=== PATIENT | female | born 1970 | race Caucasian/White ===

== ENCOUNTER 2017-07-23 19:24 | Emergency (ER) | payer BC, MEDICAID, SELFPAY ==
[2017-07-23 20:43] VITALS: BP 160/98; PULSE 101; RESP 20; TEMP 36.8; O2SAT 100; BMI 40.2
--- NOTE | 2017-07-23 21:18 | HMH.EDUTC ---
[facility] [place] Disposition Clinical Impression: Iritis of left eye Disposition: Home, Self-Care Condition on Discharge: Good Additional Instructions: * Erythromycin ointment (provided two tubes) every 1-2 hours tonight while awake and if you wake up through the night. if no better in the morning, call Dr. Kirkland. If better, wear glasses for another day or so before trying to put contacts back in again. Iritis (i-RYE-tis) is inflammation that affects the colored ring around your eye's pupil (iris). The iris is a part of the middle layer of the eye (uvea), so iritis is a type of uveitis, also known as anterior uveitis. Iritis, the most common type of uveitis, affects the front of your eye. The cause is often unknown. It can result from an underlying systemic condition or genetic factoIf untreated, iritis could lead to glaucoma or vision loss. If you have symptoms of iritis, see your doctor as soon as possible. Symptoms Iritis can occur in one or both eyes. It usually develops suddenly, and can last six to eight weeks. Signs and symptoms of iritis include: Eye redness Discomfort or achiness in the affected eye Sensitivity to light (photophobia) Decreased vision Iritis that develops suddenly, over hours or days, is known as acute iritis. Symptoms that develop gradually or last longer than six weeks indicate chronic iritis. When to see a doctor See an doll eye setter as soon as possible if you have symptoms of iritis. Prompt treatment helps prevent serious complications. If you have eye pain and vision problems with other signs and symptoms, you might need urgent medical care. Causes Often, the cause of iritis can't be determined. In some cases, iritis can be linked to eye trauma, genetic factors or certain diseases. Causes of iritis include: Injury to the eye. Blunt force trauma, a penetrating injury, or a burn from a chemical or fire can cause acute iritis. Infections. Shingles (herpes zoster) on your face can cause iritis. Other infectious diseases, such as toxoplasmosis, histoplasmosis, tuberculosis and syphilis, can be linked to other types of uveitis. Genetic predisposition. People who develop certain autoimmune diseases because of a gene alteration that affects their immune systems might also develop acute iritis. Diseases include ankylosing spondylitis, Jam's syndrome, inflammatory bowel disease and psoriatic arthritis. Behcet's disease. An uncommon cause of acute iritis in [place] countries, this condition is also characterized by joint problems, mouth sores and genital sores. Juvenile rheumatoid arthritis. Chronic iritis can develop in children with this condition. Sarcoidosis. This autoimmune disease involves the growth of collections of inflammatory cells (granulomas) in areas of your body, including your eyes. Certain medications. Some drugs, such as the antibiotic rifabutin (Mycobutin) and the antiviral medication cidofovir, that are used to treat HIV infections can be a rare cause of iritis. Stopping these medications usually stops the iritis symptoms. Risk factors Your risk of developing iritis increases if you: Have a specific genetic alteration. People with a specific change in a gene that's essential for healthy immune system function are more likely to develop iritis. This change is labeled [id number]. Develop a sexually transmitted infection. Certain infections, such as syphilis or HIV/AIDs, are linked with a significant risk of iritis. Have a weakened immune system or an autoimmune disorder. This includes conditions such as ankylosing spondylitis and reactive arthritis. Smoke tobacco. Studies have shown that smoking contributes to your risk. Complications If not treated properly, iritis could lead to: Cataracts. Development of a clouding of the lens of your eye (cataract) is a possible complication, especially if you've had a long period of inflammation. An irregular pupil. Scar tissue can cause the iris to stick to the underlying lens
--- NOTE | 2017-07-23 21:25 | ED_ITS ---
[facility] [place] Clinical Impression: Iritis of left eye Disposition: Home, Self-Care Condition on Discharge: Good Additional Instructions: * Erythromycin ointment (provided two tubes) every 1-2 hours tonight while awake and if you wake up through the night. if no better in the morning, call Dr. Kirkland. If better, wear glasses for another day or so before trying to put contacts back in again. Iritis (i-RYE-tis) is inflammation that affects the colored ring around your eye 's pupil (iris). The iris is a part of the middle layer of the eye (uvea), so iritis is a type of uveitis, also known as anterior uveitis. Iritis, the most common type of uveitis, affects the front of your eye. The cause is often unknown. It can result from an underlying systemic condition or genetic factoIf untreated, iritis could lead to glaucoma or vision loss. If you have symptoms of iritis, see your doctor as soon as possible. Symptoms Iritis can occur in one or both eyes. It usually develops suddenly, and can last six to eight weeks. Signs and symptoms of iritis include: * Eye redness * Discomfort or achiness in the affected eye * Sensitivity to light (photophobia) * Decreased vision Iritis that develops suddenly, over hours or days, is known as acute iritis. Symptoms that develop gradually or last longer than six weeks indicate chronic iritis. When to see a doctor See an verifying specialist as soon as possible if you have symptoms of iritis. Prompt treatment helps prevent serious complications. If you have eye pain and vision problems with other signs and symptoms, you might need urgent medical care. Causes Often, the cause of iritis can't be determined. In some cases, iritis can be linked to eye trauma, genetic factors or certain diseases. Causes of iritis include: * Injury to the eye. Blunt force trauma, a penetrating injury, or a burn from a chemical or fire can cause acute iritis. * Infections. Shingles (herpes zoster) on your face can cause iritis. Other infectious diseases, such as toxoplasmosis, histoplasmosis, tuberculosis and syphilis, can be linked to other types of uveitis. * Genetic predisposition. People who develop certain autoimmune diseases because of a gene alteration that affects their immune systems might also develop acute iritis. Diseases include ankylosing spondylitis, Jam's syndrome , inflammatory bowel disease and psoriatic arthritis. * Behcet's disease. An uncommon cause of acute iritis in Western countries, this condition is also characterized by joint problems, mouth sores and genital sores. * Juvenile rheumatoid arthritis. Chronic iritis can develop in children with this condition. * Sarcoidosis. This autoimmune disease involves the growth of collections of inflammatory cells (granulomas) in areas of your body, including your eyes. * Certain medications. Some drugs, such as the antibiotic rifabutin (Mycobutin) and the antiviral medication cidofovir, that are used to treat HIV infections can be a rare cause of iritis. Stopping these medications usually stops the iritis symptoms. Risk factors Your risk of developing iritis increases if you: * Have a specific genetic alteration. People with a specific change in a gene that's essential for healthy immune system function are more likely to develop iritis. This change is labeled HLA-B27. * Develop a sexually transmitted infection. Certain infections, such as syphilis or HIV/AIDs, are linked with a significant risk of iritis. * Have a weakened immune system or an autoimmune disorder. This includes conditions such as ankylosing spondylitis and reactive arthritis. * Smoke tobacco. Studies have shown that smoking contributes to your risk. Complications
== END 2017-07-23 22:08 | disposition home or self-care (01) ==
PROVIDERS: Emergency Provider Nurse Practitioner Family; PCP Nurse Practitioner Family
DX: H20.9 Unspecified iridocyclitis (principal); Z79.899 Other long term (current) drug therapy; Z88.0 Allergy status to penicillin; Z88.8 Allergy status to other drugs, medicaments and biological substances; F32.9 Major depressive disorder, single episode, unspecified; I10 Essential (primary) hypertension
CPT/HCPCS: 99201

== ENCOUNTER → 2017-12-27 16:14 | Outpatient (CLI) | payer BC, MEDICAID, SELFPAY ==
--- NOTE | 2017-12-27 16:19 | MM_ITS ---
MM Dig screening mamm BI w/CAD CAD Screening COMPARISON: Digital mammograms with CAD 02/27/2016 and additional views of each breast and 03/14/2016 INDICATION: There is no personal or family history of breast cancer TECHNIQUE: Standard CC and MLO images were obtained. R2 CAD reviewed. FINDINGS: Scattered diffuse fibroglandular densities are seen throughout both breasts. There are stable asymmetric nodular densities in each breast. There is no new or suspicious lesion in either breast and there are no suspicious microcalcifications. IMPRESSION: Fibrofatty parenchyma with no suspicious lesion seen BI-RADS Category: 2 Benign Finding(s) RECOMMENDED FOLLOW-UP: 1YR - 1 YEAR FOLLOW-UP (A letter has been sent to the patient regarding results of the study.)
== END ==
PROVIDERS: PCP Internal Medicine Adolescent Medicine; Visit Provider Nurse Practitioner Family
DX: Z12.31 Encounter for screening mammogram for malignant neoplasm of breast (principal)
CPT/HCPCS: 77067

== ENCOUNTER → 2017-12-30 07:28 | Outpatient (CLI) | payer BC, MEDICAID, SELFPAY ==
[2017-12-30 07:41] LABS: Basophils % 0.2 % (0.1-2.0); Eosinophils % 0.3 % (0.1-12.0); Hematocrit 47.5 % (37.0-47.0); Hemoglobin 14.9 g/dL (12.2-16.2); Lymphocytes # 2.2 K/mm3 (0.7-4.5); Lymphocytes % 18.6 K/mm3 (10-50); Mean Corpuscular HGB Conc 31.4 g/dL (31.8-35.4); Mean Corpuscular Hemoglobin 28.8 pg (27.0-31.2); Mean Corpuscular Volume 91.7 fl (81-99); Mean Platelet Volume 7.4 fl (7.4-10.4); Monocytes # 0.7 K/mm3 (0.1-1.0); Monocytes % 5.5 % (1.7-9.3); Neutrophils # 8.8 K/mm3 (1.8-7.8); Neutrophils % 75.4 % (37.0-80.0); Platelet Count 420 K/mm3 (142-424); Red Blood Count 5.18 M/mm3 (4.20-5.40); Red Cell Distribution Width 12.1 % (11.5-17.5); White Blood Count 11.7 K/mm3 (4.8-10.8)
[2017-12-30 09:34] LABS: Alanine Aminotransferase 22 U/L (12-78); Albumin Level 3.9 gm/dL (3.4-5.0); Alkaline Phosphatase 99 U/L (46-116); Anion Gap 5.5 mEq/L (5-15); Aspartate Amino Transferase 13 U/L (15-37); Bilirubin,Total 0.7 mg/dL (0.2-1.0); Blood Urea Nitrogen 15 mg/dL (7-18); Calcium 9.4 mg/dL (8.5-10.1); Carbon Dioxide 35 mmol/L (21.0-32.0); Chloride 102 mmol/L (98-107); Chol/HDL Ratio 2.2 (1-3.5); Cholesterol 215 mg/dL (140-200); Creatinine,Serum 0.76 mg/dL (0.55-1.02); Estimated Glomerular Filt Rate 81 ml/min (>60); GFR (African American) 98 ML/MIN (>60); Globulin 4.1 gm/dl (1.3-3.2); Glucose 96 mg/dL (74-106); HDL Cholesterol 97 mg/dL (29-89); LDL Cholesterol 106 mg/dL (0-130); Potassium 3.5 mmoL/L (3.5-5.1); Sodium 139 mmol/L (136-145); Triglycerides 59 mg/dL (30-200); VLDL Cholesterol 12 mg/dL (0-40)
[2017-12-31 09:03] LABS: Vitamin B12 263 pg/mL (232-1245)
== END ==
PROVIDERS: Visit Provider Nurse Practitioner Family
DX: K21.9 Gastro-esophageal reflux disease without esophagitis (principal); I10 Essential (primary) hypertension; E55.9 Vitamin D deficiency, unspecified; Z98.84 Bariatric surgery status
CPT/HCPCS: 36415; 80053; 80061; 82607; 82652; 85025

== ENCOUNTER → 2018-05-29 14:38 | Outpatient (CLI) | payer BC, MEDICAID, SELFPAY ==
--- NOTE | 2018-05-29 14:43 | XR_ITS ---
XR hip LT 2-3V w/pelvis HISTORY: ITS.REASON: LT HIP PAIN ORDERING PHYSICIAN: Nallely Reagan PATIENT AGE: 48 years COMPARISON: None FINDINGS: No fracture or dislocation is evident. No significant degenerative change. No lytic or blastic change. Unremarkable soft tissues Frontal view of the pelvis shows heterotopic bone formation along the right greater trochanter. There are mild facet arthritic changes at L4-L5 IMPRESSION: Negative left hip Mild facet arthritic changes L4-L5
--- NOTE | 2018-05-29 14:43 | XR_ITS ---
XR knee RT 3V HISTORY: ITS.REASON: RT ANTERIOR KNEE PAIN ORDERING PHYSICIAN: Nallely Reagan PATIENT AGE: 48 years COMPARISON: None FINDINGS: No fracture or dislocation. No lytic or blastic change. Normal mineralization. No significant arthritic changes evident. A well-circumscribed lucency is present in the proximal tibia and could be due to prior screw tract There is an old fracture of the midshaft of the femur which is incompletely visualized with callus formation and cortical thickening. IMPRESSION: 1. Negative right knee. 2. Old mid shaft femur fracture
== END ==
PROVIDERS: PCP Nurse Practitioner Family; Visit Provider Nurse Practitioner Family
DX: M25.552 Pain in left hip (principal); M25.561 Pain in right knee
CPT/HCPCS: 73502; 73562

== ENCOUNTER → 2018-07-16 14:13 | Outpatient (CLI) | payer MEDICAID, SELFPAY ==
--- NOTE | 2018-07-16 14:17 | XR_ITS ---
EXAM: XR lumbar spine 2-3V HISTORY: Low back pain ITS.REASON: Back pain ORDERING PHYSICIAN: Indiana Brady MD PATIENT AGE: 48 years COMPARISON: None FINDINGS: There is 6 mm anterolisthesis of L4 on L5. Mild degenerative disc disease is present at the level. There is 3 mm retrolisthesis of L3 on L4. No fracture or dislocation. No lytic or blastic change. IMPRESSION: Mild degenerative disc disease L3-L4 and L4-5 with anterolisthesis of L4 and mild retrolisthesis of L3
== END ==
PROVIDERS: PCP Internal Medicine Adolescent Medicine; Visit Provider Orthopaedic Surgery
DX: M54.9 Dorsalgia, unspecified (principal); M54.5 Low back pain
CPT/HCPCS: 72100

== ENCOUNTER 2018-07-16 14:30 | Outpatient (RCR) | payer MEDICAID, SELFPAY ==
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
--- NOTE | 2018-07-09 15:46 | HMH.RHREAS ---
Rehab Reassessment Rehab OP Re-assessment Start: 07/09/18 15:42 Freq: Status: Active Protocol: Document 07/09/18 15:42 KIMBER (Rec: 07/09/18 15:46 PHOSUNNY [id number]) Electronically Signed By Mane Carter, PT 07/09/18 15:42 Rehab Re-assessment Subjective Subjective Pt reports, My left hip is hurting really bad today. c/o pain 9/10. Objective Objective Notes Pt c/o pain 9/10 throughout left hip abd groin area. Right Hip ER AROM: 0-12 deg. MMT davey LE remains 5/5 throughout within available ROM. Assessment Progress Assessment Slower Than Expected Assessment Notes Pt with less right knee pain today, but significant increase in left hip pain. Goals Not Met ST,2,3,4,5 LT,2,3 ,4,5,6 Revised Goals none Plan Plan continue per initial POC. Frequency of Therapy 2x/wk Duration of therapy 8 wks. Time and Billing Re-Eval Time 15 Re-Eval Billing Units 1 PHYSICIAN CERTIFICATION: I certify the specified therapy services for Hannah Jaime are required, authorized, and reviewed every 30 days.
== END 2018-07-16 14:35 | disposition home or self-care (01) ==
LOC: PT 14:30
PROVIDERS: Visit Provider Nurse Practitioner Family
DX: M25.552 Pain in left hip (principal); M25.561 Pain in right knee
CPT/HCPCS: 97010; 97014; 97033; 97035; 97110; 97140; 97163; 97164; 97760; G0283

== ENCOUNTER → 2018-07-31 13:26 | Outpatient (CLI) | payer MEDICAID, SELFPAY ==
--- NOTE | 2018-07-31 13:36 | XR_ITS ---
XR hip LT 2-3V w/pelvis HISTORY: ITS.REASON: Lt hip pain ORDERING PHYSICIAN: Indiana Bardy MD PATIENT AGE: 48 years COMPARISON: 05/29/2018 FINDINGS: No fracture or dislocation. No lytic or blastic change. No significant degenerative change. Prominent bony hypertrophic changes noted along the right greater trochanter as before. There is an old mid shaft femoral fracture which is barely visualized IMPRESSION: Negative left hip. No change with no acute finding
== END ==
PROVIDERS: PCP Internal Medicine Adolescent Medicine; Visit Provider Orthopaedic Surgery
DX: M25.552 Pain in left hip (principal)
CPT/HCPCS: 73502

== ENCOUNTER → 2018-08-04 08:05 | Outpatient (CLI) | payer MEDICAID, SELFPAY ==
--- NOTE | 2018-08-04 08:10 | IR_ITS ---
IR fluoro guided needle place CLINICAL INDICATION: Left hip pain ITS.REASON: Lt hip injection ORDERING PHYSICIAN: Indiana Brady MD PATIENT AGE: 48 years Comparison: None Fluoroscopy time: 8 seconds FINDINGS: PROCEDURE was performed by Dr. Brday. Please see operative report for specifics. 2 images submitted with the C-arm straits contrast injection about the left hip with some intra-articular and some extra-articular contrast noted. At least one image shows a needle in place overlying the femoral neck. IMPRESSION: Status post left hip joint injection as described above
--- NOTE | 2018-08-04 22:16 | HMH.PROC ---
[facility] Procedure Note Procedure Note:: Date of Procedure: 08/04/18 Pre-procedure diagnosis: left hip pain Post-procedure diagnosis: left hip pain Procedure: intraarticular corticosteroid injection left hip Performed by: Indiana Brady MD [place] Clerk/s: none Anesthesia: local; 10cc 1% lidocaine w/o epinephrine Estimated Blood Loss: none History of Present Illness: 48yo F with L hip pain, being treated for greater trochanteric bursitis; steroid injection into the peritrochanteric region and PT have not improved her pain, and she describes it as more groin-related, present mostly with weightbearing. XR doesn't show significant degenerative changes, so I proposed an intra-articular steroid injection, which may be both diagnostic and therapeutic. After discussing the risks, which include injection site pain, bleeding, and/or infection, the patient agreed to proceed with the injection and provided informed consent. Procedure Note: The patient presented to the radiology department and changed into a gown, exposing the affected L hip. Consent was reviewed and signed by both myself and the patient, all questions were answered. The patient was placed supine on the fluoroscopy table and the L hip exposed. The anterior groin/hip and proximal thigh were prepped with chlorhexidine. Timeout was performed. Next, the fluoro machine was brought in over the patient?s L hip and a picture taken to confirm adequate visualization of the joint. I donned a pair of sterile surgical gloves; the remainder of the procedure was performed in a sterile fashion. A 20G spinal needle was held over the hip to approximate my desired entry point on the skin. Once this was established, a 25G needle was used to infiltrate injection site and estimated needle track with 10cc 1% lidocaine w/o epinephrine. Once the injection site was anesthetized, the spinal needle was advanced through the same puncture site and deeper towards the hip joint. Using fluoro, it was confirmed that the needle was advanced until it was at the level of the femoral neck. The stylus was removed from the spinal needle and 3cc of iodinated contrast solution was injected through the spinal needle. Fluoro was taken again, and the dye confirmed intra-capsular placement of the spinal needle, indicating a successful intraarticular injection. The syringe with contrast was removed, keeping the spinal needle in place, and 40mg Kenalog with 2cc 1% lidocaine w/o epinephrine was injected through the needle into the hip joint. A final fluoro picture was taken, confirming successful intraarticular injection. The spinal needle was removed from the hip and a band-aid was placed over the injection site. Specimens: none Condition/Disposition: good / home Complications: none
--- NOTE | 2018-08-04 22:20 | P.PCN_ITS ---
[facility] Procedure Note Procedure Note:: Date of Procedure: 08/04/18 Pre-procedure diagnosis: left hip pain Post-procedure diagnosis: left hip pain Procedure: intraarticular corticosteroid injection left hip Performed by: Indiana Brady MD Crocheter/s: none Anesthesia: local; 10cc 1% lidocaine w/o epinephrine Estimated Blood Loss: none History of Present Illness: 48yo F with L hip pain, being treated for greater trochanteric bursitis; steroid injection into the peritrochanteric region and PT have not improved her pain, and she describes it as more groin-related, present mostly with weightbearing. XR doesn't show significant degenerative changes, so I proposed an intra- articular steroid injection, which may be both diagnostic and therapeutic. After discussing the risks, which include injection site pain, bleeding, and/or infection, the patient agreed to proceed with the injection and provided informed consent. Procedure Note: The patient presented to the radiology department and changed into a gown, exposing the affected L hip. Consent was reviewed and signed by both myself and the patient, all questions were answered. The patient was placed supine on the fluoroscopy table and the L hip exposed. The anterior groin/hip and proximal thigh were prepped with chlorhexidine. Timeout was performed. Next, the fluoro machine was brought in over the patient?s L hip and a picture taken to confirm adequate visualization of the joint. I donned a pair of sterile surgical gloves; the remainder of the procedure was performed in a sterile fashion. A 20G spinal needle was held over the hip to approximate my desired entry point on the skin. Once this was established, a 25G needle was used to infiltrate injection site and estimated needle track with 10cc 1% lidocaine w/o epinephrine. Once the injection site was anesthetized, the spinal needle was advanced through the same puncture site and deeper towards the hip joint. Using fluoro, it was confirmed that the needle was advanced until it was at the level of the femoral neck. The stylus was removed from the spinal needle and 3cc of iodinated contrast solution was injected through the spinal needle. Fluoro was taken again, and the dye confirmed intra-capsular placement of the spinal needle, indicating a successful intraarticular injection. The syringe with contrast was removed, keeping the spinal needle in place, and 40mg Kenalog with 2cc 1% lidocaine w/o epinephrine was injected through the needle into the hip joint. A final fluoro picture was taken, confirming successful intraarticular injection. The spinal needle was removed from the hip and a band-aid was placed over the injection site. Specimens: none Condition/Disposition: good / home Complications: none
== END ==
PROVIDERS: PCP Nurse Practitioner Family; Visit Provider Orthopaedic Surgery
DX: M70.62 Trochanteric bursitis, left hip (principal); M25.552 Pain in left hip
CPT/HCPCS: 20610; 77002; Q9967

== ENCOUNTER → 2018-09-11 12:48 | Outpatient (CLI) | payer MEDICAID, SELFPAY ==
--- NOTE | 2018-09-11 12:50 | IR_ITS ---
MR hip LT w con, IR arthrogram hip LT HISTORY: Chronic left hip pain ITS.REASON: Lt hip pain ORDERING PHYSICIAN: Indiana Brady MD PATIENT AGE: 48 years COMPARISON: None. Left hip arthrogram: Following obtaining informed consent and timeout procedure under aseptic conditions and local anesthesia with 1% buffered lidocaine, a 21-gauge spinal needle was inserted along the left femoral neck at the junction of the head and the neck. A mixture of gadolinium, Optiray 320, and lidocaine was injected into the left hip capsule. Fluoroscopy confirmed intracapsular location. Approximately 12 cc of contrast mixture was injected without complication. The patient tolerated the procedure well without evidence of immediate complication. Images obtained show intra-articular and capsular contrast. Patient was then taken to the MRI suite. Multiplanar multiecho sequences are performed. FINDINGS: Although, the arthrogram images showed unequivocal intracapsular/intra-articular contrast, there is little contrast within the hip on the MRI images. Contrast may have been absorbed between the arthrogram and MRI . No evidence of avascular necrosis, fracture, or dislocation. There are mild osteoarthritic changes of the hip. No obvious labral tear. There is edema versus extravasated contrast within the inferior aspect of the iliopsoas muscle and the gluteus medius insertion upon the greater trochanter. IMPRESSION: 1. Mild osteoarthritic changes of the hip. 2. No evidence of avascular necrosis, fracture, or bone marrow edema. 3. No obvious labral tear. 4. There is increased T2 signal involving the iliopsoas at the level of the hip joint and the gluteus medius at the insertion on the greater trochanter which could be due to edema or iodinated contrast extravasation. There is poor intra-articular gadolinium signal of uncertain etiology. Findings were discussed with Dr. Brady . The exam could be repeated at no additional charge if clinically desired.
== END ==
PROVIDERS: PCP Nurse Practitioner Family; Visit Provider Orthopaedic Surgery
DX: M25.552 Pain in left hip (principal)
CPT/HCPCS: 73525; 73722; Q9967

== ENCOUNTER → 2018-11-16 08:04 | Outpatient (CLI) | payer MEDICAID, SELFPAY ==
[2018-11-16 08:36] LABS: Basophils # 0.1 K/mm3 (0-0.2); Basophils % 0.6 % (0.1-2.0); Eosinophils # 0.2 K/mm3 (0.0-0.4); Hematocrit 40.5 % (37.0-47.0); Hemoglobin 13.4 g/dL (12.2-16.2); Lymphocytes % 23.7 % (10-50); Mean Corpuscular Hemoglobin 29.9 pg (27.0-31.2); Mean Corpuscular Volume 90.4 fl (81-99); Mean Platelet Volume 7.2 fl (7.4-10.4); Monocytes # 0.4 K/mm3 (0.1-1.0); Monocytes % 4.9 % (1.7-9.3); Neutrophils # 5.8 K/mm3 (1.8-7.8); Neutrophils % 68.9 % (37.0-80.0); Platelet Count 351 K/mm3 (142-424); Red Blood Count 4.48 M/mm3 (4.20-5.40); Red Cell Distribution Width 12.7 % (11.5-17.5); White Blood Count 8.4 K/mm3 (4.8-10.8)
[2018-11-16 09:40] LABS: Alanine Aminotransferase 19 U/L (12-78); Albumin Level 3.4 gm/dL (3.4-5.0); Albumin/Globulin Ratio 0.9 (1.1-1.8); Alkaline Phosphatase 86 U/L (46-116); Anion Gap 13.1 mEq/L (5-15); Aspartate Amino Transferase 11 U/L (15-37); Bilirubin,Total 0.5 mg/dL (0.2-1.0); Blood Urea Nitrogen 10 mg/dL (7-18); Calcium 9.1 mg/dL (8.5-10.1); Carbon Dioxide 31 mmol/L (21.0-32.0); Chloride 102 mmol/L (98-107); Chol/HDL Ratio 2.4 (1-3.5); Cholesterol 197 mg/dL (140-200); Creatinine,Serum 0.77 mg/dL (0.55-1.02); Estimated Glomerular Filt Rate 80 ml/min (>60); Free T4 (Free Thyroxine) 0.98 ng/dl (0.76-1.46); GFR (African American) 96 ML/MIN (>60); Globulin 3.8 gm/dl (1.3-3.2); Glucose 89 mg/dL (74-106); HDL Cholesterol 81 mg/dL (29-89); LDL Cholesterol 104 mg/dL (0-130); Potassium 4.1 mmoL/L (3.5-5.1); Sodium 142 mmol/L (136-145); Thyroid Stimulating Hormone 0.87 uIU/ml (0.358-3.740); Total Protein,Serum 7.2 gm/dL (6.4-8.2); Triglycerides 61 mg/dL (30-200); VLDL Cholesterol 12 mg/dL (0-40)
[2018-11-17 13:00] LABS: Vitamin D 25 Hydroxy 41.1 ng/mL (30.0-100.0)
[2018-11-18 08:51] LABS: Vitamin B12 641 pg/mL (232-1245)
== END ==
PROVIDERS: PCP Nurse Practitioner Family; Visit Provider Nurse Practitioner Family
DX: I10 Essential (primary) hypertension (principal); K21.9 Gastro-esophageal reflux disease without esophagitis; R53.81 Other malaise; E55.9 Vitamin D deficiency, unspecified; Z68.38 Body mass index [BMI] 38.0-38.9, adult
CPT/HCPCS: 36415; 80053; 80061; 82607; 82652; 84439; 84443; 85025

== ENCOUNTER → 2018-12-31 08:38 | Outpatient (CLI) | payer MEDICAID, SELFPAY ==
--- NOTE | 2018-12-31 08:45 | FL_ITS ---
FL upper GI w air HISTORY: ITS.REASON: REFLUX DISEASE, ESOPHAGITIS PRESENCE ORDERING PHYSICIAN: Nallely Reagan APRN PATIENT AGE: 48 years Comparison: None FINDINGS: There is a patulous GE junction. Patient has a prior gastric sleeve surgery. No mass, ulcer, or other significant anomalies are evident. . FLUOROSCOPY TIME : 55 seconds. IMPRESSION: Prior gastric sleeve surgery with patulous GE junction otherwise negative upper GI
== END ==
PROVIDERS: PCP Nurse Practitioner Family; Visit Provider Nurse Practitioner Family
DX: K21.9 Gastro-esophageal reflux disease without esophagitis (principal)
CPT/HCPCS: 74247

== ENCOUNTER → 2019-01-08 15:42 | Outpatient (CLI) | payer MEDICAID, SELFPAY ==
--- NOTE | 2019-01-08 15:45 | MR_ITS ---
MR lumbar spine wo con, MR 3-d myelogram/MRCP HISTORY: LBP. LT hip pain. Bilateral leg pain. [id number]. No trauma. ITS.REASON: LUMBAGO WITH SCIATICA ORDERING PHYSICIAN: Nallely Reagan APRN PATIENT AGE: 48 years Comparison: X-RAY 07-16-18. MRI 05-21-2011. TECHNIQUE: Standard multiplanar multiecho sequences are performed without contrast. 3-D MIP and myelographic images are also rendered and reviewed FINDINGS: Spinal cord ends at the L1-L2 level. T11-T12: Mild degenerative disc disease. T12-L1 unremarkable. L1-L2: Unremarkable. L2-L3: Unremarkable. L3-L4: Unremarkable. L4-5: There is mild anterolisthesis of L4 on L5 of 4 mm which has developed in the interval along with facet and ligamentum flavum hypertrophy with moderate bilateral lateral recess narrowing and mild bilateral foraminal narrowing. There is transverse narrowing of the posterior canal at this region from the facet hypertrophic change. These changes have increased when compared to the previous exam. L5-S1: Mild facet arthritic change. IMPRESSION: 1. There is mild anterolisthesis of L4 on L5 of 4 mm which has developed in the interval along with facet and ligamentum flavum hypertrophy with moderate bilateral lateral recess narrowing and mild bilateral foraminal narrowing. There is transverse narrowing of the posterior canal at this region from the facet hypertrophic change. These changes have increased when compared to the previous exam. 2. No disc herniation or other significant anomalies
== END ==
PROVIDERS: PCP Nurse Practitioner Family; Visit Provider Nurse Practitioner Family
DX: M54.42 Lumbago with sciatica, left side (principal)
CPT/HCPCS: 72148; 76376

== ENCOUNTER → 2019-03-09 08:58 | Outpatient (POV) | payer MEDICAID, SELFPAY ==
[2019-03-09 09:23] VITALS: BP 145/89; PULSE 89; RESP 18; O2SAT 98; BMI 40.2
--- NOTE | 2019-03-10 08:58 | HMH.PMCON ---
Assessment and Plan (1) Degenerative disc disease Current visit: Yes Status: Chronic Qualifiers: Spinal region: lumbar Qualified Code(s): M51.36 - Other intervertebral disc degeneration, lumbar region Category: Medical (2) Radiculopathy Current visit: Yes Status: Chronic Qualifiers: Spinal region: lumbar Qualified Code(s): M54.16 - Radiculopathy, lumbar region Category: Medical Code(s): M54.10 - Radiculopathy, site unspecified - Assessment and plan all Dx Assessment and Plan for all problems:: We will schedule an L4-L5 lumbar epidural steroid injection for the patient I believe it would be beneficial given her symptomology. I will follow-up with the patient after her injection reassess her symptoms at that time. Patient's been instructed to call the office if she has any issues prior to her next appointment. Dr. Camejo has reviewed this note and agrees with this plan of care. This note was dictated using voice recognition software and may contain errors or omissions HPI - Data of Consult Consult date: 03/09/19 Requesting Physician: Love Trivedi APRN Primary Care Provider: Nallely Reagan APRN - Consult Narrative Reason for consult: Back pain, leg pain History of present illness: Ms. Jaime is a 48 year old female who presents today for consultation in regards to her low back and leg pain. Patient states that increased activity makes her pain worse while rest decreases it. She rates her pain a 7 out of 10 today. 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 Patient is tried and failed hip injections from Ortho along with healthcare science specialist, physical therapy, massage therapy she is also tried multiple medications including Elavil, diazepam Cymbalta Lexapro Prozac gabapentin hydrocodone ibuprofen naproxen Zoloft Topamax and Effexor with no relief. Patient does have an MRI showing degenerative changes. Patient is interested in injective therapy. She is not on any anticoagulation therapy. She is failed over 6 months of conservative therapy. CC: Love Trivedi APRN [facility] History I have reviewed the patient's past medical history: Yes Medical History: Reports:: Anxiety, Depression, Hypertension, Migraine Denies:: Diabetes Mellitus Type 1, Diabetes Mellitus Type 2, Lung Disease, Seizures *Have you ever received a pneumonia vaccine?: Yes *Have you received a flu vaccine this season?: Yes Other Medical History: Reports: Other. Denies: Blood Transfusion Reaction Other Surgeries: Yes: Appendectomy, Colonoscopy, EGD, Other - *Social History Smoking Status: Never smoker Alcohol Intake: never Alcohol Intake Frequency:: other Substance Use Type: denies use *Occupational Status:: other *Travel in the last 8 weeks: None - Psychiatric History Pschychiatric History:: Reports:: Anxiety, Depression Family Hx:: No significant family history Review of Systems - Review of Systems ROS General: no recent weight change, no fever, no sleep disturbances Respiratory: no cough, no shortness of air, no recurring pulmonary infections Cardiovascular/Peripheral Vascular: No chest pain, No palpitations, no edema, no shortness of breath. Gastrointestinal: no incontinence, normal bowel movements reported Genitourinary: no incontinence Musculoskeletal: Back pain, leg pain Psychiatric: normal mood/ affect Neurological: [denies weakness in extremities], [denies balance issues] Meds Home Medications Medication Instructions Recorded Confirmed Type Buspirone HCl [Buspar 10mg 10 mg PO DAILY 07/23/17 11/03/18 History tablet] Amlodipine Besylate [Amlodipine 10 mg PO DAILY 10/01/17 11/03/18 History 10mg Tab] SUMAtriptan succinate [Sumatriptan 100 mg PO DAILY 10/01/17 11/03/18 History Succinate] amitriptyline 50 mg tablet 50 mg PO DAILY 07/31/18 11/03/18 History esomeprazole magnesium 40 mg 40 mg PO DAILY 07/31/18 11/03/18 History capsule,delayed release
--- NOTE | 2019-03-10 09:01 | P.CONS_ITS ---
Assessment and Plan (1) Degenerative disc disease Current visit: Yes Status: Chronic Qualifiers: Spinal region: lumbar Qualified Code(s): M51.36 - Other intervertebral disc degeneration, lumbar region Category: Medical (2) Radiculopathy Current visit: Yes Status: Chronic Qualifiers: Spinal region: lumbar Qualified Code(s): M54.16 - Radiculopathy, lumbar region Category: Medical Code(s): M54.10 - Radiculopathy, site unspecified - Assessment and plan all Dx Assessment and Plan for all problems:: We will schedule an L4-L5 lumbar epidural steroid injection for the patient I believe it would be beneficial given her symptomology. I will follow-up with the patient after her injection reassess her symptoms at that time. Patient's been instructed to call the office if she has any issues prior to her next appointment. Dr. Camejo has reviewed this note and agrees with this plan of care. This note was dictated using voice recognition software and may contain errors or omissions HPI - Data of Consult Consult date: 03/09/19 Requesting Physician: Love Trivedi APRN Primary Care Provider: Nallely Reagan APRN - Consult Narrative Reason for consult: Back pain, leg pain History of present illness: Ms. Jaime is a 48 year old female who presents today for consultation in regards to her low back and leg pain. Patient states that increased activity makes her pain worse while rest decreases it. She rates her pain a 7 out of 10 today. 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 Patient is tried and failed hip injections from Ortho along with livestock caretaker, physical therapy, massage therapy she is also tried multiple medications including Elavil, diazepam Cymbalta Lexapro Prozac gabapentin hydrocodone ibuprofen naproxen Zoloft Topamax and Effexor with no relief. Patient does have an MRI showing degenerative changes. Patient is interested in injective therapy. She is not on any anticoagulation therapy. She is failed over 6 months of conservative therapy. CC: Love Trivedi APRN [facility] History I have reviewed the patient's past medical history: Yes Medical History: Reports:: Anxiety, Depression, Hypertension, Migraine Denies:: Diabetes Mellitus Type 1, Diabetes Mellitus Type 2, Lung Disease, Seizures *Have you ever received a pneumonia vaccine?: Yes *Have you received a flu vaccine this season?: Yes Other Medical History: Reports: Other. Denies: Blood Transfusion Reaction Other Surgeries: Yes: Appendectomy, Colonoscopy, EGD, Other - *Social History Smoking Status: Never smoker Alcohol Intake: never Alcohol Intake Frequency:: other Substance Use Type: denies use *Occupational Status:: other *Travel in the last 8 weeks: None - Psychiatric History Pschychiatric History:: Reports:: Anxiety, Depression Family Hx:: No significant family history Review of Systems - Review of Systems ROS General: no recent weight change, no fever, no sleep disturbances Respiratory: no cough, no shortness of air, no recurring pulmonary infections Cardiovascular/Peripheral Vascular: No chest pain, No palpitations, no edema, no shortness of breath. Gastrointestinal: no incontinence, normal bowel movements reported Genitourinary: no incontinence Musculoskeletal: Back pain, leg pain Psychiatric: normal mood/ affect Neurological: [denies weakness in extremities], [denies balance issues] Meds Home Medications Medication Instructions
== END ==
PROVIDERS: PCP Nurse Practitioner Family; Visit Provider Clinical Nurse Specialist Family Health
DX: M51.16 Intervertebral disc disorders with radiculopathy, lumbar region (principal)
CPT/HCPCS: 99202

== ENCOUNTER 2019-03-30 12:27 | Outpatient (CLI) | payer MEDICAID, SELFPAY ==
[2019-03-30 12:35] VITALS: BMI 42.0
[2019-03-30 12:41] VITALS: BP 166/89; PULSE 85; RESP 18; TEMP 36.6; O2SAT 98
[2019-03-30 12:52] LABS: Basophils % 0.3 % (0.1-2.0); Eosinophils # 0.1 K/mm3 (0.0-0.4); Eosinophils % 0.7 % (0.1-12.0); Hematocrit 43.3 % (37.0-47.0); Hemoglobin 13.3 g/dL (12.2-16.2); Lymphocytes # 2.7 K/mm3 (0.7-4.5); Lymphocytes % 20.8 % (10-50); Mean Corpuscular HGB Conc 30.7 g/dL (31.8-35.4); Mean Corpuscular Volume 94.3 fl (81-99); Mean Platelet Volume 7.7 fl (7.4-10.4); Monocytes # 0.6 K/mm3 (0.1-1.0); Monocytes % 4.3 % (1.7-9.3); Neutrophils # 9.4 K/mm3 (1.8-7.8); Neutrophils % 73.8 % (37.0-80.0); Platelet Count 403 K/mm3 (142-424); Red Cell Distribution Width 13.7 % (11.5-17.5); White Blood Count 12.7 K/mm3 (4.8-10.8)
[2019-03-30 13:01] LABS: Anion Gap 13.5 mEq/L (5-15); Blood Urea Nitrogen 12 mg/dL (7-18); Calcium 9.3 mg/dL (8.5-10.1); Carbon Dioxide 28 mmol/L (21.0-32.0); Chloride 102 mmol/L (98-107); Creatinine Clearance Estimated 73 mL/min (50-200); Creatinine,Serum 0.74 mg/dL (0.55-1.02); Estimated Glomerular Filt Rate 83 ml/min (>60); GFR (African American) 101 ML/MIN (>60); Glucose 93 mg/dL (74-106); Potassium 3.5 mmoL/L (3.5-5.1); Sodium 140 mmol/L (136-145)
[2019-03-30 13:40] VITALS: BP 149/82; PULSE 82; RESP 18; TEMP 36.6; O2SAT 99
[2019-03-30 14:40] VITALS: BP 156/92; PULSE 79; RESP 16; TEMP 36.6; O2SAT 99
--- NOTE | 2019-03-30 16:30 | PC.NURSE ---
1445 pt discharged home/stable. States relief of migraine headache pain with Toradol, rating pain 3 to 4 out of 10 on scale of 0-10, improved from pain level 10 on arrival. No nausea or vomiting. Pt has tolerated IVF infusion,Toradol and Phenergan well with no problems noted.
== END 2019-03-30 14:45 | disposition home or self-care (01) ==
LOC: INF 12:28
PROVIDERS: PCP Nurse Practitioner Family; Visit Provider Nurse Practitioner Family
DX: G43.111 Migraine with aura, intractable, with status migrainosus (principal)
CPT/HCPCS: 80048; 85025; 96360; 96361

== ENCOUNTER → 2019-04-16 16:16 | Outpatient (CLI) | payer OTHER, SELFPAY ==
--- NOTE | 2019-04-16 16:19 | MM_ITS ---
PROCEDURE: MM DIG SCREENING MAMM BI W/CAD CLINICAL INDICATION: SCREENING There is a history of breast cancer in the patient's paternal grandmother. COMPARISON: [facility] DIG MAMM-SCREEN RAJI from 02/27/2016 [facility] DIG MAMM- RAJI ADD VIEWS from 03/14/2016 [facility] MM Dig screening mamm BI w/CAD from 12/27/2017 TECHNIQUE: Standard CC and MLO images were obtained. R2 CAD reviewed. FINDINGS: Scattered diffuse fibroglandular densities are seen throughout both breast on a background of primarily fatty breast parenchyma. There are few benign-appearing microcalcifications in each breast. There is a benign-appearing macrocalcification seen just deep to the nipple right breast. There are stable tiny nodular densities in each breast. There is no suspicious lesion and no suspicious microcalcifications. IMPRESSION: Fibrofatty parenchyma with no suspicious lesions seen BI-RAD Category: 2 Benign Finding(s) FOLLOW-UP: 1YR 1 Year Follow-up (A letter has been sent to the patient regarding results of the study.) Dictated by: Dr. Evans Funez MD 04/17/2019 11:[address] Evans Funez MD in [place] 04/17/2019 11:00
== END ==
PROVIDERS: PCP Nurse Practitioner Family; Visit Provider Nurse Practitioner Family
DX: Z12.31 Encounter for screening mammogram for malignant neoplasm of breast (principal)
CPT/HCPCS: 77067

== ENCOUNTER → 2019-04-23 11:29 | Outpatient (POV) | payer OTHER, SELFPAY ==
[2019-04-23 12:34] VITALS: BP 144/78; PULSE 83; RESP 18; O2SAT 98; BMI 39.4
--- NOTE | 2019-04-23 12:44 | HMH.PAINSOAP ---
[facility] Pain Management SOAP Note Subjective:: Patient is a pleasant 48-year-old white female who presents today for follow-up after a lumbar epidural steroid injection. She is being treated for low back pain with lumbar radiculopathy symptoms. Patient reports that she got approximately 20% relief following her lumbar epidural steroid injection. She says that her relief lasted for about 2 days. She says her pain did return and has progressively gotten worse. Patient says that her pain is worse on her right lower back and is causing intense pain when she bends forward or when she turns to pick things up . Patient says that her pain is also worse in her right lower extremity. Patient is not on any anticoagulation therapy. She is continuing with anti-inflammatories and a home stretching program. She is also undergone physical therapy. Review of Systems General: No recent weight changes, no fever, no sleep disturbances Respiratory: No cough, no shortness of air, no recurring pulmonary infections Cardiovascular/peripheral vascular: No chest pain, no palpitations, no edema, no shortness of breath Gastrointestinal: No new onset incontinence, normal bowel movements reported Genitourinary: No new onset incontinence Musculoskeletal: Back pain, right leg pain Psychiatric: Normal mood/affect Neurological: [Denies weakness in extremities], [denies balance issues] Objective:: Physical exam General: Alert and oriented x3, no acute distress, pleasant and cooperative, [on room air] Lungs: Respirations even and unlabored, symmetrical chest expansion Eyes: PERRL Musculoskeletal: Flexion and extension of lumbar spine somewhat guarded secondary to pain, deep tendon reflexes normal, strength in upper and lower extremities [5/5], slightly antalgic gait noted Neurological: Speech clear, head machine feeder equal, no gross sensory deficit Assessment:: Degenerative disc disease lumbar spine with lumbar radiculopathy symptoms Plan:: Given the patient's imaging and symptoms. Think the patient would benefit from a medial branch block/facet joint injections at L4-L5, along with L5-S1. Patient does have pain bilaterally, however, her pain is worse on the right side at this time. We will schedule the injections bilaterally. She did not get relief with the lumbar epidural steroid injection. She will continue with anti-inflammatories and a home stretching program along with anti-inflammatories. We will see her back in the clinic following her procedure to reassess her symptoms. She has been instructed to contact the clinic if she has any concerns before her next appointment. Dr. Camejo has reviewed this note and agrees with this plan of care. This note was dictated using voice recognition software and make contain errors or omissions. [facility] History I have reviewed the patient's past medical history: Yes Medical History: Reports:: Anxiety, Depression, Hypertension, Migraine Denies:: Cancer, Diabetes Mellitus Type 1, Diabetes Mellitus Type 2, Lung Disease, MRSA, Seizures *Have you ever received a pneumonia vaccine?: Yes *Have you received a flu vaccine this season?: Yes Other Medical History: Reports: Other. Denies: Blood Transfusion Reaction Other Surgeries: Yes: Appendectomy, Colonoscopy, EGD, Other Amputation: No Fractures: No - *Social History Smoking Status: Never smoker Alcohol Intake: never Alcohol Intake Frequency:: other Substance Use Type: denies use *Occupational Status:: other Household Members: spouse, children *Travel in the last 8 weeks: None - Psychiatric History Pschychiatric History:: Reports:: Anxiety, Depression Family Hx:: No significant family history
== END ==
PROVIDERS: PCP Internal Medicine Adolescent Medicine; Visit Provider Clinical Nurse Specialist Family Health
DX: M51.16 Intervertebral disc disorders with radiculopathy, lumbar region (principal)
CPT/HCPCS: 99212

== ENCOUNTER → 2019-10-15 11:33 | Outpatient (CLI) | payer OTHER, SELFPAY ==
[2019-10-15 12:12] LABS: Basophils % 0.4 % (0.1-2.0); Eosinophils # 0.1 K/mm3 (0.0-0.4); Eosinophils % 1.2 % (0.1-12.0); Hematocrit 38.8 % (37.0-47.0); Hemoglobin 11.9 g/dL (12.2-16.2); Lymphocytes # 2.2 K/mm3 (0.7-4.5); Lymphocytes % 28.8 % (10-50); Mean Corpuscular HGB Conc 30.7 g/dL (31.8-35.4); Mean Corpuscular Hemoglobin 27.9 pg (27.0-31.2); Mean Corpuscular Volume 90.7 fl (81-99); Mean Platelet Volume 7.9 fl (7.4-10.4); Monocytes # 0.3 K/mm3 (0.1-1.0); Monocytes % 3.6 % (1.7-9.3); Platelet Count 336 K/mm3 (142-424); Red Blood Count 4.28 M/mm3 (4.20-5.40); Red Cell Distribution Width 13.5 % (11.5-17.5); White Blood Count 7.6 K/mm3 (4.8-10.8)
[2019-10-15 12:50] LABS: Alanine Aminotransferase 11 U/L (12-78); Albumin Level 3.8 g/dl (3.5-5.0); Albumin/Globulin Ratio 1.3 (1.1-1.8); Alkaline Phosphatase 78 U/L (38-126); Aspartate Amino Transferase 21 U/L (14-36); Blood Urea Nitrogen 13 mg/dl (7-17); Calcium 9.2 mg/dl (8.4-10.2); Carbon Dioxide 32 mmol/L (22.0-30.0); Chloride 103 mmol/L (98-107); Estimated Glomerular Filt Rate 66 ml/min (>60); GFR (African American) 80 ML/MIN (>60); Globulin 2.9 g/dL (1.3-3.2); Glucose 77 mg/dl (74-100); Sodium 139 mmol/L (136-145); Total Protein,Serum 6.7 g/dl (6.3-8.2)
[2019-10-15 12:52] LABS: Bilirubin,Total < 0.1 mg/dl (0.2-1.3)
[2019-10-15 13:21] LABS: Thyroid Stimulating Hormone 0.74 uIU/mL (0.465-4.68)
[2019-10-16 11:27] LABS: FSH 36.1 mIU/mL (.); LH 19.6 mIU/mL (.); Vitamin D 25 Hydroxy 30.3 ng/mL (30.0-100.0)
[2019-10-17 09:14] LABS: Estrogen 101 pg/mL (.)
== END ==
PROVIDERS: Visit Provider Nurse Practitioner Family
DX: R23.2 Flushing (principal); I10 Essential (primary) hypertension; E55.9 Vitamin D deficiency, unspecified
CPT/HCPCS: 36415; 80053; 82652; 82672; 83001; 83002; 84443; 85025

== ENCOUNTER → 2020-03-22 09:59 | Outpatient (CLI) | payer OTHER, SELFPAY ==
[2020-03-22 13:07] LABS: Coronavirus 19 IgG Antibody Negative (Negative); Coronavirus 19 IgM Antibody Negative (Negative)
== END ==
PROVIDERS: Visit Provider Surgery
DX: Z01.89 Encounter for other specified special examinations (principal)
CPT/HCPCS: 36415; 86328

== ENCOUNTER → 2020-03-23 10:40 | Outpatient (CLI) | payer OTHER, SELFPAY ==
--- NOTE | 2020-03-23 10:45 | MR_ITS ---
PROCEDURE: MR LUMBAR SPINE WO/W CON CLINICAL INDICATION: BACK PAIN, LUMBAR FACET ARTHROPATHY Prior lumbar surgery Aug 2019 pt fell 6 weeks ago and c/o lbp since fall. Prior MRI lumbar 01/08/19 TECHNIQUE: Standard multiplanar multiecho sequences are performed without and with contrast. 3-D MIP and myelographic images are also rendered and reviewed FINDINGS: There is normal alignment. The spinal cord ends at the L1-L2 level. T11-T12: Mild degenerative disc disease with minimal bulging disc. T12-L1: Unremarkable. L1-L2: Unremarkable. L2-L3: Unremarkable. L3-L4: Mild bulging disc. There is facet and ligamentum hypertrophy with bilateral lateral recess and foraminal narrowing. L4-5: Postsurgical changes with inter pedicular screws at L4 and L5 with posterior fusion. There is mild anterolisthesis of L4 of approximately 4 mm. L5-S1: Mild facet and ligamentum hypertrophy. There are postsurgical changes at the L4-5 interspace from prior posterior laminectomy and inter pedicular screw placement. Enhancing tissue is present posteriorly posterior to the thecal sac and also some in the left posterior lateral aspect of the thecal sac consistent with epidural fibrosis. No anterior enhancing tissue or perineural enhancement is evident. IMPRESSION: 1. Mild multilevel lumbar spondylosis with degenerative disc disease along with facet and ligamentum hypertrophy. Please see above for detailed description at each level. 2. No extruded herniated disc or canal stenosis evident. 3. There are postsurgical changes at the L4-5 interspace from prior posterior laminectomy and inter pedicular screw placement. Enhancing tissue is present posteriorly posterior to the thecal sac and also some in the left posterior lateral aspect of the thecal sac consistent with epidural fibrosis. No anterior enhancing tissue or perineural enhancement is evident Dictated by: Leonard Smith MD 03/25/2020 12:30 Leonard Smith MD in [place] 03/25/2020 12:30
== END ==
PROVIDERS: PCP Internal Medicine Adolescent Medicine; Visit Provider Neurological Surgery
DX: M54.5 Low back pain (principal); M47.816 Spondylosis without myelopathy or radiculopathy, lumbar region; Z98.1 Arthrodesis status
CPT/HCPCS: 72158; 76376; A9576

== ENCOUNTER 2020-03-24 09:21 | Day surgery (SDC) | payer OTHER, SELFPAY ==
[2020-03-22 10:32] VITALS: BMI 41.1
[2020-03-24 09:36] VITALS: BP 193/100; PULSE 89; RESP 18; TEMP 36.8; O2SAT 100
[2020-03-24 10:01] VITALS: O2SAT 100
[2020-03-24 10:51] VITALS: BP 101/76; PULSE 77; RESP 18; TEMP 36.1; O2SAT 94
--- NOTE | 2020-03-24 10:52 | HMH.SCOPE ---
- Procedure: Date: 03/24/20 Patient Date of :: 1970 Procedure Performed:: Esophagogastroduodenoscopy with biopsy Colonoscopy Indications:: History of colon polyps Reflux Sliding hiatal hernia History of gastric polyp Performing Provider:: Brett Radford MD Referring Provider:: . Sedation:: Monitored anesthesia care Procedure:: After informed consent was obtained the patient was taken to the endoscopy suite. Sedation ensued after the patient was transferred to the left lateral decubitus position. Pulse, blood pressure, and oxygen saturation were monitored throughout the procedure. The endoscope was advanced beyond the duodenal bulb. Retroflexion within the gastric lumen was accomplished. The gastroscope was carefully removed. Digital rectal exam revealed no significant abnormality. The colonoscope was placed in position. The entire colon was evaluated. The colonoscope was carefully removed and the patient was transferred to recovery in stable condition. Please see findings and specimens below for detail. Findings:: Gastroesophageal junction at 36 cm Sliding hiatal hernia Moderate streaking gastritis versus gastric antral vascular ectasia (GAVE) Bowel preparation fair to moderate Moderate spasticity and lack of relaxation Hemorrhoidal cushions Specimens:: Antral biopsy Recommendations:: Proton pump inhibition May require repeat EGD with argon therapy if anemia, hematemesis, or melena noted Repeat colonoscopy in around 3 years secondary to ongoing limitations in visualization (bowel preparation improved versus prior) Complications:: No immediate Estimated blood obtained (mL): 1
[2020-03-24 11:01] VITALS: BP 101/57; PULSE 76; RESP 18; TEMP 36.1; O2SAT 96
[2020-03-24 11:11] VITALS: BP 111/65; PULSE 74; RESP 18; TEMP 36.1; O2SAT 96
[2020-03-24 11:21] VITALS: BP 118/70; PULSE 73; RESP 18; TEMP 36.1; O2SAT 96
== END 2020-03-24 11:21 | disposition home or self-care (01) ==
LOC: OUTP 09:22
PROVIDERS: PCP Internal Medicine Adolescent Medicine; Visit Provider Surgery
PROC: 0DJ08ZZ Inspection of Upper Intestinal Tract, Via Natural or Artificial Opening Endoscopic (ICD-10-PCS; CPT 43235; principal; 2020-03-24 10:30)
DX: Z12.11 Encounter for screening for malignant neoplasm of colon (principal); K31.819 Angiodysplasia of stomach and duodenum without bleeding; K44.9 Diaphragmatic hernia without obstruction or gangrene; K64.9 Unspecified hemorrhoids; K56.2 Volvulus; Z86.010 Personal history of colon polyps; Z87.19 Personal history of other diseases of the digestive system; Z88.0 Allergy status to penicillin; Z88.8 Allergy status to other drugs, medicaments and biological substances; Z79.899 Other long term (current) drug therapy
CPT/HCPCS: 43239; 45378

== ENCOUNTER → 2020-05-14 07:02 | Outpatient (CLI) | payer OTHER, SELFPAY ==
[2020-05-14 07:45] LABS: Basophils % 0.5 % (0.1-2.0); Eosinophils # 0.1 K/mm3 (0.0-0.4); Eosinophils % 1.2 % (0.1-12.0); Hematocrit 42.1 % (37.0-47.0); Hemoglobin 13.3 g/dL (12.2-16.2); Lymphocytes # 1.7 K/mm3 (0.7-4.5); Lymphocytes % 25.9 % (10-50); Mean Corpuscular HGB Conc 31.6 g/dL (31.8-35.4); Mean Corpuscular Hemoglobin 29.5 pg (27.0-31.2); Mean Corpuscular Volume 93.3 fl (81-99); Mean Platelet Volume 7.9 fl (7.4-10.4); Monocytes # 0.3 K/mm3 (0.1-1.0); Monocytes % 4.7 % (1.7-9.3); Neutrophils # 4.4 K/mm3 (1.8-7.8); Neutrophils % 67.6 % (37.0-80.0); Platelet Count 338 K/mm3 (142-424); Red Blood Count 4.51 M/mm3 (4.20-5.40); Red Cell Distribution Width 13.6 % (11.5-17.5); White Blood Count 6.5 K/mm3 (4.8-10.8)
[2020-05-14 11:35] LABS: Alanine Aminotransferase 13 U/L (12-78); Albumin Level 3.8 g/dl (3.5-5.0); Albumin/Globulin Ratio 1.3 (1.1-1.8); Alkaline Phosphatase 91 U/L (38-126); Anion Gap 7.6 mEq/L (5-15); Aspartate Amino Transferase 23 U/L (14-36); Bilirubin,Total 0.4 mg/dl (0.2-1.3); Blood Urea Nitrogen 12 mg/dl (7-17); Calcium 9.3 mg/dl (8.4-10.2); Carbon Dioxide 33 mmol/L (22.0-30.0); Chloride 104 mmol/L (98-107); Chol/HDL Ratio 2.2 (1-3.5); Cholesterol 218 mg/dl (140-200); Estimated Glomerular Filt Rate 88 ml/min (>60); GFR (African American) 107 ML/MIN (>60); Glucose 85 mg/dl (74-100); HDL Cholesterol 98 mg/dl (40-60); Potassium 4.6 mmoL/L (3.5-5.1); Sodium 140 mmol/L (136-145); Total Protein,Serum 6.8 g/dl (6.3-8.2); Triglycerides 100 mg/dl (30-150); VLDL Cholesterol 20 mg/dL (0-40)
[2020-05-14 11:46] LABS: Direct LDL Cholesterol 110.86 mg/dL (100-129)
[2020-05-14 12:06] LABS: Thyroid Stimulating Hormone 1.18 uIU/mL (0.465-4.68)
[2020-05-14 12:24] LABS: Vitamin B12 236 pg/mL (239-931)
== END ==
PROVIDERS: Visit Provider Nurse Practitioner Family
DX: I10 Essential (primary) hypertension (principal); R53.81 Other malaise
CPT/HCPCS: 36415; 80053; 80061; 82607; 84443; 85025

== ENCOUNTER 2020-06-23 10:00 | Outpatient (RCR) | payer OTHER, SELFPAY | END 2020-06-23 10:05 | disposition home or self-care (01) | LOC: PT 10:00 | PROVIDERS: PCP Internal Medicine Adolescent Medicine; Visit Provider Neurological Surgery | DX: M54.9 Dorsalgia, unspecified; Z98.1 Arthrodesis status | CPT/HCPCS: 97010; 97014; 97110; 97163; 97164; G0283 ==

== ENCOUNTER → 2020-07-11 08:25 | Outpatient (CLI) | payer OTHER, SELFPAY ==
--- NOTE | 2020-07-11 08:31 | XR_ITS ---
PROCEDURE: XR WRIST RT MIN 3V CLINICAL INDICATION: BL wrist/hand pain COMPARISON: No exams were available for comparison FINDINGS: No fracture or dislocation. No lytic or blastic change. There is normal mineralization. The joint spaces are well-preserved. No significant degenerative/arthritic changes. No erosive changes evident. Other findings:None. IMPRESSION: No acute findings. Dictated by: Leonard Smith MD 07/11/2020 14:57 Leonard Smith MD in [place] 07/11/2020 14:57
--- NOTE | 2020-07-11 08:31 | XR_ITS ---
PROCEDURE: XR WRIST LT MIN 3V CLINICAL INDICATION: BL wrist/hand pain COMPARISON: No exams were available for comparison FINDINGS: No fracture or dislocation. No lytic or blastic change. There is normal mineralization. The joint spaces are well-preserved. No significant degenerative/arthritic changes. No erosive changes evident. Other findings:None. IMPRESSION: No acute findings. Dictated by: Leonard Smith MD 07/11/2020 14:58 Leonard Smith MD in [place] 07/11/2020 14:58
== END ==
PROVIDERS: PCP Internal Medicine Adolescent Medicine; Visit Provider Orthopaedic Surgery
DX: G56.03 Carpal tunnel syndrome, bilateral upper limbs (principal)
CPT/HCPCS: 73110

== ENCOUNTER → 2020-08-16 10:57 | Outpatient (CLI) | payer OTHER, SELFPAY ==
[2020-08-16 11:12] LABS: Basophils # 0.1 K/mm3 (0-0.2); Basophils % 0.6 % (0.1-2.0); Eosinophils # 0.1 K/mm3 (0.0-0.4); Hematocrit 42.5 % (37.0-47.0); Hemoglobin 13.1 g/dL (12.2-16.2); Lymphocytes # 2.6 K/mm3 (0.7-4.5); Lymphocytes % 33.4 % (10-50); Mean Corpuscular HGB Conc 30.9 g/dL (31.8-35.4); Mean Corpuscular Hemoglobin 29.2 pg (27.0-31.2); Mean Corpuscular Volume 94.5 fl (81-99); Mean Platelet Volume 7.9 fl (7.4-10.4); Monocytes # 0.3 K/mm3 (0.1-1.0); Monocytes % 3.9 % (1.7-9.3); Neutrophils # 4.8 K/mm3 (1.8-7.8); Neutrophils % 61.1 % (37.0-80.0); Platelet Count 382 K/mm3 (142-424); Red Cell Distribution Width 13.2 % (11.5-17.5); White Blood Count 7.9 K/mm3 (4.8-10.8)
[2020-08-16 12:16] LABS: Chloride 103 mmol/L (98-107); Sodium 140 mmol/L (136-145)
[2020-08-16 12:17] LABS: Potassium 4.1 mmoL/L (3.5-5.1)
[2020-08-16 12:19] LABS: Alanine Aminotransferase 19 U/L (12-78); Albumin Level 4.4 g/dl (3.5-5.0); Albumin/Globulin Ratio 1.2 (1.1-1.8); Alkaline Phosphatase 89 U/L (38-126); Anion Gap 9.1 mEq/L (5-15); Aspartate Amino Transferase 26 U/L (14-36); Bilirubin,Total 0.4 mg/dl (0.2-1.3); Blood Urea Nitrogen 12 mg/dl (7-17); Calcium 10.2 mg/dl (8.4-10.2); Carbon Dioxide 32 mmol/L (22.0-30.0); Estimated Glomerular Filt Rate 88 ml/min (>60); GFR (African American) 107 ML/MIN (>60); Globulin 3.7 g/dL (1.3-3.2); Glucose 94 mg/dl (74-100); Total Protein,Serum 8.1 g/dl (6.3-8.2)
[2020-08-16 12:40] LABS: Coronavirus 19 IgG Antibody Negative (Negative); Coronavirus 19 IgM Antibody Negative (Negative)
== END ==
PROVIDERS: Visit Provider Orthopaedic Surgery
DX: Z01.818 Encounter for other preprocedural examination (principal); Z20.822 Contact with and (suspected) exposure to COVID-19; M54.10 Radiculopathy, site unspecified; G56.01 Carpal tunnel syndrome, right upper limb
CPT/HCPCS: 36415; 80053; 85025; 86328

== ENCOUNTER 2020-08-18 06:09 | Day surgery (SDC) | payer OTHER, SELFPAY ==
[2020-08-16 09:24] VITALS: BMI 44.6
[2020-08-18] VITALS (12 sets, daily range): BP systolic 142–179; BP diastolic 66–98; PULSE 77–92; RESP 15–18; TEMP 36.2–43; O2SAT 92–100
--- NOTE | 2020-08-18 07:22 | HMH.ANESCL ---
[facility] Anesthesia Checklist - Structural Data Admitted From: Home Planned Operative Procedure/s: r carpal tunnel release Consent for Planned Operative Procedure(s) Verified: Yes - Additional verifications Anesthesia Reactions: No Hx Blood Transfusions: Yes Blood Transfusion Reaction: No - Airway Assessment C-Spine Mobility Assessed: Yes TMJ Mobility Assessed: Yes Dentition: Good Dentition - Neurological Assessment Level of Consciousness: Awake, Alert, Appropriate - Anesthesia Plan Anesthesia Risk discussed: Yes Anesthesia Plan: Verified ASA Class: II Anesthesia Type: General [facility] History I have reviewed the patient's past medical history: Yes Medical History: Reports:: Anxiety, Depression, Hyperlipidemia, Hypertension, Migraine Denies:: Cancer, Diabetes Mellitus Type 1, Diabetes Mellitus Type 2, Internal Pacemaker, Lung Disease, MRSA, Seizures *Have you ever received a pneumonia vaccine?: No *Have you received a flu vaccine this season?: Yes Other Medical History: Reports: Thyroid Disease, Other. Denies: Blood Transfusion Reaction Anesthesia experience/problems:: none Laterality Cases: Bilateral: Arthroscopy Knee Other Surgeries: Yes: Appendectomy, Bariatric Surgery, Cholecystectomy, Colonoscopy, , EGD, Hysterectomy-Total, Hysterectomy-Partial, Tubal Ligation, Other. No: Pacemaker Amputation: No Fractures: Yes - *Social History Last grade of school completed: High school graduate Smoking Status: Never smoker Alcohol Intake: never Alcohol Intake Frequency:: other Substance Use Type: denies use *Occupational Status:: employed Housing: house Household Members: spouse, family, children *Travel in the last 8 weeks: None - Psychiatric History Pschychiatric History:: Reports:: Anxiety, Depression Family Hx:: No significant family history
--- NOTE | 2020-08-18 09:03 | P.PN_ITS ---
[facility] Anesthesia Record Part I Intake, IV Amount: 600 Estimated blood loss (mL): 5 Urine output (mL): 0 Blood Pressure: 150/97 SaO2: 92 Pulse Rate: 87 Respiratory Rate: 16 Temperature: 98.1 F Patient is:: Drowsy, Stable Stable to PACU at:: 09:00
--- NOTE | 2020-08-18 09:17 | HMH.OPNOTE ---
Date of procedure: 08/18/20 Pre-op Diagnosis:: 1) R carpal tunnel syndrome 2) R wrist mass Post-op Diagnosis:: 1) R carpal tunnel syndrome 2) R wrist ganglion cyst Procedure performed:: 1) R carpal tunnel release 2) excision of ganglion cyst R wrist Surgeon:: Indiana Brady MD Barrel Lathe Operator Outside(s):: YONI Quiroz [employer] SET UP OPERATOR:: Giovanni Feerob Anesthesia: GETA, local Estimated blood loss (mL): 10 Clinical Note:: 49-year-old [id number] female with pain, numbness and tingling in bilateral hands, present for about 8 years. She says she has been diagnosed with carpal tunnel on previous EMG?NCS, but is not sure what year this was performed. Both hands are equal in severity. She describes symptoms as confined to the first 3 digits of each hand, with frequent dropping of objects. Pain is increased while driving or lifting pots and pans or children. Pain is rated 6 out of 10 at rest, increasing to a 10 out of 10 at worst. She has had cervical spine surgery in the past but denies any current pain, numbness or tingling radiating down either arm proximal to the wrist. She has tried wearing braces at night with no help; symptoms increase at night and frequently wake her from sleep. She denies a history of diabetes or other endocrine disorders. Medical history significant for hypertension and migraines. She does not work outside the home. She is a non-smoker, BMI 42.9. EMG?NCS bilateral upper extremities performed at [facility] on 08/02/2020 shows median nerve entrapment at the wrist bilaterally, consistent with carpal tunnel syndrome; electrophysiologically mild. Additionally, she notes the appearance of a small mass in the right forearm, which is causing her some pain. I discussed treatment options with the patient, including both operative and nonoperative therapies. Symptomatically R wrist > L, with tender mass on R wrist; the patient would like to proceed with surgery on the right. Treatment thus far including gabapentin and brace wear has not helped her symptoms but she would like to proceed with surgery. I discussed the risks of surgery with the patient, including but not limited to: bleeding, infection, neurovascular damage, wound dehiscence, persistence of symptoms despite surgery, recurrence of CTS and need for revision surgery in the future. The patient vocalized understanding; informed consent obtained. Operative findings:: median nerve compression at the R wrist, ganglion cyst radial/volar wrist Operative note:: The patient was identified in preoperative holding and the R wrist/hand signed by myself. I reviewed the consent with the patient, answering all questions. She was then seen by anesthesia and the decision made to perform the surgery under general anesthesia with LMA, with local anesthetic infiltration at the end of the case. The patient was then taken to the OR and placed supine on the operative table with a hand table attached under the right upper extremity. 900mg clindamycin was infused and general anesthesia induced with an LMA. Non-sterile tourniquet was placed on the upper R arm and the arm prepped and draped in the usual sterile fashion. Timeout was performed, identifying the correct patient, correct procedure, and correct site. The procedure was begun by marking anatomic landmarks and planned surgical incisions. The distal flexion crease of the wrist was identified, and longitudinal line drawn from this point distally, extending in line with the radial border of the ring finger and ending at its intersection with Ramirez's cardinal line. The incision was approximately 3cm in length. Next, the volar/radial wrist mass was palpated and a small incision drawn longitudinally over the mass, around 1.5cm in length. The right arm was then exsanguinated with as Esmarch and the tourniquet inflated to 250mmHg. The carpal tunnel release was performed first. An incision was made over the pre-drawn incision using a 15 blade. A
--- NOTE | 2020-08-19 07:53 | HMH.ANESII ---
[facility] Anesthesia Record Part II Discharge Time: 09:47 Destination: Surgical Day Care (OP Surgery) PACU nurse assessment reviewed?: Yes Patient Condition:: Good Anesthesia Complications:: None Swallowing reflex intact?: Yes Cyanosis?: No Blood Pressure: 163/66 Pulse Rate: 78 Temperature: 98.1 F Mental Status: Alert & Oriented Pain level:: 5 Nausea and/or vomitting:: None Intake, IV Amount: 0
[2020-08-19 07:54] VITALS: BP 163/66; PULSE 78; TEMP 36.7
== END 2020-08-18 10:20 | disposition home or self-care (01) ==
PROVIDERS: PCP Nurse Practitioner Family; Visit Provider Orthopaedic Surgery
PROC: (CPT 64721; principal; 2020-08-18 07:30)
DX: G56.01 Carpal tunnel syndrome, right upper limb (principal); M67.431 Ganglion, right wrist; Z79.899 Other long term (current) drug therapy
CPT/HCPCS: 64721; 25111; 96374; J2405

== ENCOUNTER → 2020-09-08 11:16 | Outpatient (CLI) | payer OTHER, SELFPAY ==
[2020-09-08 13:00] LABS: Vitamin B12 425 pg/mL (239-931)
== END ==
PROVIDERS: Visit Provider Nurse Practitioner Family
DX: E53.8 Deficiency of other specified B group vitamins (principal)
CPT/HCPCS: 36415; 82607

== ENCOUNTER → 2021-01-14 07:04 | Outpatient (CLI) | payer OTHER, SELFPAY ==
[2021-01-14 07:42] LABS: Basophils % 0.5 % (0.1-2.0); Eosinophils # 0.1 K/mm3 (0.0-0.4); Eosinophils % 1.5 % (0.1-12.0); Hematocrit 39.1 % (37.0-47.0); Hemoglobin 12.7 g/dL (12.2-16.2); Lymphocytes # 1.9 K/mm3 (0.7-4.5); Lymphocytes % 24.1 % (10-50); Mean Corpuscular HGB Conc 32.5 g/dL (31.8-35.4); Mean Corpuscular Hemoglobin 29.3 pg (27.0-31.2); Mean Corpuscular Volume 89.9 fl (81-99); Mean Platelet Volume 8.2 fl (7.4-10.4); Monocytes # 0.3 K/mm3 (0.1-1.0); Monocytes % 3.7 % (1.7-9.3); Neutrophils # 5.5 K/mm3 (1.8-7.8); Neutrophils % 70.2 % (37.0-80.0); Platelet Count 346 K/mm3 (142-424); Red Blood Count 4.35 M/mm3 (4.20-5.40); Red Cell Distribution Width 13.4 % (11.5-17.5); White Blood Count 7.9 K/mm3 (4.8-10.8)
[2021-01-14 09:05] LABS: Alanine Aminotransferase 17 U/L (12-78); Albumin Level 3.9 g/dl (3.5-5.0); Albumin/Globulin Ratio 1.4 (1.1-1.8); Alkaline Phosphatase 68 U/L (38-126); Anion Gap 11.4 mEq/L (5-15); Aspartate Amino Transferase 25 U/L (14-36); Bilirubin,Total 0.5 mg/dl (0.2-1.3); Blood Urea Nitrogen 13 mg/dl (7-17); Calcium 9.2 mg/dl (8.4-10.2); Carbon Dioxide 32 mmol/L (22.0-30.0); Chloride 104 mmol/L (98-107); Estimated Glomerular Filt Rate 76 ml/min (>60); GFR (African American) 92 ML/MIN (>60); Globulin 2.7 g/dL (1.3-3.2); Glucose 84 mg/dl (74-100); Potassium 4.4 mmoL/L (3.5-5.1); Sodium 143 mmol/L (136-145); Total Protein,Serum 6.6 g/dl (6.3-8.2)
[2021-01-14 09:51] LABS: Vitamin B12 494 pg/mL (239-931)
== END ==
PROVIDERS: Visit Provider Nurse Practitioner Family
DX: I10 Essential (primary) hypertension (principal); E53.8 Deficiency of other specified B group vitamins
CPT/HCPCS: 36415; 80053; 82607; 85025

== ENCOUNTER → 2021-03-17 09:27 | Outpatient (CLI) | payer BC, OTHER, SELFPAY ==
[2021-03-17 10:14] LABS: Basophils % 0.3 % (0.1-2.0); Eosinophils # 0.1 K/mm3 (0.0-0.4); Eosinophils % 1.3 % (0.1-12.0); Hematocrit 40.5 % (37.0-47.0); Hemoglobin 12.6 g/dL (12.2-16.2); Lymphocytes # 1.8 K/mm3 (0.7-4.5); Lymphocytes % 20.9 % (10-50); Mean Corpuscular HGB Conc 31.1 g/dL (31.8-35.4); Mean Corpuscular Hemoglobin 30.4 pg (27.0-31.2); Mean Corpuscular Volume 97.7 fl (81-99); Mean Platelet Volume 7.7 fl (7.4-10.4); Monocytes # 0.3 K/mm3 (0.1-1.0); Monocytes % 3.5 % (1.7-9.3); Neutrophils # 6.5 K/mm3 (1.8-7.8); Platelet Count 390 K/mm3 (142-424); Red Blood Count 4.14 M/mm3 (4.20-5.40); Red Cell Distribution Width 13.1 % (11.5-17.5); White Blood Count 8.8 K/mm3 (4.8-10.8)
[2021-03-17 11:09] LABS: Anion Gap 11.2 mEq/L (5-15); Blood Urea Nitrogen 11 mg/dl (7-17); Calcium 9.2 mg/dl (8.4-10.2); Carbon Dioxide 31 mmol/L (22.0-30.0); Chloride 102 mmol/L (98-107); Estimated Glomerular Filt Rate 105 ml/min (>60); GFR (African American) 128 ML/MIN (>60); Glucose 136 mg/dl (74-100); Potassium 4.2 mmoL/L (3.5-5.1); Sodium 140 mmol/L (136-145)
== END ==
PROVIDERS: Visit Provider Internal Medicine Adolescent Medicine
DX: N23 Unspecified renal colic (principal); R35.0 Frequency of micturition
CPT/HCPCS: 36415; 80048; 85025; 87086

== ENCOUNTER → 2021-04-03 13:57 | Outpatient (CLI) | payer BC, OTHER, SELFPAY ==
--- NOTE | 2021-04-03 14:01 | CT_ITS ---
PROCEDURE: CT ABDOMEN PELVIS WO CON CLINICAL INDICATION: RENAL COLIC ON RT SIDE COMPARISON: CT ABDPELW/O CT ABD PELVIS W/O CONTRAST from 03/25/2015 TECHNIQUE: Axial images obtained with sagittal and coronal reformats. All CT scans at the facility use one or more dose reduction, viz: automated exposure control, ma/kV adjustment per patient size (including targeted exams where dose is matched to indication, i.e. head), or iterative reconstruction technique. FINDINGS: LOWER THORAX: No acute finding ABDOMEN & PELVIS: The liver, spleen, adrenal and adrenal glands have an unremarkable appearance. The pancreatic body and head appears somewhat hypodense but had a similar appearance on the previous exam. No pancreatic mass apparent. No renal or ureteral calculi. No intestinal obstruction or free air. There is a mild amount of retained colonic feces. There has been prior gastric sleeve surgery.. No evidence of appendicitis. There is diverticulosis of the sigmoid colon but no evidence of diverticulitis. There has been a prior hysterectomy. Postsurgical changes are present from prior posterior fusion at L4-5. May triangular-shaped area of calcification is present along the right greater trochanter superiorly possibly related to an area of heterotopic ossification. IMPRESSION: 1. No change with no acute finding. 2. Colonic diverticulosis. No evidence of diverticulitis. 3. No renal or ureteral calculi. No hydronephrosis 4. Other nonacute findings as described above. Dictated by: Leonard Smith MD 04/04/2021 13:14 Leonard Smith MD in [facility] 04/04/2021 13:14
== END ==
PROVIDERS: PCP Nurse Practitioner Family; Visit Provider Internal Medicine Adolescent Medicine
DX: N23 Unspecified renal colic (principal)
CPT/HCPCS: 74176

== ENCOUNTER 2021-06-07 08:30 | Outpatient (RCR) | payer BC, OTHER, SELFPAY ==
--- NOTE | 2021-05-23 10:35 | HMH.PTOPEV ---
PT Outpatient Evaluation Rehab PT Outpatient Evaluation Start: 05/23/21 09:06 Freq: Status: Active Protocol: Document 05/23/21 09:07 JENI (Rec: 05/23/21 10:02 JENI [id number]) Electronically Signed By Horacio Singh, PT 05/23/21 09:07 Outpatient Therapy Subjective History Subjective History Pt reports h/o chronic LBP since falling in January 2020. Pt reports successful L4-5 lumbar fusion sx. in Aug, 'then I fell, and it's been hurting ever since'. Pt reports R>L sided LBP with radicular s/s into bilateral hips, and recent imaging studies reveal 'no issues'. 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 Chief Complaint Pain,Stiff,Paresthesia Symptom Type Ache,Sharp,Dull,Numbness, Tingling Symptoms Relieved By Rest/Positioning,Prescription Meds Symptoms Aggravated By Sitting,Standing,Bending/ Stooping,Physical Activity, Walking Prior Functional Limitations Lifting,Housework,Driving, Standing,Sitting,Walking Current Functional Limitations Lifting,Housework,Driving, Standing,Sitting,Walking Symptom Description Constant and Continuous Level of pain today (0-10) 8 Pain scale - at its best (0-10) 8 Pain scale - at its worst (0-10) 10 Lumbopelvic Eval Posture Thoracic Spine Posture Standing Position Neutral Lumbar Spine Posture Standing Position Neutral Assistive device Assistive Devices None / NA Gait Observation General Gait Pattern Observation Antalgic Gait Palapation tenderness right lumbar spinal tenderness Yes: 2/4 paraspinal tenderness Yes: 3/4 buttock tenderness Yes: 3/4 Lumbar/Sacral Palpation Findings Tenderness,Trigger Point, Muscle Guarding Accessory Movement L-spine Vertebrae Accessory Movements Central P/A [place] that Elicit Symptoms L3 right L4 right L5 right Range of Motion Lumbar Spine Active Flexion Range of 0-80 Motion (degrees) Lumbar Spine Active Extension Range of 0-25 Motion (degrees) Left Lumbar Spine Lateral Flexion Active 0-20 Range of Motion (degrees) Right Lumbar Spine Lateral Flexion 0-25 Active R
== END 2021-06-07 08:35 | disposition home or self-care (01) ==
LOC: PT 08:30
PROVIDERS: PCP Nurse Practitioner Family; Visit Provider Nurse Practitioner Family
DX: M54.41 Lumbago with sciatica, right side (principal)
CPT/HCPCS: 97010; 97014; 97035; 97110; 97163; G0283

== ENCOUNTER → 2021-09-07 10:06 | Outpatient (CLI) | payer BC, OTHER, SELFPAY ==
--- NOTE | 2021-09-07 10:06 | MR_ITS ---
FINAL REPORT CLINICAL HISTORY: wrist pain. CARPAL TUNNEL SURGERY X1YR AGO. WRIST PAIN AND HAND NUMBNESS. FINDINGS: Multiplanar MR imaging of the right wrist was performed without contrast. Motion artifact is seen on many sequences. There are mild degenerative changes. A subchondral cyst seen in the proximal medial lunate. There are several other cysts within the carpal bones. The bony structures are intact without evidence of fracture, bone bruise or marrow edema. There is no evidence of intrinsic ligament injury. The triangular fibrocartilage is intact. The flexor and extensor tendons are intact. There is a ganglion cyst at the volar radial aspect of the wrist measuring 11 mm in transverse dimension consistent with ganglion cyst. No focal abnormality is identified of the median nerve. IMPRESSION: Ganglion cyst at the volar radial aspect of the wrist measuring 11 mm. Mild degenerative changes with subchondral cyst in the proximal medial lunate and cysts within the carpal bones. Reviewed, Interpreted and Dictated by Tom Li III, MD Transcribed by Haily Rudolph Authenticated by Tom Li III, MD on 09/07/2021 12:31:38 PM [facility]
== END ==
PROVIDERS: PCP Nurse Practitioner Family; Visit Provider Orthopaedic Surgery
DX: M25.531 Pain in right wrist (principal)
CPT/HCPCS: 73221

== ENCOUNTER → 2021-11-20 08:16 | Outpatient (POV) | payer BC, OTHER, SELFPAY ==
[2021-11-20 08:42] VITALS: BP 158/91; PULSE 80; RESP 18; TEMP 36.7; O2SAT 100; BMI 41.8
--- NOTE | 2021-11-20 09:01 | HMH.PMCON ---
Assessment and Plan (1) Degenerative disc disease, lumbar Status: Acute Category: Medical Code(s): M51.36 - Other intervertebral disc degeneration, lumbar region (2) History of lumbar fusion Status: Acute Category: Surgical Code(s): Z98.1 - Arthrodesis status (3) Sacroiliitis Status: Acute Category: Medical Code(s): M46.1 - Sacroiliitis, not elsewhere classified (4) Radiculopathy Status: Chronic Qualifiers: Spinal region: lumbar Qualified Code(s): M54.16 - Radiculopathy, lumbar region Category: Medical Code(s): M54.10 - Radiculopathy, site unspecified - Assessment and plan all Dx Assessment and Plan for all problems:: IMAGING: Lumbar MRI 03/2020 CLINICAL INDICATION: BACK PAIN, LUMBAR FACET ARTHROPATHY Prior lumbar surgery Aug 2019 pt fell 6 weeks ago and c/o lbp since fall. Prior MRI lumbar 01/08/19 TECHNIQUE: Standard multiplanar multiecho sequences are performed without and with contrast. 3-D MIP and myelographic images are also rendered and reviewed FINDINGS: There is normal alignment. The spinal cord ends at the L1-L2 level. T11-T12: Mild degenerative disc disease with minimal bulging disc. T12-L1: Unremarkable. L1-L2: Unremarkable. L2-L3: Unremarkable. L3-L4: Mild bulging disc. There is facet and ligamentum hypertrophy with bilateral lateral recess and foraminal narrowing. L4-5: Postsurgical changes with inter pedicular screws at L4 and L5 with posterior fusion. There is mild anterolisthesis of L4 of approximately 4 mm. L5-S1: Mild facet and ligamentum hypertrophy. There are postsurgical changes at the L4-5 interspace from prior posterior laminectomy and inter pedicular screw placement. Enhancing tissue is present posteriorly posterior to the thecal sac and also some in the left posterior lateral aspect of the thecal sac consistent with epidural fibrosis. No anterior enhancing tissue or perineural enhancement is evident. IMPRESSION: 1. Mild multilevel lumbar spondylosis with degenerative disc disease along with facet and ligamentum hypertrophy. Please see above for detailed description at each level. 2. No extruded herniated disc or canal stenosis evident. 3. There are postsurgical changes at the L4-5 interspace from prior posterior laminectomy and inter pedicular screw placement. Enhancing tissue is present posteriorly posterior to the thecal sac and also some in the left posterior lateral aspect of the thecal sac consistent with epidural fibrosis. No anterior enhancing tissue or perineural enhancement is evident Dictated by: Leonard Smith MD 03/25/2020 12:30 Leonard Smith MD in [facility] 03/25/2020 12:30 PLAN: Patient has been having worsening right upper buttock pain that has been going on for a couple months now. She has done physical therapy and chiropractic adjustments with minimal relief of symptoms. She has tried and failed conservative therapies such as oral medications and home exercises. SI exam is positive on the right side. We will schedule this patient for a right-sided SI injection. Risk and benefits have been discussed with the patient. Patient would like to proceed with the procedure. Patient does have a surgical history of lumbar fusion in 2019. If the patient does not get relief from the SI injection, we will consider scheduling the patient for a lumbar epidural steroid injection. Patient has been instructed to contact the clinic with any concerns before the next appointment. Dr. Camejo has reviewed this note and agrees with this plan of care. This note was dictated using voice recognition software and make contain errors or omissions. HPI - Data of Consult Patient: new to practice Consult date: 11/20/21 Requesting Physician: ROEJLIO King - Consult Narrative Reason for consult: Back pain History of present illness: Ms. Jaime is a 51 year old female who presents here as a new patient. Patient is referred by
== END ==
PROVIDERS: Visit Provider Student in an Organized Health Care Education/Training Program
DX: M51.16 Intervertebral disc disorders with radiculopathy, lumbar region (principal); M46.1 Sacroiliitis, not elsewhere classified; Z98.1 Arthrodesis status
CPT/HCPCS: 99202; G0463

== ENCOUNTER 2021-11-24 10:32 | Day surgery (SDC) | payer BC, OTHER, SELFPAY ==
[2021-11-24 10:43] VITALS: BP 142/78; PULSE 85; RESP 18; TEMP 36.4; O2SAT 100; BMI 41.8
[2021-11-24 10:59] VITALS: BP 144/81; PULSE 85; RESP 18; O2SAT 98
[2021-11-24 11:00] VITALS: BP 147/95; PULSE 89; RESP 18; O2SAT 99
--- NOTE | 2021-11-24 11:06 | HMH.PMPROC ---
- Procedure Date: 11/24/21 Time: 11:07 Anesthesiologist:: Yousuf Camejo MD Complications:: None Pre-procedure Diagnosis:: Sacroiliitis Post-procedure Diagnosis:: Same Indications for Procedure:: Patient is a pleasant 51-year-old white female who we are treating for postlaminectomy syndrome lumbar spine with lumbar radiculopathy symptoms. She has increasing pain over the right buttock area. She has been evaluated by neurosurgery her hardware is in place. It was felt that most of her pain is coming from her right SI joint. She is tender over the right SI joint. She has a positive July's test on the right side. She has positive [place]'s test on the right side. She has positive SI joint compression test on the right side. We will do right SI joint injection under fluoroscopy today to help her with her pain symptoms. Procedure Details:: Right SI joint injection under fluoroscopy Informed consent was obtained and the risks and benefits of the procedure was going to the patient. Patient was taken to the procedure room. Patient was placed prone on the procedure table. The right hip was prepped using ChloraPrep. The skin and subcutaneous tissues were anesthetized using lidocaine. I placed a 22-gauge spinal needle into the inferior aspect of the right SI joint. Needle placement was confirmed with dye. After this we injected 5 mL bupivacaine 0.25% and Depo-Medrol 40 mg into the right SI joint. The patient tolerated the procedure well with no complication. Plan and Disposition:: We will follow-up with her in 2 weeks. Will reevaluate symptoms at that time.
[2021-11-24 11:12] VITALS: BP 154/91; PULSE 76; RESP 20
== END 2021-11-24 11:13 | disposition home or self-care (01) ==
LOC: SC.PAINP 10:33
PROVIDERS: PCP Nurse Practitioner Family; Visit Provider Anesthesiology
DX: M46.1 Sacroiliitis, not elsewhere classified (principal); F41.9 Anxiety disorder, unspecified; F32.A Depression, unspecified; E78.5 Hyperlipidemia, unspecified; I10 Essential (primary) hypertension; G43.909 Migraine, unspecified, not intractable, without status migrainosus; E03.9 Hypothyroidism, unspecified; Z88.0 Allergy status to penicillin; Z88.8 Allergy status to other drugs, medicaments and biological substances; Z79.890 Hormone replacement therapy; Z79.899 Other long term (current) drug therapy
CPT/HCPCS: 27096; G0260; J1040; Q9966

== ENCOUNTER → 2021-12-11 12:44 | Outpatient (POV) | payer BC, OTHER, SELFPAY ==
[2021-12-11 13:34] VITALS: BP 151/99; PULSE 111; RESP 20; TEMP 36.6; O2SAT 92; BMI 41.7
--- NOTE | 2021-12-11 14:06 | HMH.PAINSOAP ---
[facility] Pain Management SOAP Note Subjective:: Patient is a pleasant 51 yo female who presents today for follow up after a right SI injection. Patient is current being treated for degenerative disc disease of lumbar spine, postlaminectomy syndrome, sacroiliitis, lumbar radiculopathy. After the procedure, patient had minimal relief. She is still complaining of significant pain around her right upper buttock. This is worse with any lumbar flexion, extension, and rotation. She does have a history of lumbar fusion in 2019. She saw Dr. Kaye last year who evaluated her hardware. Dr. Kaye says that there is nothing wrong with her hardware. She rates her pain today as 8 out of 10. She states that this pain has been getting worse in the last year. Denies any precipitating factors. She does have a lumbar MRI from 2019. Pt may need an updated MRI. She takes Gabapentin 300mg TID that is prescribed by Dr. Ventura. Shar [id number], MEQ 0. Review of Systems: General: No recent weight changes, no fever, no sleep disturbances Respiratory: No cough, no shortness of air, no recurring pulmonary infections Cardiovascular/peripheral vascular: No chest pain, no palpitations, no edema, no shortness of breath Gastrointestinal: No new onset incontinence, normal bowel movements reported Genitourinary: No new onset incontinence Musculoskeletal: Right-sided low back pain Psychiatric: [Normal mood/affect] Neurological: [Denies weakness in extremities], [denies balance issues] Objective:: Physical Exam: General: Alert and oriented x3, no acute distress, pleasant and cooperative Lungs: Respirations even and unlabored, symmetrical chest expansion Eyes: PERRL Musculoskeletal: Flexion and extension of lumbar [spine] somewhat guarded secondary to pain, [antalgic gait noted]; patient is tender to palpation around the right lumbar paraspinous muscles. Neurological: Speech clear, no gross sensory deficit Assessment:: Degenerative disc disease of lumbar spine, lumbar radiculopathy, postlaminectomy syndrome Plan:: Patient had minimal relief after the right SI injection. Patient continues to have tenderness around the right-sided lumbar paraspinous and right upper buttock pain. Since the patient is still having significant pain, we will get an updated lumbar MRI. Patient was told that she cannot take any NSAIDs. She takes tylenol and gabapentin now for pain but they are only providing minimal relief. I will start the pt on tramadol 50mg BID #20tabs for breakthrough pain. I will also refer the patient for physical therapy for dry needling around the lumbar paraspinous muscles. We will reevaluate the patient's LBP once we get her lumbar MRI. Patient has been instructed to contact the clinic with any concerns before the next appointment. Dr. Camejo has reviewed this note and agrees with this plan of care. This note was dictated using voice recognition software and make contain errors or omissions. [facility] History Medical History: Reports:: Anxiety, Depression, Hyperlipidemia, Hypertension, Migraine Denies:: Cancer, Diabetes Mellitus Type 1, Diabetes Mellitus Type 2, Internal Pacemaker, Lung Disease, MRSA, Seizures *Have you ever received a pneumonia vaccine?: Yes *Have you received a flu vaccine this season?: Yes Other Medical History: Reports: Arthritis, Hypothyroidism, Thyroid Disease, Other. Denies: Blood Transfusion Reaction Laterality Cases: Right: Carpal Tunnel Release, Other, Bilateral: Arthroscopy Knee Other Surgeries: Yes: No Previous Surgery, Appendectomy, Bariatric Surgery, Cholecystectomy, Colonoscopy, , EGD, Hysterectomy-Total, Hysterectomy-Partial, Tubal Ligation, Other. No: Pacemaker Amputation: No Fractures: Yes - *Social History Smoking Status: Never smoker Alcohol Intake: never Alcohol Intake Frequency:: other Substance Use Type: denies use *Occupational Status:: other Housing: house Household Members: spouse, family *Travel in the last 8 weeks:
== END ==
PROVIDERS: Visit Provider Student in an Organized Health Care Education/Training Program
DX: M51.16 Intervertebral disc disorders with radiculopathy, lumbar region (principal); M46.1 Sacroiliitis, not elsewhere classified; M96.1 Postlaminectomy syndrome, not elsewhere classified
CPT/HCPCS: 99212; G0463

== ENCOUNTER → 2021-12-25 10:14 | Outpatient (CLI) | payer BC, OTHER, SELFPAY ==
--- NOTE | 2021-12-25 10:18 | MR_ITS ---
FINAL REPORT CLINICAL HISTORY: BACK PAIN. HISTORY LUMBAR SURGERY AUG 2019. RIGHT SIDED LOW BACK PAIN [id number]. NO INJURY OR TRAUMA. COMPARISON: March 23, 2020 FINDINGS: Multiplanar MR imaging of the lumbar spine was performed without contrast. On the sagittal T2-weighted images, disc degeneration is seen at multiple levels. There is mild retrolisthesis of L3 on L4. There has been fusion of L4 and L5. There is no evidence of fracture. No bony mass is identified. The conus has an unremarkable appearance. No significant canal stenosis is identified. T11-12: There is an annular bulge present with vertebral osteophytes. T12-L1: There is no significant canal stenosis or neural foraminal narrowing. L1-2: There is an annular disc bulge with facet arthropathy. There is no significant canal stenosis or neural foraminal narrowing. L2-3: There is an annular disc bulge with facet arthropathy. There is no significant canal stenosis or neural foraminal narrowing. L3-4: There is an annular disc bulge with facet arthropathy and vertebral osteophytes. There is moderate bilateral neural foraminal narrowing. L4-5: There has been fusion at this level. There is mild right neural foraminal narrowing. L5-S1: There is an annular disc bulge with facet arthropathy. There is mild left neural foraminal narrowing. IMPRESSION: Multilevel degenerative disc disease with areas of neural foraminal narrowing as described, and is worse at L3-L4. Bulges and vertebral osteophytes at multiple levels, and is worst at L3-L4. Fusion L4-L5. Reviewed, Interpreted and Dictated by Tom Li III, MD Transcribed by Sima Payan Authenticated and [facility]
== END ==
PROVIDERS: PCP Nurse Practitioner Family; Visit Provider Student in an Organized Health Care Education/Training Program
DX: M54.50 Low back pain, unspecified (principal)
CPT/HCPCS: 72148; 76376

== ENCOUNTER → 2022-01-02 13:12 | Outpatient (POV) | payer BC, OTHER, SELFPAY ==
[2022-01-02 13:30] VITALS: BP 150/90; PULSE 105; RESP 18; TEMP 36.5; O2SAT 97; BMI 42.0
--- NOTE | 2022-01-02 13:53 | HMH.PAINSOAP ---
[facility] Pain Management SOAP Note Subjective:: Patient is a pleasant 52-year-old female who presents today for follow-up. Patient is currently being treated for degenerative disc disease of lumbar spine, postlaminectomy syndrome, sacroiliitis, lumbar radiculopathy. We have been managing this patient with injective therapy. She previously had a right SI injection that provided some relief. When I last saw this patient, she was complaining of worsening LBP that radiates mainly to her RLE. She is currently taking gabapentin 300mg TID that is prescribed by Dr. Ventura that is providing minimal relief. I started her on Tramadol 50mg BID that seems to be working well. Denies any side effects from this medication. We will cont this medication. She was told not to take any NSAIDs. She is also here for MRI follow up. Since she was complaining of worsening LBP, I ordered an updated MRI. I discussed his MRI in detail with the patient. Per the MRI, there is an annular bulge with facet arthropathy and vertebral osteophytes at L3-L4 that is causing moderate bilateral neural foraminal narrowing. There is multilevel degenerative disc disease. There is a fusion at L4-L5. She rates her pain today as 7 out of 10. Review of Systems: General: No recent weight changes, no fever, no sleep disturbances Respiratory: No cough, no shortness of air, no recurring pulmonary infections Cardiovascular/peripheral vascular: No chest pain, no palpitations, no edema, no shortness of breath Gastrointestinal: No new onset incontinence, normal bowel movements reported Genitourinary: No new onset incontinence Musculoskeletal: Low back pain Psychiatric: [Normal mood/affect] Neurological: [Denies weakness in extremities], [denies balance issues] Objective:: Physical Exam: General: Alert and oriented x3, no acute distress, pleasant and cooperative Lungs: Respirations even and unlabored, symmetrical chest expansion Eyes: PERRL Musculoskeletal: Flexion and extension of lumbar [spine] somewhat guarded secondary to pain, [antalgic gait noted]; right SI is negative for ALPHONSO, [place]'s, [place]'s, [place]'s, compression, and distraction. Neurological: Speech clear, no gross sensory deficit Assessment:: Degenerative disc disease of the lumbar spine with lumbar radiculopathy symptoms, sacroiliitis, postlaminectomy syndrome Plan:: Imaging: Ordering Physician: Adan Fierro of Service: 12/25/21 Procedure(s): MR lumbar spine wo con Accession Number(s): [id number] cc: Nallely Reagan APRN; Tom Li MD~ FINAL REPORT CLINICAL HISTORY: BACK PAIN. HISTORY LUMBAR SURGERY AUG 2019. RIGHT SIDED LOW BACK PAIN [id number]. NO INJURY OR TRAUMA. COMPARISON: March 23, 2020 FINDINGS: Multiplanar MR imaging of the lumbar spine was performed without contrast. On the sagittal T2-weighted images, disc degeneration is seen at multiple levels. There is mild retrolisthesis of L3 on L4. There has been fusion of L4 and L5. There is no evidence of fracture. No bony mass is identified. The conus has an unremarkable appearance. No significant canal stenosis is identified. T11-12: There is an annular bulge present with vertebral osteophytes. T12-L1: There is no significant canal stenosis or neural foraminal narrowing. L1-2: There is an annular disc bulge with facet arthropathy. There is no significant canal stenosis or neural foraminal narrowing. L2-3: There is an annular disc bulge with facet arthropathy. There is no significant canal stenosis or neural foraminal narrowing. L3-4: There is an annular disc bulge with facet arthropathy and vertebral osteophytes. There is moderate bilateral neural foraminal narrowing. L4-5: There has been fusion at this level. There is mild right neural foraminal narrowing. L5-S1: There is an annular disc bulge with facet arthropathy. There is mild left neural foraminal narrowing. IMPRESSION: Multilevel degenerative disc disease with areas
== END ==
PROVIDERS: Visit Provider Student in an Organized Health Care Education/Training Program
DX: M51.16 Intervertebral disc disorders with radiculopathy, lumbar region (principal); M46.1 Sacroiliitis, not elsewhere classified; M96.1 Postlaminectomy syndrome, not elsewhere classified
CPT/HCPCS: 99212; G0463

== ENCOUNTER 2022-01-09 11:23 | Day surgery (SDC) | payer BC, OTHER, SELFPAY ==
[2022-01-09 11:36] VITALS: BP 160/98; PULSE 88; RESP 18; TEMP 36.6; O2SAT 98; BMI 43.9
[2022-01-09 11:53] VITALS: BP 132/78; PULSE 74; RESP 18; O2SAT 98
[2022-01-09 12:00] VITALS: BP 128/90; PULSE 80; RESP 20; O2SAT 96
--- NOTE | 2022-01-09 12:01 | P.PCN_ITS ---
- Procedure Date: 01/09/22 Time: 12:01 Anesthesiologist:: Kenan Jaquez CRNA Complications:: None Pre-procedure Diagnosis:: Degenerative disc disease lumbar spine multilevels. Lumbar radiculopathy symptoms. Postlaminectomy syndrome. Post-procedure Diagnosis:: Same Indications for Procedure:: This patient is a pleasant 52-year-old female who comes our clinic today for lumbar epidural steroid injection at the L5-S1 level. Patient states her low back pain is 7/10. Patient complains pain increases when walking for any length of time. Sitting for any length of time. Standing for any length of time. She has had these injections in the past with significant improvement. Procedure Details:: Procedure: Lumbar epidural steroid injection under fluoroscopy Informed consent was obtained and the risks and benefits of the procedure were explained to the patient. The patient was taken to the procedure room and noninvasive monitors placed, including noninvasive blood pressure cuff and pulse oximeter. The back was viewed using C-arm Fluoroscopy and prepped using Betadine as a cleansing solution and the L5-S1 interspace was palpated. Skin and subcutaneous tissues were anesthetized using lidocaine 1.5% and a 25-gauge needle. After this, an 18-gauge Touhy epidural needle was placed into the L5-S1 interspace and advanced using fluoroscopic guidance and loss of resistance to air until the epidural space was encountered. After confirmation of needle placement in the epidural space, with dye, a solution containing lidocaine 1.5%, 4 mL and Depo-Medrol 80 mg were incrementally injected into the lumbar epidural space. The patient tolerated the procedure well with no complications. The patient was observed in the Pain Clinic and then discharged home n eurologically intact. Plan and Disposition:: Patient was discharged without incident.
== END 2022-01-09 12:00 | disposition home or self-care (01) ==
LOC: SC.PAINP 11:24
PROVIDERS: PCP Nurse Practitioner Family; Visit Provider Nurse Anesthetist, Certified Registered
DX: M51.16 Intervertebral disc disorders with radiculopathy, lumbar region (principal); M96.1 Postlaminectomy syndrome, not elsewhere classified
CPT/HCPCS: 62323; 76000; J1040

== ENCOUNTER 2022-01-10 08:00 | Outpatient (RCR) | payer BC, OTHER, SELFPAY ==
--- NOTE | 2021-12-22 10:33 | HMH.PTOPEV ---
PT Outpatient Evaluation Rehab PT Outpatient Evaluation Start: 12/22/21 09:55 Freq: Status: Active Protocol: Document 12/22/21 10:18 JAMAL (Rec: 12/22/21 10:32 JAMAL [id number]) Electronically Signed By Ramiro Blount, PT 12/22/21 10:18 Outpatient Therapy Subjective History Subjective History Patient is a 51 year old female presenting to outpatient PT with reports of chronic LBP starting approx 1 year ago of insidious onset. No reports of radicular symptoms. No recent imaging to report. She has previously been seen by chiro with minimal relief noted. She was referred by pain manangement specifically to focus on dry needling. Comorbidities include hx of HTN, spinal stenosis, DDD, L 4/5 fusion, C4/5 fusion and hx of multiple knee surgeries. Chief Complaint Pain,Spasms,Stiff Symptom Type Ache,Dull,Shooting Symptoms Relieved By Rest/Positioning,Heat,Ice, Prescription Meds Symptoms Aggravated By Standing,Bending/Stooping, Physical Activity,Walking, Lifting Prior Functional Limitations None Current Functional Limitations Lifting,Housework,Standing, Walking,Bending/Stooping Symptom Description Constant but Variable Level of pain today (0-10) 7 Pain scale - at its best (0-10) 5 Pain scale - at its worst (0-10) 9 Lumbopelvic Eval Posture Thoracic Spine Posture Standing Position Increased Kyphosis Lumbar Spine Posture Standing Position Increased Lordosis Assistive device Assistive Devices None / NA Palapation tenderness bilateral lumbar spinal tenderness Yes: L4-S1 3/4 paraspinal tenderness Yes: Accessory Movement L4 bilateral L5 bilateral S1 bilateral Range of Motion Lumbar Spine Active Flexion Range of 74 Motion (degrees) Lumbar Spine Active Extension Range of 22 Motion (degrees) Left Lumbar Spine Lateral Flexion Active 26 Range of Motion (degrees) Right Lumbar Spine Lateral Flexion 22 Active Range of Motion (degrees) Lumbar Spine ROM Limitations Soft Tissue Tightness,Bony Restriction Manual Muscle Test Bilateral Knee Extension Strength Gra
== END 2022-01-10 08:05 | disposition home or self-care (01) ==
LOC: PT 08:00
PROVIDERS: PCP Nurse Practitioner Family; Visit Provider Student in an Organized Health Care Education/Training Program
DX: M54.50 Low back pain, unspecified (principal)
CPT/HCPCS: 97010; 97014; 97110; 97163; G0283

== ENCOUNTER → 2022-02-28 08:04 | Outpatient (CLI) | payer BC, OTHER, SELFPAY ==
[2022-02-28 08:37] LABS: Basophils # 0.1 K/mm3 (0-0.2); Basophils % 0.7 % (0.1-2.0); Eosinophils # 0.1 K/mm3 (0.0-0.4); Eosinophils % 1.3 % (0.1-12.0); Hematocrit 41.1 % (37.0-47.0); Hemoglobin 12.4 g/dL (12.2-16.2); Lymphocytes # 1.9 K/mm3 (0.7-4.5); Lymphocytes % 26.5 % (10-50); Mean Corpuscular HGB Conc 30.1 g/dL (31.8-35.4); Mean Corpuscular Hemoglobin 29.6 pg (27.0-31.2); Mean Corpuscular Volume 98.5 fl (81-99); Mean Platelet Volume 8.7 fl (7.4-10.4); Monocytes # 0.3 K/mm3 (0.1-1.0); Monocytes % 4.4 % (1.7-9.3); Neutrophils # 4.9 K/mm3 (1.8-7.8); Platelet Count 356 K/mm3 (142-424); Red Blood Count 4.18 M/mm3 (4.20-5.40); Red Cell Distribution Width 13.1 % (11.5-17.5); White Blood Count 7.3 K/mm3 (4.8-10.8)
[2022-02-28 08:53] LABS: Activated Partial Thrombo Time 27.9 seconds (22.8-30.6); INR 0.92 (0.9-1.1); Prothrombin Time 10.5 seconds (10.1-12.5)
[2022-02-28 09:05] LABS: Chloride 101 mmol/L (98-107); Sodium 139 mmol/L (136-145)
[2022-02-28 09:06] LABS: Potassium 3.8 mmoL/L (3.5-5.1)
[2022-02-28 09:08] LABS: Alanine Aminotransferase 25 U/L (12-78); Albumin Level 4.1 g/dl (3.5-5.0); Albumin/Globulin Ratio 1.5 (1.1-1.8); Alkaline Phosphatase 88 U/L (38-126); Anion Gap 9.8 mEq/L (5-15); Aspartate Amino Transferase 33 U/L (14-36); Blood Urea Nitrogen 14 mg/dl (7-17); Carbon Dioxide 32 mmol/L (22.0-30.0); Estimated Glomerular Filt Rate 75 ml/min (>60); GFR (African American) 91 ML/MIN (>60); Globulin 2.8 g/dL (1.3-3.2); Total Protein,Serum 6.9 g/dl (6.3-8.2)
[2022-02-28 09:09] LABS: Calcium 9.8 mg/dl (8.4-10.2); Glucose 94 mg/dl (74-100)
[2022-02-28 09:12] LABS: Bilirubin,Total < 0.1 mg/dl (0.2-1.3)
== END ==
PROVIDERS: PCP Nurse Practitioner Family; Visit Provider Nurse Practitioner Family
DX: D69.2 Other nonthrombocytopenic purpura (principal)
CPT/HCPCS: 36415; 80053; 85025; 85610; 85730

== ENCOUNTER → 2022-06-15 13:21 | Outpatient (CLI) | payer BC, OTHER, SELFPAY | PROVIDERS: PCP Nurse Practitioner Family; Visit Provider Neurological Surgery | DX: Z01.818 Encounter for other preprocedural examination (principal) | CPT/HCPCS: C9803; U0003; U0005 ==

== ENCOUNTER → 2022-11-09 08:00 | Outpatient (CLI) | payer BC, OTHER, SELFPAY ==
--- NOTE | 2022-11-09 08:06 | MM_ITS ---
PROCEDURE INFORMATION: Exam: MG Bilateral Screening 3D Mammography Exam date and time: 11/09/2022 8:03 AM Age: 52 years old Clinical indication: Screening examination TECHNIQUE: Imaging protocol: Bilateral Screening tomosynthesis and 2D mammography including computer-aided detection (CAD) when performed. COMPARISON: 1. MG MM DIG SCREENING MAMM BI W/CAD 04/16/2019 4:29 PM 2. MG SCBI MM Dig screening mamm BI w/CAD 12/27/2017 4:24 PM FINDINGS: MAMMOGRAPHY: Breast composition: There are scattered areas of fibroglandular density. Mass: None. Architectural distortion: None. Calcifications: No suspicious calcifications. Asymmetric density: None. Skin thickening: None. Axillary adenopathy: None. IMPRESSION: No mammographic evidence of malignancy. Annual screening is recommended unless otherwise clinically indicated. ASSESSMENT: BI-RADS Category 1: Negative
== END ==
PROVIDERS: PCP Nurse Practitioner Family; Visit Provider Nurse Practitioner Family
DX: Z12.31 Encounter for screening mammogram for malignant neoplasm of breast (principal)
CPT/HCPCS: 77063; 77067

== ENCOUNTER 2023-03-12 08:00 | Outpatient (RCR) | payer BC, OTHER, SELFPAY | END 2023-03-12 08:05 | disposition home or self-care (01) | LOC: PT 08:00 | PROVIDERS: PCP Physician Assistant | DX: M54.50 Low back pain, unspecified (principal); Z98.1 Arthrodesis status | CPT/HCPCS: 97010; 97014; 97035; 97110; 97163; G0283 ==

== ENCOUNTER 2023-09-05 11:11 | Outpatient (CLI) | payer BC, OTHER, SELFPAY | END 2023-09-05 23:59 | LOC: LAB 11:12 | PROVIDERS: PCP Internal Medicine Adolescent Medicine; Visit Provider Nurse Practitioner Family | DX: R50.9 Fever, unspecified (principal); J02.9 Acute pharyngitis, unspecified | CPT/HCPCS: 87070 ==

== ENCOUNTER 2023-09-06 10:40 | Outpatient (CLI) | payer BC, OTHER, SELFPAY ==
--- NOTE | 2023-09-06 10:44 | US_ITS ---
PROCEDURE: US TRANSVAGINAL CLINICAL INDICATION: PELVIC PAIN COMPARISON: No exams were available for comparison FINDINGS: Transvaginal sonographic images of the pelvis were obtained. UTERUS: Surgically absent The vaginal vault is intact. LEFT OVARY: 1.0cmx1.7 cmx1.9cm with a volume of 1.6ml. There are multiple small calcifications within the left ovary. There is a follicle in the left ovary measuring 0.64 cm x 0.61 cm x 0.65 cm. Adjacent to the left ovary is a hyperechoic area with vascular flow measuring 0.33 cm x 0.31 cm x 0.4 cm. RIGHT OVARY: Not visualized, surgically absent. Doppler flow to the left ovary is seen. There is no fluid in the cul-de-sac. IMPRESSION: 1. The uterus is surgically absent. The vaginal vault is intact. 2. The right ovary is surgically absent. 3. The left ovary is normal in shape and size and within the left ovary is a 0.65 cm follicle. Adjacent to the left ovary is a calcified area with vascular flow measuring 0.4 cm. 4. No fluid in the cul-de-sac. Dictated by: Ricky Davis MD 09/06/2023 12:06 Ricky Davis MD in [place] 09/06/2023 12:06
== END 2023-09-06 23:59 ==
LOC: RAD 10:40
PROVIDERS: PCP Nurse Practitioner Family; Visit Provider Nurse Practitioner Family
DX: R10.2 Pelvic and perineal pain (principal)
CPT/HCPCS: 76830

== ENCOUNTER 2023-10-07 11:48 | Outpatient (CLI) | payer BC, OTHER, SELFPAY ==
--- NOTE | 2023-10-07 11:54 | XR_ITS ---
FINAL REPORT CLINICAL HISTORY: PAIN IN RT KNEE twisted last week COMPARISON: None FINDINGS: Three views of the right knee reveal no evidence of fracture or dislocation. The bony alignment is normal. Mild degenerative change is present. There is a chronic fracture deformity of the femoral diaphysis. There is no evidence of joint effusion. No localized soft tissue abnormality is identified. IMPRESSION: No acute abnormality identified. Reviewed, Interpreted and Dictated by Tom Li III, MD Transcribed by Elda Henriquez Authenticated and [facility]
== END 2023-10-07 23:59 ==
LOC: RAD 11:48
PROVIDERS: PCP Nurse Practitioner Family; Visit Provider Nurse Practitioner Family
DX: M25.561 Pain in right knee (principal)
CPT/HCPCS: 73562

== ENCOUNTER 2023-11-01 17:09 | Outpatient (CLI) | payer BC, OTHER, SELFPAY ==
--- NOTE | 2023-11-01 17:09 | MR_ITS ---
FINAL REPORT CLINICAL HISTORY: Rt Knee Pain. medial sided knee pain. twisted knee 1 month ago COMPARISON: None FINDINGS: Multiplanar MR imaging of the right knee was performed without contrast. There is a tear at the junction of the posterior horn and posterior root of the medial meniscus. There is also a tear of the posterior horn of the lateral meniscus. The anterior and posterior cruciate ligaments are intact. There is a sprain of the medial collateral ligament. The lateral ligamentous complex is unremarkable. The patellar and quadriceps tendons are intact. There is a nondisplaced fracture of the medial tibial plateau with adjacent bone bruising/bone marrow edema. Severe patellar chondromalacia is present. A moderate joint effusion is seen. The musculature is intact. No soft tissue mass or cyst is identified. IMPRESSION: Tears of the posterior horn and the posterior root of the medial meniscus as well as the posterior horn of the lateral meniscus. Nondisplaced fracture medial tibial plateau with adjacent bone bruising/bone marrow edema. Severe patellar chondromalacia. Reviewed, Interpreted and Dictated by Tom Li III, MD Transcribed by Elda Henriquez Authenticated and [facility]
== END 2023-11-01 23:59 | disposition home or self-care (01) ==
LOC: RAD 17:09
PROVIDERS: PCP Nurse Practitioner Family; Visit Provider Orthopaedic Surgery
DX: M25.561 Pain in right knee (principal); M23.91 Unspecified internal derangement of right knee
CPT/HCPCS: 73721

== ENCOUNTER 2023-11-29 09:39 | Outpatient (CLI) | payer BC, OTHER, SELFPAY ==
--- NOTE | 2023-11-29 09:40 | ECG_ITS ---
APPROVED REPORT Exam: Resting ECG HR:77 bpm ECG Measurements Heart Rate 77 AXES MA 168 P 50 QRSd 101 QRS 56 QT 379 T 22 QTc 411 Conclusion SINUS RHYTHM LOW QRS VOLTAGE IN PRECORDIAL LEADS [QRS DEFLECTION < 1.0 mV IN CHEST LEADS] Late R wave progression BORDERLINE ECG UNCONFIRMED REPORT Electronically signed by : Jared Ventura MD 11/30/2023 08:36:29
[2023-11-29 10:05] LABS: Basophils # 0.1 K/mm3 (0-0.2); Basophils % 0.7 % (0.1-2.0); Eosinophils # 0.1 K/mm3 (0.0-0.4); Eosinophils % 1.3 % (0.1-12.0); Hematocrit 42.2 % (37.0-47.0); Hemoglobin 13.2 g/dL (12.2-16.2); Lymphocytes # 2.3 K/mm3 (0.7-4.5); Lymphocytes % 31.8 % (10-50); Mean Corpuscular HGB Conc 31.3 g/dL (31.8-35.4); Mean Corpuscular Hemoglobin 29.1 pg (27.0-31.2); Mean Corpuscular Volume 93.1 fl (81-99); Mean Platelet Volume 8.7 fl (7.4-10.4); Monocytes # 0.3 K/mm3 (0.1-1.0); Monocytes % 4.3 % (1.7-9.3); Neutrophils # 4.5 K/mm3 (1.8-7.8); Neutrophils % 61.9 % (37.0-80.0); Platelet Count 363 K/mm3 (142-424); Red Blood Count 4.53 M/mm3 (4.20-5.40); White Blood Count 7.3 K/mm3 (4.8-10.8)
[2023-11-29 10:32] LABS: Alanine Aminotransferase 20 U/L (12-78); Albumin Level 4.2 g/dl (3.5-5.0); Albumin/Globulin Ratio 1.2 (1.1-1.8); Alkaline Phosphatase 86 U/L (38-126); Anion Gap 13.1 mEq/L (5-15); Aspartate Amino Transferase 30 U/L (14-36); Bilirubin,Total 0.5 mg/dl (0.2-1.3); Blood Urea Nitrogen 10 mg/dl (7-17); Calcium 9.8 mg/dl (8.4-10.2); Carbon Dioxide 31 mmol/L (22.0-30.0); Chloride 100 mmol/L (98-107); Estimated Glomerular Filt Rate 87 ml/min (>60); GFR (African American) 106 ML/MIN (>60); Globulin 3.5 g/dL (1.3-3.2); Glucose 91 mg/dl (74-100); Potassium 4.1 mmoL/L (3.5-5.1); Sodium 140 mmol/L (136-145); Total Protein,Serum 7.7 g/dl (6.3-8.2)
[2023-11-29 10:32] LABS: Cholesterol 215 mg/dl (140-200); Triglycerides 143 mg/dl (30-150); VLDL Cholesterol 29 mg/dL (0-40)
[2023-11-29 10:42] LABS: Direct LDL Cholesterol 99.36 mg/dL (100-129)
[2023-11-29 10:44] LABS: Chol/HDL Ratio 2.2 (1-3.5); HDL Cholesterol 100 mg/dl (40-60)
[2023-11-29 10:49] LABS: Hemoglobin A1C 5.4 % (4.0-6.0)
== END 2023-11-29 23:59 | disposition home or self-care (01) ==
LOC: LAB 09:40
PROVIDERS: PCP Nurse Practitioner Family; Visit Provider Orthopaedic Surgery
DX: Z01.818 Encounter for other preprocedural examination (principal); Z79.899 Other long term (current) drug therapy
CPT/HCPCS: 36415; 80053; 80061; 83036; 85025; 93005

== ENCOUNTER 2023-12-11 06:03 | Day surgery (SDC) | payer BC, OTHER, SELFPAY ==
[2023-12-09 09:46] VITALS: BMI 43.7
[2023-12-11] VITALS (13 sets, daily range): BP systolic 134–200; BP diastolic 80–128; PULSE 79–96; RESP 14–18; TEMP -17.6–37.4; O2SAT 91–100
[2023-12-11] MEDS: LACTATED RINGERS 1000ML 1,000 ML 100 ML IV (06:37)
--- NOTE | 2023-12-11 07:00 | EXP.ANES.CKL ---
[facility] Disclaimer: The information contained in this section may have been updated after the patient was seen, as this information can be updated by other users. 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 Anesthesia Checklist Patient Identification Patient Identification: Arm Band and Family Structural Data Admitted From: Home Planned Operative Procedure/s: Right Knee ATS with partial medial and lateral meniscectomies Consent for Planned Operative Procedure(s) Verified: Yes Verified Documents: Surgical Consent and History and Physical NPO Status Verified Time NPO: 00:00 Additional verifications Patient : No Anesthesia Reactions: No Hx Blood Transfusions: Yes Blood Transfusion Reaction: No Cephalosporin Allergy: No Previous Colonoscopy: Yes Airway Assessment Mallampati Score:: Class I C-Spine Mobility Assessed: Yes TMJ Mobility Assessed: Yes Dentition: Good Dentition Neurological Assessment Level of Consciousness: Awake, Alert, Appropriate and Follows Commands Hx Seizures: No Numbness or tingling in extremities: No Anesthesia Plan Anesthesia Risk discussed: Yes ASA Class: II Anesthesia Type: General Preoperative Comments Pre-Operative Comments: History of hypertension.
[2023-12-11] MEDS: CLINDAMYCIN PHOSPHATE/D5W 900 MG/50 ML PIGGYBACK 100 MG IV (08:05)
[2023-12-11] MEDS: BUPIVACAINE 0.25% 30ML VIAL 75 MG (08:32)
--- NOTE | 2023-12-11 08:35 | EXP.OP.NOTE ---
Date of procedure: 12/11/23 Pre-op Diagnosis:: Right knee medial lateral meniscus tear Post-op Diagnosis:: Right knee complex tear posterior horn medial meniscus Right knee complex tear posterior horn body lateral meniscus Right knee large medial engaging plica with kissing lesion on the medial femoral condyle Right knee grade III chondromalacia trochlea and patella Right knee grade 2 3 chondromalacia medial tibia and medial femoral condyle. Procedure performed:: 1. Right knee arthroscopy with partial medial and lateral meniscectomies 2. Right knee arthroscopy with debridement engaging plica 3. Right knee arthroscopy with chondroplasty trochlea loose sheila cartilage medial femoral condyle Surgeon:: Heath Love DO [employer] OPERATOR:: Tylor Keller Anesthesia: GETA Estimated blood loss (mL): 0 Operative findings:: Right knee complex tear posterior horn medial meniscus adjacent to meniscal root but not involving detachment of the meniscal root complex tear into the posterior horn and body Complex tear right knee lateral meniscus Large medial engaging plica rubbing the medial femoral condyle. Full-thickness cartilage lesion with kissing lesion of the medial femoral condyle Small intra-articular loose bodies and loose sheila cartilage medial femoral condyle and trochlea Operative note:: Patient is identified preoperatively. Right knee marked with a yes and my initials. Transported operative suite. Placed upon operating bed. General anesthesia administered airway secured. Right lower extremity was then prepped and draped within the knee jiménez. Once prepped and draped final operative timeout performed to identify proper patient procedure and extremity. Everyone involved the case agreed. No counter indications to beginning. Did receive preoperative antibiotics. Marking pen was used to zuleyka the bony landmarks of the knee and standard portal sites. Esmarch was used to exsanguinate the extremity. Pneumatic tourniquet inflated to 300 mmHg. Skin knife was used incise standard anterior lateral portal. Blunt with trocar was placed in the patellofemoral joint exchange with a camera. Upon sweeping directly into the medial joint line there was evidence of a very large medial engaging plica along with a kissing lesion on the medial femoral condyle where it rubbed a full-thickness cartilage lesion. I swept into the medial joint line where the anterior medial portal was made with the help of an 18-gauge spinal needle. Within the medial joint line this up to the back of the meniscus there is a large complex tear of the posterior horn of the medial meniscus extending into the entire posterior horn it did abut near the meniscal root. However the meniscal root itself was intact. Partial medial meniscectomy was performed to obtain stable rim of this complex tear. Tensions brought in the intercondylar notch the ACL was seen and intact. Attention was then brought to the lateral joint line. Within the lateral joint line there is a complex tear of the posterior horn and body of the lateral meniscus. Using a combination of straight biter and sucker shaver partial lateral meniscectomy was performed back to stable rim. Attention was then brought to the medial and lateral gutters no other pathology was seen there was small intra-articular loose bodies from the cartilage of the medial femoral condyle that was obtained with the sucker shaver. Attention is then brought back into the medial joint line where light chondroplasty was performed from loose sheila cartilage on the medial femoral condyle. Back into the patellofemoral joint there is loose sheila cartilage of the trochlea which was also debrided with light chondroplasty. And then using the sucker shaver debridement synovectomy of the large engaging plica was performed. Knee was taken through range of motion and the soft tissue did not further impinge on the medial femoral condyle after debridement. Camera was removed. Joint was drained. Local anesthesia infiltrated the portal sites. Skin closed with nylon stitch. Sterile dressing placed from toe to thigh. Patient waken from anesthesia taken recovery in stable condition. Condition: stable Disposition: PACU Complications:: None apparent
--- NOTE | 2023-12-11 08:58 | P.PNANES_ITS ---
[facility] Anesthesia Record Part I Anesthesia Record I Intake, IV Amount: 1,000 Hydration: Adequate Estimated blood loss (mL): 10 Urine output (mL): 0 Blood Products used (#): none Blood Pressure: 163/101 SaO2: 91 Pulse Rate: 90 Airway Patency: Patent Respiratory Rate: 14 Temperature: 0.3 F Patient is:: Drowsy and Stable Stable to PACU at:: 08:51
[2023-12-11] MEDS: HYDROMORPHONE 2MG/ML SYRINGE 0.5 MG IV ×4 (09:06→09:30)
[2023-12-11] MEDS: KETOROLAC 30MG/ML VIAL 30 MG IV (09:35)
--- NOTE | 2023-12-11 10:13 | SUR.PHASEI ---
0906- patient rates her pain 7/10, dilaudid given per AUG 918- patient still rates pain 7/10, dilaudid given again per AUG 924- patient still rating pain 7/10, dilaudid given again per AUG 929- patient still rating pain 7/10, final dose of dilaudid given per AUG. BANDAR Jones placed order for 30 mg toradol. Patient stated she was experiencing burning chest pain at this time. 35- patient medicated with toradol per AUG, chest pain decreased at this time, but still present. Per Paty Jones CRNA, stated to give the toradol time to take effect, chest pain likely anxiety related 45- pain still 6/10 after toradol, chest pain absent at this time per patient. 0953- patient taken back to post op, report given to Nita Catherine RN. Patient VS stable.
--- NOTE | 2023-12-12 09:39 | EXP.ANES.II ---
[facility] Anesthesia Record Part II Anesthesia Record Part II Discharge Time: 09:51 Destination: Surgical Day Care (OP Surgery) PACU nurse assessment reviewed?: Yes Patient Condition:: Good Anesthesia Complications:: None Swallowing reflex intact?: Yes Airway Patency: Patent Cyanosis?: No Blood Pressure: 164/91 SaO2: 100 Respiratory Rate: 18 Pulse Rate: 85 Temperature: 98 F Mental Status: Alert & Oriented Pain level:: 6 Nausea and/or vomitting:: None Intake, IV Amount: 0 Hydration: Adequate
[2023-12-12 09:41] VITALS: BP 164/91; PULSE 85; RESP 18; TEMP 36.6; O2SAT 100
== END 2023-12-11 10:26 | disposition home or self-care (01) ==
PROVIDERS: PCP Nurse Practitioner Family; Visit Provider Orthopaedic Surgery
PROC: (CPT 29870; principal; 2023-12-11 07:30)
DX: S83.271A Complex tear of lateral meniscus, current injury, right knee, initial encounter (principal); S83.231A Complex tear of medial meniscus, current injury, right knee, initial encounter; M94.261 Chondromalacia, right knee
CPT/HCPCS: 29880; 96374; J1100; J1170; J1885; J2250; J2405; J2704; J3010; J7120

== ENCOUNTER 2024-01-17 13:00 | Outpatient (RCR) | payer BC, OTHER, SELFPAY ==
--- NOTE | 2024-01-08 09:00 | HMH.PTOPEV ---
PT Outpatient Evaluation Rehab PT Outpatient Evaluation Start: 01/08/24 07:47 Freq: Status: Active Protocol: Document 01/08/24 07:47 DIEGOCLEM (Rec: 01/08/24 08:59 FELY [id number]) E-signed By Jenna Daugherty, PT Outpatient Therapy Subjective History Subjective History Pt is a 53 y/o female who reports to PT s/p R knee arthroscopy with partial medial and lateral menisectomies and debridement engaging plica performed on 06/23. Pt denies complications following surgery. Pt reports overall she is doing well. Pt reports moderate anterior knee pain at night time, with prolonged sitting and traversing stairs. Pt also reports her knee often feels weak/tired with prolonged standing and walking on uneven ground. Pt denies falls or required use of an AD. Pt reports mild swelling that increases with activity throughout the day. 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 Chief Complaint Pain,Stiff,Swelling,Weakness Symptom Type Ache,Dull Symptoms Relieved By Rest/Positioning,Ice Symptoms Aggravated By Sitting,Standing,Walking Current Functional Limitations Sleeping,Standing,Squatting, Walking,Stairs Symptom Description Intermittent Level of pain today (0-10) 0 Pain scale - at its best (0-10) 0 Pain scale - at its worst (0-10) 5 Hip/Knee Eval Gait Observation General Gait Pattern Observation Antalgic Gait,Decrease Weight Bear (R) Assistive Device Assistive Devices None / NA Palpation Tenderness right Knee Palpation Finding Tenderness Knee Palpation Overall Comment 1/4 TTP of medial and lateral joint lines, patellar tendon MMT Hip Flexion Strength Grade 4 Good Hip Abduction Strength Grade 4- Good- Hip Adduction Strength Grade 4- Good- Hip Extension Strength Grade 4- Good- Knee Extension Strength Grade 4 Good Knee Flexion Strength Grade 4 Good ROM Knee Extension Active Range of Motion ( 5 degrees) Knee Flexion Active Range of Motion ( 115 degrees) Effusion joint effusion knee exam standard right Mid - Patellar Circumerential Measure ( 47 cm) Lower Extremity Functional Index Activities Today, do you or would you have any difficulty at all with: a.Any of your usual work, housework or Moderate difficulty school activities b. Your usual hobbies, recreational or Moderate difficulty sporting activities c. Getting into or out of the bath Extreme difficulty or unable to perform activity d. Walking between rooms No difficulty e. Putting on your shoes or socks A little bit of difficulty f. Squatting Extreme difficulty or unable to perform activity g. Lifting an object, like a bag of Moderate difficulty groceries from the floor h. Performing light activities around A little bit of difficulty your home i. Performing heavy activities around Quite a bit of difficulty your home j. Getting into or out of a car A little bit of difficulty k. Walking 2 blocks A little bit of difficulty l. Walking a mile Quite a bit of difficulty m. Going up or down 10 stairs (about 1 A little bit of difficulty flight of stairs) n. Standing for 1 hour A little bit of difficulty o. Sitting for 1 hour A little bit of difficulty p. Running on even ground Quite a bit of difficulty q. Running on uneven ground Moderate difficulty r. Making sharp turns while running fast Moderate difficulty s. Hopping A little bit of difficulty t. Rolling over in bed No difficulty LEFI Score Lower Extremity Functional Index Score 45 Outpatient Therapy Assessment Impairments Problems/Impairmments Palpation Tenderness,Impaired Range of Motion,Impaired Strength,Impaired Gait Pattern ,Impaired Walking,Impaired Standing,Impaired Stair Climbing,Impaired Incline Stepping,Impaired Stepping on Uneven Surface,Impaired Squatting,Impaired Recreational Activities, Increased Edema,Subjective C/O Pain,Impaired Self Care/Self Management Prognosis Rehab Potential Good Clinical Impression Consistent with Diagnosis Yes Short Term Goals Number of Weeks 3 Increase Range of Motion Yes: Improve R knee AROM extension to 0 to assist with gait Improve LEFI Score Yes: Improve score to at least 50/80 to improve overall QOL Improve Self Care/Self Management Yes Patient to be Ind w/ HEP Yes Prison Goals Number of Weeks 6 Increase Range of Motion Yes: Improve R knee AROM to 0- 120 Increase Strength Yes: Improve RLE MMT to 4+/5 grossly to assist with function Improve Gait Pattern without Assistive Yes: non-antalgic to decrease Device fall risk Improve Ability to Climb Stairs Yes: 1 flight reciprocally w p ! 2/10 or less to assist with work/home navigation Improve LEFI Score Yes: Improve score to 55-60/80 to improve overall QOL Decrease Edema Yes Decrease Subjective C/O Pain Yes: Improve pain at worst to 2/10 to improve overall QOL Outpatient Therapy Plan of Care Treatment Plan May Include Therapeutic Exercise Including Home Yes Exercise Program Manual Therapy Techniques Yes Neuromuscular Re-education Yes Therapeutic Activities to Return to Yes Previous Functional/Work Level Gait Training Yes ADL/Self Care Education Yes Dry Needling Yes Thermal Modalities Yes Electrical Stimulation Yes Ultrasound/Phonophoresis Yes Iontophoresis Yes Orthotics/Bracing/Splinting Yes Vasopneumatic Compression Pump Yes Massage Yes Manual Lymphatic Drainage Yes Wound Care Yes Eval/Re-Eval Yes Frequency Times per week 2 Duration Number of Weeks 4-6 Addendums This patient is a candidate for social No or vocational rehab? Patient/Guardian verbally acknowledges Yes understanding of treatment program and consents to further treatment? Patient/Guardian verbally acknowledges Yes understanding of diagnosis, prognosis and goals for treatment? Eval Complexity PT Charges 44074 - Low Complexity Shoulder/Elbow Eval Shoulder Objective Measurements Elbow Objective Measurements PHYSICIAN CERTIFICATION: I certify the specified therapy services for Hannah Jaime are required, authorized, and reviewed every 30 days.
== END 2024-01-17 13:05 | disposition home or self-care (01) ==
LOC: PT 13:00
PROVIDERS: Visit Provider Orthopaedic Surgery
DX: Z98.890 Other specified postprocedural states (principal); S83.271A Complex tear of lateral meniscus, current injury, right knee, initial encounter; S83.231A Complex tear of medial meniscus, current injury, right knee, initial encounter; M67.51 Plica syndrome, right knee; M94.261 Chondromalacia, right knee
CPT/HCPCS: 97016; 97035; 97110; 97163; 97530

== ENCOUNTER 2024-01-28 07:26 | Day surgery (SDC) | payer BC, OTHER, SELFPAY ==
[2024-01-23 11:52] VITALS: BMI 41.1
[2024-01-28 07:38] VITALS: BP 128/72; PULSE 78; RESP 16; TEMP 36.6; O2SAT 96
--- NOTE | 2024-01-28 07:45 | P.PNANES_ITS ---
[facility] Disclaimer: The information contained in this section may have been updated after the patient was seen, as this information can be updated by other users. 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 current occupational exposures/hazards: No caffeine: No H Anesthesia Checklist Patient Identification Patient Identification: Arm Band and Verbal (Name & ) Structural Data Admitted From: Home Planned Operative Procedure/s: Colonoscopy Consent for Planned Operative Procedure(s) Verified: Yes Verified Documents: Surgical Consent and History and Physical NPO Status Verified Time NPO: 00:00 Additional verifications Anesthesia Reactions: No Hx Blood Transfusions: Yes Blood Transfusion Reaction: No Airway Assessment Mallampati Score:: Class I C-Spine Mobility Assessed: Yes TMJ Mobility Assessed: Yes Dentition: Partials Neurological Assessment Level of Consciousness: Awake Hx Seizures: No Numbness or tingling in extremities: No Anesthesia Plan Anesthesia Risk discussed: Yes Anesthesia Plan: Verified ASA Class: II Anesthesia Type: MAC
[2024-01-28] MEDS: LACTATED RINGERS 1000ML 1,000 ML 25 ML IV (07:53)
--- NOTE | 2024-01-28 08:21 | P.PCN_ITS ---
Procedure: Date: 01/28/24 Patient Date of :: 1970 Procedure Performed:: Colonoscopy Indications:: History of colon polyps Colonoscopy in 2016 revealed numerous adenomas. Two subsequent colonoscopies (m ost recently in January 2020) were somewhat complicated by poor bowel preparation and poor relaxation. Performing Provider:: Brett Radford MD Referring Provider:: . Sedation:: Monitored anesthesia care Procedure:: After informed consent was obtained the patient was taken to the endoscopy suite. Sedation ensued after the patient was transferred to the left lateral decubitus position. Pulse, blood pressure, and oxygen saturation were monitored throughout the procedure. Digital rectal exam revealed no significant abnormality. The colonoscope was placed in position. The entire colon was evaluated. The colonoscope was carefully removed and the patient was transferred to recovery in stable condition. Please see findings and specimens below for detail. Findings:: Bowel preparation fairly poor Moderate spasticity/lack of relaxation Hemorrhoidal cushions Specimens:: None Recommendations:: Repeat colonoscopy in 2-3 years with alternate/extended bowel preparation. Likely defer to gastroenterology secondary to possible irritable bowel/con stipation. Complications:: No immediate with the exception of limited bowel preparation Estimated blood obtained (mL): 0 Colonoscopy Component Colonoscopy Component Was a colonoscopy performed during today's procedure?: Yes Recommended follow up colonoscopy of at least 10 years?: No If no, follow up colonoscopy recommended in ___ years?: (See above) Reason for not recommending >/= 10 yr follow-up interval?: (See above)
[2024-01-28 08:22] VITALS: O2SAT 96
[2024-01-28 09:00] VITALS: BP 117/49; PULSE 691; RESP 18; TEMP 36.2; O2SAT 94
[2024-01-28 09:10] VITALS: BP 120/63; PULSE 63; RESP 18; O2SAT 99
[2024-01-28 09:20] VITALS: BP 106/59; PULSE 69; RESP 18; O2SAT 96
[2024-01-28 09:30] VITALS: BP 118/66; PULSE 86; RESP 18; O2SAT 99
== END 2024-01-28 09:33 | disposition home or self-care (01) ==
PROVIDERS: PCP Nurse Practitioner Family; Visit Provider Surgery
PROC: 0DJD8ZZ Inspection of Lower Intestinal Tract, Via Natural or Artificial Opening Endoscopic (ICD-10-PCS; CPT 45378; principal; 2024-01-28 08:30)
DX: Z86.010 Personal history of colon polyps (principal); K64.9 Unspecified hemorrhoids
CPT/HCPCS: 45378; J2704; J7120

== ENCOUNTER 2024-02-15 10:18 | Outpatient (CLI) | payer BC, OTHER, SELFPAY | END 2024-02-15 23:59 | disposition home or self-care (01) | LOC: LAB 10:19 | PROVIDERS: PCP Nurse Practitioner Family; Visit Provider Nurse Practitioner Family | DX: R30.0 Dysuria (principal); B96.20 Unspecified Escherichia coli [E. coli] as the cause of diseases classified elsewhere | CPT/HCPCS: 87086; 87088; 87186 ==

== ENCOUNTER 2024-03-23 18:16 | Emergency (ER) | payer BC, OTHER, SELFPAY ==
[2024-03-23 18:28] VITALS: BP 147/88; PULSE 74; RESP 18; O2SAT 98; BMI 37.5
[2024-03-23 18:33] VITALS: BP 147/88; PULSE 73; O2SAT 98
--- NOTE | 2024-03-23 18:34 | CT_ITS ---
PROCEDURE INFORMATION: Exam: CT Lumbar Spine Without Contrast Exam date and time: 03/23/2024 6:48 PM Age: 53 years old Clinical indication: Injury or trauma; Fall; Blunt trauma (contusions or hematomas); Prior surgery; Surgery date: 6+ months; Surgery type: Fusion; Additional info: Back pain after fall yesterday, history of lumbar fusion TECHNIQUE: Imaging protocol: Computed tomography of the lumbar spine without contrast. Radiation optimization: All CT scans at this facility use at least one of these dose optimization techniques: automated exposure control; mA and/or kV adjustment per patient size (includes targeted exams where dose is matched to clinical indication); or iterative reconstruction. COMPARISON: MR LUMBAR SPINE WO CON 12/25/2021 10:20 AM FINDINGS: Bones/joints: No acute fracture. There is PLIF L3-L4 with interbody disc cage spacer. Interbody disc cage spacer at L4-L5 with laminectomy. Normal alignment. No significant disc bulge or herniation. No severe spinal canal stenosis. No significant neural foraminal narrowing. Soft tissues: Unremarkable. IMPRESSION: No acute findings. Chronic and postsurgical changes.
--- NOTE | 2024-03-23 18:35 | XR_ITS ---
PROCEDURE INFORMATION: Exam: XR Pelvis Exam date and time: 03/23/2024 6:44 PM Age: 53 years old Clinical indication: Injury or trauma; Fall; Blunt trauma (contusions or hematomas); Right; Hip; Additional info: Fall right hip pain TECHNIQUE: Imaging protocol: Radiologic exam of the pelvis. Views: 1 or 2 view. COMPARISON: CT ABDOMEN PELVIS WO CON 04/03/2021 2:02 PM FINDINGS: Bones/joints: Unremarkable. No acute fracture. Chronic fracture right greater trochanter. Soft tissues: Unremarkable. IMPRESSION: No acute findings.
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
--- NOTE | 2024-03-23 18:36 | ED_ITS ---
<Statement entered by Jenna Iglesias DO - 03/23/24 23:14> I was consulted by the LARRY, and we discussed the complexity of the problems being addressed. I approved the treatment and management plan for this patient's care in the emergency department, thus performing a substantive portion of the medical decision making. Jenna Iglesias DO Discharge Plan Disposition Patient Disposition: Home, Self-Care Condition: Good Chief Complaint: Extremity Injury, Lower Prescriptions Prescriptions: No Action diclofenac sodium 75 mg tablet,delayed release (DR/EC) 75 mg PO DAILY propranolol 20 mg tablet 20 mg PO BID cyclobenzaprine 10 mg tablet 10 mg PO HS amlodipine 10 mg tablet 10 mg PO DAILY Gemtesa 75 mg tablet 75 mg PO DAILY furosemide [Lasix] 20 mg tablet 20 mg PO DAILY PRN (Reason: Fluid) Rexulti 1 mg tablet 1 mg PO QHS Qty: 30 1RF atomoxetine [Strattera] 60 mg capsule 60 mg PO DAILY Qty: 30 1RF amitriptyline 25 mg tablet 25 mg PO HS Qty: 30 2RF diazepam [Valium] 5 mg tablet 5 mg PO DAILY PRN (Reason: sleep) Qty: 30 1RF sumatriptan succinate [Imitrex] 100 MG tablet 100 mg PO DAILYDM PRN (Reason: Headache) estradiol [Estrace] 1 mg tablet 1 mg PO DAILY Referrals Follow up/Referrals: Nallely Reagan APRN [Primary Care Provider] - See instructions Harley King PA [Emergency Midlevel Provider] - See instructions Heath Love DO [Staff Physician] - See instructions (Follow-up with orthopedic provider) Activity Restrictions/Add. Instructions Additional Instructions/Restrictions: Follow-up with orthopedic provider and neurosurgery provider as directed, return to the emergency department any worsening new signs or symptoms, recommend Tylenol, ibuprofen muscle relaxers as needed for pain, rest ice. Clinical Impressions Clinical Impression: Accident due to mechanical fall without injury, Acute pain of right hip, Back pain Instructions Patient Instructions: DI for Muscle Strain, DI for Hip Pain, DI for Back Pain With Sciatica Print Language Print Language: Maori Discharge ED Provider: Jenna Iglesias General Adult HPI General Chief complaint: Extremity Injury, Lower Stated complaint: AO fall 03/22, right hip pain Time Seen by Provider: 03/23/24 18:26 Mode of Arrival: Ambulatory Source of Information: Patient and Medical Record Limitations: No Limitations History of Present Illness HPI narrative: 53-year-old female presents to the emergency with right hip pain and lower lumbar back pain after fall, patient states that last night she tripped over her grandchild's baby walker . Landed on her right hip, she denies any LOC, she denies any striking the head, she is not on anticoagulant therapy. She has prior past medical history consistent hypertension, prior cervical fusion, prior lumbar fusion, MDD, overactive bladder. Patient denies any fever chills chest pain shortness of breath, denies any headache, dizziness, denies any neck pain, mid thoracic back pain, denies abdominal pain, nausea, vomiting, urinary type symptomatology, admits to some radicular pain that extends anterior laterally down the right leg, never extending past the knee, this is chronic for, but seems to be exacerbated after last night's fall. She denies any overt upper or lower extremity weakness, she has been ambulating on the affected right hip, but is pain limited. Patient denies any saddle anesthesia, urinary bladder or bowel dysfunction. She is a non-smoker, denies alcohol or drug use, initial triage vitals grossly unremarkable. She has tried ibuprofen and Tylenol for pain with little to no relief. Onset (ago): day(s) Treatments prior to arrival: NSAID Related Data Home Medications ?Medication ?Instructions ?Recorded ?Confirmed sumatriptan succinate 100 mg 100 mg PO DAILYDM PRN Headache 10/01/17 03/11/24 tablet (Imitrex) diclofenac sodium 75 mg 75 mg PO DAILY Pain 12/03/19 03/11/24 tablet,delayed release amlodipine 10 mg tablet 10 mg PO DAILY 01/08/23 03/11/24 cyclobenzaprine 10 mg tablet 10 mg PO HS 01/08/23 03/11/24 propranolol 20 mg tablet 20 mg PO BID 01/08/23 03/11/24 vibegron 75 mg tablet (Gemtesa) 75 mg PO DAILY 01/08/23 03/11/24 furosemide 20 mg tablet (Lasix) 20 mg PO DAILY PRN Fluid 10/07/23 03/11/24 estradiol 1 mg tablet (Estrace) 1 mg PO DAILY 12/09/23 03/11/24 Previous Rx's ?Medication ?Instructions ?Recorded amitriptyline 25 mg tablet 25 mg PO HS #30 tabs 09/11/24 atomoxetine 60 mg capsule 60 mg PO DAILY #30 caps 03/11/24 (Strattera) brexpiprazole 1 mg tablet (Rexulti) 1 mg PO QHS #30 tabs 03/11/24 diazepam 5 mg tablet (Valium) 5 mg PO DAILY PRN sleep #30 tabs 03/11/24 Allergies Allergy/AdvReac Type Severity Reaction Status Date / Time trazodone Allergy Intermediate HEADACHE Verified 03/11/24 08:59 venlafaxine AdvReac Unknown NIGHTMARES Verified 03/11/24 08:59 PFSH PFS Disclaimer: The information contained in this section may have been updated after the patient was seen, as this information can be updated by other users. 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 current occupational exposures/hazards: No caffeine: No ROS Obtained: Yes All systems reviewed & no additional complaints except as documented Physical Exam General General appearance: alert and in no apparent distress Head Head exam: atraumatic and normocephalic Eye Eye exam: Present PERRL and EOMI ENT ENT exam: Present mucous membranes moist Neck Neck exam: Present normal inspection Chest Chest inspection: Present normal inspection and symmetric chest wall rise Respiratory Respiratory exam: Present normal lung sounds bilaterally; Absent respiratory distress Cardiovascular Cardiovascular exam: Present regular rate and normal rhythm Abdominal Exam Abdominal exam: Present soft; Absent tenderness, guarding, rebound or rigidity Extremities Exam Extremities exam: Present normal inspection, full ROM, tenderness and other (There is mild pain to palpation to the right trochanteric region, patient does move the hip to command, is somewhat mild pain limiting range of motion, does exhibit full range of motion, otherwise neurovascular intact, no obvious deformity, no leg shortening or rotation.) Back Exam Back exam: Present normal inspection, full ROM, tenderness and straight leg raise (R) Comment: Mild paraspinal tenderness to the lumbar region to palpation, negative spinal tenderness to palpation. Neurological Exam Neurological exam: Present alert, oriented X3 and other (5 out of 5 strength in the bilateral lower extremities, upper and lower no sensation deficit,); Absent motor sensory deficit Psychiatric Psychiatric exam: Present normal affect Skin Skin exam: Present warm and dry Medical Decision Making Medical Records Medical records reviewed: Yes I reviewed the patient's medical records. Screening: Per USPSTF and CDC recommendations, given the prevalence of disease in our region, it is our hospital?s policy to screen for HIV and viral Hepatitis for all patients aged 18 and over and those with ongoing risk factors. Shar Inquiry Pt receiving controlled substance: Yes Shar was queried for this patient: No Risks and benefits of using a controlled substance: were discussed with pt by me Vital Signs: 03/23/24 18:28 03/23/24 18:33 Pulse Rate 73 Pulse Rate [Right] 74 Respiratory Rate 18 Blood Pressure 147/88 H Blood Pressure [Right Arm] 147/88 H Blood Pressure Mean [Right Arm] 107 02 Sat by Pulse Oximetry 98 98 Oxygen Delivery Method Room Air Room Air Orders (Tests/Meds): ED MEDICATIONS Discontinued Medications Generic Name Dose Route Start Last Admin Trade Name Freq PRN Reason Stop Dose Admin Hydrocodone Bitart/Acetaminophen 1 tab 03/23/24 18:36 03/23/24 18:58 Hydrocodone/Apap 5/325 Mg Tablet PO 03/23/24 18:37 1 tab ONCE ONE Administration ORDERS Category Date Time Status CT lumbar spine wo con Stat Cat Scan 03/23/24 18:34 Completed XR femur RT 1V Stat Exams 03/23/24 18:35 Completed XR pelvis 1-2V Stat Exams 03/23/24 18:35 Completed Medical Decision Narrative: 53-year-old female presents emergency department for a fall, last night, complaining of back pain and hip pain, differential diagnose include but not limited to hip strain/sprain, hip fracture, Pubic rami fracture, lumbar spine fracture, acute lumbar sacral strain, lumbar radiculopathy. I discussed this patient's case with Dr. Iglesias the attending physician. Obtain x-ray of the pelvis, CT lumbar spine without contrast for further evaluation of characterization, x-ray of the femur, will give p.o. 5 mg [place] for pain. I reviewed the patient's CT of the lumbar spine without contrast along the corresponding radiologic report, there is a PLIF at L3-L4, interbody disc cage spacer at L4-L5 with laminectomy, there are no acute findings and chronic postsurgical changes. I reviewed the patient's pelvic x-ray, femur x-ray along with corresponding radiologic report. There are no acute findings. Discussed these results with the patient at the bedside, recommend follow-up with orthopedic provider as directed, strict ED return precaution given to the patient at bedside, patient voiced understanding. Current treatment plan/discharge plan. Recommend rest, ice, compression, elevation, NSAIDs and other anti-inflammatory medicines as needed for pain. Patient was understanding agree with current treatment plan/discharge plan. Critical Care Critical Care Time Critical Care Time: No
[2024-03-23] MEDS: HYDROCODONE/APAP 5/325 MG TABLET 1 TAB PO (18:58)
--- NOTE | 2024-03-23 19:58 | PC.NURSE ---
Pt reports pain 7/10 after medications, denies any needs, updated on wait, verbalized understanding
[2024-03-23 20:33] VITALS: BP 152/97; PULSE 72; RESP 19; TEMP 36.8; O2SAT 98
== END 2024-03-23 20:36 | disposition home or self-care (01) ==
PROVIDERS: Emergency Provider Emergency Medicine; PCP Nurse Practitioner Family
DX: M25.551 Pain in right hip (principal); M54.50 Low back pain, unspecified; W01.198A Fall on same level from slipping, tripping and stumbling with subsequent striking against other object, initial encounter
CPT/HCPCS: 72131; 72170; 73551; 99284

== ENCOUNTER 2024-04-13 13:06 | Outpatient (POV) | payer BC, OTHER, SELFPAY ==
--- NOTE | 2024-04-13 13:20 | A.OFFVIS_ITS ---
HPI Data of Consult Patient: known to practice within the last 3 years Consult date: 04/13/24 Requesting Physician: Jenna Love APRN Primary Care Provider: Nallely Reagan APRN Consult Narrative Reason for consult: Low back pain, bilateral hip pain History of present illness: Ms. Jaime is a 53 year old female who presents today as a new patient. She is a referral from Nallely Reagan's office. Today she rates her pain a 10 out of 10. Patient states that she has a stabbing burning sensation that goes ac ross her low back and into her hips with the right side being the worst side. Patient states it will go into her upper thighs. Patient states that she has had chronic low back pain for years however a lot of this is related to a injury she had back in March while playing with her granddaughter. Patient states that she was walking and ended up twisting funny and in order to avoid falling on her granddaughter she fell onto her right hip. Patient states she is continue to have worsening pain since then. Patient has had prior lumbar fusion in the past and is scheduled to see Dr. Castañeda coming up on the . The patient was previously a patient of ours back in 2021 where she did get injection therapy that did provide significant improvement. Patient last injection was lumbar epidural of L5-S1 back in December 2021. Patient does state that these injections did seem to overall provide better improvement and that she is looking to do additional. Patient has tried and failed conservative therapy including continued at home stretching exercise for longer than 6 weeks. Patient does state that the pain is interfering with her ability perform activities of daily living such as cooking and cleaning. 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 She states that driving severely aggravates her overall symptoms. Patient has tried [id number] medications along with heat and ice and topicals along with weekly chiropractor therapy with minimal improvement.Patient is currently managed with [place] 5 mg 3 times a day from Dr. Ventura's office. Her Shar has been reviewed and is appropriate. CC: Jenna Love APRN [facility] Disclaimer: The information contained in this section may have been updated after the patient was seen, as this information can be updated by other users. Medical History Cervical vertebral fusion Insomnia Major depressive disorder Insomnia Surgical History History of appendectomy History of cholecystectomy H/O: hysterectomy has left ovary Family History Other Alcoholism Coronary artery disease Heart attack Hypertension Substance abuse Social History Smoking Status: Never smoker second hand exposure: No alcohol intake: never counseling provided: provider counseling substance use type: denies use current occupational status: employed Travel in the last 8 weeks: None household members: spouse and family housing: house number of children: 2 current occupation: [employer] current occupational exposures/hazards: No caffeine: No Review of Systems Review of Systems Review of systems:: pertinent systems reviewed and negative unless documented below Review of systems (narrative): Review of Systems: General: No recent weight changes, no fever, no sleep disturbances Respiratory: No cough, no shortness of air, no recurring pulmonary infections Cardiovascular/peripheral vascular: No chest pain, no palpitations, no edema, no shortness of breath Gastrointestinal: No new onset incontinence, normal bowel movements reported Genitourinary: No new onset incontinence Musculoskeletal: Low back pain, bilateral hip pain Psychiatric: [Normal mood/affect] Neurological: [Denies weakness in extremities], [denies balance issues] Meds Home Medications and Allergies Home Medications ?Medication ?Instructions ?Recorded ?Confirmed ?Type sumatriptan succinate 100 mg 100 mg PO DAILYDM PRN Headache 10/01/17 04/13/24 History tablet (Imitrex) diclofenac sodium 75 mg 75 mg PO DAILY Pain 12/03/19 04/13/24 History tablet,delayed release amlodipine 10 mg tablet 10 mg PO DAILY 01/08/23 04/13/24 History cyclobenzaprine 10 mg tablet 10 mg PO HS 01/08/23 04/13/24 History propranolol 20 mg tablet 20 mg PO BID 01/08/23 04/13/24 History vibegron 75 mg tablet (Gemtesa) 75 mg PO DAILY 01/08/23 03/24/24 History furosemide 20 mg tablet (Lasix) 20 mg PO DAILY PRN Fluid 10/07/23 03/24/24 History estradiol 1 mg tablet (Estrace) 1 mg PO DAILY 12/09/23 04/13/24 History amitriptyline 25 mg tablet 25 mg PO HS #30 tabs 03/11/24 04/13/24 Rx atomoxetine 60 mg capsule 60 mg PO DAILY #30 caps 03/11/24 03/24/24 Rx (Strattera) brexpiprazole 1 mg tablet (Rexulti) 1 mg PO QHS #30 tabs 03/11/24 03/24/24 Rx diazepam 5 mg tablet (Valium) 5 mg PO DAILY PRN sleep #30 tabs 03/11/24 04/13/24 Rx hydrocodone 5 mg-acetaminophen 325 1 tab PO TID PRN Pain, Moderate 04/13/24 04/13/24 History mg tablet New Prescriptions to Start Prescriptions: Allergies Allergy/AdvReac Type Severity Reaction Status Date / Time trazodone Allergy Intermediate HEADACHE Verified 03/24/24 11:13 venlafaxine AdvReac Unknown NIGHTMARES Verified 03/24/24 11:13 Objective Narrative: Physical Exam: General: Alert and oriented x3, no acute distress, pleasant and cooperative Lungs: Respirations even and unlabored, symmetrical chest expansion Eyes: PERRL Musculoskeletal: Flexion and extension of lumbar [spine] somewhat guarded secondary to pain, [antalgic gait noted] point tenderness along bilateral SIs with positive bilateral July's, Anahi's, Gaenslen's, compression and distraction exam Neurological: Speech clear, no gross sensory deficit Additional findings Additional findings: FINDINGS: Bones/joints: No acute fracture. There is PLIF L3-L4 with interbody disc cage spacer. Interbody disc cage spacer at L4-L5 with laminectomy. Normal alignment. No significant disc bulge or herniation. No severe spinal canal stenosis. No significant neural foraminal narrowing. Soft tissues: Unremarkable. IMPRESSION: No acute findings. Chronic and postsurgical changes. Assessment and Plan *Assessment and plan (1) Bilateral sacroiliitis: Status: Acute Category: Medical Code(s): M46.1 - Sacroiliitis, not elsewhere classified (2) Degenerative disc disease, lumbar: Status: Acute Category: Medical Code(s): M51.36 - Other intervertebral disc degeneration, lumbar region Plan Patient is experiencing significant pain in her low back that does radiate into her bilateral hips, buttocks area along with her upper thighs. Patient did have extreme point tenderness along her bilateral SIs and a positive bilateral July's, Anahi's, Gaenslen's, compression and distraction exam. I did discuss with the patient that she may benefit from SI injection. Risk and benefits were discussed with the patient and she would like to proceed forward with this plan of care. Patient has had longstanding sacroiliitis in the past and had injection therapy from our office that did provide significant improvement of more than 80%. Patient has not had any recent SI injections for longer than 2 years. Patient has tried and failed conservative therapy including continued at home stretching exercise for longer than 6 weeks. Patient will be scheduled for bilateral SI injections under fluoroscopy. I will also order the patient a compounded cream. Patient has been instructed to contact the clinic with any concerns before the next appointment. Dr. Camejo has reviewed this note and agrees with this plan of care. This note was dictated using voice recognition software and make contain errors or omissions. All injections are used with Lidocaine or Bupivacaine and Depo Medrol.
[2024-04-13 13:29] VITALS: BP 143/77; PULSE 81; RESP 16; O2SAT 99; BMI 37.0
== END 2024-04-13 23:59 | disposition home or self-care (01) ==
LOC: SC.PAIN 13:07
PROVIDERS: PCP Nurse Practitioner Family; Visit Provider Nurse Practitioner Family
DX: M46.1 Sacroiliitis, not elsewhere classified (principal); M51.361 Other intervertebral disc degeneration, lumbar region with lower extremity pain only; Z73.89 Other problems related to life management difficulty; Z98.1 Arthrodesis status
CPT/HCPCS: 99213; G0463

== ENCOUNTER 2024-04-28 09:48 | Day surgery (SDC) | payer BC, SELFPAY ==
[2024-04-28 09:53] VITALS: BP 171/97; PULSE 84; RESP 16; TEMP 36.4; O2SAT 97; BMI 38.6
[2024-04-28] MEDS: methylPREDNISolone ACETATE 80MG/ML VIAL 80 MG (10:14)
[2024-04-28] MEDS: BUPIVACAINE 0.25% 10ML INJ 25 MG IJ (10:14)
[2024-04-28] MEDS: LIDOCAINE 1% 5ML PF VIAL 5 ML (10:14)
[2024-04-28 10:15] VITALS: BP 153/95; PULSE 84; RESP 18; O2SAT 99
[2024-04-28 10:22] VITALS: BP 144/86; PULSE 74; RESP 16; O2SAT 95
--- NOTE | 2024-04-28 10:22 | P.PCN_ITS ---
Procedure Date: 04/28/24 Time: 10:00 Anesthesiologist:: Kenan Jaquez CRNA Complications:: None Pre-procedure Diagnosis:: Bilateral sacroiliitis. Degenerative disc lumbar spine multilevels. Lumbar radiculopathy. Lumbar postlaminectomy syndrome. Post-procedure Diagnosis:: Same. Indications for Procedure:: Patient is a very pleasant 53-year-old female who comes our clinic today for bilateral sacroiliac joint injections of cortisone and local anesthetic. Patient describes low lumbar back pain off the midline bilaterally as constant, dull, aching. Posterior hip pain bilaterally. Upon examination she has extreme point tenderness over the bilateral sacroiliac joint. Patient reports having difficulty transitioning from sitting to standing. She rates her pain 9/10. Procedure Details:: Procedure: Bilateral sacroiliac joint injections under fluoroscopy Informed consent was obtained and the risks and benefits of the procedure were explained to the patient.~ The patient was taken to the procedure room and noninvasive monitors were placed including a noninvasive blood pressure cuff and pulse oximeter.~ The patient was placed prone on the procedure table. Both hips were cleansed using Betadine as a cleansing solution. C-arm fluoroscopy was used to view the right sacroiliac joint.~ The skin and subcutaneous tissues were anesthetized using lidocaine 1.5% and a 25-gauge needle.~ After this, a 22-gauge spinal needle was inserted under fluoroscopic guidance into the inferior aspect of the right sacroiliac joint.~ Omnipaque dye was injected and good spread was seen throughout the joint.~ After this, approximately 5 mL of bupivacaine, 0.25% and Depo-Medrol, 40 mg was incrementally injected into the right sacroiliac joint. We then moved to the left sacroiliac joint.~ The skin and subcutaneous tissues were anesthetized using lidocaine 1.5% and a 25-gauge needle.~ After this, a 22- gauge spinal needle was inserted under fluoroscopic guidance into the inferior aspect of the left sacroiliac joint.~ Omnipaque dye was injected and good spread was seen throughout the joint. After this, approximately 5 mL of bupivacaine, 0.25% and Depo-Medrol, 40 mg was incrementally injected into the left sacroiliac joint.~ The patient tolerated the procedure well with no complications. The patient was observed in the Pain Clinic and then was discharged home neurologically intact. Plan and Disposition:: Patient was reevaluated 10 minutes post procedure. She reports pain is 1/10.
== END 2024-04-28 10:22 | disposition home or self-care (01) ==
PROVIDERS: PCP Nurse Practitioner Family; Visit Provider Nurse Anesthetist, Certified Registered
DX: M46.1 Sacroiliitis, not elsewhere classified (principal); M51.16 Intervertebral disc disorders with radiculopathy, lumbar region; M96.1 Postlaminectomy syndrome, not elsewhere classified
CPT/HCPCS: 27096; G0260; J1010

== ENCOUNTER 2024-05-14 09:36 | Outpatient (POV) | payer BC, SELFPAY ==
[2024-05-14 09:48] VITALS: BP 154/88; PULSE 95; RESP 18; O2SAT 98; BMI 36.6
--- NOTE | 2024-05-14 10:17 | EXP.PAIN.SOA ---
[facility] Disclaimer: The information contained in this section may have been updated after the patient was seen, as this information can be updated by other users. 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 She does rate her pain today a 10 out of 10. Patient states that the injections really did help but only for approximately 1 week. She does right at least 80% but felt like it did more improvement along the right side than it did on the left. She states during that time she was able to move around easier with overall decreased pain however she states she is back to her baseline today. She states she has pain all across her low back and that it is a constant aching, throbbing that is worse with certain movements such as bending, twisting or lifting. She does state the pain is interfering with her ability perform activities of daily living such as cooking and cleaning. Patient is interested in additional injection therapy. She is prescribed [place] from an outside provider. Her Shar has been reviewed and is appropriate. Review of Systems: General: No recent weight changes, no fever, no sleep disturbances Respiratory: No cough, no shortness of air, no recurring pulmonary infections Cardiovascular/peripheral vascular: No chest pain, no palpitations, no edema, no shortness of breath Gastrointestinal: No new onset incontinence, normal bowel movements reported Genitourinary: No new onset incontinence Musculoskeletal: Low back pain Psychiatric: [Normal mood/affect] Neurological: [Denies weakness in extremities], [denies balance issues] Pain at rest (0-10 scale): 10 Objective Objective:: Physical Exam: General: Alert and oriented x3, no acute distress, pleasant and cooperative Lungs: Respirations even and unlabored, symmetrical chest expansion Eyes: PERRL Musculoskeletal: Flexion and extension of lumbar [spine] somewhat guarded secondary to pain, [antalgic gait noted] positive Kemps test Neurological: Speech clear, no gross sensory deficit Has patient had previous pain injection?: Yes Percent improvement in pain since last injection: 80% Conservative treatment options previously tried: Home exercise plan Length of treatment: Longer than 12 weeks Meds Home Medications and Allergies Home Medications ?Medication ?Instructions ?Recorded ?Confirmed ?Type sumatriptan succinate 100 mg 100 mg PO DAILYDM PRN Headache 10/01/17 05/14/24 History tablet (Imitrex) diclofenac sodium 75 mg 75 mg PO DAILY Pain 12/03/19 05/14/24 History tablet,delayed release amlodipine 10 mg tablet 10 mg PO DAILY 01/08/23 05/14/24 History cyclobenzaprine 10 mg tablet 10 mg PO HS 01/08/23 05/14/24 History propranolol 20 mg tablet 20 mg PO BID 01/08/23 05/14/24 History vibegron 75 mg tablet (Gemtesa) 75 mg PO DAILY 01/08/23 05/14/24 History furosemide 20 mg tablet (Lasix) 20 mg PO DAILY PRN Fluid 10/07/23 05/14/24 History estradiol 1 mg tablet (Estrace) 1 mg PO DAILY 12/09/23 05/14/24 History amitriptyline 25 mg tablet 25 mg PO HS #30 tabs 03/11/24 05/14/24 Rx diazepam 5 mg tablet (Valium) 5 mg PO DAILY PRN sleep #30 tabs 03/11/24 05/14/24 Rx hydrocodone 5 mg-acetaminophen 325 1 tab PO TID PRN Pain, Moderate 04/13/24 05/14/24 History mg tablet atomoxetine 60 mg capsule 60 mg PO DAILY #30 caps 05/13/24 05/14/24 Rx (Strattera) brexpiprazole 1 mg tablet (Rexulti) 1 mg PO QHS #30 tabs 05/13/24 05/14/24 Rx New Prescriptions to Start Prescriptions: Allergies Allergy/AdvReac Type Severity Reaction Status Date / Time trazodone Allergy Intermediate HEADACHE Verified 03/24/24 11:13 venlafaxine AdvReac Unknown NIGHTMARES Verified 03/24/24 11:13 Assessment and Plan *Assessment and plan (1) Bilateral sacroiliitis: Status: Acute Category: Medical Code(s): M46.1 - Sacroiliitis, not elsewhere classified (2) Low back pain: Status: Acute Category: Medical Code(s): M54.50 - Low back pain, unspecified (3) Lumbar facet arthropathy: Status: Acute Category: Medical Code(s): M47.816 - Spondylosis without myelopathy or radiculopathy, lumbar region Plan Patient is experiencing worsening pain throughout her low back with limited range of motion and a positive Kemps test. I did discuss with the patient that she may benefit from a lumbar medial branch block bilaterally. Risk and benefits were discussed with the patient and she would like to proceed forward with this plan of care. Patient denied any radiating symptoms into her legs. Patient has tried and failed conservative therapy including continued at home stretching exercise for longer than 12 weeks. Patient was counseled if she does have significant improvement with her first lumbar medial branch block we will plan on repeating it with the plan to proceed forward with an RFA at a later date. Patient acknowledges understanding and agrees with this plan of care. We will reach out to [facility] for a copy of her most recent MRI. Patient will be scheduled for lumbar medial branch block bilaterally L4-L5 and L5-S1 under fluoroscopy. Patient has been instructed to contact the clinic with any concerns before the next appointment. Dr. Camejo has reviewed this note and agrees with this plan of care. This note was dictated using voice recognition software and make contain errors or omissions. All injections are used with Lidocaine or Bupivacaine and Depo Medrol.
== END 2024-05-14 23:59 | disposition home or self-care (01) ==
LOC: SC.PAIN 09:37
PROVIDERS: PCP Nurse Practitioner Family; Visit Provider Nurse Practitioner Family
DX: M46.1 Sacroiliitis, not elsewhere classified (principal); M54.50 Low back pain, unspecified; M47.816 Spondylosis without myelopathy or radiculopathy, lumbar region; Z73.89 Other problems related to life management difficulty
CPT/HCPCS: 99212; G0463

== ENCOUNTER 2024-06-02 09:42 | Day surgery (SDC) | payer BC, OTHER, SELFPAY ==
[2024-06-02 09:48] VITALS: BP 158/87; PULSE 83; RESP 16; TEMP 36.3; O2SAT 99; BMI 36.2
[2024-06-02] MEDS: BUPIVACAINE 0.25% 10ML INJ 25 MG IJ (10:25)
[2024-06-02 10:26] VITALS: BP 157/82; PULSE 81; RESP 18; O2SAT 98
[2024-06-02] MEDS: methylPREDNISolone ACETATE 80MG/ML VIAL 80 MG (10:26)
[2024-06-02] MEDS: LIDOCAINE 1% 5ML PF VIAL 5 ML (10:26)
[2024-06-02 10:28] VITALS: BP 157/82; PULSE 81; RESP 18; O2SAT 98
[2024-06-02 10:33] VITALS: BP 143/93; PULSE 73; RESP 16; O2SAT 98
--- NOTE | 2024-06-02 10:35 | P.PCN_ITS ---
Procedure Date: 06/02/24 Time: 10:20 Anesthesiologist:: Kenan Jaquez CRNA Complications:: None Pre-procedure Diagnosis:: Degenerative disc lumbar spine multilevels. Lumbar radicular pain. Lumbar postlaminectomy syndrome. Lumbar spondylosis. Multilevel lumbar facet arthropathy. Post-procedure Diagnosis:: Same. Indications for Procedure:: Patient is a pleasant 54-year-old female who comes our clinic today for ROUND TWO of lumbar medial branch blocks/facet injections at the bilateral L4-5, L5-S1 levels. She responded well for 2 to 3 days after receiving her first round at the same levels. She reports low back pain is constant, dull, aching. She reports having difficulty with flexion, extension, left and right rotation of the lumbar spine. She rates her pain 7/10. Procedure Details:: Informed consent was obtained and the risk and benefits of the procedure was explained to the patient. Patient was taken to the procedure room where noninvasive monitors were placed, including noninvasive blood pressure cuff as well as pulse oximeter. The area over the lumbar spine was cleansed using chlorhexidine as a cleansing solution. I anesthetized the skin and subcutaneous tissues with 1% Lidocaine. I placed 22-gauge spinal needles into the facet joint/ medial branches of [L3-L4, L4-L5 bilaterally. Needle placement was confirmed with fluoroscopy. After confirmation of needle placement, each site was injected with 1 mL of 1% lidocaine and 0.25 % Marcaine and 10 mg of Depo- Medrol. A total of 80 mg of depo medrol was used for bilateral medial branch blocks of [L3-L4, L4-L5 bilaterally. Patient tolerated the procedure without di fficulty. There were no complications. Plan and Disposition:: Patient was discharged without incident.
== END 2024-06-02 10:33 | disposition home or self-care (01) ==
PROVIDERS: PCP Nurse Practitioner Family; Visit Provider Nurse Anesthetist, Certified Registered
DX: M47.816 Spondylosis without myelopathy or radiculopathy, lumbar region (principal); M51.369 Other intervertebral disc degeneration, lumbar region without mention of lumbar back pain or lower extremity pain; M96.1 Postlaminectomy syndrome, not elsewhere classified
CPT/HCPCS: 64493; 64494; J1010

== ENCOUNTER 2024-07-10 12:55 | Outpatient (POV) | payer BC, OTHER, SELFPAY ==
--- NOTE | 2024-07-10 13:24 | A.OFFVIS_ITS ---
[facility] Disclaimer: The information contained in this section may have been updated after the patient was seen, as this information can be updated by other users. 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 Today she rates her pain a 9 out of 10. She denies any new trauma or injury. She does say that she still has the chronic low back pain and that these injections did provide 80% improvement however only lasted 24 hours. Patient states that she went home after the initial injections and was able to clean her entire house and felt more pressure but no pain. She described it more like a tightness however it was very manageable and that she felt very productive. Patient does state however by the next day she paid for it. Patient states she was very sore and tender with increased pain. Patient does states she still has the chronic low back pain and will occasionally have left leg burning that goes down to her ankle. Patient states this pain is more prominent when she is up walking for longer periods of time. Patient was seen neurosurgeon Dr. Castañeda and he had requested a interlaminar epidural of L2-L3. Patient has tried and failed conservative therapy including continued at home stretching exercise for longer than 12 weeks between injections. Patient is prescribed [place] and Flexeril from an outside provider with some improvement. Patient was previously on diclofenac 75 mg daily however states that she never really noticed significant improvement and has been discontinued off this medication. Her Shar has been reviewed and is appropriate. Review of Systems: General: No recent weight changes, no fever, no sleep disturbances Respiratory: No cough, no shortness of air, no recurring pulmonary infections Cardiovascular/peripheral vascular: No chest pain, no palpitations, no edema, no shortness of breath Gastrointestinal: No new onset incontinence, normal bowel movements reported Genitourinary: No new onset incontinence Musculoskeletal: Low back pain, left leg pain Psychiatric: [Normal mood/affect] Neurological: [Denies weakness in extremities], [denies balance issues] Pain at rest (0-10 scale): 9 Objective Objective:: Physical Exam: General: Alert and oriented x3, no acute distress, pleasant and cooperative Lungs: Respirations even and unlabored, symmetrical chest expansion Eyes: PERRL Musculoskeletal: Flexion and extension of lumbar [spine] somewhat guarded secondary to pain, [antalgic gait noted] positive left leg raise Neurological: Speech clear, no gross sensory deficit Has patient had previous pain injection?: Yes Percent improvement in pain since last injection: 80% Conservative treatment options previously tried: Home exercise plan Length of treatment: Longer than 12 weeks and Prescription medications Length of treatment: Longer than 12 weeks Meds Home Medications and Allergies Home Medications ?Medication ?Instructions ?Recorded ?Confirmed ?Type sumatriptan succinate 100 mg 100 mg PO DAILYDM PRN Headache 10/01/17 06/02/24 History tablet (Imitrex) diclofenac sodium 75 mg 75 mg PO DAILY Pain 12/03/19 06/02/24 History tablet,delayed release amlodipine 10 mg tablet 10 mg PO DAILY 01/08/23 06/02/24 History cyclobenzaprine 10 mg tablet 10 mg PO HS 01/08/23 06/02/24 History propranolol 20 mg tablet 20 mg PO BID 01/08/23 06/02/24 History vibegron 75 mg tablet (Gemtesa) 75 mg PO DAILY 01/08/23 06/02/24 History furosemide 20 mg tablet (Lasix) 20 mg PO DAILY PRN Fluid 10/07/23 06/02/24 History hydrocodone 5 mg-acetaminophen 325 1 tab PO TID PRN Pain, Moderate 04/13/24 06/02/24 History mg tablet atomoxetine 60 mg capsule 60 mg PO DAILY #30 caps 05/13/24 06/02/24 Rx (Strattera) brexpiprazole 1 mg tablet (Rexulti) 1 mg PO QHS #30 tabs 05/13/24 06/02/24 Rx estradiol 1 mg tablet See Rx Instructions .Route 05/20/24 06/02/24 Rx .COMPLEX #30 tabs amitriptyline 25 mg tablet 25 mg PO HS #30 tabs 06/22/24 Rx diazepam 5 mg tablet (Valium) 5 mg PO DAILY PRN sleep #30 tabs 06/22/24 Rx New Prescriptions to Start Prescriptions: Allergies Allergy/AdvReac Type Severity Reaction Status Date / Time trazodone Allergy Intermediate HEADACHE Verified 05/25/24 08:43 venlafaxine AdvReac Unknown NIGHTMARES Verified 05/25/24 08:43 Assessment and Plan *Assessment and plan (1) Lumbar facet arthropathy: Status: Acute Category: Medical Code(s): M47.816 - Spondylosis without myelopathy or radiculopathy, lumbar region (2) Low back pain: Status: Acute Category: Medical Code(s): M54.50 - Low back pain, unspecified (3) Lumbar radiculopathy: Status: Acute Category: Medical Code(s): M54.16 - Radiculopathy, lumbar region (4) Degenerative disc disease, lumbar: Status: Acute Category: Medical Code(s): M51.369 - Other intervertebral disc degeneration, lumbar region without mention of lumbar back pain or lower extremity pain Plan Patient is experiencing significant pain throughout her low back however did have significant relief with her second lumbar medial branch block however it only lasted 24 hours. I did discuss with the patient that we can proceed forward with the lumbar RFA in future however due to the fact that Dr. Castañeda has requested we try a L2-L3 epidural we will hold off on the RFA.patient does have significant pain that does radiate down the left extremity with increased activity and did state it was a burning, tingling sensation. Patient has continued conservative treatment including oral medications, heat and ice, topicals, at home stretching exercise for longer than 12 weeks and in between injections. Patient will be scheduled for a LESI L2-L3 under fluoroscopy. I did also discuss with the patient that I will send in a 2-week dose of meloxicam 15 mg daily. Patient denied any heart or kidney issues. She was counseled to discontinue all other NSAIDs while taking this medication and to take it with food to minimize GI upset. Patient acknowledges understanding agrees with this plan of care. Patient has been instructed to contact the clinic with any concerns before the next appointment. Dr. Camejo has reviewed this note and agrees with this plan of care. This note was dictated using voice recognition software and make contain errors or omissions. All injections are used with Lidocaine, Bupivacaine and Depo Medrol. Occasionally urine drug screen is needed to verify patient's compliance with our office pain contract. This is ordered based off specific treatments related to chronic pain with the potential to abuse certain medications.
[2024-07-10 13:43] VITALS: BP 130/89; PULSE 90; RESP 14; O2SAT 99; BMI 36.6
== END 2024-07-10 23:59 | disposition home or self-care (01) ==
PROVIDERS: PCP Nurse Practitioner Family; Visit Provider Nurse Practitioner Family
DX: M47.26 Other spondylosis with radiculopathy, lumbar region (principal); M54.50 Low back pain, unspecified; M51.369 Other intervertebral disc degeneration, lumbar region without mention of lumbar back pain or lower extremity pain
CPT/HCPCS: 99212; G0463

== ENCOUNTER 2024-07-28 09:34 | Day surgery (SDC) | payer BC, OTHER, SELFPAY ==
[2024-07-28 09:50] VITALS: BP 144/88; PULSE 85; RESP 16; TEMP 37.1; O2SAT 99; BMI 31.7
[2024-07-28 10:20] VITALS: BP 142/90; PULSE 80; RESP 16; TEMP 37.1; O2SAT 94
--- NOTE | 2024-07-28 10:55 | EXP.PAIN.PRO ---
Procedure Date: 07/28/24 Time: 10:30 Anesthesiologist:: Kenan Jaquez CRNA Complications:: None Pre-procedure Diagnosis:: Degenerative disc lumbar spine multilevels. Lumbar radiculopathy. Lumbar postlaminectomy syndrome. Lumbar spondylosis. Post-procedure Diagnosis:: Same Indications for Procedure:: Patient is a very pleasant 54-year-old female who comes, to our clinic today for L2-3 lumbar epidural steroid injection. Patient status post lumbar fusion 2021. She reports low lumbar back pain as well as bilateral hip and leg radicular symptoms at times. She rates her pain 7/10. Procedure Details:: Procedure: Lumbar epidural steroid injection under fluoroscopy Informed consent was obtained and the risks and benefits of the procedure were explained to the patient. The patient was taken to the procedure room and noninvasive monitors placed, including noninvasive blood pressure cuff and pulse oximeter. The back was viewed using C-arm Fluoroscopy and prepped using Chloraprep as a cleansing solution and the L2-3 interspace was palpated. Skin and subcutaneous tissues were anesthetized using lidocaine 1.5% and a 25-gauge needle. After this, an 18-gauge Touhy epidural needle was placed into the L2-3 interspace and advanced using fluoroscopic guidance and loss of resistance to air until the epidural space was encountered. After confirmation of needle placement in the epidural space, with dye, a solution containing normal saline, 3 mL and Depo-Medrol 80 mg were incrementally injected into the lumbar epidural space. The patient tolerated the procedure well with no complications. The patient was observed in the Pain Clinic and then discharged home neurologically intact. Plan and Disposition:: Patient was discharged without incident.
[2024-07-28] MEDS: methylPREDNISolone ACETATE 80MG/ML VIAL 80 MG (12:59)
[2024-07-28 13:00] VITALS: BP 156/90; PULSE 80; RESP 18; O2SAT 100
[2024-07-28 13:01] VITALS: BP 156/90; PULSE 80; RESP 18; O2SAT 100
== END 2024-07-28 10:20 | disposition home or self-care (01) ==
PROVIDERS: PCP Nurse Practitioner Family; Visit Provider Nurse Anesthetist, Certified Registered
DX: M51.16 Intervertebral disc disorders with radiculopathy, lumbar region (principal); M47.26 Other spondylosis with radiculopathy, lumbar region; M96.1 Postlaminectomy syndrome, not elsewhere classified; Z98.1 Arthrodesis status
CPT/HCPCS: 62323; J1010

== ENCOUNTER 2024-08-13 13:17 | Outpatient (POV) | payer BC, OTHER, SELFPAY ==
--- NOTE | 2024-08-13 13:23 | A.OFFVIS_ITS ---
[facility] Disclaimer: The information contained in this section may have been updated after the patient was seen, as this information can be updated by other users. Medical History Cervical vertebral fusion Insomnia Major depressive disorder Insomnia Surgical History History of appendectomy History of cholecystectomy H/O: hysterectomy has left ovary Family History Other Alcoholism Coronary artery disease Heart attack Hypertension Substance abuse Social History (Updated 07/28/24 @ 09:50 by Kat Hart RN) Smoking Status: Never smoker second hand exposure: No alcohol intake: never counseling provided: provider counseling substance use type: denies use current occupational status: other Travel in the last 8 weeks: None household members: spouse and family housing: house number of children: 2 current occupation: [employer] current occupational exposures/hazards: No caffeine: No PM Subjective & Objective Subjective Subjective:: Patient is a pleasant 54-year-old female who presents today for follow-up of lumbar epidural steroid injection L2-L3 on 07/28/2024. Today she rates her pain a 10 out of 10. She denies any new trauma or injury. Patient does state that she did not notice any improvement with this injection. Patient does feel like her pain is down lower in her back. This was a recommendation from Dr. Castañeda's office. She does states she is still having chronic pain throughout her back that is worse with certain movements such as bending twisting and lifting. Patient did previously have before this injection her first diagnostic lumbar medial branch block bilaterally L4-L5 and L5-S1 on 06/02/2024. He did provide 80% relief that lasted 24 hours. Patient does state today that she is willing to try anything that the pain is just a constant sensation that does interfere with everyday activities of living such as cooking and cleaning. Patient is currently managed with [place] and diazepam from an outside provider. She has been trialed on diclofenac in our office with minimal relief and was most recently sent in meloxicam 15 mg daily. Patient denies any side effects from the meloxicam and does feel like it did ease down her pain where she felt like she slept better with this medication. Patient states her Shar has been reviewed and is appropriate. Review of Systems: General: No recent weight changes, no fever, no sleep disturbances Respiratory: No cough, no shortness of air, no recurring pulmonary infections Cardiovascular/peripheral vascular: No chest pain, no palpitations, no edema, no shortness of breath Gastrointestinal: No new onset incontinence, normal bowel movements reported Genitourinary: No new onset incontinence Musculoskeletal: Low back pain Psychiatric: [Normal mood/affect] Neurological: [Denies weakness in extremities], [denies balance issues] Pain at rest (0-10 scale): 10 Objective Objective:: Physical Exam: General: Alert and oriented x3, no acute distress, pleasant and cooperative Lungs: Respirations even and unlabored, symmetrical chest expansion Eyes: PERRL Musculoskeletal: Flexion and extension of lumbar [spine] somewhat guarded secondary to pain, [antalgic gait noted] positive Kemps test Neurological: Speech clear, no gross sensory deficit Has patient had previous pain injection?: Yes Percent improvement in pain since last injection: Minimal Conservative treatment options previously tried: Home exercise plan Length of treatment: Longer than 12 weeks Meds Home Medications and Allergies Home Medications ?Medication ?Instructions ?Recorded ?Confirmed ?Type sumatriptan succinate 100 mg 100 mg PO DAILYDM PRN Headache 10/01/17 07/28/24 History tablet (Imitrex) diclofenac sodium 75 mg 75 mg PO DAILY Pain 12/03/19 07/28/24 History tablet,delayed release amlodipine 10 mg tablet 10 mg PO DAILY 01/08/23 07/28/24 History cyclobenzaprine 10 mg tablet 10 mg PO HS 01/08/23 07/28/24 History propranolol 20 mg tablet 20 mg PO BID 01/08/23 07/28/24 History vibegron 75 mg tablet (Gemtesa) 75 mg PO DAILY 01/08/23 07/28/24 History furosemide 20 mg tablet (Lasix) 20 mg PO DAILY PRN Fluid 10/07/23 07/28/24 History hydrocodone 5 mg-acetaminophen 325 1 tab PO TID PRN Pain, Moderate 04/13/24 07/28/24 History mg tablet brexpiprazole 1 mg tablet (Rexulti) 1 mg PO QHS #30 tabs 05/13/24 07/28/24 Rx estradiol 1 mg tablet See Rx Instructions .Route 11/20/24 01/28/25 Rx .COMPLEX #30 tabs amitriptyline 25 mg tablet 25 mg PO HS #30 tabs 06/22/24 07/28/24 Rx diazepam 5 mg tablet (Valium) 5 mg PO DAILY PRN sleep #30 tabs 06/22/24 07/28/24 Rx meloxicam 15 mg tablet See Rx Instructions .Route 08/06/24 Rx .COMPLEX #30 tabs atomoxetine 60 mg capsule 60 mg PO DAILY #30 caps 08/11/24 Rx (Strattera) New Prescriptions to Start Prescriptions: Allergies Allergy/AdvReac Type Severity Reaction Status Date / Time trazodone Allergy Intermediate HEADACHE Verified 07/28/24 09:52 venlafaxine AdvReac Unknown NIGHTMARES Verified 07/28/24 09:52 Assessment and Plan *Assessment and plan (1) Lumbar facet arthropathy: Status: Acute Category: Medical Code(s): M47.816 - Spondylosis without myelopathy or radiculopathy, lumbar region (2) Low back pain: Status: Acute Category: Medical Code(s): M54.50 - Low back pain, unspecified (3) Bilateral sacroiliitis: Status: Acute Category: Medical Code(s): M46.1 - Sacroiliitis, not elsewhere classified Plan I did discuss with the patient since her main complaint is still the chronic low back pain and that she did have a significant improvement with her first diagnostic lumbar medial branch block in May with 80% relief lasting 24 hours that I would recommend we proceed forward with a second diagnostic block. Risk and benefits were discussed with the patient and she would like to proceed forward with this plan of care. Patient has tried and failed conservative therapy including continued at home exercising and stretching for longer than 12 weeks with no additional improvement. Patient was counseled if she does get significant relief again with the second diagnostic block then we will proceed forward with a lumbar RFA at a later date. We will make sure to let Dr. Castañeda know that she did not have improvement with the L2-L3 lumbar epidural. I will refill her meloxicam. Patient will be scheduled for her second diagnostic lumbar medial branch block bilaterally L4-L5 and L5-S1 under fluoroscopy. Patient has been instructed to contact the clinic with any concerns before the next appointment. Dr. Camejo has reviewed this note and agrees with this plan of care. This note was dictated using voice recognition software and make contain errors or omissions. All injections are used with Lidocaine, Bupivacaine and Depo Medrol. Occasionally urine drug screen is needed to verify patient's compliance with our office pain contract. This is ordered based off specific treatments related to chronic pain with the potential to abuse certain medications.
[2024-08-13 14:03] VITALS: BP 162/93; PULSE 78; RESP 14; O2SAT 100; BMI 37.2
== END 2024-08-13 23:59 | disposition home or self-care (01) ==
PROVIDERS: PCP Nurse Practitioner Family; Visit Provider Nurse Practitioner Family
DX: M47.816 Spondylosis without myelopathy or radiculopathy, lumbar region (principal); M54.50 Low back pain, unspecified; M46.1 Sacroiliitis, not elsewhere classified; Z73.89 Other problems related to life management difficulty
CPT/HCPCS: 99212; G0463

== ENCOUNTER 2024-09-08 13:16 | Day surgery (SDC) | payer BC, OTHER, SELFPAY ==
[2024-09-08 13:32] VITALS: BP 140/85; PULSE 85; RESP 16; TEMP 37.1; O2SAT 96; BMI 37.8
--- NOTE | 2024-09-08 13:38 | P.PCN_ITS ---
Procedure Date: 09/08/24 Time: 13:35 Anesthesiologist:: Kenan Jaquez CRNA Complications:: None Pre-procedure Diagnosis:: Degenerative disc lumbar spine multilevels. Lumbar radiculopathy. Lumbar spondylosis. Multilevel lumbar facet arthropathy. Lumbar postlaminectomy syndrome. Post-procedure Diagnosis:: Same. Indications for Procedure:: Patient very pleasant 54-year-old female who comes our clinic today for ROUND TWO of lumbar medial branch blocks/facet injection at the bilateral L4-5, L5-S1 level. Patient describes low lumbar back pain as constant, dull, aching. She reports having difficulty with lumbar flexion, extension, left and right rotation. She rates her pain 6/10. Patient reports having some moderate to significant improvement for some time following her first round of injections at the same levels. Procedure Details:: Informed consent was obtained and the risk and benefits of the procedure was explained to the patient. Patient was taken to the procedure room where noninvasive monitors were placed, including noninvasive blood pressure cuff as well as pulse oximeter. The area over the lumbar spine was cleansed using chlorhexidine as a cleansing solution. I anesthetized the skin and subcutaneous tissues with 1% Lidocaine. I placed 22-gauge spinal needles into the facet joint/ medial branches of L4-L5, and L5-S1] bilaterally. Needle placement was confirmed with fluoroscopy. After confirmation of needle placement, each site was injected with 1 mL of 1% lidocaine and 0.25 % Marcaine and 10 mg of Depo- Medrol. A total of 80 mg of depo medrol was used for bilateral medial branch blocks of L4-L5, and L5-S1] bilaterally. Patient tolerated the procedure without difficulty. There were no complications. Plan and Disposition:: Patient was discharged without incident.
[2024-09-08 13:50] VITALS: BP 138/93; PULSE 84; RESP 16; O2SAT 100
[2024-09-08] MEDS: BUPIVACAINE 0.25% 10ML INJ 25 MG IJ (15:22)
[2024-09-08 15:26] VITALS: BP 140/85; PULSE 85; RESP 18; O2SAT 96
[2024-09-08] MEDS: methylPREDNISolone ACETATE 80MG/ML VIAL 80 MG (15:26)
[2024-09-08] MEDS: LIDOCAINE 1% 5ML PF VIAL 5 ML (15:26)
[2024-09-08 15:28] VITALS: BP 140/85; PULSE 85; RESP 18; O2SAT 96
== END 2024-09-08 13:50 | disposition home or self-care (01) ==
PROVIDERS: PCP Nurse Practitioner Family; Visit Provider Nurse Anesthetist, Certified Registered
DX: M47.816 Spondylosis without myelopathy or radiculopathy, lumbar region (principal); M96.1 Postlaminectomy syndrome, not elsewhere classified; M51.360 Other intervertebral disc degeneration, lumbar region with discogenic back pain only
CPT/HCPCS: 64493; 64494; J1010

== ENCOUNTER 2024-09-23 09:08 | Outpatient (POV) | payer BC, OTHER, SELFPAY ==
[2024-09-23 09:20] VITALS: BP 138/94; BP 143/89; PULSE 70; RESP 14; O2SAT 99; BMI 36.0
--- NOTE | 2024-09-23 10:06 | A.OFFVIS_ITS ---
[facility] Disclaimer: The information contained in this section may have been updated after the patient was seen, as this information can be updated by other users. Medical History Cervical vertebral fusion Insomnia Major depressive disorder Insomnia Surgical History History of appendectomy History of cholecystectomy H/O: hysterectomy has left ovary Family History Other Alcoholism Coronary artery disease Heart attack Hypertension Substance abuse Social History Smoking Status: Never smoker second hand exposure: No alcohol intake: never counseling provided: provider counseling substance use type: denies use current occupational status: other Travel in the last 8 weeks: None household members: spouse and family housing: house number of children: 2 current occupation: [employer] current occupational exposures/hazards: No caffeine: No PM Subjective & Objective Subjective Subjective:: Patient is a pleasant 54-year-old female who presents today for follow-up of her second round of lumbar medial branch blocks on 09/08/2024. Today she rates her pain an 8 out of 10. She states that she really did not notice much improvement following these injections. She does state that she is having a lot more pain into her low back and bilateral hips. Patient states that the left hip is worse than the right hip. She states that it gets much more aggravated with prolonged sitting or standing. She states she notices significant pain while she is in the bed and frequently tosses and turns due to the worsening pain. She also has a lot of difficulty going up and down stairs due to the pain. She states she has always walk first with the right leg because the left is worse and feels like it is going to give out. Patient denies any new falls or injury. She does state the pain is interfering with her ability perform activities of daily living such as cooking and cleaning. Patient has been referred to chiropractor and physical therapy with no additional improvement. Patient states that there was overall no long-term difference with these therapies and that occasionally some exercises actually worsened her pain. Patient does continue to do at home exercising and stretching and was physician guided for longer than 12 weeks. Patient does state the pain is also been present for more than 3 months. Patient is currently managed with meloxicam 15 mg daily from our office. Patient does state that this does help when she takes it at bedtime to help ease down some of her pain and help her sleep better. Patient was tried on compounded cream however felt like it did not provide significant improvement. Her Shar has been reviewed and is appropriate. Review of Systems: General: No recent weight changes, no fever, no sleep disturbances Respiratory: No cough, no shortness of air, no recurring pulmonary infections Cardiovascular/peripheral vascular: No chest pain, no palpitations, no edema, no shortness of breath Gastrointestinal: No new onset incontinence, normal bowel movements reported Genitourinary: No new onset incontinence Musculoskeletal: Low back pain, bilateral hip pain Psychiatric: [Normal mood/affect] Neurological: [Denies weakness in extremities], [denies balance issues] Pain at rest (0-10 scale): 8 Objective Objective:: Physical Exam: General: Alert and oriented x3, no acute distress, pleasant and cooperative Lungs: Respirations even and unlabored, symmetrical chest expansion Eyes: PERRL Musculoskeletal: Flexion and extension of lumbar [spine] somewhat guarded secondary to pain, [antalgic gait noted] point tenderness along bilateral SIs with positive bilateral July's, Anahi's, Gaenslen's, compression and dist raction exam Neurological: Speech clear, no gross sensory deficit Has patient had previous pain injection?: Yes Percent improvement in pain since last injection: Minimal Conservative treatment options previously tried: Home exercise plan Length of treatment: Longer than 12 weeks Meds Home Medications and Allergies Home Medications ?Medication ?Instructions ?Recorded ?Confirmed ?Type sumatriptan succinate 100 mg 100 mg PO DAILYDM PRN Headache 10/01/17 09/23/24 History tablet (Imitrex) diclofenac sodium 75 mg 75 mg PO DAILY Pain 12/03/19 09/23/24 History tablet,delayed release amlodipine 10 mg tablet 10 mg PO DAILY 01/08/23 09/23/24 History cyclobenzaprine 10 mg tablet 10 mg PO HS 01/08/23 09/23/24 History propranolol 20 mg tablet 20 mg PO BID 01/08/23 09/23/24 History vibegron 75 mg tablet (Gemtesa) 75 mg PO DAILY 01/08/23 09/23/24 History furosemide 20 mg tablet (Lasix) 20 mg PO DAILY PRN Fluid 10/07/23 09/23/24 History hydrocodone 5 mg-acetaminophen 325 1 tab PO TID PRN Pain, Moderate 04/13/24 09/23/24 History mg tablet brexpiprazole 1 mg tablet (Rexulti) 1 mg PO QHS #30 tabs 05/13/24 09/23/24 Rx estradiol 1 mg tablet See Rx Instructions .Route 05/20/24 09/23/24 Rx .COMPLEX #30 tabs meloxicam 15 mg tablet See Rx Instructions .Route 08/13/24 09/23/24 Rx .COMPLEX #30 tabs amitriptyline 50 mg tablet 50 mg PO HS #30 tabs 09/22/24 09/23/24 Rx atomoxetine 60 mg capsule 60 mg PO DAILY #30 caps 09/22/24 09/23/24 Rx (Strattera) desvenlafaxine succinate 50 mg 50 mg PO DAILY #30 tabs 09/22/24 09/23/24 Rx tablet,extended release 24 hr (Pristiq) diazepam 5 mg tablet (Valium) 5 mg PO DAILY PRN sleep #30 tabs 09/22/24 09/23/24 Rx New Prescriptions to Start Prescriptions: Allergies Allergy/AdvReac Type Severity Reaction Status Date / Time trazodone Allergy Intermediate HEADACHE Verified 09/22/24 08:27 venlafaxine AdvReac Unknown NIGHTMARES Verified 09/22/24 08:27 Assessment and Plan *Assessment and plan (1) Bilateral sacroiliitis: Status: Acute Category: Medical Code(s): M46.1 - Sacroiliitis, not elsewhere classified Plan Patient is experiencing worsening pain along the low back and bilateral hips. They did have limited range of motion of the lumbar spine along with point tenderness along bilateral SI joints and a positive bilateral July's, Anahi's, Gaenslen's, compression and distraction exam. I did discuss with the patient that I do believe they would benefit from bilateral SI injections. Risk and benefits were discussed with the patient and they would like to proceed forward with this option. Patient has tried and failed conservative therapy including continued at home stretching exercise for longer than 12 weeks that was physician guided. Patient does have a history of chronic sacroiliitis and has had this for longer than 3 months. Patient's last injection in her SI joints was in March 2024 that did provide 80% improvement. Patient did get very good relief that was more significant within the first 2 weeks however did ease down the severity of her pain for about 3 months. Will also make sure she has refills on her meloxicam. Patient will be scheduled for repeat bilateral SI injections under fluoroscopy. Patient has been instructed to contact the clinic with any concerns before the next appointment. Dr. Camejo has reviewed this note and agrees with this plan of care. This note was dictated using voice recognition software and make contain errors or omissions. All injections are used with Lidocaine or Bupivacaine and Depo Medrol.
== END 2024-09-23 23:59 | disposition home or self-care (01) ==
PROVIDERS: PCP Nurse Practitioner Family; Visit Provider Nurse Practitioner Family
DX: M46.1 Sacroiliitis, not elsewhere classified (principal); Z73.89 Other problems related to life management difficulty
CPT/HCPCS: 99212; G0463

== ENCOUNTER 2024-10-13 11:12 | Day surgery (SDC) | payer BC, OTHER, SELFPAY ==
[2024-10-13 11:26] VITALS: BP 127/74; PULSE 75; RESP 16; TEMP 36.8; O2SAT 97; BMI 37.4
[2024-10-13 11:55] VITALS: BP 121/81; PULSE 77; RESP 16; O2SAT 97
--- NOTE | 2024-10-13 11:57 | EXP.PAIN.PRO ---
Procedure Date: 10/13/24 Time: 11:35 Anesthesiologist:: Kenan Jaquez CRNA Complications:: None Pre-procedure Diagnosis:: DJD bilateral knee. Chronic bilateral knee pain. Post-procedure Diagnosis:: Same. Indications for Procedure:: Patient is a very pleasant 54-year-old female who comes our clinic today for bilateral intra-articular knee injections of cortisone and local anesthetic. Patient describes bilateral knee pain as constant, dull, aching. She reports responding very well to intra-articular cortisone injections in the past. She rates her pain 6/10. Procedure Details:: Details of the procedure explained to the patient. The patient taken procedure room placed in the sitting position. The over the right knee was cleaned using chlorhexidine as a cleansing solution. Using a 22-gauge inch and half needle the right knee joint was accessed from the anterior lateral position. After negative aspiration 4 cc of 1% lidocaine +4 cc of 0.25% Marcaine and 40 mg of Depo-Medrol was injected. Patient tolerated procedure without difficulty. There are no complications. Details of the procedure explained to the patient. The patient taken procedure room placed in the sitting position. The over the left knee was cleaned using chlorhexidine as a cleansing solution. Using a 22-gauge inch and half needle the left knee joint was accessed from the anterior lateral position. After negative aspiration 4 cc of 1% lidocaine +4 cc of 0.25% Marcaine and 40 mg of Depo-Medrol was injected. Patient tolerated procedure without difficulty. There are no complications. Plan and Disposition:: Patient was discharged without incident.
[2024-10-13] MEDS: BUPIVACAINE 0.25% 10ML INJ 25 MG IJ (12:30)
[2024-10-13] MEDS: methylPREDNISolone ACETATE 80MG/ML VIAL 80 MG (12:31)
[2024-10-13] MEDS: LIDOCAINE 1% 5ML PF VIAL 5 ML (12:31)
[2024-10-13 12:32] VITALS: BP 127/72; PULSE 79; RESP 18; O2SAT 97
[2024-10-13 12:34] VITALS: BP 127/72; PULSE 79; RESP 18; O2SAT 97
== END 2024-10-13 11:55 | disposition home or self-care (01) ==
PROVIDERS: PCP Nurse Practitioner Family; Visit Provider Nurse Anesthetist, Certified Registered
DX: M17.0 Bilateral primary osteoarthritis of knee (principal); M25.561 Pain in right knee; M25.562 Pain in left knee; G89.29 Other chronic pain
CPT/HCPCS: 20610; 77002; J1010

== ENCOUNTER 2025-01-07 12:28 | Outpatient (CLI) | payer BC, OTHER, SELFPAY ==
--- OUTSIDE RECORDS SUMMARY | 2024-11-24 06:00 | XMS_ITS ---
Author Organization [facility] D [facility] Address [address] [facility] [address] [place] [address] Care Team Providers Care Supervisor Forming And Tempering Name Role Phone Jared Ventura Primary Care Provider Nallely Reagan [phone] Allergies Allergen (clinical drug ingredient) Drug/Non Drug Allergy documented on EMR Reaction Allergy Type Onset Date Status EFFEXOR (uncoded) Unknown Allergy Ac tive milnacipran Savella n/v Drug Allergy Activ e morphine Morphine in large doses GI upset Drug Allergy Active trazodone traZODone headache Drug Allergy Active REASON FOR VISIT Med Check, left arm pain Medications Medication SIG (Take, Route, Frequency, Duration) Notes Start Date End Date Status Senna Plus 8.6-50 MG 2 tab(s) orally 2 times a day; Duration: 30 days 08/27/2024 Active Gemtesa 75 MG 1 tab(s) orally once a day; Duration: 90 days Active Propranolol HCl 20 mg TAKE ONE TABLET BY MOUTH 2 TIMES A DAY; Duration: 30 Active HYDROcodone-Acetaminophe n 5-325 MG 1 tab(s) orally three times daily; Duration: 30 days 10/12/2024 Active amLODIPine Besylate 10 MG 1 tab(s) orally once a day; Duration: 90 days Active SUMAtriptan Succinate 50 MG TAKE 1 TABLET BY MOUTH AT ONSET OF MIGRAINE, THEN MAY REPEAT 1 TIMEin2 HOURS IF NO RELIEF. MAX OF 2in24 HOURS. orally once a day as needed; Duration: 30 days Active EMGALITY AUTOINJECTOR 120 MG/ML 120 MG SUBCUTANEOUSLY ONCE A MONTH; Duration: 28 DAYS *Please review for potential replacement for e-prescription and drug interaction check* Active hydroCHLOROthiazide 12.5 MG 1 tab(s) orally once a day; Duration: 30 day(s) prn Active Cyclobenzaprine HCl 10 MG 1 tab(s) orally 2 times a day as needed for muscle spasm; Duration: 30 days Active Estradiol 1 MG 1 tab(s) orally once a day Active Amitriptyline HCl 10 MG 1 tab(s) orally once a day (at bedtime) Active Biotin 00246 MCG 1 CAP(S) ORALLY ONCE A DAY *Please review and pick correct strength-formula tion from [place] options. If intended option is not shown, discontinue and re-order from Quick Search* Active Magnesium Gluconate 250 MG 1 tab(s) orally once daily Active Multivitamin - 1 tab(s) orally once a day Active B-12 1000 MCG 1 tab(s) orally once a day; Duration: 30 day(s) Active Valium 5 MG 1 tablet as needed Orally Once a day Active Pristiq 25 MG 1 tablet Orally Once a day Active Turmeric 500 MG 1 cap(s) orally once a day 1500mg Active Vital Signs Temperature 97.5 degrees Fahrenheit 11/25/19 25 Heart Rate 88 /min 11/24/2024 Blood pressure systolic 120 mm Hg 11/25/19 25 Blood pressure diastolic 88 mm Hg 025 Height 5 ft 4 in in 11/24/2024 Weight 215 lbs 11/24/2024 BMI 36.9 kg/m2 11/24/2024 Encounters Encounter Location Date Provider Diagnosis [facility] [address] [facility] [address] [place], [place] [address] 11/24/2024 Nallely Reagan Degeneration of intervertebral disc of lumbosacral region with discogenic back pain and lower extremity pain M51.372 ; Lumbago with sciatica, right side M54.41 ; Other chronic pain G89.29 and Left upper limb pain M79.602 Assessments Encounter Date Diagnosis (ICD Code) Assessment Notes Treatment Notes Treatment Clinical Notes Section Notes 11/24/2024 Degeneration of intervertebral disc of lumbosacral region with discogenic back pain and lower extremity pain (ICD-10 - M51.372) Again reviewed with Dr. Ventura, continue hydrocodone pending surgery in and NS will assume this postoperative. She voices understanding. Did not tolerate gabapentin previously. Advised not to drive in close proximity to taking [place]. 11/24/2024 Lumbago with sciatica, right side (ICD-10 - M54.41) 11/24/2024 Other chronic pain (ICD-10 - G89.29) 11/24/2024 Left upper limb pain (ICD-10 - M79.602) suspect nerve impingement, onset just yesterday. topical heat, analgesics and stretching discussed Plan Of Treatment Next Appt Details Follow Up: postop, Reason: Provider Name:Nallely Street ce, 02/08/2025 08:00:00 AM, [address], [address], [place], [address], Progress Notes * Hannah PERRY MDOB:1969 (54 yo F)Acc No.[id number]:11/24/2024 Progress Notes Patient: Alexia JORDAN Hannah Moya Provider: DMITRIY Nguyen :1970 A ge:54 Y S ex:Female Date:11/24/2024 Address:[address] [place] [address], [facility] [id number] Pcp:Jared Ventura Subjective: * Chief Complaints: * 1 . Med Check. 2. Left arm pain. * HPI: g en: 54-year-old female presents today for about 6 week F U regarding low back pain with radicular symptoms in the right lower extremity. Pain is still severe much of the time, Hydrocodone does take the edge off of her pain and allows her to move/change positions with less pain. She has known lumbar d egenerative disc disease. She did see Dr Castañeda, [facility], in July and again last week and is scheduled for fusion in early November. She does note new left arm pain, radiates down the back of the upper arm from the shoulder blade. No actual shoulder joint pain or elbow pain. * ROS: C ONSTITUTIONAL: no L oss of appetite. n o F ever. G ASTROENTEROLOGY: no V omiting. U ROLOGY: no D ifficulty urinating. * Medical History: D egenerative spinal arthritis worse in cervical spine, cervical fusion, 2008., Obesity, lap-band Feb 04, Esophageal reflux, Hiatal hernia, Fibromyalgia, Appendectomy, 1988, Cholecystectomy, 1988, Chronic pain syndrome, Depression and anxiety, hysterectomy and bladder tack, 09/2006. Right oopherectomy, Lithrotripsy for right kidney stone obstruction,2005, Arthroscopies and new ligament placement- 1985, Gastric sleeve, 03/2011, Chronic migraines-botox injections every 3 months, Herpes, type 1, ADHD, Colonoscopy/EGD 2013 Dr Radford with colon tubular adenoma and chronic gastritis, Sleep apnea - followed by Dr Mckeon as of 2016, colonoscopy September 2016 with repeat tubular adenoma. 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 Kaye 08/2019, Cyst off Rt wrist 07/18/2020, L3/L4 fusion 06/22/2022. * Hospitalization/Major Diagno stic Procedure: [facility], pneumonia 2000, Hiatal Hernia Repair 2011, Cervical fusion , Gastric seeve , Back surgery-Dr. Kaye 08/2019, - back surgery Dr. Vera 06/22/22. * Family History: F ather: . M other: , aneurysm, CHF. P aternal Grand Father: .?Paternal Grand Mother: , cancer. M aternal Grand Father: , CHF. M aternal Grand Mother: , Alzheimer. P aternal uncle: alive. P aternal aunt: alive. M aternal aunt: alive. S iblings: alive. C hildren: alive. 4 brother(s) , 2 sister(s) - healthy. 2 son(s) - healthy. . * Social History: S moking: no A re you a:: nonsmoker. R ecreational drug use: no. Exercise: yes. Home smoke detector use: yes. Caffeine: yes, soft drinks-2-3 per day. Living Will: No. Alcohol: no. Sexually active: yes. Travel outside [place]: no. 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 * Medications: T aking Pristiq 25 MG Tablet Extended Release 24 Hour 1 tablet Orally Once a day , Taking Valium 5 MG Tablet 1 tablet as needed Orally Once a day , Taking Turmeric 500 MG Capsule 1 cap(s) orally once a day , Notes to Pharmacist: 1500mg, Taking Biotin 66523 MCG CAPSULE 1 CAP(S) ORALLY ONCE A DAY , Notes to Pharmacist: *Please review and pick correct strength-formulation from [place] options. If intended option is not shown, discontinue and re-order from Quick Search*, Taking Amitriptyline HCl 10 MG Tablet 1 tab(s) orally once a day (at bedtime) , Taking Multivitamin - Tablet 1 tab(s) orally once a day , Taking Magnesium Gluconate 250 MG Tablet 1 tab(s) orally once daily , Taking B-12 1000 MCG Tablet 1 tab(s) orally once a day , Taking hydroCHLOROthiazide 12.5 MG Tablet 1 tab(s) orally once a day , Notes to Pharmacist: prn, Taking Estradiol 1 MG Tablet 1 tab(s) orally once a day , Taking Cyclobenzaprine HCl 10 MG Tablet 1 tab(s) orally 2 times a day as needed for muscle spasm , Taking EMGALITY AUTOINJECTOR 120 MG/ML SOLUTION 120 MG SUBCUTANEOUSLY ONCE A MONTH , Notes to Pharmacist: *Please review for potential replacement for e-prescription and drug interaction check*, Taking SUMAtriptan Succinate 50 MG Tablet TAKE 1 TABLET BY MOUTH AT ONSET OF MIGRAINE, THEN MAY REPEAT 1 TIMEin2 HOURS IF NO RELIEF. MAX OF 2in24 HOURS. orally once a day as needed , Taking amLODIPine Besylate 10 MG Tablet 1 tab(s) orally once a day , Taking Gemtesa 75 MG Tablet 1 tab(s) orally once a day , Taking Senna Plus 8.6-50 MG Tablet 2 tab(s) orally 2 times a day , Taking HYDROcodone-Acetaminophen 5-325 MG Tablet 1 tab(s) orally three times daily , Taking Propranolol HCl 20 mg Tablet TAKE ONE TABLET BY MOUTH 2 TIMES A DAY , Medication List reviewed and reconciled with the patient * Allergies: t raZODone: headache, EFFEXOR, Morphine: in large doses GI upset, Savella: n/v. Objective: * Vitals: N urse:sw, Pain:10-shoulder pain, Temp:97.5, RR:18, HR:88, BP:120/88, Ht: 5 ft 4 in, Wt:215, BMI:36.9. * Examination: G eneral Examination: General P leasant and Cooperative, NAD on RA,. Heart: R egular Rate and Rhythm, no murmur, rubs or gallops. Lungs: c lear to auscultation,. Neurologic Exam: A lert and oriented x 3. Back: a ntalgic gait with groin pain and tender LS spine.? neck s upple,, no thyromegaly,, no lymphadenopathy,. Psych N ormal Mood/Affect. l eft upper extremity with normal ROM and reflexes but tender over the scapularis muscles. Assessment: * Assessment: 1. D egeneration of intervertebral disc of lumbosacral region with discogenic back pain and lower extremity pain - M51.372 (Primary) 2 . L umbago with sciatica, right side - M54.41 3 . O ther chronic pain - G89.29 4 . L eft upper limb pain - M79.602 Plan: * Treatment: 2. L eft upper limb pain Clinical Notes: suspect nerve impingement, onset just yesterday. topical heat, analgesics and stretching discussed * Follow Up: p ostop * * Sign off status: Completed true * Provider: DMITRIY Nguyen Date: 0 11/24/2024 Generated for Adriane leonardo/Todd/Luis on: 0 01/07/2025 12:33 PM EDT History and Physical Notes * Examination Category Sub-Category Detail Notes Category Not es General Examination Heart: Regular Rate and Rhythm, no murmur, rubs or gallops left upper extremity with normal ROM and reflexes but tender over the scapularis muscles Lungs: clear to auscultatio n, Neurologic Exam: Alert and oriented x 3 Back: antalgic gait with g roin pain and tender LS spine neck supple,, no thyromeg mena,, no lymphadenopathy, General Pleasant and Coopera tive, NAD on RA, Psych Normal Mood/Affect
--- OUTSIDE RECORDS SUMMARY | 2024-11-26 08:00 | XMS_ITS | Encounter Summary ---
Author Organization [employer] ([place], [place], [place], [place]) Address [address] [place] [address] Care Team Providers Care Specialized Developer Name Role Phone Unavailable Primary Care Provider Unavailabl e Reason for Visit * Auth/Cert (Routine) Specialty Diagnoses / Procedures Referred By Contac t Referred To Contact Diagnoses Lumbar radiculopathy Lumbar radiculopathy Procedures IL ARTHRODESIS COMBINED TQ 1NTRSPC LUMBAR [place] ARTHRODESIS CMBN TQ 1NTRSPC EACH ADDITIONAL [place] STEREOTACTIC COMPUTER ASSISTED PX SPINAL FUSION, SPINE, LUMBAR, TLIF Robbie Castañeda MD [address] [place] [address] Phone: tel: fax: Referral ID Status Reason Start Date Expiration Date Visits Re quested Visits Authorized [id number] 11/04/2024 1 2 Encounter Details Date Type Department Care Team (Latest Contact Info) Description 11/26/2024 8:00 AM EDT - 11/26/2024 11:59 PM EDT Hospital Encounter [facility] Preadmission Testing [address] [place] [address] Robbie Castañeda MD [address] [phone] Preop testing (Primary Dx) Discharge Disposition: Home or Self Care Anesthesia Record Procedure Summary Procedure Name Responsible Anesthesiologist Anesthesia Start Time Anesthesia Stop Time (L2-ILIAC POSTERIOR FUSION-PREVIOUS L3-L5- USING AIRO) (Spine Lumbar) Arvind Dash MD 12/04/24 1426 12/04/24 1741 Events Date Time Event Comment 12/04/2024 1426 An Start Patient identif ied and chart reviewed. 1429 An Start Data Anesthesia mac reg and monitors checked. 1429 Pre-Induction Eval FDA anest hesia machine pre-use checkout completed. Patient status reassessed prior to start of anesthesia care. 1437 An Induction 1439 An Intubation 1446 Anesthesia Ready 1506 Quick Note Surgical timeou t 1724 Intraop Handoff Handoff Perf ormed per Protocol: 1) Pt Name 2) ASA/Allergies 3) Anesthetic Type 4) Procedure/Surgeon/Anesthesiologist 5) Prior History 6) Isolation status 7) Intra-op Problems/Meds 8) Airway Description/Difficulty 9) IVs/Fluids/I&O 10) Anesthesia Concerns/Surgeon Requests 11) Pre-op Sedation/Antibiotics Administered 12) Post-op Plan/Orders 13) Questions and Concerns Addressed 1731 An Extubation 1735 an stop data 1737 Handoff to Receiving I compl eted my handoff to the receiving clinician during which we: 1. Identified the patient. 2. Identified the responsible provider. 3. Reviewed the pertinent medical history. 4. Discussed the surgical course. 5. Reviewed intra-op anesthesia management and issues during anesthesia. 6. Set expectations for post-procedure period. 7. Allowed opportunity for questions and acknowledgement of understanding. 1741 An Stop Meds * Agents No agents on file. * Blood No blood administrations on file. Lines, Drains, and Airways Type Details Placement Removal Wound 12/04/24; 1515; Incision; Back; Not applicable; dermabond and covaderm 12/04/24 1515 by Nilda Davis RN Peripheral IV Placement Date: 12/04/24; Placement Time: 1148; Size: 20 G; Orientation: Left, Posterior; Location: Hand; Site Prep: Chlorhexidine ; Inserted by: Felipa Delarosa RN; Insertion attempts: 1; Securement Method: Taped; Removal Date: 12/10/24; Removal Time: 1307 12/04/24 1148 by Ashok Lindsay RN 12/10/24 1307 by Automatic Discharge Provider Peripheral IV Placement Date: 12/04/24; Placement Time: 1154; Size: 18 G; Orientation: Anterior, Left; Location: Forearm; Site Prep: Chlorhexidine ; Inserted by: Felipa Delarosa RN; Insertion attempts: 1; Securement Method: Taped; Removal Date: 12/10/24; Removal Time: 1307 12/04/24 1154 by Ashok Lindsay RN 12/10/24 1307 by Automatic Discharge Provider Urethral Catheter Placement Date: 12/04/24; Placement Time: 1430; Inserted by: Nehemias BUENROSTRO; Type: Non-latex; Size: 16 Fr.; Balloon Size: 10 mL; Urine Returned: Yes; Removal Date: 12/05/24; Removal Time: 1246 12/04/24 1430 by Nilda Davis RN 12/05/24 1246 by Cecy Ji RN ETT Placement Date 12/04; Placement Time 1439 (created via procedure documentation); Airway Size 7.5; Airway Cuffed Yes; Removal Date 12/04/24; Removal Time 1731 12/04/24 1439 by Eric Wyman 12/04/24 1731 by Venus Mancilla CRNA Closed/Suction Drain 12/04/24; 1724; 1; Back; Bulb; Round; 15 Fr.; Per order 12/04/24 1724 by Nilda Davis RN 12/06/24 1139 by Noemi Gonzalez LPN documented in this encounter Social History Tobacco Use Types Packs/Day Years Used Date Smoking Tobacco: Never Smokeless Tobacco: Never Alcohol Use Standard Drinks/Week Comments Not Currently 0 (1 standard drink = 0.6 oz pur e alcohol) [facility] - Mental Health Answer Date Recorde d Little interest or pleasure in doing things Not at all 11/26/2024 Feeling down, depressed, or hopeless Not at all 11/26/2024 Feeling of Stress Not on file 11/26/2024 [facility] Intimate Partner Violence Answer Da te Recorded Within the last year, have y ou been afraid of your partner or ex-partner? No 11/26/2024 Within the last year, have y ou been humiliated or emotionally abused in other ways by your partner or ex-partner? No Within the last year, have y ou been kicked, hit, slapped, or otherwise physically hurt by your partner or ex-partner? No 11/26/2024 Within the last year, have y ou been raped or forced to have any kind of sexual activity by your partner or ex-partner? No 11/26/2024 Family and Community Support Answer Brendon e Recorded Help with Day to Day Activities Not on file 07/19/2023 Feeling Lonely or Isolated Not on file 07/19 Educational Attainment Answer Date Pedro rded Speak language other than Serbian at home Not on file 07/19/2023 Want help with school or training Not on file 07/19/2023 Substance Use Answer Date Recorded Used prescription meds for non-medical reasons N ot on file 07/19/2023 Used illegal drugs past 12 months Not on file 07/19/2023 Comments No Sex and Gender Information Value Date Recorded Sex Assigned at Not on file Legal Sex Female 4:50 PM CDT Gender Identity Not on file Sexual Orientation Not on file documented as of this encounter Last Filed Vital Signs Vital Sign Reading Time Taken Comments Blood Pressure 153/105 11/26/2024 8:40 AM EDT Pulse 86 11/26/2024 8:17 AM EDT Temperature 36.6 C (97.8 F) 11/26/2024 8:17 AM EDT Respiratory Rate 16 11/26/2024 8:17 AM EDT Oxygen Saturation 96% 11/26/2024 8:17 AM EDT Inhaled Oxygen Concentration - - Weight 97.5 kg (215 lb) 11/26/2024 8:15 AM EDT Height 162.6 cm (5' 4 ) 11/26/2024 8:15 AM EDT Body Mass Index 36.9 11/26/2024 8:15 AM EDT documented in this encounter Discharge Instructions * Discharge Instructions* Westno Weems RN - 11/26/2024 8:06 AM EDT Please arrive to the hospital on: 12/04/24 Please arrive by: To be notified In the days and weeks prior to surgery: Increase protein intake to aide in strength and healing post-operatively. Stay well hydrated with healthy fluids (ie. Water, juices, Gatorade) until instructed to have nothing by mouth prior to surgery. Evening prior to surgery: Shower, change bed linens, wear clean pajamas and avoid sleeping with pets. Use antiseptic soap/wipes, noting to be sure to avoid sensitive areas. Morning of surgery: Use antiseptic soap/wipes Day of Surgery Instructions: Please arrive at the hospital on time. If you are unable to arrive at your designated time, call the Outpatient Surgery Department at [phone] or ext [phone] Arrive at the hospital at your designated time, and park in the main visitor parking area. GO TO ADMITTING TO REGISTER FOR SURGERY. You will be notified by outpatient surgery staff, the afternoon before surgery, regarding the time of your arrival the morning of surgery. If you have any questions, please call the above phone number. If you are going home the same day as your surgery, you MUST have a responsible adult over the age of [address] you home, and REMAIN with you 24 hours after surgery. PLEASE NOTE: If you do not have a responsible adult with you the day of surgery, your surgery may be cancelled. DO NOT EAT OR DRINK ANYTHING AFTER MIDNIGHT: the night before your surgery unless otherwise indicated. This includes water, coffee, gum, mints, tobacco, etc. You may brush your teeth the morning of surgery. Try not to smoke for 2 weeks prior to surgery. DO NOT chew tobacco or use any form of tobacco 24 hours before surgery. DO NOT drink alcohol or take illicit drugs 24 hours before surgery. On the day of surgery, please take only the medications you are instructed to take. Please bring inhalers with you on the day of surgery. Please DO NOT take any NSAIDS (Ibuprofen, Blood thinners, Aspirin, Motrin, Aleve, Celebrex, etc) unless approved by your physician. DO NOT wear any jewelry (including rings and body piercings), hair pins, makeup or nail arabic on fingers or toes on the day of surgery. If you wear contact lenses, please bring a case and solution to put them in. If you wear glasses orhearing aids, please bring a case to put those in. DIABETICS: please check your blood sugar the morning of surgery. Follow instructions given to you by the nurse. If your blood sugar is high, do what you would normally do. If you are admitted, please leave belongings in the car and have family bring them to your room later. Leave valuables such as money, credit cards or jewelry at home. Please contact your surgeon for any physical changes such as cold, flu, fever, or if you're unable to come for surgery. If you suspect you may be , please notify your physician. Bring a copy of any healthcare directives, and legal documents such as a living will, healthcare surrogate, power of spray blender, or legal guardianship verification to the hospital on the day of surgery. GENERAL INSTRUCTIONS FOR POST OP CARE: -For the next 24 hours: Have a responsible adult (over the age of 18) with you for your safety and protection Do NOT drive, work around machines, or use any type of power equiptment Do NOT smoke Do NOT drink alcohol or while on pain medication Do NOT make any important decisions, or sign any important paperwork -After surgery, you may have a sore throat, muscle aches, dizziness, and feel tired or sleepy - You may resume medications unless directed not to by your doctor. - Your first meal after surgery should be light, and gradually increase your diet to what is normalfor you. In case of nausea, avoid solid food and take only clear liquids as tolerated. - After surgery, please plan to spend a quiet, relaxed evening at home. Resume your normal activityas prescribed by your doctor, and as tolerated. * Attachments The following attachments cannot be sent through Care Everywhere. * General Anesthesia Adult (Serbian) * Spinal Fusion Adult (Serbian) documented in this encounter Medications at Time of Discharge amitriptyline (ELAVIL) 25 MG tablet Take 1 tablet (25 mg total) by mouth nightly. 12/18/2022 amLODIPine (NORVASC) 10 MG tablet Take 1 tablet (10 mg total) by mouth daily. 12/18/2022 atomoxetine (STRATTERA) 80 MG capsule Take 1 capsule (80 mg total) by mouth daily. 11/24/2024 biotin 10,000 mcg cap Take by mouth daily. cyanocobalamin 2,500 mcg tab Take 1 tablet (2,500 mcg total) by mouth daily. desvenlafaxine (PRISTIQ) 50 MG 24 hr tablet Take 1 tablet (50 mg total) by mouth daily. 11/16/2024 diazePAM (VALIUM) 5 MG tablet Take 1 tablet (5 mg total) by mouth every night as needed for insomnia. 12/18/2022 Emgality Pen 120 mg/mL pen Inject 1 mL (120 mg total) under the skin every 30 (thirty) days. estradioL (ESTRACE) 1 MG tablet Take 1 tablet (1 mg total) by mouth daily. 12/18/2022 ferrous fumarate/vit Bcomp,C (SUPER B COMPLEX ORAL) Take by mouth daily. furosemide (LASIX) 20 MG tablet Take 1 tablet (20 mg total) by mouth as needed. 12/20/2022 MAGNESIUM ORAL Take 400 mg by mouth nightly. propranoloL (INDERAL) 20 MG tablet Take 1 tablet (20 mg total) by mouth 2 (two) times daily. 12/19/2022 sennosides-docus ate sodium (SENOKOT S) 8.6-50 mg per tablet Take 2 tablets by mouth 2 (two) times daily. 08/27/2024 SUMAtriptan (IMITREX) 100 MG tablet TAKE 1 TABLET BY MOUTH AT ONSET OF MIGRAINE HEADACHE, MAY REPEAT IN 2 HOURS IF NEEDED 9 tablet 03/29/2023 vibegron (Gemtesa) 75 mg Tab 1 tab(s) orally once a day for 30 days cyclobenzaprine (FLEXERIL) 10 MG tablet Take 1 tablet (10 mg total) by mouth 2 (two) times daily as needed. 12/06/2024 HYDROcodone-acet aminophen (NORCO) 5-325 mg per tablet Take 1 tablet by mouth 3 (three) times daily. 11/24/2024 12/06/2024 meloxicam (MOBIC) 15 MG tablet Take 1 tablet (15 mg total) by mouth nightly. 11/16/2024 12/06/2024 documented as of this encounter Plan of Treatment Not on file documented as of this encounter Procedures Procedure Name Priority Date/Time Associated Diagnosis Comments FS_MODEL_IP_ECG 12-LEAD Routine 11/26/2024 8:52 AM EDT Preop testing CBC HEMOGRAM (SJ-BKR) STAT 11/26/2024 8:39 AM EDT Preop testing ABO/RH CONFIRMATION/RETYPE (ISAAC CURRYR) STAT 11/26/2024 8:39 AM EDT Preop testing BASIC METABOLIC PANEL STAT 11/26/2024 8:39 AM EDT Preop testing URINALYSIS WITHOUT MICROSCOPIC Routine 11/26/2024 8:38 AM EDT Preop testing documented in this encounter Results * ECG 12 lead (11/26/2024 8:52 AM EDT) VENTRICULAR RATE EKG/MIN 84 BPM GE MUSE ATRIAL RATE (MCT) 84 BPM GE MUSE IL Interval 174 ms GE MUSE QRS-INTERVAL (MSEC) 96 ms GE MUSE QT Interval 378 ms GE MUSE QTC Interval 446 ms GE MUSE P [place] 64 degrees GE MUSE R AXIS (MCT) 50 degrees GE MUSE T Wave [place] 66 degrees GE MUSE [place] Diagnosis Normal sinus rhythm Normal ECG No previous ECGs available Confirmed by Vanna Lorenzo ([id number]) on 11/27/2024 9:32:49 PM GE MUSE 11/26/2024 8:52 AM EDT 11/27/2024 9:32 PM EDT Margaux Barnes MD ECG ORDERABLES Final Result GE MUSE * ABO/RH CONFIRMATION/RETYPE (11/26/2024 8:39 AM EDT) RETYPE O Positive 11/25/2024 8:00 PM EDT [facility] ([place]) Comment:[id number] Blood Venipuncture / Unknown 11/26/2024 8:39 AM EDT 11/26/2024 8:39 AM EDT us Margaux Barnes MD [facility] TEST ORDERABLES Final Result [facility] ([place]) [address] [place] [address], [facility] [phone] * (ABNORMAL) Basic Metabolic Panel (11/26/2024 8:39 AM EDT) Sodium 141 136 - 145 meq/L 11/26/2024 8:58 AM EDT [facility] Potassium 4.0 3.4 - 5.1 meq/L 11/26/2024 8:58 AM EDT [facility] CO2 30(H) 22 - 29 meq/L 11/26/2024 8:58 AM EDT [facility] Chloride 105 98 - 112 meq/L 11/26/2024 8:58 AM EDT [facility] Glucose 93 74 - 100 mg/dL 11/26/2024 8:58 AM EDT [facility] BUN 13.1 9.8 - 20.1 mg/dL 11/26/2024 8:58 AM EDT [facility] Creatinine 0.72 0.57 - 1.11 mg/dL 11/26/2024 8:58 AM EDT [facility] BUN/Creatinine 18 8 - 20 11/26/2024 8:58 AM EDT [facility] Calcium 9.5 8.4 - 10.2 mg/dL 11/26/2024 8:58 AM EDT [facility] Anion Gap 10 4 - 12 11/26/2024 8:58 AM EDT [facility] eGFR (mL/min/1.73m2) 99 >=60 mL/min/1.7 3m2 11/26/2024 8:58 AM EDT [facility] Osmolality Calc 281.1 mOsm/kg 8:58 AM EDT [facility] Blood Venipuncture / Unknown 11/26/2024 8:39 AM EDT 11/26/2024 8:39 AM EDT us Robbie Castañeda MD LAB BLOOD ORDERABLES Final Resul t [facility] [address] [phone] * CBC - Hemogram (SJ-BKR) (11/26/2024 8:39 AM EDT) WBC 5.0 4.0 - 10.0 K/ L 11/26/2024 8:43 AM EDT [facility] RBC 4.62 3.93 - 5.22 M/ L 11/26/2024 8:43 AM EDT [facility] Hemoglobin 13.8 11.2 - 15.7 GM/DL 11/26/2024 8:43 AM EDT [facility] Hematocrit 42.5 34.1 - 44.9 % 11/26/2024 8:43 AM EDT [facility] MCV 92 79 - 95 fL 11/26/2024 8:43 AM EDT [facility] MCH 29.9 25.6 - 32.2 pg 11/26/2024 8:43 AM EDT [facility] MCHC 32.5 32.2 - 35.5 GM/DL 11/26/2024 8:43 AM EDT [facility] RDW 12.6 11.7 - 14.4 % 11/26/2024 8:43 AM EDT [facility] Platelets 292 140 - 375 K/CU MM 11/26/2024 8:43 AM EDT [facility] MPV 9.5 9.4 - 12.3 fL 11/26/2024 8:43 AM EDT [facility] Blood Venipuncture / Unknown 11/26/2024 8:39 AM EDT 11/26/2024 8:39 AM EDT us Robbie Castañeda MD LAB BLOOD ORDERABLES Final Resul t [facility] [address] [phone] * (ABNORMAL) Urinalysis without Microscopic (11/26/2024 8:38 AM EDT) Color, UA Yellow 11/26/2024 9:09 AM EDT [facility] Clarity, UA Clear Clear 11/26/2024 9:09 AM EDT [facility] Specific [place], UA 1.028 1.005 - 1.030 11/26/2024 9:09 AM EDT [facility] pH, UA 6.0 6.0 - 8.0 11/26/2024 9:09 AM EDT [facility] Leukocytes, UA Negative Negative 11/26/2024 9:09 AM EDT [facility] Nitrite, UA Negative Negative 11/26/2024 9:09 AM EDT [facility] Protein, UA Trace(A) Negative 11/26/2024 9:09 AM EDT [facility] Glucose, UA Normal Normal 11/26/2024 9:09 AM EDT [facility] Ketones, UA Negative Negative 11/26/2024 9:09 AM EDT [facility] Urobilinogen, UA 2 mg/dL(A) Normal 11/26/2024 9:09 AM EDT [facility] Bilirubin, UA Negative Negative 11/26/2024 9:09 AM EDT [facility] Blood, UA Negative Negative 11/26/2024 9:09 AM EDT [facility] Specimen Source Urine, Clean Catch 11/26/2024 9:09 AM EDT [facility] Urine URINE SPECIMEN COLLECTION, CLEAN CATCH / Unknown 11/26/2024 8:38 AM EDT 11/26/2024 8:38 AM EDT us Robbie Castañeda MD URINE ORDERABLES Final Result Performing Organization Address [facility]/State/[facility] Co de Phone Number [facility] [address] [place] [address] documented in this encounter Visit Diagnoses Diagnosis Preop testing- Primary Unspecified pre-operative examination documented in this encounter Administered Medications Inactive Administered Medications - up to 3 most recent administrations Medication Order MAR Action Action Date Dose Rate Site mupirocin (BACTROBAN) 2 % ointment intraNASAL, Once, On [place]grita 11/26/24 at 0830, For 1 dose, Specific area to apply: TO BILATERAL NARES NIGHT PRIOR TO SURGERYIndications:Preop testing Given 11/26/2024 8:51 AM EDT documented in this encounter
--- OUTSIDE RECORDS SUMMARY | 2024-12-04 10:20 | XMS_ITS | Encounter Summary ---
Author Organization [employer] ([place], [place], [place], [place]) Address [address] [place] [address] Care Team Providers Care Inspector Casing Name Role Phone Manish Damico JOSIAH Primary Care Provider [phone] Reason for Visit * Auth/Cert (Routine) Specialty Diagnoses / Procedures Referred By Contac t Referred To Contact Diagnoses Lumbar radiculopathy Lumbar radiculopathy Procedures WA ARTHRODESIS COMBINED TQ 1NTRSPC LUMBAR WA ARTHRODESIS CMBN TQ 1NTRSPC EACH ADDITIONAL WA STEREOTACTIC COMPUTER ASSISTED PX SPINAL FUSION, SPINE, LUMBAR, TLIF Robbie Castañeda MD [address] [place] [address] Phone: tel: fax: Referral ID Status Reason Start Date Expiration Date Visits Re quested Visits Authorized [id number] 11/04/2024 1 2 Encounter Details Date Type Department Care Team (Latest Contact Info) Description 12/04/2024 10:20 AM EDT - 12/06/2024 1:06 PM EDT Hospital Encounter [facility] [address] [place] [address] Robbie Castañeda MD [address] [place] [address] Discharge Disposition: Home or Self Care Social History Tobacco Use Types Packs/Day Years Used Date Smoking Tobacco: Never Smokeless Tobacco: Never Alcohol Use Standard Drinks/Week Comments Not Currently 0 (1 standard drink = 0.6 oz pur e alcohol) [facility] - Mental Health Answer Date Recorde [...] Date Pedro rded Speak language other than Polish at home Not on file 07/19/2023 Want [...] Sign Reading Time Taken Comments Blood Pressure 103/68 12/06/2024 11:40 AM EDT Pulse 92 12/06/2024 11:40 AM EDT Temperature 37 C (98.6 F) 12/06/2024 11:40 AM EDT Respiratory Rate 20 12/06/2024 11:40 AM EDT Oxygen Saturation 99% 12/06/2024 11:40 AM EDT Inhaled Oxygen Concentration - - Weight 95.7 kg (211 lb) 12/04/2024 11:42 AM EDT Height 162.6 cm (5' 4 ) 12/04/2024 11:42 AM EDT Body Mass Index 36.22 12/04/2024 11:42 AM EDT documented in this encounter Discharge Summaries * Harley Astorga Jr., MD - 12/06/2024 12:03 PM EDT Patient Name: Hannah Jaime : 1970 Date of Admission: 12/04/2024 Date of Discharge: Primary Care Physician: MANISH DAMICO APRN Consultations: Discharge Diagnoses: Spinal instability Reason for Admission: Postoperative care after lumbar fusion Hospital Course: Complicated. The patient was doing well on postoperative day #2 and wanted to go home. Her incisionwas clean dry and intact. SIDNEY drainage had subsided substantially. She had a low-grade elevated temperature to 100.4. She was not febrile. Her white count was a little elevated at the day of dischargeat 16. This is likely reactive from her surgery. However, she had a perfect looking incision. She had no cough. She had no dysuria. She had no fevers chills malaise etc. Studies Performed: Operative CT scan Procedures Performed: L2 to iliac decompression and fusion Discharge Medications: Your medication list START taking these medications Instructions Comments Quantity Refills oxyCODONE-acetaminophen 7.5-325 mg per tablet Commonly known as: PERCOCET Take 1 tablet by mouth every 6 (six) hours as needed for pain for up to 10 days Look-alike/Sound-alike medication. Max Daily Amount: 4 tablets Lumbar fusion pod 2. Dc from [facility] today. 50 tablet 0 CHANGE how you take these medications Instructions Comments Quantity Refills cyclobenzaprine 10 MG tablet Commonly known as: FLEXERIL What changed: when to take this reasons to take this Take 1 tablet (10 mg total) by mouth every 8 (eight) hours as needed for muscle spasms for up to 40days. 40 tablet 2 CONTINUE taking these medications Instructions Comments Quantity Refills amitriptyline 25 MG tablet Commonly known as: ELAVIL Take 1 tablet (25 mg total) by mouth nightly. 0 amLODIPine 10 MG tablet Commonly known as: NORVASC Take 1 tablet (10 mg total) by mouth daily. 0 atomoxetine 80 MG capsule Commonly known as: STRATTERA Take 1 capsule (80 mg total) by mouth daily. 0 biotin 10,000 mcg Cap Take by mouth daily. 0 cyanocobalamin 2,500 mcg Tab Take 1 tablet (2,500 mcg total) by mouth daily. 0 desvenlafaxine 50 MG 24 hr tablet Commonly known as: PRISTIQ Take 1 tablet (50 mg total) by mouth daily. 0 diazePAM 5 MG tablet Commonly known as: VALIUM Take 1 tablet (5 mg total) by mouth every night as needed for insomnia. 0 Emgality Pen 120 mg/mL pen Generic drug: galcanezumab-gnlm Inject 1 mL (120 mg total) under the skin every 30 (thirty) days. 0 estradioL 1 MG tablet Commonly known as: ESTRACE Take 1 tablet (1 mg total) by mouth daily. 0 furosemide 20 MG tablet Commonly known as: LASIX Take 1 tablet (20 mg total) by mouth as needed. 0 Gemtesa 75 mg Tab Generic drug: vibegron 1 tab(s) orally once a day for 30 days 0 MAGNESIUM ORAL Take 400 mg by mouth nightly. 0 propranoloL 20 MG tablet Commonly known as: INDERAL Take 1 tablet (20 mg total) by mouth 2 (two) times daily. 0 sennosides-docusate sodium 8.6-50 mg per tablet Commonly known as: SENOKOT S Take 2 tablets by mouth 2 (two) times daily. 0 SUMAtriptan 100 MG tablet Commonly known as: IMITREX TAKE 1 TABLET BY MOUTH AT ONSET OF MIGRAINE HEADACHE, MAY REPEAT IN 2 HOURS IF NEEDED 9 tablet 0 SUPER B COMPLEX ORAL Take by mouth daily. 0 STOP taking these medications HYDROcodone-acetaminophen 5-325 mg per tablet Commonly known as: NORCO meloxicam 15 MG tablet Commonly known as: MOBIC Where to Get Your Medications These medications were sent to [facility]/pharmacy #[id number] - [place], [place] - [address] [facility] [address] [facility], [place] [address] cyclobenzaprine 10 MG tablet oxyCODONE-acetaminophen 7.5-325 mg per tablet Physical Exam Emanation at the day of discharge. She was standing in the room with a walker. She looked very comfortable. She was happy. Her incision looked great. She was moving her legs and feet well and ambulating well. She had no cough. She had no hoarseness to her respirations. The belly was soft. Extremities are nonswollen. She was in good spirits and wanted to go home. Discharge Instructions Discharge Diet: Regular Discharge Activity: No strenuous activity Discharge Follow UP: Contact information for follow-up Robbie Castañeda MD Specialty: Neurosurgery [address] [address] Next Steps: Follow up in 2 week(s) Time Spent: 30 minutes Electronically signed by Harley Astorga Jr., MD, 12/06/24, 12:09 PM EDT * Robbie Castañeda MD - 12/05/2024 10:11 AM EDT Patient Name: Hannah Jaime : 1970 Date of Admission: 12/04/2024 Date of Discharge: No discharge date for patient encounter. Primary Care Physician: MANISH DAMICO APRN Consultations: Discharge Diagnoses: Spinal instability Reason for Admission: Severe right C2 neuralgia unresponsive to conservative management Hospital Course: Mrs. Jaime was admitted through outpatient surgery for C1-2 fusion for recalcitrant C2 neuralgia. The surgery went without complication. She recovered in the PACU and was transferred to the 6 floor. Her narcotic pain medications were switched from oxycodone to hydrocodone, due to nausea. This was managed with antiemetics. On postop day #2 she was comfortable with discharge home. She worked well with physical therapy, and ADLs were addressed by occupational therapy. Studies Performed: GE 3D fluoroscopy Procedures Performed: C1-2 instrumentation and fusion Discharge Medications: Your medication list ASK your doctor about these medications Instructions Comments Quantity Refills amitriptyline 25 MG tablet Commonly known as: ELAVIL Take 1 tablet (25 mg total) by mouth nightly. 0 amLODIPine 10 MG tablet Commonly known as: NORVASC Take 1 tablet (10 mg total) by mouth daily. 0 atomoxetine 80 MG capsule Commonly known as: STRATTERA Take 1 capsule (80 mg total) by mouth daily. 0 biotin 10,000 mcg Cap Take by mouth daily. 0 cyanocobalamin 2,500 mcg Tab Take 1 tablet (2,500 mcg total) by mouth daily. 0 cyclobenzaprine 10 MG tablet Commonly known as: FLEXERIL Take 1 tablet (10 mg total) by mouth 2 (two) times daily as needed. 0 desvenlafaxine 50 MG 24 hr tablet Commonly known as: PRISTIQ Take 1 tablet (50 mg total) by mouth daily. 0 diazePAM 5 MG tablet Commonly known as: VALIUM Take 1 tablet (5 mg total) by mouth every night as needed for insomnia. 0 Emgality Pen 120 mg/mL pen Generic drug: galcanezumab-gnlm Inject 1 mL (120 mg total) under the skin every 30 (thirty) days. 0 estradioL 1 MG tablet Commonly known as: ESTRACE Take 1 tablet (1 mg total) by mouth daily. 0 furosemide 20 MG tablet Commonly known as: LASIX Take 1 tablet (20 mg total) by mouth as needed. 0 Gemtesa 75 mg Tab Generic drug: vibegron 1 tab(s) orally once a day for 30 days 0 HYDROcodone-acetaminophen 5-325 mg per tablet Commonly known as: NORCO Take 1 tablet by mouth 3 (three) times daily. 0 MAGNESIUM ORAL Take 400 mg by mouth nightly. 0 meloxicam 15 MG tablet Commonly known as: MOBIC Take 1 tablet (15 mg total) by mouth nightly. 0 propranoloL 20 MG tablet Commonly known as: INDERAL Take 1 tablet (20 mg total) by mouth 2 (two) times daily. 0 sennosides-docusate sodium 8.6-50 mg per tablet Commonly known as: SENOKOT S Take 2 tablets by mouth 2 (two) times daily. 0 SUMAtriptan 100 MG tablet Commonly known as: IMITREX TAKE 1 TABLET BY MOUTH AT ONSET OF MIGRAINE HEADACHE, MAY REPEAT IN 2 HOURS IF NEEDED 9 tablet 0 SUPER B COMPLEX ORAL Take by mouth daily. 0 Physical Exam Grossly neurologically intact. Dressing in place. Discharge Instructions Discharge Diet: Regular Discharge Activity: Collar on at all times as tolerated, okay to use soft collar for sleep. No lifting greater than 10 pounds. Discharge Follow UP: 2 weeks for camilla, 4 to 6 weeks with x-rays Electronically signed by Robbie Castañeda MD, 12/05/24, 10:11 AM EDT documented in this encounter Discharge Instructions * Discharge Instructions* Noemi Gonzalez LPN - 12/06/2024 12:54 PM EDT Lumbar Spine Discharge Information What to expect after surgery: Mild swelling around the incision site. This will go away with time Stiffness and pain at the incision site. Leg pain due to nerve root irritation during surgery- usually improves with time Tiredness is normal after surgery- it may take a week or so to regain your strength You should only be in bed to sleep Dressing/ Incision Do not apply any lotions or ointments to your incision [place] will be removed in office Steri-strips or white tape, surgical glue or mesh may fall off on their own, or can be taken off in10-12 days Use antibacterial soap before and after changing the dressing DO NOT: Submerge in a pool, bathtub, hot tub, or allow the shower to beat directly on your incision. . Inspect your incision daily and Contact a health care provider if you have: A fever. Redness, swelling, or more pain around your incision. Fluid or blood coming from your incision. Pus or a bad smell coming from your incision. Pain that is not controlled by your pain medicine. Increasing hoarseness or trouble swallowing. (For surgeries preformed from the front) Get help right away if you have: Severe pain. Sudden numbness or weakness in your arms or legs Warmth, tenderness, or swelling in your calf. Chest pain. Difficulty breathing Loss of control of your bowel or bladder These symptoms may represent a serious problem that is an emergency. Do not wait to see if the symptoms will go away. Get medical help right away. Call your local emergency services (911 in the [place] Do not drive yourself to the hospital. Comfort Measures Use ice as needed. Don't put the ice directly on your skin, keep a barrier between your incision and the ice. Change positions often- walking and lying down are best postures Take prescription medications as indicated Brace If your doctor prescribes a brace, you may remove it to wash up and to sleep. Do not wear your brace in bed. Have it on when you're up and about! Activity Stairs are okay, do not climb ladders Light activity, walking on level surfaces & sexual relations are permitted but may be limited by pain. Remember ???BLT?? No Bending, Lifting, or Twisting rule Drive when you are no longer taking pain medication Return to work 2-8 weeks when allowed by the surgeon. DO NOT lift over 10 pounds, mow the lawn, sweep, vacuum, dust, wash windows, rake leaves, shovel, or hike. Other Smoking cigarettes or inhaling secondhand smoke can make your fusion unsuccessful Do not take osteoporosis medications until 2 months after your surgery If your surgery included a fusion, do NOT take any anti-inflammatory medications (NSAIDs, ie. Aleve, Advil, Motrin, etc.) for at least 8 weeks after surgery! Do NOT overuse prescription medications. You must follow directions closely. As needed means you should only take them when you are feeling pain and taking them in the directed time frame (eg. Every 4 hours.) Refills will be given ONLY if you have used the medications appropriately as directed. documented in this encounter Medications at Time [...] tablet (2,500 mcg total) by mouth daily. cyclobenzaprine (FLEXERIL) 10 MG tablet Take 1 tablet (10 mg total) by mouth every 8 (eight) hours as needed for muscle spasms for up to 40 days. 40 tablet 2 12/06/2024 01/15/2025 desvenlafaxine (PRISTIQ) 50 MG 24 hr tablet [...] orally once a day for 30 days oxyCODONE-acetam inophen (PERCOCET) 7.5-325 mg per tablet Take 1 tablet by mouth every 6 (six) hours as needed for pain for up to 10 days Look-alike/S ound-alike medication. Max Daily Amount: 4 tablets 50 tablet 12/06/2024 12/16/2024 documented as of this encounter Progress Notes * Indiana Watkins, PT - 12/06/2024 10:38 AM EDT Images from the original note were not included. Inpatient Physical Therapy Treatment Patient Name: Hannah Jaime Date of : 1970 Date of Treatment: 12/06/24 Start Time 1038 Stop Time 1055 Session Duration 17 minutes General Visit Type: Treatment Approved by: Nurse Franklin Patient Disposition Upon Entry: Patient up in room AD OCTAVIO, Call Light/Pull Cord in reach, All needsmet and within reach, Nursing aware/notified, Visitor/Family present Patient Verified By: Name and Date of Precautions Weight-Bearing Status: No Restrictions Precautions: Fall risk Isolation Precautions: Standard Brace/protective equipment: LSO Subjective Subjective: Patient agreeable to physical therapy treatment. Pain Yes. 0-10 SCALE Pain location: Back Pain 2/10 Cognition Overall cognitive status: Patient is awake and alert, attending to directions appropriately, demonstrating good problem solving skills, and aware of any deficits or impairments, if present. Orientation Level: Oriented x4 Objective Vitals Stable throughout session Functional Mobility Bed Mobility: Patient standing in room with SBA Transfers Stand to Sit: stand by assist, 1-person assist, gait belt used, rolling walker used Bed to/from Chair: stand by assist, 1-person assist, gait belt used, rolling walker used Gait Gait Assistance: supervision, 1-person assist Assistive Device: Gait Belt, Rolling walker Distance: 220' Gait speed: Slow Candence Deviation(s): narrow base of support, increased trunk flexion Stair Management Not addressed today. Focus of treatment today on transfer training, gait training, and bed mobilitytraining. Wheelchair Mobility Not assessed, patient ambulatory. AM-PAC Basic Mobility Inpatient Short Form How much difficulty does the patient currently have: Turning over in bed (including adjusting bedclothes, sheets, and blankets)? (3) A little (can do the activity without assistive devices or help from another person, but requires A LITTLE more time and effort) Sitting down on and standing up from a chair with arms (e.g., wheelchair, bedside commode, etc.)? (3) A little (can do the activity without assistive devices or help from another person, but requiresA LITTLE more time and effort) Moving from lying on back to sitting on side of bed? (3) A little (can do the activity without assistive devices or help from another person, but requires A LITTLE more time and effort) How much help from another person does the patient currently need: Moving to and from a bed to a chair (including a wheelchair)? (3) A little (Minimal/Contact guard/Supervision/Setup) Need to walk in hospital room? (3) A little (Minimal/Contact guard/Supervision/Setup) Climbing 3-5 steps with a railing? (2) A lot (Maximal/Moderate assist) Score Raw score=17 t-Scale score=42.13 Standard error=3.03 CMS 0-100%=50.57% MDC=4.72 A raw score of >= 16 is significantly associated with increased odds of discharge to home in addition to consideration made for the patient's cognition and social determinants of health. Balance Static/dynamic sitting and static/dynamic standing balance grades Balance Grade Sitting Static Good - patient able to maintain balance without handhold support, limited postural sway Sitting Dynamic Good - patient accepts moderate challenge; able to maintain balance while picking object off floor Standing Static Good - patient able to maintain balance without handhold support, limited postural sway Standing Dynamic Good - patient accepts moderate challenge; able to maintain balance while picking object off floor Activity Tolerance Patient tolerated activity/intervention well with no complaints or adverse events. Treatment Patient standing in room entrance with upon entry into room. Amb 220' with Rwx, gait belt, LSO, and SBA. Returned to chair, discussed PT role, POC progression, and D/C planning Assessment Patient demonstrated great effort with PT interventions, following all instructions and performing interventions with safe and appropriate techniques. Progressing well and will benefit from continuing current PT interventions to further strive toward functional mobility, strength, and endurance goals. Problems: Decreased functional mobility, Decreased gait tolerance, Decreased strength, Impaired dynamic balance Rehab potential: Good for stated goals Plan Treatment plan: Continue per POC. PT Frequency/Duration: 5x/week for 14 days Recommendations Discharge recommendations: Discharge home/prior living situation. Patient would benefit from continued therapy services. DME recommendations: Patient has no DME/adaptive equipment discharge needs at this time. Goals Bed Mobility: Pt will achieve sitting EOB with independence Gait: Pt will ambulate 200 ft with mod Ind and RW Stair Negotiation: 4 steps with supervision and R railing (when ascending) Transfer: STS with mod Ind and RW Target Date: 12/19/2024 Progress towards goals: progressing Education Patient/Visitors educated on safety, use of call button, role of physical therapy, and plan of careand following, they were able to verbalize and demonstrate understanding. No further questions or concerns stated. Patient Disposition Upon Leaving Patient in bedside chair, Call Light/Pull Cord in reach, All needs met and within reach, Nursing aware/notified, Visitor/Family present If this patient discharges prior to next therapy session, this note serves as the patient's discharge summary. Electronically signed by Indiana Watkins, PT - 12/06/24 - 12:38 PM EDT * Johana Whaley MD - 12/06/2024 9:10 AM EDT [facility] PROGRESS NOTE: Patient: Hannah Jaime Date: 12/06/2024 ASSESSMENT and PLAN: Hannah Jaime is a 54 y.o. female with a PMH of the listed diagnosis below, in addition to lumbar radiculopathy. Reports the lower back pain has progressively worsened to the point of radiating down the LLE and is interrupting activities of daily living. Conservative therapy has failed and was referred to Dr. Castañeda. After examination and review of images, showing disc protrusion, central canal and neural foraminal stenosis, surgical intervention was recommended. Ms Jaime opted to proceed with surgery and is now scheduled for L2-iliac posterior fusion. DIAGNOSIS: HTN - amlodipine, propranolol, holding lasix Migraine BHAGAT - strattera, emgality pen ADHD - atomoxetine / strattera Overactive bladder - gemtesa Kidney stones Anxiety / depression - valium Insomnia - amitriptyline Lumbar radiculopathy Scheduled L2-iliac posterior fusion (previous L3-5) on 12/04/2024, per Dr. Castañeda - home norco 5, meloxicam, flexeril DVT Prophylaxis: SCDs, per NS CODE STATUS : FULL PLAN: - We will continue to follow throughout this hospital stay, noted plan for discharge possible Saturday per neurosurgery - monitor labs / vitals, Incentive Spirometry usage, PT/OT, bowel regimen - pain control and DVT ppx per NS - monitor post-op s/s infection / renal complications - CBC, BMP monitor on as-needed basis Subjective 12/05 my first visit with this patient, she is sitting up in the chair, offers no complaints other than expected pain, PT OT on board, neurosurgery on board hemodynamically stable 12/06 patient resting sitting up on the chair had good night denies any active complaints hemodynamically stable 12/07 Objective Vitals: Temp: [98.8 ??F (37.1 ??C)-99.9 ??F (37.7 ??C)] 99.5 ??F (37.5 ??C) Pulse: [88-95] 95 Resp: [16] 16 BP: (116-122)/(65-68) 118/65 Intake/Output: Intake/Output Summary (Last 24 hours) at 12/06/2024 0910 Last data filed at 12/06/2024 0300 Gross per 24 hour Intake -- Output 140 ml Net -140 ml Physical Exam: General: No significant acute distress HEENT: Generally negative Neck: No JVD noted CVS: S1, S2, no S3 or S4 Lungs: Equal air entry symmetrical chest expansion GI: Soft largely nondistended Neurological: Nonfocal generally intact Musculoskeletal: Generally unremarkable Skin: Without any obvious rashes on the exposed surfaces Medications: Scheduled Meds: amitriptyline 25 mg oral Every Night 25 mg at 12/05/242026 amLODIPine 10 mg oral Daily 10 mg at 12/05/24829 ceFAZolin 2 g intravenous Q8H 2 g at 12/06/24451 desvenlafaxine 50 mg oral Daily 50 mg at 12/05/24829 docusate sodium 100 mg oral BID 100 mg at 12/05/242026 heparin 5,000 Units subcutaneous Q8H 5,000 Units at 12/06/24451 propranoloL 20 mg oral BID 20 mg at 12/05/242026 Continuous Infusions: Current Facility-Administered Medications Medication Dose Route Frequency Provider Last Rate Last Admin amitriptyline (ELAVIL) tablet 25 mg 25 mg oral Every Night Robbie Castañeda MD 25 mg at 12/05/242026 amLODIPine (NORVASC) tablet 10 mg 10 mg oral Daily Robbie Castañeda MD 10 mg at 12/05/24829 bisacodyL (DULCOLAX) EC tablet 10 mg 10 mg oral Daily PRN Robbie Castañeda MD Or bisacodyL (DULCOLAX) suppository 10 mg 10 mg rectal Daily PRN Robbie Castañeda MD ceFAZolin (ANCEF) 2 g in sodium chloride 0.9 % (NS) MBP 50 mL IVPB 2 g intravenous Q8H Robbie Castañeda MD 2 g at 12/06/24451 cyclobenzaprine (FLEXERIL) tablet 10 mg 10 mg oral TID PRN Robbie Castañeda MD 10 mg at 12/05/24 1630 desvenlafaxine (PRISTIQ) ER 24 hr tablet 50 mg 50 mg oral Daily Robbie Castañeda MD 50 mg at 12/05/24829 diazePAM (VALIUM) tablet 5 mg 5 mg oral Every Night PRN Robbie Castañeda MD docusate sodium (COLACE) capsule 100 mg 100 mg oral BID Robbie Castañeda MD 100 mg at 12/05/242026 heparin injection 5,000 Units 5,000 Units subcutaneous Q8H Robbie Castañeda MD 5,000 Units at HYDROmorphone (DILAUDID) injection 0.5 mg 0.5 mg intravenous Q4H PRN Robbie Castañeda MD 0.5 mg at 12/06/24620 lactated Ringer's infusion 100 mL/hr intravenous Continuous Robbie Castañeda MD 100 mL/hr at 12/04/242043 100 mL/hr at 12/04/242043 naloxone (NARCAN) injection 0.2 mg 0.2 mg intravenous Q2 Min PRN Robbie Castañeda MD oxyCODONE (ROXICODONE) immediate release tablet 10 mg 10 mg oral Q4H PRN Robbie Castañeda MD 10 mg at 12/06/24 030 propranoloL (INDERAL) tablet 20 mg 20 mg oral BID Robbie Castañeda MD 20 mg at 12/05/242026 PRN Meds: @MEDSPRN@ Labs: No results found for this visit on 12/04/24 (from the past 24 hours). Radiology: Radiology Results (last 3 days) Procedure Component Value Units Date/Time FL C-ARM < 1 HOUR [[id number]] Collected: 12/04/241931 Order Status: Completed Updated: 12/04/241934 Narrative: CT SPINE LUMBAR IN THE OR INDICATION: Intraoperative exam. Back pain. TECHNIQUE: Thin section axial images were obtained through the lumbar spine with the patient in prone position. This was obtained in the operating room to assist with surgical planning. Fluoroscopy Dose: 96 mGy This study was performed using dose reduction techniques to achieve radiation exposure as low as reasonably achievable (ALARA) COMPARISON: None. FINDINGS: There is a large posterior soft tissue defect. There are changes from posterior lumbar fusion.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 were discussed with patient Education Patient educated on safety, use of call light, role of occupational therapy, ADLs, functional mobility, adaptive equipment, spinal precautions and following, they were able to verbalize understanding. Patient Disposition Upon Leaving Patient disposition upon leaving: Sitting in bedside chair, Visitor/family present, All needs met and within reach, Call light/pull cord in reach, Feet elevated If this patient discharges prior to next therapy session, this note serves as the patient's discharge summary. Electronically signed by ELZBIETA Bledsoe/Deysi - 12/05/2024 - 1:30 PM EDT OT Evaluation Completed documented in this encounter H&P Notes * Anh Abernathy PA-C - 12/04/2024 10:29 AM EDT H&P History Of Present Illness Hannah Jaime is a 54 y.o. female with pertinent PMH of lumbar radiculopathy. Patient has been experiencing low back pain with radiating pain to the left lower extremity. Her pain has progressively worsened over the past 10 years. She had a prior about 15 years ago. She had a L4-[address] Kaye in 2019 and then a L3-4 fusion in 2021. Imaging with L2-3 broad-based disc protrusion with a right paracentral extrusion extending inferiorly, mild central canal stenosis, moderate right and mild left foraminal stenosis; prior L3-5 fusion; L5-S1 mild facet arthropathy, moderate to severe left and mild right neural foraminal stenosis. Patient has been conservatively managed but continues to have pain which is negatively impacting activities of daily living. This morning the patient complains of 8 out of 10 back pain. No f/c/s. No cp, soa. Patient was evaluated by Dr. Castañeda and presents today for an elective L2- Iliac posterior fusion - previous L3-5- using Airo. Past Medical History She has a past medical history of Anxiety, Arthritis, GERD (gastroesophageal reflux disease), History of kidney stones, Hypertension, Lumbar radiculopathy, and Migraines. Surgical History She has a past surgical history that includes Appendectomy; Cholecystectomy; Back surgery; Hysterectomy; Carpal tunnel release (Right); Gastrectomy; Knee arthroscopy (Bilateral); and Anterior cervical discectomy w/ fusion. Social History She reports that she has never smoked. She has never used smokeless tobacco. She reports that she does not currently use alcohol. She reports that she does not use drugs. Family History Her family history is not on file. Mother - brain aneurysm Father - from gunshot Allergies Trazodone and Venlafaxine Medications Current Outpatient Medications Medication Instructions amitriptyline (ELAVIL) 25 mg, Every Night amLODIPine (NORVASC) 10 mg, Daily atomoxetine (STRATTERA) 80 mg, Daily biotin 10,000 mcg cap oral, Daily cyanocobalamin 2,500 mcg, oral, Daily cyclobenzaprine (FLEXERIL) 10 mg, 2 times daily PRN desvenlafaxine (PRISTIQ) 50 mg, Daily diazePAM (VALIUM) 5 mg, Every Night PRN Emgality Pen 120 mg, subcutaneous, Every 30 days estradioL (ESTRACE) 1 mg, Daily ferrous fumarate/vit Bcomp,C (SUPER B COMPLEX ORAL) oral, Daily furosemide (LASIX) 20 mg, oral, As needed HYDROcodone-acetaminophen (NORCO) 5-325 mg per tablet 1 tablet, 3 times daily MAGNESIUM ORAL 400 mg, oral, Every Night meloxicam (MOBIC) 15 mg, oral, Every Night propranoloL (INDERAL) 20 mg, 2 times daily sennosides-docusate sodium (SENOKOT S) 8.6-50 mg per tablet 2 tablets, 2 times daily SUMAtriptan (IMITREX) 100 MG tablet TAKE 1 TABLET BY MOUTH AT ONSET OF MIGRAINE HEADACHE, MAY REPEAT IN 2 HOURS IF NEEDED vibegron (Gemtesa) 75 mg Tab 1 tab(s) orally once a day for 30 days Review of Systems 14 point ROS completed and non-contributory except as listed above Physical Exam Blood pressure (!) 153/94, pulse 86, temperature 97.4 ??F (36.3 ??C), temperature source Temporal Artery, resp. rate 20, height 1.626 m (5' 4 ), weight 95.7 kg (211 lb), SpO2 98%. GEN: Alert, awake, NAD, obese HEENT: NCAT, no icterus, no thrush, nares patent, CV: S1S2, no murmur. No LE edema Resp: CTAB, NL Abd: Soft, NT, ND +BS Skin: no rashes on inspection and palpation. Ext: No LE edema. No joint edema, erythema. Neuro: A&O x 3, CN grossly intact Diagnostic Results No visits with results within 1 Day(s) from this visit. Latest known visit with results is: Hospital Outpatient Visit on 11/26/2024 Component Date Value Ref Range Status WBC 11/26/2024 5.0 4.0 - 10.0 K/??L Final RBC 11/26/2024 4.62 3.93 - 5.22 M/??L Final Hemoglobin 11/26/2024 13.8 11.2 - 15.7 GM/DL Final Hematocrit 11/26/2024 42.5 34.1 - 44.9 % Final MCV 11/26/2024 92 79 - 95 fL Final MCH 11/26/2024 29.9 25.6 - 32.2 pg Final MCHC 11/26/2024 32.5 32.2 - 35.5 GM/DL Final RDW 11/26/2024 12.6 11.7 - 14.4 % Final Platelets 11/26/2024 292 140 - 375 K/CU MM Final MPV 11/26/2024 9.5 9.4 - 12.3 fL Final Sodium 11/26/2024 141 136 - 145 meq/L Final Potassium 11/26/2024 4.0 3.4 - 5.1 meq/L Final CO2 11/26/2024 30 (H) 22 - 29 meq/L Final Chloride 11/26/2024 105 98 - 112 meq/L Final Glucose 11/26/2024 93 74 - 100 mg/dL Final BUN 11/26/2024 13.1 9.8 - 20.1 mg/dL Final Creatinine 11/26/2024 0.72 0.57 - 1.11 mg/dL Final BUN/Creatinine 11/26/2024 18 8 - 20 Final Calcium 11/26/2024 9.5 8.4 - 10.2 mg/dL Final Anion Gap 11/26/2024 10 4 - 12 Final eGFR (mL/min/1.73m2) 11/26/2024 99 >=60 mL/min/1.73m2 Final Osmolality Calc 11/26/2024 281.1 mOsm/kg Final RETYPE 11/26/2024 O Positive Final Color, UA 11/26/2024 Yellow Final Clarity, UA 11/26/2024 Clear Clear Final Specific Emmet, UA 11/26/2024 1.028 1.005 - 1.030 Final pH, UA 11/26/2024 6.0 6.0 - 8.0 Final Leukocytes, UA 11/26/2024 Negative Negative Final Nitrite, UA 11/26/2024 Negative Negative Final Protein, UA 11/26/2024 Trace (A) Negative Final Glucose, UA 11/26/2024 Normal Normal Final Ketones, UA 11/26/2024 Negative Negative Final Urobilinogen, UA 11/26/2024 2 mg/dL (A) Normal Final Bilirubin, UA 11/26/2024 Negative Negative Final Blood, UA 11/26/2024 Negative Negative Final Specimen Source 11/26/2024 Urine, Clean Catch Final VENTRICULAR RATE EKG/MIN 11/26/2024 84 BPM Final ATRIAL RATE (MCT) 11/26/2024 84 BPM Final WA Interval 11/26/2024 174 ms Final QRS-INTERVAL (MSEC) 11/26/2024 96 ms Final QT Interval 11/26/2024 378 ms Final QTC Interval 11/26/2024 446 ms Final P [place] 11/26/2024 64 degrees Final R AXIS (MCT) 11/26/2024 50 degrees Final T Wave [place] 11/26/2024 66 degrees Final [place] Diagnosis 11/26/2024 Final Value:Normal sinus rhythm Normal ECG No previous ECGs available Confirmed by Vanna Lorenzo ([id number]) on 11/27/2024 9:32:49 PM No image results found. Assessment & Plan Lumbar radiculopathy -to OR for scheduled procedure Hypertension Migraine GERD Anxiety and depression Obesity Electronically signed by: Anh Abernathy PA-C, 12/04/2024 Cosigned by Robbie Castañeda MD at 12/05/2024 9:57 AM EDT documented in this encounter Consult Notes * Bernice Ball PA-C - 12/04/2024 12:48 PM EDT [facility] INITIAL CONSULT NOTE: Consults PCP: MANISH DAMICO APRN Date of Admission: 12/04/2024 ASSESSMENT and PLAN: Hannah Jaime is a 54 y.o. female with a PMH of the listed diagnosis below, in addition to lumbar radiculopathy. Reports the lower back pain has progressively worsened to the point of radiating down the LLE and is interrupting activities of daily living. Conservative therapy has failed and was referred to Dr. Castañeda. After examination and review of images, showing disc protrusion, central canal and neural foraminal stenosis, surgical intervention was recommended. Ms Jaime opted to proceed with surgery and is now scheduled for L2-iliac posterior fusion. DIAGNOSIS: HTN - amlodipine, propranolol, holding lasix Migraine BHAGAT - strattera, emgality pen ADHD - atomoxetine / strattera Overactive bladder - gemtesa Kidney stones Anxiety / depression - valium Insomnia - amitriptyline Lumbar radiculopathy Scheduled L2-iliac posterior fusion (previous L3-5) on 12/04/2024, per Dr. Castañeda - home norco 5, meloxicam, flexeril DVT Prophylaxis: SCDs, per NS CODE STATUS : FULL PLAN: - [facility] consulted for post-op medical management - monitor labs / vitals, Incentive Spirometry usage, PT/OT, bowel regimen - pain control and DVT ppx per NS - monitor post-op s/s infection / renal complications - CBC, BMP ordered for am Previous Living Condition: Home Expected Disposition: Home Expected Discharge Date: TBD, per NS Reason for Consult: [facility] has been consulted for postoperative medical management. History Of Present Illness Hannah Jaime is a 54 y.o. female with a PMH of the listed diagnosis below, in addition to lumbar radiculopathy. Reports the lower back pain has progressively worsened to the point of radiating down the LLE and is interrupting activities of daily living. Conservative therapy has failed and was referred to Dr. Castañeda. After examination and review of images, showing disc protrusion, central canal and neural foraminal stenosis, surgical intervention was recommended. Ms Jaime opted to proceed with surgery and is now scheduled for L2-iliac posterior fusion. 12/04: initial examination in preoperative area, at bedside, denies much pain at this time secondary to laying supine on the exam bed, reports NPO after MN Review of Systems 10 point review of systems performed and is negative unless otherwise noted. Past Medical History Past Medical History: Diagnosis Date Anxiety Arthritis GERD (gastroesophageal reflux disease) History of kidney stones Hypertension Lumbar radiculopathy Migraines Social History reports that she has never smoked. She has never used smokeless tobacco. She reports that she does not currently use alcohol. She reports that she does not use drugs. Family History Mother - passed at age 80. CHF, brain aneurysm Father - passed at age 40. GSW Allergies Trazodone and Venlafaxine Home Medications Current Outpatient Medications Medication Instructions amitriptyline (ELAVIL) 25 mg, Every Night amLODIPine (NORVASC) 10 mg, Daily atomoxetine (STRATTERA) 80 mg, Daily biotin 10,000 mcg cap oral, Daily cyanocobalamin 2,500 mcg, oral, Daily cyclobenzaprine (FLEXERIL) 10 mg, 2 times daily PRN desvenlafaxine (PRISTIQ) 50 mg, Daily diazePAM (VALIUM) 5 mg, Every Night PRN Emgality Pen 120 mg, Every 30 days estradioL (ESTRACE) 1 mg, Daily ferrous fumarate/vit Bcomp,C (SUPER B COMPLEX ORAL) Daily furosemide (LASIX) 20 mg, oral, As needed HYDROcodone-acetaminophen (NORCO) 5-325 mg per tablet 1 tablet, 3 times daily MAGNESIUM ORAL 400 mg, oral, Every Night meloxicam (MOBIC) 15 mg, Every Night propranoloL (INDERAL) 20 mg, 2 times daily sennosides-docusate sodium (SENOKOT S) 8.6-50 mg per tablet 2 tablets, 2 times daily SUMAtriptan (IMITREX) 100 MG tablet TAKE 1 TABLET BY MOUTH AT ONSET OF MIGRAINE HEADACHE, MAY REPEAT IN 2 HOURS IF NEEDED vibegron (Gemtesa) 75 mg Tab 1 tab(s) orally once a day for 30 days Physical Exam Vitals: 12/04/24 1142 BP: (!) 153/94 Pulse: 86 Resp: 20 Temp: 97.4 ??F (36.3 ??C) SpO2: 98% General: awake, alert and resting comfortably in NAD, at bedside HEENT: appropriate eye contact Cardiovascular: RRR, no audible murmurs, bilat / equal radial artery pulses, no peripheral edema Pulmonary: normal work of breathing, no audible wheezing Abdomen: soft, nontender, no guarding, non-distended Musculoskeletal: bilat / equal sawdust drier strength Skin: no rash, ecchymosis or erythema Neurologic: moves all extremities with purpose, speech non-slurred Labs & Imaging Recent Results (from the past 24 hours) Glucose, Nova Meter Collection Time: 06/06/25 12:01 PM Result Value Ref Range POC-GLUCOSE 86 70 - 110 mg/dL Preload Supervisor [phone] No results found. Electronically signed by: Bernice Ball PA-C, 12/04/2024 at 12:48 PM EDT Cosigned by Johana Whaley MD at 12/04/2024 3:37 PM EDT Associated attestation - Johana Whaley MD - 12/04/2024 2:37 PM CDT The patient was independently evaluated by Bernice Ball PA-C . I have reviewed the chart and agree with the treatment plan.. documented in this encounter OR Notes * Op Note - Robbie Castañeda MD - 12/04/2024 5:26 PM EDT DATE OF PROCEDURE: 12/04/24 PRIMARY CARE PHYSICIAN: MANISH DAMICO APRN PREOPERATIVE DIAGNOSIS: Previous L3-L5 fusion L2-3 instability and stenosis L5-S1 foraminal stenosis POSTOPERATIVE DIAGNOSIS: Same INDICATION FOR PROCEDURE: Mechanical back pain and lumbar radiculopathy unresponsive to conservative management PROCEDURE: L2-3 posterior lumbar interbody fusion extension L5-S1 posterior lumbar interbody fusion extension Bilateral pelvic fixation Open SI joint fusion L2-S2 posterior instrumentation L2-S1 posterior lateral fusion Intraoperative CT scan and spinal stereotactic navigation using the Electrochaea CERTIFIED PEDIATRIC NURSE PRACTITIONER: Charlette Yee TYPE OF ANESTHESIA: General DESCRIPTION/PROCEDURE IN DETAIL: Once consent was noted to be on chart, she was taken back to the operating room. She was anesthetized and carefully placed in the prone position on a Kody spine frame. All pressure points were carefully checked and padded. She was prepped and draped annual sterile fashion. Preoperative antibiotics were given. A timeout was called and a low-dose CT scan was performed to plan the skin incision as well as to help guide 2 Steinmann pins into the right iliac crest. The 2 pin fixator was placed onthese pins and a reference array for further stereotactic navigation. A #10 blade was used to make a midline incision from L2-S2. Bovie electrocautery was used to dissect down to and through the lumbo sacral fascia. A subperiosteal dissection was performed at L2-3 and L5-S1 and S2. Scar tissue was resected off of the previous instrumentation at L3 and L4. 4 setscrews and 2 rods were removed. Retractors were set and a repeat CT scan was performed. The images were loaded into the Electrochaea system for spinal stereotactic navigation. Using the navigation, the usual freehand techniques and Dmailer system, pedicle screws were placed at L2, S1 bilaterally. Each trajectory was tappedand a spring probe placed down the trajectory verifying good bone circumferentially prior to screw placement. S2 AI screws were tapped bilaterally using stereotactic navigation. Again good bone was de tected circumferentially prior to each tap and screw placement. With screws in place a decompressive laminectomy was performed at L2-3. Full decompression of the segment was achieved and the stenosishere was quite impressive. With pressure of the thecal sac a left-sided discectomy was performed. A7 mm conduit cage was placed across the midline packed with allograft and autograft. The autograft was recycled lamina and spinous process, and the allograft was Vivigen. We then moved down to the L5-S1 segment. At this segment a left-sided discectomy was performed the endplates were prepared and an 11 mm conduit cage packed with allograft and allograft was placed across the midline. A repeat CT s can showed good placement of all hardware. A Urrutia ball probe verified all descending and exiting nerve roots were free. No CSF was visualized throughout this procedure. A sekou was then bent to contour to the polyaxial heads from L2-S2 bilaterally and setscrews were torqued factory specifications throughout. A posterior lateral fusion was then performed from L2-S2 bilaterally by decorticating thefacets and laying additional allograft and autograft in place. Vancomycin/gentamicin slow release beads were left in the wound in order to try to prevent a postoperative infection. A SIDNEY drain was left into the epidural space and 1 Vicryl reapproximate the paraspinous muscles and fascia. 2-0 Vicryl's close space and closed the skin subcuticularly. The skin was stapled. Bacitracin and a Covaderm was applied. Charlette Yee assisted throughout the surgery and helped perform the closure. SPECIMENS SENT: None ESTIMATED BLOOD LOSS: 350 mL DRAINS: 15 Fr SIDNEY COMPLICATIONS: None documented in this encounter Miscellaneous Notes * Plan of Care - Noemi Gonzalez LPN - 12/06/2024 10:52 AM EDT Problem: Knowledge Deficit Goal: Patient/family/caregiver demonstrates understanding of disease process, treatment plan, medications, and discharge instructions Description: Complete learning assessment and assess knowledge base. Outcome: Adequate for Discharge Problem: Potential for Falls Goal: Patient will remain free of falls Description: Assess and monitor vitals signs, neurological status including level of consciousness and orientation. Reassess fall risk per hospital policy.Ensure arm band on, uncluttered walking paths in room, adequate room lighting, call light and overbed table within reach, bed in low position, wheels locked, side rails up per policy, and non-skid footwear provided. Outcome: Adequate for Discharge Problem: Potential for Infection Goal: Remains infection free Description: Assess and monitor vital signs, skin (color, moisture, integrity, turgor), respiratorystatus, urinary and gastrointestinal status, and labs (WBC, cultures). Administer antibiotics and antipyretics as ordered. Ensure aseptic care of all intravenous lines, invasive tubes/drains and wounds. Monitor for signs and symptoms of infection (redness, warmth, discharge, increased body temperature). Wash hands properly before and after each patient care activity. Follow isolation guidelines per hospital protocol/policy. Collaborate with interdisciplinary team and initiate plan and interventions as ordered. Outcome: Adequate for Discharge Problem: Inadequate Airway Clearance Goal: Patient will maintain patent airway Description: Assess and monitor breath sounds, cough and sputum (if present), and intake/output. Collaborate with respiratory therapy to administer medications and treatments. Outcome: Adequate for Discharge Goal: Patient will achieve/maintain normal respiratory rate/effort Description: Assess and monitor respiratory rate, effort, breathing pattern and oxygenation as ordered or per policy. Monitor patient for restlessness, anxiety, air hunger. Assess physical activity tolerance. Assess patient's smoking history and intervene per policy. Collaborate with interdisciplinary team and initiate plans and interventions as needed. Outcome: Adequate for Discharge Problem: Inadequate Breathing Pattern Goal: Patient will maintain effective ventilation Description: Assess and monitor vital signs, respiratory status (to include respiratory rate, depth, effort, and breath sounds), oxygen saturation, oral mucosa, tongue, pain, and labs (ABGs). Collaborate with interdisciplinary team and initiate plans and interventions as needed. Outcome: Adequate for Discharge Problem: Insufficient Fluid Volume Goal: Fluid and electrolyte balance are achieved/maintained Description: Assess and monitor vital signs (orthostatic vitals if applicable), fluid intake and output, urine color, labs, skin turgor, mucous membranes, mental status, and gastrointestinal system for nausea, vomiting and diarrhea. Monitor for signs and symptoms of hypovolemia (tachycardia, rapid breathing, decreased urine output, postural hypotension, confusion, syncope). Collaborate with interdisciplinary team and initiate plan and interventions as ordered. Outcome: Adequate for Discharge Problem: Insufficient Nutritional Intake Goal: Patient's nutritional intake is adequate Description: Assess and monitor food intake and supplements, patient food preferences, nausea, vomiting, labs, oral cavity (gums, teeth, tongue, mucosa), proper denture fit, and cultural beliefs. Monitor for signs of hypoglycemia and hyperglycemia. Collaborate with interdisciplinary team and initiate plan and interventions as ordered. Outcome: Adequate for Discharge Goal: Mobility/activity is maintained at optimum level for patient Description: Assess and monitor patient barriers to mobility and need for assistive/adaptive devices. Assess patient's emotional response to limitations. Collaborate with interdisciplinary team and initiate plans and interventions as ordered. Outcome: Adequate for Discharge Problem: Inadequate Tissue Perfusion - Venous Goal: Tissue perfusion is adequate - venous Description: Assess and monitor skin color and temperature, skin integrity, pulses, capillary refill, edema, pain in extremities, Homans' sign, labs (D- dimer), and diagnostic tests (ultrasound, CT scan, VQ scan). Monitor for signs and symptoms of deep vein thrombosis (swelling of calf/thigh, redness, pain, tenderness). Monitor for signs and symptoms of pulmonary embolism (dyspnea, tachypnea, tachycardia). Collaborate with interdisciplinary team and initiate plans and interventions as needed. Outcome: Adequate for Discharge Problem: Activity Intolerance/Impaired Mobility Goal: Mobility/activity is maintained at optimum level for patient Description: Assess and monitor patient barriers to mobility and need for assistive/adaptive devices. Assess patient's emotional response to limitations. Collaborate with interdisciplinary team and initiate plans and interventions as ordered. Outcome: Adequate for Discharge Problem: Altered Body Image Goal: Verbalizes feelings about physical appearance Description: Assess the patient's feelings about their physical appearance, how it will effect their lifestyle, sexuality, and relationships with family and friends. Collaborate with interdisciplinary team and initiate plan and interventions as ordered. Outcome: Adequate for Discharge Problem: Pain Management Goal: Patient return to pre procedure comfort Outcome: Adequate for Discharge Problem: Hemodynamic Status Goal: Patient's vitals signs are stable Description: Assess and monitor patient's heart rate, rhythm, respiratory rate, peripheral pulses, capillary refill, color, body temperature, intake and output, labs and physical activity tolerance. Observe for signs of chest pain (note location, duration, severity, radiation and associated symptoms such as diaphoresis, nausea, indigestion). Monitor for signs and symptoms of heart failure (eg. shortness of breath, edema of feet/ankles/legs, rapid irregular heart rate, coughing, wheezing, white/pink blood tinged sputum, sudden weight gain, chest pain). Collaborate with interdisciplinary team and initiate plan and interventions as ordered. Outcome: Adequate for Discharge Problem: Inadequte temperature regulation Goal: Body temperature is within normal range Outcome: Adequate for Discharge Problem: Safety Goal: Free from accidental physical injury Outcome: Adequate for Discharge Goal: Free from abuse Outcome: Adequate for Discharge Problem: Elimination Goal: Elimination patterns are normal or improving Description: Assess and monitor vital signs, gastrointestinal assessment to include bowel sounds, color, appearance, frequency, and amount of stool and emesis, abdominal distention and discomfort, intake and output, and labs. Collaborate with interdisciplinary team and initiate plan and interventions as ordered. Outcome: Adequate for Discharge Problem: Increased Risk for /GI Compromise Goal: Optimal /GI status Outcome: Adequate for Discharge Problem: Bleeding Precautions Goal: Excessive bleeding will be minimized Outcome: Adequate for Discharge * Plan of Care - Cecy Ji RN - 12/05/2024 9:04 AM EDT Problem: Knowledge Deficit Goal: Patient/family/caregiver demonstrates understanding of disease process, treatment plan, medications, and discharge instructions Description: Complete learning assessment and assess knowledge base. Outcome: Progressing Problem: Potential for Falls Goal: Patient will remain free of falls Description: Assess and monitor vitals signs, neurological status including level of consciousness and orientation. Reassess fall risk per hospital policy.Ensure arm band on, uncluttered walking paths in room, adequate room lighting, call light and overbed table within reach, bed in low position, wheels locked, side rails up per policy, and non-skid footwear provided. Outcome: Progressing Problem: Potential for Infection Goal: Remains infection free Description: Assess and monitor vital signs, skin (color, moisture, integrity, turgor), respiratorystatus, urinary and gastrointestinal status, and labs (WBC, cultures). Administer antibiotics and antipyretics as ordered. Ensure aseptic care of all intravenous lines, invasive tubes/drains and wounds. Monitor for signs and symptoms of infection (redness, warmth, discharge, increased body temperature). Wash hands properly before and after each patient care activity. Follow isolation guidelines per hospital protocol/policy. Collaborate with interdisciplinary team and initiate plan and interventions as ordered. Outcome: Progressing Problem: Inadequate Airway Clearance Goal: Patient will maintain patent airway Description: Assess and monitor breath sounds, cough and sputum (if present), and intake/output. Collaborate with respiratory therapy to administer medications and treatments. Outcome: Progressing Goal: Patient will achieve/maintain normal respiratory rate/effort Description: Assess and monitor respiratory rate, effort, breathing pattern and oxygenation as ordered or per policy. Monitor patient for restlessness, anxiety, air hunger. Assess physical activity tolerance. Assess patient's smoking history and intervene per policy. Collaborate with interdisciplinary team and initiate plans and interventions as needed. Outcome: Progressing Problem: Inadequate Breathing Pattern Goal: Patient will maintain effective ventilation Description: Assess and monitor vital signs, respiratory status (to include respiratory rate, depth, effort, and breath sounds), oxygen saturation, oral mucosa, tongue, pain, and labs (ABGs). Collaborate with interdisciplinary team and initiate plans and interventions as needed. Outcome: Progressing Problem: Insufficient Fluid Volume Goal: Fluid and electrolyte balance are achieved/maintained Description: Assess and monitor vital signs (orthostatic vitals if applicable), fluid intake and output, urine color, labs, skin turgor, mucous membranes, mental status, and gastrointestinal system for nausea, vomiting and diarrhea. Monitor for signs and symptoms of hypovolemia (tachycardia, rapid breathing, decreased urine output, postural hypotension, confusion, syncope). Collaborate with interdisciplinary team and initiate plan and interventions as ordered. Outcome: Progressing Problem: Insufficient Nutritional Intake Goal: Patient's nutritional intake is adequate Description: Assess and monitor food intake and supplements, patient food preferences, nausea, vomiting, labs, oral cavity (gums, teeth, tongue, mucosa), proper denture fit, and cultural beliefs. Monitor for signs of hypoglycemia and hyperglycemia. Collaborate with interdisciplinary team and initiate plan and interventions as ordered. Outcome: Progressing Goal: Mobility/activity is maintained at optimum level for patient Description: Assess and monitor patient barriers to mobility and need for assistive/adaptive devices. Assess patient's emotional response to limitations. Collaborate with interdisciplinary team and initiate plans and interventions as ordered. Outcome: Progressing Problem: Inadequate Tissue Perfusion - Venous Goal: Tissue perfusion is adequate - venous Description: Assess and monitor skin color and temperature, skin integrity, pulses, capillary refill, edema, pain in extremities, Homans' sign, labs (D- dimer), and diagnostic tests (ultrasound, CT scan, VQ scan). Monitor for signs and symptoms of deep vein thrombosis (swelling of calf/thigh, redness, pain, tenderness). Monitor for signs and symptoms of pulmonary embolism (dyspnea, tachypnea, tachycardia). Collaborate with interdisciplinary team and initiate plans and interventions as needed. Outcome: Progressing Problem: Activity Intolerance/Impaired Mobility Goal: Mobility/activity is maintained at optimum level for patient Description: Assess and monitor patient barriers to mobility and need for assistive/adaptive devices. Assess patient's emotional response to limitations. Collaborate with interdisciplinary team and initiate plans and interventions as ordered. Outcome: Progressing Problem: Altered Body Image Goal: Verbalizes feelings about physical appearance Description: Assess the patient's feelings about their physical appearance, how it will effect their lifestyle, sexuality, and relationships with family and friends. Collaborate with interdisciplinary team and initiate plan and interventions as ordered. Outcome: Progressing Problem: Pain Management Goal: Patient return to pre procedure comfort Outcome: Progressing Problem: Hemodynamic Status Goal: Patient's vitals signs are stable Description: Assess and monitor patient's heart rate, rhythm, respiratory rate, peripheral pulses, capillary refill, color, body temperature, intake and output, labs and physical activity tolerance. Observe for signs of chest pain (note location, duration, severity, radiation and associated symptoms such as diaphoresis, nausea, indigestion). Monitor for signs and symptoms of heart failure (eg. shortness of breath, edema of feet/ankles/legs, rapid irregular heart rate, coughing, wheezing, white/pink blood tinged sputum, sudden weight gain, chest pain). Collaborate with interdisciplinary team and initiate plan and interventions as ordered. Outcome: Progressing Problem: Inadequte temperature regulation Goal: Body temperature is within normal range Outcome: Progressing Problem: Safety Goal: Free from accidental physical injury Outcome: Progressing Goal: Free from abuse Outcome: Progressing Problem: Elimination Goal: Elimination patterns are normal or improving Description: Assess and monitor vital signs, gastrointestinal assessment to include bowel sounds, color, appearance, frequency, and amount of stool and emesis, abdominal distention and discomfort, intake and output, and labs. Collaborate with interdisciplinary team and initiate plan and interventions as ordered. Outcome: Progressing Problem: Increased Risk for /GI Compromise Goal: Optimal /GI status Outcome: Progressing Problem: Bleeding Precautions Goal: Excessive bleeding will be minimized Outcome: Progressing documented in this encounter Plan of Treatment Not on file documented as of this encounter Procedures Procedure Name Priority Date/Time Associated Diagnosis Comments CBC W/ AUTO DIFF [place] 12/06/2024 9:41 AM EDT COMPREHENSIVE METABOLIC PANEL [place] 12/06/2024 9:41 AM EDT [place] C-ARM < 1 HOUR Routine 12/04/2024 5:0 7 PM EDT [place] ARTHRODESIS COMBINED TQ [id number] LUMBAR 12/04/2024 2:26 PM EDT Lumbar radiculopathy Case Notes IN 1030 , 2.5 HR (R), PASS, USING AIRO NOVA GLUCOSE POC Routine 12/04/2024 12:01 PM EDT TYPE AND SCREEN ([place] BKR) STAT 12/04/2024 11:57 AM EDT EKG-SCANNED 12/04/2024 documented in this encounter Results * (ABNORMAL) Comprehensive metabolic panel (12/06/2024 9:41 AM EDT) Sodium 134(L) 136 - 145 meq/L 12/06/2024 11:[address] [facility] Potassium 4.0 3.4 - 5.1 meq/L 12/06/2024 11:[address] [facility] Chloride 98 98 - 112 meq/L 12/06/2024 11:[address] [facility] CO2 29 22 - 29 meq/L 12/06/2024 11:[address] [facility] Calcium 8.7 8.4 - 10.2 mg/dL 12/06/2024 11:[address] [facility] Glucose 103(H) 74 - 100 mg/dL 12/06/2024 11:[address] [facility] BUN 9.1(L) 9.8 - 20.1 mg/dL 12/06/2024 11:[address] [facility] Creatinine 0.69 0.57 - 1.11 mg/dL 12/06/2024 11:[address] [facility] BUN/Creatinine 13 8 - 20 12/06/2024 11:[address] [facility] eGFR (mL/min/1.73m2) 103 >=60 mL/min/1. 73m2 12/06/2024 11:[address] [facility] Albumin 2.7(L) 3.5 - 5.0 g/dL 12/06/2024 11:[address] [facility] Alkaline Phosphatase 62 40 - 150 U/L 12/06/2024 11:[address] [facility] ALT 8 <=34 U/L 12/06/2024 11:[address] [facility] Comment: ALT2 reagent used for testing does not contain P5P supplementation and therefore may miss ALT elevations in patients with B6 deficiency. This population may be as high as 10% in the [place], with risk factors including malabsorption, drug interactions, and alcoholic hepatitis. AST 20 11 - 34 U/L 12/06/2024 11:[address] [facility] Comment: AST2 reagent used for testing does not contain P5P supplementation and therefore may miss AST elevations in patients with B6 deficiency. This population may be as high as 10% in the [place], with risk factors including malabsorption, drug interactions, and alcoholic hepatitis. Total Bilirubin 0.4 0.2 - 1.2 mg/dL 12/06/2024 11:13 AM EDT [facility] Protein, Total 6.4 6.4 - 8.3 g/dL 12/06/2024 11:13 AM EDT [facility] Globulin 3.7 2.5 - 4.1 g/dL 12/06/2024 11:13 AM EDT [facility] Anion Gap 11 4 - 12 12/06/2024 11:13 AM EDT [facility] A/G Ratio 0.7 0.7 - 1.9 12/06/2024 11:13 AM EDT [facility] Osmolality Calc 267.2 mOsm/kg 11:13 AM EDT [facility] Blood Venipuncture / Unknown 12/06/2024 9:41 AM EDT 12/06/2024 10:50 AM EDT us Robbie Castañeda MD LAB BLOOD ORDERABLES Final Resul t Performing Organization Address City/State/[facility] Co de Phone Number [facility] [address] [phone] * (ABNORMAL) CBC with Automated Diff (12/06/2024 9:41 AM EDT) WBC 16.3(H) 4.0 - 10.0 K/ L 12/06/2024 10:57 AM EDT [facility] RBC 3.41(L) 3.93 - 5.22 M/ L 12/06/2024 10:57 AM EDT [facility] Hemoglobin 10.4(L) 11.2 - 15.7 GM/DL 12/06/2024 10:57 AM EDT [facility] Hematocrit 32.9(L) 34.1 - 44.9 % 12/06/2024 10:57 AM EDT [facility] MCV 97(H) 79 - 95 fL 12/06/2024 10:57 AM EDT [facility] MCH 30.5 25.6 - 32.2 pg 12/06/2024 10:57 AM EDT [facility] MCHC 31.6(L) 32.2 - 35.5 GM/DL 12/06/2024 10:57 AM EDT [facility] RDW 13.1 11.7 - 14.4 % 12/06/2024 10:57 AM EDT [facility] Platelets 246 140 - 375 K/CU MM 12/06/2024 10:57 AM EDT [facility] MPV 10.3 9.4 - 12.3 fL 12/06/2024 10:57 AM EDT [facility] % Neutros 78(H) 34 - 71 % 12/06/2024 10:57 AM EDT [facility] % Lymphs 11(L) 19 - 52 % 12/06/2024 10:57 AM EDT [facility] % Monos 10 5 - 13 % 12/06/2024 10:57 AM EDT [facility] % Eos 0(L) 1 - 6 % 12/06/2024 10:57 AM EDT [facility] % Baso 0 0 - 1 % 12/06/2024 10:57 AM EDT [facility] NRBC Absolute <0.01 0 - 0.012 K/ul 12/06/2024 10:57 AM EDT [facility] # Neutros 12.71(H) 1.56 - 6.13 K/ L 12/06/2024 10:57 AM EDT [facility] # Lymphs 1.85 1.18 - 3.74 K/ L 12/06/2024 10:57 AM EDT [facility] # Monos 1.58(H) 0.24 - 0.86 K/ L 12/06/2024 10:57 AM EDT [facility] # Eos <0.03(L) 0.04 - 0.36 K/ L 12/06/2024 10:57 AM EDT [facility] # Baso 0.03 0.01 - 0.08 K/ L 12/06/2024 10:57 AM EDT [facility] Immature Granulocytes-Re lative 0.50(H) 0.01 - 0.43 % 12/06/2024 10:57 AM EDT [facility] # IG 0.08(H) 0.00 - 0.03 K/uL 12/06/2024 10:57 AM EDT [facility] Blood Venipuncture / Unknown 12/06/2024 9:41 AM EDT 12/06/2024 10:50 AM EDT Narrative [facility] - 12/06/2024 10:57 AM EDT When CBC w/ Auto Diff is ordered the lab will add a Manual Differential as a quality check at no additional charge if: Lymphocytes greater than seventy five percent with normal or increased WBC Monocytes greater than Fifteen percent Basophil greater than four percent Bands >10% or several immature myeloids are seen on scan Blast? Flag noted Atypical Lymph flag noted us Robbie Castañeda MD LAB BLOOD ORDERABLES Final Resul t [facility] [address] [phone] * [place] C-ARM < 1 HOUR (12/04/2024 5:07 PM EDT) Anatomical Region Laterality Modality X-Ray 12/04/2024 7:32 PM EDT Impressions 12/04/2024 7:33 PM EDT Intraoperative exam during lumbar spine surgery. Please see the operative report for further details.. Narrative 12/04/2024 7:[address] SPINE LUMBAR IN THE OR INDICATION: Intraoperative exam. Back pain. TECHNIQUE: Thin section axial images were obtained through the lumbar spine with the patient in prone position. This was obtained in the operating room to assist with surgical planning. Fluoroscopy Dose: 96 mGy This study was performed using dose reduction techniques to achieve radiation exposure as low as reasonably achievable (ALARA) COMPARISON: None. FINDINGS: There is a large posterior soft tissue defect. There are changes from posterior lumbar fusion. Procedure Note Thaddeus Vieyra MD - 12/04/2024 CT SPINE LUMBAR IN THE OR INDICATION: Intraoperative exam. Back pain. TECHNIQUE: Thin section axial images were obtained through the lumbar spine with the patient in prone position. This was obtained in the operating room to assist with surgical planning. Fluoroscopy Dose: 96 mGy This study was performed using dose reduction techniques to achieve radiation exposure as low as reasonably achievable (ALARA) COMPARISON: None. FINDINGS: There is a large posterior soft tissue defect. There are changes from posterior lumbar fusion. IMPRESSION: Intraoperative exam during lumbar spine surgery. Please see the operative report for further details.. us Robbie Castañeda MD IMG FLUOROSCOPY ORDERABLES Final Result * Glucose, Nova Meter (12/04/2024 12:01 PM EDT) POC-GLUCOSE 86 70 - 110 mg/dL 12/04/2024 12:02 PM EDT [facility] Comment: In the event of poor peripheral blood flow, venous or arterial blood should be used due to the potential of erroneous results. No action Require Preload Supervisor [id number] 12/04/2024 12:02 PM EDT [facility] Blood WHOLE BLOOD / Unknown 12/04/2024 12:01 PM EDT 12/04/2024 12:02 PM EDT Narrative [facility] - 12/04/2024 12:02 PM EDT Preload Supervisor ID is - [id number] Robbie Castañeda MD POINT OF CARE TEST ORDERABLES Fi nal Result Performing Organization Address [facility]/ZIP Co de Phone Number [facility] [address] [place] [address] * Type and Screen (12/04/2024 11:57 AM EDT) ABO/Rh O Positive 12/04/2024 11:51 AM EDT [facility] ([place]) Antibody Screen Negative 12/04/2024 11:51 AM EDT [facility] [place] HISTCHK HIST CHECK PERFORMED 12/04/2024 11:51 AM EDT [facility] [place] Blood Venipuncture / Unknown 12/04/2024 11:57 AM EDT 12/04/2024 12:12 PM EDT Arvind Dash MD [facility] TEST ORDERABLES Final Result [facility] ([place]) [address] [facility] [place] [address], [facility] [phone] * EKG-SCANNED (12/04/2024) Narrative 12/04/2024 Ordered by an unspecified provider. us Default Scanning Provider SCAN ORDERS Final Result documented in this encounter Visit Diagnoses Diagnosis Spinal instability- Primary documented in this encounter Admitting Diagnoses Diagnosis Spinal instability documented in this encounter Administered Medications Inactive Administered Medications - up to 3 most recent administrations Medication Order MAR Action Action Date Dose Rate Site amitriptyline (ELAVIL) tablet 25 mg 25 mg Every Night, oral, First dose on Sat12/04/24 at 2100 Given 12/05/2024 8:27 PM EDT 25 mg Given 12/04/2024 8:45 PM EDT 25 mg amLODIPine (NORVASC) tablet 10 mg 10 mg Daily, oral, First dose on Sat12/05/24 at 0900, Antihypertensive - Check BP - Check Pulse Given 12/06/2024 9:45 AM EDT 10 mg Given 12/05/2024 8:30 AM EDT 10 mg bisacodyL (DULCOLAX) EC tablet 10 mg 10 mg Daily as needed, oral, constipation, Starting on Sat12/04/24 at 1820, 1st line for treatment of constipation - give scheduled if no bowel movement in past 24 hours. See suppository order and give rectally if not able to take PO., Phase II/On Unit bisacodyL (DULCOLAX) suppository 10 mg 10 mg Daily as needed, rectal, constipation, Starting on Sat12/04/24 at 1820, 1st line for treatment of constipation - give scheduled if no bowel movement in past 24 hours. Give suppository rectally if unable to take PO., Phase II/On Unit ceFAZolin (ANCEF) 2 g in sodium chloride 0.9 % (NS) MBP 50 mL IVPB 2 g Every 8 hours scheduled, intravenous, Administer over 30 Minutes, First dose on Sat12/04/24 at 2100, For 6 doses, Please choose an indication: Surgical Prophylaxis IVPB Started 12/06/2024 4:52 AM EDT 2 g 100 mL/hr IVPB Started 12/05/2024 8:27 PM EDT 2 g 100 mL/hr IVPB Started 12/05/2024 12:39 PM EDT 2 g 100 mL/hr cyclobenzaprine (FLEXERIL) tablet 10 mg 10 mg 3 times daily PRN, oral, muscle spasms, Starting on Sat12/04/24 at 1820, Phase II/On Unit Given 12/06/2024 9:44 AM EDT 10 mg Given 12/05/2024 4:30 PM EDT 10 mg Given 12/05/2024 8:30 AM EDT 10 mg desvenlafaxine (PRISTIQ) ER 24 hr tablet 50 mg 50 mg Daily, oral, First dose on Sat12/04/24 at 1900 Given 12/06/2024 9:45 AM EDT 50 mg Given 12/05/2024 8:30 AM EDT 50 mg Given 12/04/2024 8:45 PM EDT 50 mg docusate sodium (COLACE) capsule 100 mg 100 mg 2 times daily, oral, First dose on Sat12/04/24 at 2100, Bowel Regimen - for prevention of constipation., Phase II/On Unit Given 12/06/2024 9:4 5 AM EDT 100 mg Given 12/05/2024 8:27 PM EDT 100 mg Given 12/05/2024 8:30 AM EDT 100 mg famotidine (PEPCID) tablet 20 mg 20 mg Once, oral, On Sat12/04/24 at 1230, For 1 dose, Pharmacist to renally dose if CrCl is less than 50 mL/min or on CRRT., Pre-op Given 12/04/2024 12:00 PM EDT 20 mg fentaNYL PF (SUBLIMAZE) injection 25 mcg 25 mcg Every 5 min PRN, intravenous, severe pain (7-10), First Line for pain moderate or greater, Starting on Sat12/04/24 at 1712, Maximum cumulative dose 100 mcg. If maximum dose is reached, proceed to 2nd Line agent., PACU Given 12/04/2024 6:00 PM EDT 25 mcg Given 12/04/2024 5:55 PM EDT 25 mcg Given 12/04/2024 5:50 PM EDT 25 mcg heparin injection 5,000 Units 5,000 Units Every 8 hours scheduled, subcutaneous, First dose on 6/7/25 at 1300 Given 12/06/2024 12:59 PM EDT 5,000 Units Abdominal Tissue Given 12/06/2024 4:52 AM EDT 5,000 Units A bdominal Tissue Given 12/05/2024 8:27 PM EDT 5,000 Units A bdominal Tissue HYDROmorphone (DILAUDID) injection 0.5 mg 0.5 mg Every 10 min PRN, intravenous, severe pain (7-10), 2nd Line agent after max dose Fentanyl given if ordered., Starting on Sat12/04/24 at 1712, For 4 doses, Maximum cumulative dose 2 mg, PACU, PACU Given 12/04/2024 6:20 PM EDT 0.5 mg Given 12/04/2024 6:10 PM EDT 0.5 mg HYDROmorphone (DILAUDID) injection 0.5 mg 0.5 mg Every 4 hours PRN, intravenous, moderate pain (4-6), severe pain (7-10), Starting on Sat12/04/24 at 1820, 3rd line analgesic. Give only if inadequate response (less than 50% reduction in pain score) 60 minutes after administration of 2nd line agent. May give in addition to 1st + 2nd line analgesics (+ adjuvants if ordered), Phase II/On Unit Given 12/06/2024 6:21 AM EDT 0.5 mg Given 12/05/2024 11:35 PM EDT 0.5 mg Given 12/05/2024 3:28 AM EDT 0.5 mg lactated Ringer's infusion 100 mL/hr Continuous, intravenous, Starting on Sat12/04/24 at 1230, Pre-op Rate/Dose Change 12/04/2024 5:40 PM EDT 100 mL/hr 100 mL/hr New Bag 12/04/2024 4:10 PM EDT Continued by Anesthesia 12/04/2024 2:26 PM EDT 100 mL/hr lactated Ringer's infusion 100 mL/hr Continuous, intravenous, Starting on Sat12/04/24 at 1900, Do not give simultaneously with ceftriaxone via a Y-site., Phase II/On Unit New Bag 12/04/2024 8:44 PM EDT 100 mL/hr 100 mL/hr midazolam (VERSED) injection 1 mg 1 mg Once, intravenous, On Sat12/04/24 at 1230, For 1 dose, Look-alike/Sound-alike medication. Contains Benzyl Alcohol, Pre-op Given 12/04/2024 12:04 PM EDT 1 mg midazolam (VERSED) injection 1 mg 1 mg Once, intravenous, On Sat12/04/24 at 1230, For 1 dose, Look-alike/Sound-alike medication. Contains Benzyl Alcohol, Pre-op Given 12/04/2024 12:12 PM EDT 1 mg oxyCODONE (ROXICODONE) immediate release tablet 10 mg 10 mg Every 4 hours PRN, oral, moderate pain (4-6), Starting on Sat12/04/24 at 1820, 2nd line analgesic. Give only if inadequate response (less than 50% reduction in pain score) 60 minutes after administration of 1st line analgesics + adjuvants (if ordered). Look-alike/Sound-alike medication, Phase II/On Unit Given 12/06/2024 9:44 AM EDT 10 mg Given 12/06/2024 3:09 AM EDT 10 mg Given 12/05/2024 8:27 PM EDT 10 mg propranoloL (INDERAL) tablet 20 mg 20 mg 2 times daily, oral, First dose on Sat12/04/24 at 2100, Hold for systolic BP < 90 mmHg or for HR < 50 BPM Given 12/06/2024 9:45 AM EDT 20 mg Given 12/05/2024 8:27 PM EDT 20 mg Given 12/05/2024 8:30 AM EDT 20 mg documented in this encounter Active and Recently Administered Medications Times are shown in EDT. Scheduled Medication Order 12/04/2024 12/05/2024 12/06/2024 amitriptyline (ELAVIL) tablet 25 mg 25 mg Every Night, oral, First dose on Sat12/04/24 at 2100 2044 (Given - Provider: Harley Ascencio RN) 2026 (Given - Provider: Harley Ascencio RN) amLODIPine (NORVASC) tablet 10 mg 10 mg Daily, oral, First dose on Sat12/05/24 at 0900, Antihypertensive - Check BP - Check Pulse 0830 (Given - Provider: Cecy Ji RN) 0945 (Given - Provider: Noemi Gonzalez LPN) ceFAZolin (ANCEF) 2 g in sodium chloride 0.9 % (NS) MBP 50 mL IVPB (COMPLETED) 2 g Once, intravenous, Administer over 30 Minutes, On Sat12/04/24 at 1200, For 1 dose, Pre-op, Please choose an indication: Surgical Prophylaxis 1455 (New Bag - Provider: Eric Wyman) ceFAZolin (ANCEF) 2 g in sodium chloride 0.9 % (NS) MBP 50 mL IVPB 2 g Every 8 hours scheduled, intravenous, Administer over 30 Minutes, First dose on Sat12/04/24 at 2100, For 6 doses, Please choose an indication: Surgical Prophylaxis 2045 (IVPB Started - Provider: Harley Ascencio RN)2234 (IVPB Stopped - Provider: Harley Ascencio RN) 0506 (IVPB Started - Provider: Harley Ascencio RN)0600 (IVPB Stopped - Provider: Harley Ascencio RN)1239 (IVPB Started - Provider: Cecy Ji RN)1524 (IVPB Stopped - Provider: Cecy Ji RN)202 (IVPB Started - Provider: Harley Ascencio RN)2202 (IVPB Stopped - Provider: Harley Ascencio RN) 0452 (IVPB Started - Provider: Harley Ascencio RN)0556 (IVPB Stopped - Provider: Harley Ascencio RN)1220 (Not Given - Provider: Noemi Gonzalez LPN - Reason: Contraindicated) desvenlafaxine (PRISTIQ) ER 24 hr tablet 50 mg 50 mg Daily, oral, First dose on Sat12/04/24 at 1900 2044 (Given - Provider: Harley Ascencio RN) 0830 (Given - Provider: Cecy Ji RN) 0945 (Given - Provider: Noemi Gonzalez LPN) docusate sodium (COLACE) capsule 100 mg 100 mg 2 times daily, oral, First dose on Sat12/04/24 at 2100, Bowel Regimen - for prevention of constipation., Phase II/On Unit 2044 (Given - Provider: Harley Ascencio RN) 0830 (Given - Provider: Cecy Ji RN)2026 (Given - Provider: Harley Ascencio RN) 0945 (Given - Provider: Noemi Gonzalez LPN) famotidine (PEPCID) tablet 20 mg (COMPLETED) 20 mg Once, oral, On Sat12/04/24 at 1230, For 1 dose, Pharmacist to renally dose if CrCl is less than 50 mL/min or on CRRT., Pre-op 1200 (Given - Provider: Ashok Lindsay RN) heparin injection 5,000 Units 5,000 Units Every 8 hours scheduled, subcutaneous, First dose on Sat12/05/24 at 1300 1240 (Given - Provider: Cecy Ji RN)202 (Given - Provider: Harley Ascencio RN) 0452 (Given - Provider: Harley Ascencio RN)1259 (Given - Provider: Noemi Gonzalez LPN) midazolam (VERSED) injection 1 mg (COMPLETED) 1 mg Once, intravenous, On Sat12/04/24 at 1230, For 1 dose, Look-alike/Sound-alike medication. Contains Benzyl Alcohol, Pre-op 1204 (Given - Provider: Ashok Lindsay RN) midazolam (VERSED) injection 1 mg (COMPLETED) 1 mg Once, intravenous, On Sat12/04/24 at 1230, For 1 dose, Look-alike/Sound-alike medication. Contains Benzyl Alcohol, Pre-op 1212 (Given - Provider: Ashok Lindsay RN) propranoloL (INDERAL) tablet 20 mg 20 mg 2 times daily, oral, First dose on Sat12/04/24 at 2100, Hold for systolic BP < 90 mmHg or for HR < 50 BPM 2044 (Given - Provider: Harley Ascencio RN) 0830 (Given - Provider: Cecy Ji RN)2026 (Given - Provider: Harley Ascencio RN) 0945 (Given - Provider: Noemi Gonzalez LPN) Continuous Medication Order 12/04/2024 12/05/2024 12/06/2024 lactated Ringer's infusion (CANCELED) 100 mL/hr Continuous, intravenous, Starting on Sat12/04/24 at 1230, Pre-op 1200 (New Bag - Provider: Ashok Lindsay RN)1426 (Continued by Anesthesia - Provider: Eric Wyman)1609 (Paused - Provider: Eric Wyman - Comment: Switch to gravity)1610 (New Bag - Provider: Eric Wyman)1734 (Anesthesia Volume Adjustment - Provider: Venus Mancilla CRNA)1740 (Rate/Dose Change - Provider: Jamari Gonzalez RN) lactated Ringer's infusion 100 mL/hr Continuous, intravenous, Starting on Sat12/04/24 at 1900, Do not give simultaneously with ceftriaxone via a Y-site., Phase II/On Unit 2043 (New Bag - Provider: Harley Ascencio RN) PRN Medication Order 12/04/2024 12/05/2024 12/06/2024 bisacodyL (DULCOLAX) EC tablet 10 mg(Linked Group 1) 10 mg Daily as needed, oral, constipation, Starting on Sat12/04/24 at 1820, 1st line for treatment of constipation - give scheduled if no bowel movement in past 24 hours. See suppository order and give rectally if not able to take PO., Phase II/On Unit bisacodyL (DULCOLAX) suppository 10 mg(Linked Group 1) 10 mg Daily as needed, rectal, constipation, Starting on Sat12/04/24 at 1820, 1st line for treatment of constipation - give scheduled if no bowel movement in past 24 hours. Give suppository rectally if unable to take PO., Phase II/On Unit cyclobenzaprine (FLEXERIL) tablet 10 mg 10 mg 3 times daily PRN, oral, muscle spasms, Starting on Sat12/04/24 at 1820, Phase II/On Unit 0830 (Given - Provider: Cecy Ji RN)1630 (Given - Provider: Cecy Ji RN) 0944 (Given - Provider: Noemi Gonzalez LPN) diazePAM (VALIUM) tablet 5 mg 5 mg Every Night PRN, oral, anxiety, Starting on Sat12/04/24 at 1821 fentaNYL PF (SUBLIMAZE) injection 25 mcg (CANCELED) 25 mcg Every 5 min PRN, intravenous, severe pain (7-10), First Line for pain moderate or greater, Starting on Sat12/04/24 at 1712, Maximum cumulative dose 100 mcg. If maximum dose is reached, proceed to 2nd Line agent., PACU 1744 (Given - Provider: Jamari Gonzalez RN)1750 (Given - Provider: Jamari Gonzalez RN)1755 (Given - Provider: Jamari Gonzalez RN)1800 (Given - Provider: Jamari Gonzalez RN) gentamicin (GARAMYCIN) intramuscular injection (CANCELED) As needed, Starting on Sat12/04/24 at 1525, Intra-op 1525 (Given - Provider: Robbie Castañeda MD - Comment: antibiotic bead mixture) HYDROmorphone (DILAUDID) injection 0.5 mg (CANCELED) 0.5 mg Every 10 min PRN, intravenous, severe pain (7-10), 2nd Line agent after max dose Fentanyl given if ordered., Starting on Sat12/04/24 at 1712, For 4 doses, Maximum cumulative dose 2 mg, PACU, PACU 1810 (Given - Provider: Jamari Gonzalez RN)1820 (Given - Provider: Jamari Gonzalez RN) HYDROmorphone (DILAUDID) injection 0.5 mg 0.5 mg Every 4 hours PRN, intravenous, moderate pain (4-6), severe pain (7-10), Starting on Sat12/04/24 at 1820, 3rd line analgesic. Give only if inadequate response (less than 50% reduction in pain score) 60 minutes after administration of 2nd line agent. May give in addition to 1st + 2nd line analgesics (+ adjuvants if ordered), Phase II/On Unit 2156 (Given - Provider: Harley Ascencio RN) 0328 (Given - Provider: Harley Ascencio RN)2335 (Given - Provider: Harley Ascencio RN) 0621 (Given - Provider: Harley Ascencio RN) lidocaine-epinephrine (XYLOCAINE W/EPI) 1 %-1:100,000 injection (CANCELED) As needed, Starting on Sat12/04/24 at 1513, Intra-op 1513 (Given - Provider: Robbie Castañeda MD) naloxone (NARCAN) injection 0.2 mg 0.2 mg Every 2 min PRN, intravenous, opioid reversal, respiratory depression, Starting on Sat12/04/24 at 1820, Give for respiratory rate less than 10 breaths/min or if patient is difficult to arouse. Max dose = 10 mg. Call provider., Phase II/On Unit oxyCODONE (ROXICODONE) immediate release tablet 10 mg 10 mg Every 4 hours PRN, oral, moderate pain (4-6), Starting on Sat12/04/24 at 1820, 2nd line analgesic. Give only if inadequate response (less than 50% reduction in pain score) 60 minutes after administration of 1st line analgesics + adjuvants (if ordered). Look-alike/Sound-alike medication, Phase II/On Unit 182 (Given - Provider: Jamari Gonzalez RN) 0049 (Given - Provider: Harley Ascencio, RN)0830 (Given - Provider: Cecy Ji, RN)1240 (Given - Provider: Cecy Ji, PORTER)1630 (Given - Provider: Cecy Ji RN)2027 (Given - Provider: Harley Ascencio RN) 0309 (Given - Provider: Harley Ascencio RN)0944 (Given - Provider: Noemi Gonzalez LPN) thrombin (bovine) topical solution (CANCELED) As needed, Starting on Sat12/04/24 at 1513, Intra-op 1513 (Given - Provider: Robbie Castañeda MD - Comment: gelfoam and cottonoids on sterile back table) vancomycin (VANCOCIN) injection (CANCELED) As needed, Starting on Sat12/04/24 at 1514, Intra-op 1514 (Given - Provider: Robbie Castañeda MD - Comment: mixed with 1L of normal saline for irrigation on sterile back table)1528 (Given - Provider: Robbie Castañeda MD - Comment: antibiotic bead mixture) Linked Groups Order Group 1: bisacodyL (DULCOLAX) EC tablet 10 mgJump to med 10 mg Daily as needed, oral, constipation, Starting on Sat12/04/24 at 1820, 1st line for treatment of constipation - give scheduled if no bowel movement in past 24 hours. See suppository order and give rectally if not able to take PO., Phase II/On Unit Or bisacodyL (DULCOLAX) suppository 10 mgJump to med 10 mg Daily as needed, rectal, constipation, Starting on Sat12/04/24 at 1820, 1st line for treatment of constipation - give scheduled if no bowel movement in past 24 hours. Give suppository rectally if unable to take PO., Phase II/On Unit documented in this encounter Care Teams Inspector Casing Relationship Specialty Start Date End Date Manish Damico, HOT ROOM ATTENDANT[address] [address] PCP - General Nurse Practitioner 12/04/24 documented as of this encounter
--- OUTSIDE RECORDS SUMMARY | 2024-12-04 14:26 | XMS_ITS | Encounter Summary ---
Author Organization [employer] ([place], [place], [place], [place]) Address [address] [place] [address] Care Team Providers Care [employer] Name Role Phone Nallely Reagan JOSIAH Primary Care Provider [phone] Reason for Visit * Auth/Cert (Routine) Specialty Diagnoses / Procedures Referred By Contac t Referred To Contact Diagnoses Lumbar radiculopathy Lumbar radiculopathy Procedures MD ARTHRODESIS COMBINED TQ 1NTRSPC LUMBAR MD ARTHRODESIS CMBN TQ 1NTRSPC EACH ADDITIONAL MD STEREOTACTIC COMPUTER ASSISTED PX SPINAL FUSION, SPINE, LUMBAR, TLIF Robbie Castañeda MD [address] [place] [address] Phone: tel: fax: Referral ID Status Reason Start Date Expiration Date Visits Re quested Visits Authorized [id number] 11/04/2024 1 2 Encounter Details Date Type Department Care Team (Late st Contact Info) Description 12/04/2024 2:26 PM EDT Anesthesia Event [facility] Operating Room [address] [place] [address] Arvind Dash MD [address] [place] [address] Eric Wyman Anesthesia Record Procedure Summary Procedure Name Responsible [...] opportunity for questions and acknowledgement of understanding. 174 An Stop Meds Name Total fentaNYL (SUBLIMAZE) injection 250 mcg glycopyrrolate (ROBINUL) injection 1 mg lidocaine (XYLOCAINE) injection 1% 100 m g neostigmine (PROSTIGMINE) 1 mg/mL inject ion 5 mg ondansetron (ZOFRAN) injection vial 4 mg propofol (DIPRIVAN) injection 10 mg/mL b olus 200 mg vecuronium (NORCURON) injection 12 mg ketamine injection 10 mg/mL 50 mg ceFAZolin (ANCEF) 2 g in sodium chloride 0.9 % (NS) MBP 50 mL IVPB 2 g phenylephrine (JAKOB-SYNEPHRINE) injection 600 mcg dexmedetomidine (PRECEDEX) injection 100 mcg/mL 24 mcg magnesium sulfate injection 1 g phenylephrine (JAKOB-SYNEPHRIN E) 20 mg in sodium chloride 0.9 % (NS) 250 mL infusion 3,340 mcg methocarbamoL (ROBAXIN) injection 500 mg lactated Ringer's infusion 1,300 mL albumin human bottle 5% 250 mL * Agents Name O2 N2O Air SEVOFLURANE * Blood No blood administrations on file. [...] drink = 0.6 oz pur e alcohol) [facility] - [facility] Answer Date Recorde [...] Date Pedro rded Speak language other than Iranian at home Not on file 07/19/2023 Want [...] on file documented as of this encounter OR Notes * Anesthesia Postprocedure Evaluation - Venus Mancilla CRNA - 12/04/2024 5:40 PM EDT Patient: Hannah Jaime Procedure Summary Date: 12/04/24 Room / Location: [facility] OR [address] [place] [address] OPERATING ROOM Anesthesia Start: 1426 Anesthesia Stop: Procedure: (L2-ILIAC POSTERIOR FUSION-PREVIOUS L3-L5- USING AIRO) (Spine Lumbar) Diagnosis: Lumbar radiculopathy (Lumbar radiculopathy) Surgeons: Robbie Castañeda MD Responsible Provider: Arvind Dash MD Anesthesia Type: general ASA Status: 3 Anesthesia Type: general Vitals Value Taken Time BP 107/66 12/04/24 1739 Temp 97.1 ??F (36.2 ??C) 12/04/24 1737 Pulse 75 12/04/24 1740 Resp 16 12/04/24 1737 SpO2 99 % 12/04/24 1740 Vitals shown include unfiled device data. Ht 1.626 m (5' 4 ) Wt 95.7 kg (211 lb) BMI 36.22 kg/m?? Anesthesia Post Evaluation Patient location during evaluation: PACU Patient participation: complete - patient participated Level of consciousness: awake Pain score: 0 Pain management: adequate Multimodal analgesia pain management approach Airway patency: patent Cardiovascular status: stable Respiratory status: face mask Hydration status: stable Color: Keno Activity: Moves 4 extremities Inotropes/Vasopressors: N/A No notable events documented. Venus Mancilla CRNA 12/04/2024 5:40 PM EDT * Anesthesia Procedure Notes - Eric Wyman - 12/04/2024 3:01 PM EDTAssociated Order(s): Intubation Intubation Authorized by: Arvind Dash MD Performed by: Eric Wyman Date/Time: 12/04/2024 2:39 PM Urgency: elective Indications and Patient Condition Indications for airway management: anesthesia and airway protection Spontaneous Ventilation: absent Sedation level: general anesthesia Preoxygenated: yes Patient position: sniffing Mask difficulty assessment: 1 - vent by mask Planned trial extubation: yes Final Airway Details Final airway type: endotracheal airway Endotracheal tube type: ETT Cuffed: yes Successful intubation technique: direct laryngoscopy Facilitating devices/methods: intubating stylet Endotracheal tube insertion site: oral Blade: Taylor Blade size: #3 ETT size (mm): 7.5 Cormack-Lehane Classification: grade I - full view of glottis Placement verified by: chest auscultation and capnometry Cuff volume (mL): 8 Measured from: teeth ETT to teeth (cm): 22 Number of attempts at approach: 1 Additional Comments Atraumatic Intubation. Lips, gums, and dentition unchanged and as preop. Bilateral BS and chest rise, ETCO2 confirmed Cosigned by Nallely Santana CRNA at 12/04/2024 4:32 PM EDT * Anesthesia Preprocedure Evaluation - Libby Nguyen MD - 11/26/2024 8:42 AM EDT Images from the original note were not included. ANESTHESIA PREOPERATIVE EVALUATION Patient: Hannah Jaime Date/Time: 12/04/241499 Procedure: (L2-ILIAC POSTERIOR FUSION-PREVIOUS L3-L5- USING AIRO) Location: [facility] OR [address] [place] [address] OPERATING ROOM Surgeons: Robbie Castañeda MD Vitals: 11/26/24 0815 11/26/24 0817 11/26/24 0840 BP: (!) 153/105 Pulse: 86 Resp: 16 Temp: 97.8 ??F (36.6 ??C) SpO2: 96% Weight: 97.5 kg (215 lb) Height: 1.626 m (5' 4 ) Body mass index is 36.9 kg/m??. Allergies Allergen Reactions Trazodone Other (See Comments) Headache Venlafaxine Psychosis Current Outpatient Medications Medication Instructions amitriptyline (ELAVIL) [...] orally once a day for 30 days INPATIENT MEDICATIONS mupirocin intraNASAL Once Problem List as of 11/26/2024 None Past Medical History: Diagnosis Date Anxiety Arthritis GERD (gastroesophageal reflux disease) History of kidney stones Hypertension Lumbar radiculopathy Migraines GERD with spicy food, no symptoms on empty stomach Denies SAMAN, was tested a couple of years ago. On valium 5mg QHS for over 1 year Patient states she has previously done well with anesthesia Past Surgical History: Procedure Laterality Date ANTERIOR CERVICAL DISCECTOMY W/ FUSION APPENDECTOMY BACK SURGERY Lumbar Fusion CARPAL TUNNEL RELEASE Right CHOLECYSTECTOMY GASTRECTOMY Sleeve HYSTERECTOMY KNEE ARTHROSCOPY Bilateral Social History Tobacco Use Smoking status: Never Smokeless tobacco: Never Substance Use Topics Alcohol use: Not Currently Drug use: Never Echo Results (last 7 days) No results found for the last 168 hours. Chemistry No results found for: NA , K , CL , CO2 , BUN , CREATININE , GLU No results found for: CALCIUM , ALKPHOS , AST , ALT , BILITOT No results found for: WBC , HGB , HCT , MCV , PLT Clinical information reviewed: No data recorded Physical Exam Airway Mallampati: II TM distance: >3 FB Neck ROM: full Cardiovascular Rhythm: regular Dental Pulmonary Breath sounds clear to auscultation Abdominal Anesthesia Plan ASA 3 general (Plan for GETA, possible a-line given multilevel fusion. ) The patient is not a current smoker. intravenous induction Postoperative administration of opioids is intended. Trial extubation is planned. Anesthetic plan and risks discussed with patient. documented in this encounter Plan of Treatment Not on file documented as of this encounter Procedures Procedure Name Priority Date/Time Associated Diagnosis Comments ANESTHESIA INTUBATION Routine 12/04/2024 2:39 PM EDT documented in this encounter Results * AN SINGLE LUMEN INTUBATION (12/04/2024 2:39 PM EDT) Narrative Max Nallely Nita, BIKE ASSEMBLER - 12/04/2024 2:39 PM EDT Eric Wyman 12/04/2024 3:02 PM Intubation Authorized by: Arvind Dash MD Performed by: Eric Wyman Date/Time: 12/04/2024 2:39 PM Urgency: elective Indications and Patient Condition Indications for airway management: anesthesia and airway protection Spontaneous Ventilation: absent Sedation level: general anesthesia Preoxygenated: yes Patient position: sniffing Mask difficulty assessment: 1 - vent by mask Planned trial extubation: yes Final Airway Details Final airway type: endotracheal airway Endotracheal tube type: ETT Cuffed: yes Successful intubation technique: direct laryngoscopy Facilitating devices/methods: intubating stylet Endotracheal tube insertion site: oral Blade: Taylor Blade size: #3 ETT size (mm): 7.5 Cormack-Lehane Classification: grade I - full view of glottis Placement verified by: chest auscultation and capnometry Cuff volume (mL): 8 Measured from: teeth ETT to teeth (cm): 22 Number of attempts at approach: 1 Additional Comments Atraumatic Intubation. Lips, gums, and dentition unchanged and as preop. Bilateral BS and chest rise, ETCO2 confirmed us Arvind Dash MD ANESTHESIA ORDERABLES Final Re sult documented in this encounter Visit Diagnoses Not on filedocumented in this encounter Administered Medications Inactive Administered Medications - up to 3 most recent administrations Medication Order MAR Action Action Date Dose Rate Site albumin human 5 % IV Continuous PRN, intravenous, Starting on Sat12/04/24 at 1611, Anesthesia Intra-op New Bag 12/04/2024 4:11 PM EDT ceFAZolin (ANCEF) 2 g in sodium chloride 0.9 % (NS) MBP 50 mL IVPB 2 g Once, intravenous, Administer over 30 Minutes, On Sat12/04/24 at 1200, For 1 dose, Pre-op, Please choose an indication: Surgical Prophylaxis New Bag 12/04/2024 2:55 PM EDT 2 g dexmedeTOMIDine (PRECEDEX) injection As needed, intravenous, Starting on Sat12/04/24 at 1516, Anesthesia Intra-op Given 12/04/2024 4:45 PM EDT 4 mcg Given 12/04/2024 4:28 PM EDT 4 mcg Given 12/04/2024 4:20 PM EDT 4 mcg fentaNYL PF (SUBLIMAZE) injection As needed, intravenous, Starting on Sat12/04/24 at 1437, Anesthesia Intra-op Given 12/04/2024 5:27 PM EDT 100 mcg Given 12/04/2024 5:25 PM EDT 50 mcg Given 12/04/2024 5:19 PM EDT 50 mcg glycopyrrolate (ROBINUL) injection As needed, intravenous, Starting on Sat12/04/24 at 1557, Anesthesia Intra-op Given 12/04/2024 5:19 PM EDT 0.8 mg Given 12/04/2024 3:57 PM EDT 0.2 mg ketamine (KETALAR) injection As needed, intravenous, Starting on Sat12/04/24 at 1437, Anesthesia Intra-op Given 12/04/2024 4:30 PM EDT 10 mg Given 12/04/2024 3:43 PM EDT 10 mg Given 12/04/2024 2:37 PM EDT 30 mg lactated Ringer's infusion 100 mL/hr Continuous, intravenous, Starting on Sat12/04/24 at 1230, Pre-op Rate/Dose Change 12/04/2024 5:40 PM EDT 100 mL/hr 100 mL/hr New Bag 12/04/2024 4:10 PM EDT Continued by Anesthesia 12/04/2024 2:26 PM EDT 100 mL/hr lidocaine (XYLOCAINE) injection 1% As needed, intravenous, Starting on Sat12/04/24 at 1437, Anesthesia Intra-op Given 12/04/2024 2:37 PM EDT 100 mg magnesium sulfate 500 mg/mL (50 %) injection As needed, intravenous, Starting on Sat12/04/24 at 1516, Anesthesia Intra-op Given 12/04/2024 3:16 PM EDT 1 g methocarbamoL (ROBAXIN) injection As needed, intravenous, Starting on Sat12/04/24 at 1721, Anesthesia Intra-op Given 12/04/2024 5:21 PM EDT 500 mg neostigmine methylsulfate (PROSTIGMINE) injection As needed, intravenous, Starting on Sat12/04/24 at 1719, Anesthesia Intra-op Given 12/04/2024 5:19 PM EDT 5 mg ondansetron (ZOFRAN) injection As needed, intravenous, Starting on Sat12/04/24 at 1706, Anesthesia Intra-op Given 12/04/2024 5:06 PM EDT 4 mg phenylephrine (JAKOB-SYNEPHRINE) 20 mg in sodium chloride 0.9 % (NS) 250 mL infusion Continuous PRN, intravenous, Starting on Sat12/04/24 at 1538, Anesthesia Intra-op Rate/Dose Change 12/04/2024 5:17 PM EDT 20 mcg/min 15 mL/hr Rate/Dose Change 12/04/2024 5:05 PM EDT 40 mcg/min 30 mL/h r Restarted 12/04/2024 4:33 PM EDT 20 mcg/min 15 mL/hr phenylephrine (JAKOB-SYNEPHRINE) injection As needed, intravenous, Starting on Sat12/04/24 at 1501, Anesthesia Intra-op Given 12/04/2024 4:42 PM EDT 100 mcg Given 12/04/2024 3:28 PM EDT 200 mcg Given 12/04/2024 3:22 PM EDT 100 mcg propofol (DIPRIVAN) injection 10 mg/mL bolus As needed, intravenous, Starting on Sat12/04/24 at 1437, Anesthesia Intra-op Given 12/04/2024 2:37 PM EDT 200 mg vecuronium (NORCURON) injection As needed, intravenous, Starting on Sat12/04/24 at 1438, Anesthesia Intra-op Given 12/04/2024 4:32 PM EDT 2 mg Given 12/04/2024 2:38 PM EDT 10 mg documented in this encounter Care Teams [employer] Relationship Specialty Start Date End Date Nallely Reagan APRN [address] [place] [phone] PCP - General Nurse Practitioner 12/04/24 documented as of this encounter
--- OUTSIDE RECORDS SUMMARY | 2024-12-04 15:00 | XMS_ITS | Encounter Summary ---
Author Organization [employer] ([place], [place], [place], [place]) Address [address] [place] [address] Care Team Providers Care Recovery Rn Name Role Phone Manish Damico JOSIAH Primary Care Provider + [phone] Reason for Visit * Auth/Cert (Routine) Specialty Diagnoses / Procedures Referred By Contac t Referred To Contact Diagnoses Lumbar radiculopathy Lumbar radiculopathy Procedures DC ARTHRODESIS COMBINED TQ 1NTRSPC LUMBAR DC ARTHRODESIS CMBN TQ 1NTRSPC EACH ADDITIONAL DC STEREOTACTIC COMPUTER ASSISTED PX SPINAL FUSION, SPINE, LUMBAR, TLIF Robbie Castañeda MD [address] [place] [address] Phone: tel: fax: Referral ID Status Reason Start Date Expiration Date Visits Re quested Visits Authorized [id number] 11/04/2024 1 2 Encounter Details Date Type Department Care Team (Late st Contact Info) Description 12/04/2024 3:00 PM EDT - 12/04/2024 6:38 PM EDT Surgery [facility] Operating Room [address] [place] [address] Robbie Castañeda MD [address] [phone] (L2-ILIAC POSTERIOR FUSION-PREVIOUS L3-L5- USING AIRO) Social History Tobacco Use Types Packs/Day Years Used Date Smoking Tobacco: Never Smokeless Tobacco: Never Alcohol Use Standard Drinks/Week Comments Not Currently 0 (1 standard drink = 0.6 oz pur e alcohol) [facility] - Mental Health Answer Date Recorde [...] Date Pedro rded Speak language other than Belarusian at home Not on file 07/19/2023 Want [...] Sign Reading Time Taken Comments Blood Pressure 138/74 12/04/2024 6:30 PM EDT Pulse 66 12/04/2024 6:30 PM EDT Temperature 36.7 C (98 F) 12/04/2024 6:00 PM EDT Respiratory Rate 16 12/04/2024 6:30 PM EDT Oxygen Saturation 95% 12/04/2024 6:30 PM EDT Inhaled Oxygen Concentration - - Weight [...] tablets Lumbar fusion pod 2. Dc from [facility] today. 50 tablet 0 CHANGE how you [...] Your Medications These medications were sent to [facility]/pharmacy #[id number] [place], [place] - [address] [facility] [address] [facility], [place] [address] cyclobenzaprine 10 MG tablet oxyCODONE-acetaminophen 7.5-325 mg [...] follow-up Robbie Castañeda MD Specialty: Neurosurgery [address] [address] Next Steps: Follow up in 2 week(s) [...] pounds. Discharge Follow UP: 2 weeks for emily, 4 to 6 weeks with x-rays Electronically signed by Robbie Castañeda MD, 12/05/24, 10:11 AM EDT documented in this encounter Discharge Instructions * Discharge Instructions* Noemi Gonzalez, ROSA M - 12/06/2024 12:54 PM EDT Lumbar Spine [...] any lotions or ointments to your incision Emily will be removed in office Steri-strips or [...] Whaley MD - 12/06/2024 9:10 AM EDT [facility] MEDICINE PROGRESS NOTE: Patient: Hannah Jaime Date: [...] Q8H Robbie Castañeda MD 2 g at 12/06/24 045 cyclobenzaprine (FLEXERIL) tablet 10 mg 10 mg oral TID PRN Robbie Castañeda MD 10 mg at 12/05/24 163 desvenlafaxine (PRISTIQ) ER 24 hr tablet 50 mg 50 mg oral Daily Robbie Castañeda MD 50 mg at 12/05/24 08 diazePAM (VALIUM) tablet 5 mg 5 mg [...] Robbie Castañeda MD 10 mg at 12/06/24 0309 propranoloL (INDERAL) tablet 20 mg 20 mg oral BID Robbie Castañeda MD 20 mg at 12/05/242026 PRN Meds: @MEDSPRN@ Labs: No results found for this visit on 12/04/24 (from the past 24 hours). Radiology: Radiology Results (last 3 days) Procedure Component Value Units Date/Time FL C-ARM < 1 HOUR [[id number]] Collected: 12/04/241931 Order Status: Completed Updated: 12/04/241934 [...] Whaley MD - 12/05/2024 10:51 AM EDT [facility] MEDICINE PROGRESS NOTE: Patient: Hannah Jaime Date: [...] 2 g intravenous Q8H 2 g at 12/05/24505 desvenlafaxine 50 mg oral Daily 50 mg [...] mL/hr at 12/04/24 2044 100 mL/hr at 12/04/242043 naloxone (NARCAN) injection 0.2 mg 0.2 mg intravenous Q2 Min PRN Robbie Castañeda MD oxyCODONE (ROXICODONE) immediate release tablet 10 mg 10 mg oral Q4H PRN Robbie Castañeda MD 10 mg at 12/05/24 08 propranoloL (INDERAL) tablet 20 mg 20 mg [...] Range POC-GLUCOSE 86 70 - 110 mg/dL Sill Worker [id number] Radiology: Radiology Results (last 3 days) Procedure Component Value Units Date/Time FL C-ARM < 1 HOUR [[id number]] Collected: 12/04/241931 Order Status: Completed Updated: 12/04/241934 [...] Castañeda MD - 12/05/2024 9:57 AM EDT [facility] NEUROSURGERY PROGRESS NOTE Subjective Patient sitting [...] Range POC-GLUCOSE 86 70 - 110 mg/dL Sill Worker [id number] FL C-ARM < 1 HOUR Narrative: CT [...] Total Time 53 minutes Pt presents to [facility] s/p L2-Iliac posterior fusion-previous L3-5 using AIRO [...] assessed, patient ambulatory. Outcome Measures See below [facility] Basic Mobility Inpatient Short Form How much [...] Score Raw score=11 t-Scale score=33.86 Standard error=3.22 CMS 0-100%=72.57% MDC=4.72 A raw score of >= [...] All needs met. Assessment Pt presents to [facility] s/p L2-Iliac posterior fusion-previous L3-5 using AIRO [...] patient's discharge summary. Electronically signed by Wanda Morejon PT - 12/05/24 - 12:55 PM EDT PT Evaluation Completed * ELZBIETA Bledsoe/Deysi - 12/05/2024 9:03 AM EDT Images from [...] work . 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 Pain 0-10 SCALE Pain location: Back 01/07. [...] The patient's fine motor coordination is intact. Ablqso-mw-ckei: LUE (4) Normal performance, RUE (4) Normal [...] Equipment used, to doff/don socks Outcome Measures [facility] Daily Living Functional Assessment How much help [...] (Minimal/Contact guard/Supervision/Setup) 4=None (Modified independent/Independent) The patient's [facility] raw score is 17. The patient currently has 50.11% functional impairment. Clinicians are most likely to recommend inpatient/SNF/residential care for patients with scores between 6-17, [...] with OT educational handout and AE including: coordinator of online programs, sock aide, and long handed shoehorn. Pt [...] prior level of function. The patient's current [facility] score of 17 would indicate that the [...] Clarity, UA 11/26/2024 Clear Clear Final Specific [place], UA 11/26/2024 1.028 1.005 - 1.030 Final [...] ATRIAL RATE (MCT) 11/26/2024 84 BPM Final DC Interval 11/26/2024 174 ms Final QRS-INTERVAL (MSEC) 11/26/2024 96 ms Final QT Interval 11/26/2024 378 ms Final QTC Interval 11/26/2024 446 ms Final P [place] 11/26/2024 64 degrees Final R AXIS (MCT) 11/26/2024 50 degrees Final T Wave [place] 11/26/2024 66 degrees Final [place] Diagnosis 11/26/2024 Final Value:Normal sinus rhythm Normal [...] Ball PA-C - 12/04/2024 12:48 PM EDT [facility] MEDICINE INITIAL CONSULT NOTE: Consults PCP: MANISH [...] NS CODE STATUS : FULL PLAN: - [facility] Med consulted for post-op medical management - monitor labs / vitals, Incentive Spirometry usage, PT/OT, bowel regimen - pain control and DVT ppx per NS - monitor post-op s/s infection / renal complications - CBC, BMP ordered for am Previous Living Condition: Home Expected Disposition: Home Expected Discharge Date: TBD, per NS Reason for Consult: [facility] Med has been consulted for postoperative medical [...] no guarding, non-distended Musculoskeletal: bilat / equal mash processing operator strength Skin: no rash, ecchymosis or erythema Neurologic: moves all extremities with purpose, speech non-slurred Labs & Imaging Recent Results (from the past 24 hours) Glucose, Nova Meter Collection Time: 12/04/24 12:01 PM Result Value Ref Range POC-GLUCOSE 86 70 - 110 mg/dL Sill Worker [id number] No results found. Electronically signed by: Bernice [...] scan and spinal stereotactic navigation using the [employer] CHAIN BUILDER LOOM CONTROL: Charlette Yee TYPE OF ANESTHESIA: General DESCRIPTION/PROCEDURE [...] performed. The images were loaded into the [employer] system for spinal stereotactic navigation. Using the navigation, the usual freehand techniques and [employer] system, pedicle screws were placed at L2, [...] HOUR Routine 12/04/2024 5:0 7 PM EDT DC ARTHRODESIS COMBINED TQ 1NTRSPC LUMBAR 12/04/2024 2:26 [...] 136 - 145 meq/L 12/06/2024 11:13 AM [facility] Potassium 4.0 3.4 - 5.1 meq/L 12/06/2024 11:13 AM [facility] Chloride 98 98 - 112 meq/L 12/06/2024 11:13 AM [facility] CO2 29 22 - 29 meq/L 12/06/2024 11:13 AM [facility] Calcium 8.7 8.4 - 10.2 mg/dL 12/06/2024 11:13 AM [facility] Glucose 103(H) 74 - 100 mg/dL 12/06/2024 11:13 AM [facility] BUN 9.1(L) 9.8 - 20.1 mg/dL 12/06/2024 11:13 AM [facility] Creatinine 0.69 0.57 - 1.11 mg/dL 12/06/2024 11:13 AM [facility] BUN/Creatinine 13 8 - 20 12/06/2024 11:13 AM [facility] eGFR (mL/min/1.73m2) 103 >=60 mL/min/1. 73m2 12/06/2024 11:13 AM [facility] Albumin 2.7(L) 3.5 - 5.0 g/dL 12/06/2024 11:13 AM [facility] Alkaline Phosphatase 62 40 - 150 U/L 12/06/2024 11:13 AM [facility] ALT 8 <=34 U/L 12/06/2024 11:13 AM [facility] Comment: ALT2 reagent used for testing does not contain P5P supplementation and therefore may miss ALT elevations in patients with B6 deficiency. This population may be as high as 10% in the [place], with risk factors including malabsorption, drug interactions, and alcoholic hepatitis. AST 20 11 - 34 U/L 12/06/2024 11:13 AM [facility] Comment: AST2 reagent used for testing does not contain P5P supplementation and therefore may miss AST elevations in patients with B6 deficiency. This population may be as high as 10% in the [place], with risk factors including malabsorption, drug interactions, and alcoholic hepatitis. Total Bilirubin 0.4 0.2 - 1.2 mg/dL 12/06/2024 11:[address] [facility] Protein, Total 6.4 6.4 - 8.3 g/dL 12/06/2024 11:[address] [facility] Globulin 3.7 2.5 - 4.1 g/dL 12/06/2024 11:[address] [facility] Anion Gap 11 4 - 12 12/06/2024 11:[address] [facility] A/G Ratio 0.7 0.7 - 1.9 12/06/2024 11:[address] [facility] Osmolality Calc 267.2 mOsm/kg 11:[address] [facility] Blood Venipuncture / Unknown 12/06/2024 9:41 AM EDT 12/06/2024 10:50 AM EDT us Robbie Castañeda MD LAB BLOOD ORDERABLES Final Resul t [facility] [address] [phone] * (ABNORMAL) CBC with Automated Diff (12/06/2024 9:41 AM EDT) WBC 16.3(H) 4.0 - 10.0 K/ L 12/06/2024 10:[address] [facility] RBC 3.41(L) 3.93 - 5.22 M/ L 12/06/2024 10:[address] [facility] Hemoglobin 10.4(L) 11.2 - 15.7 GM/DL 12/06/2024 10:[address] [facility] Hematocrit 32.9(L) 34.1 - 44.9 % 12/06/2024 10:[address] [facility] MCV 97(H) 79 - 95 fL 12/06/2024 10:[address] [facility] MCH 30.5 25.6 - 32.2 pg 12/06/2024 10:[address] [facility] MCHC 31.6(L) 32.2 - 35.5 GM/DL 12/06/2024 10:[address] [facility] RDW 13.1 11.7 - 14.4 % 12/06/2024 10:[address] [facility] Platelets 246 140 - 375 K/CU MM 12/06/2024 10:[address] [facility] MPV 10.3 9.4 - 12.3 fL 12/06/2024 10:[address] [facility] % Neutros 78(H) 34 - 71 % 12/06/2024 10:[address] [facility] % Lymphs 11(L) 19 - 52 % 12/06/2024 10:[address] [facility] % Monos 10 5 - 13 % 12/06/2024 10:[address] [facility] % Eos 0(L) 1 - 6 % 12/06/2024 10:[address] [facility] % Baso 0 0 - 1 % 12/06/2024 10:[address] [facility] NRBC Absolute <0.01 0 - 0.012 K/ul 12/06/2024 10:[address] [facility] # Neutros 12.71(H) 1.56 - 6.13 K/ L 12/06/2024 10:[address] [facility] # Lymphs 1.85 1.18 - 3.74 K/ L 12/06/2024 10:[address] [facility] # Monos 1.58(H) 0.24 - 0.86 K/ L 12/06/2024 10:[address] [facility] # Eos <0.03(L) 0.04 - 0.36 K/ L 12/06/2024 10:[address] [facility] # Baso 0.03 0.01 - 0.08 K/ L 12/06/2024 10:[address] [facility] Immature Granulocytes-Re lative 0.50(H) 0.01 - 0.43 % 12/06/2024 10:[address] [facility] # IG 0.08(H) 0.00 - 0.03 K/uL 12/06/2024 10:[address] [facility] Blood Venipuncture / Unknown 12/06/2024 9:41 AM EDT 12/06/2024 10:[address] [facility] - 12/06/2024 10:57 AM EDT When [...] MD LAB BLOOD ORDERABLES Final Resul t [facility] [address] [phone] * FL C-ARM < 1 HOUR (12/04/2024 [...] see the operative report for further details.. Robbie Castañeda MD IMG FLUOROSCOPY ORDERABLES Final Result * Glucose, Nova Meter (12/04/2024 12:01 PM EDT) POC-GLUCOSE 86 70 - 110 mg/dL 12/04/2024 12:[address] [facility] Comment: In the event of poor peripheral blood flow, venous or arterial blood should be used due to the potential of erroneous results. No action Require Sill Worker [id number] 12/04/2024 12:[address] [facility] Blood WHOLE BLOOD / Unknown 12/04/2024 12:01 PM EDT 12/04/2024 12:[address] [facility] - 12/04/2024 12:02 PM EDT Sill Worker ID is - [id number] Robbie Castañeda MD POINT OF CARE TEST ORDERABLES Fi nal Result [facility] [address] [place] [address] * Type and Screen (12/04/2024 11:57 AM EDT) ABO/Rh O Positive 12/04/2024 11:51 AM EDT [facility] ([place]) Antibody Screen Negative 12/04/2024 11:51 AM EDT [facility] BLOOD [facility] ([place]) HISTCHK HIST CHECK PERFORMED 12/04/2024 11:51 AM EDT [facility] ([place]) Blood Venipuncture / Unknown 12/04/2024 11:57 AM EDT 12/04/2024 12:12 PM EDT Arvind Dash MD [facility] BLOOD BANK TEST ORDERABLES Final Result [facility] - BLOOD BANK ([place]) [address] [place] [address], [facility] [phone] * EKG-SCANNED (12/04/2024) Narrative 12/04/2024 Ordered by an unspecified provider. us Default Scanning Provider SCAN ORDERS Final Result documented in this encounter Visit Diagnoses Diagnosis Spinal instability- Primary Lumbar radiculopathy Thoracic or lumbosacral neuritis or radiculitis, unspecified documented in this encounter Admitting Diagnoses Diagnosis [...] Given 12/05/2024 8:30 AM EDT 100 mg gentamicin (GARAMYCIN) intramuscular injection As needed, Starting on Sat12/04/24 at 1525, Intra-op Given 12/04/2024 3:25 PM EDT 120 mg heparin injection 5,000 Units 5,000 Units Every 8 hours scheduled, subcutaneous, First dose on Sat12/05/24 at 1300 Given 12/06/2024 12:59 PM EDT [...] 8:44 PM EDT 100 mL/hr 100 mL/hr lidocaine-epinephrine (XYLOCAINE W/EPI) 1 %-1:100,000 injection As needed, Starting on Sat12/04/24 at 1513, Intra-op Given 12/04/2024 3:13 PM EDT 10 mLs Back oxyCODONE (ROXICODONE) immediate release tablet 10 mg [...] Given 12/05/2024 8:30 AM EDT 20 mg thrombin (bovine) topical solution As needed, Starting on Sat12/04/24 at 1513, Intra-op Given 12/04/2024 3:13 PM EDT 5,000 Units vancomycin (VANCOCIN) injection As needed, Starting on Sat12/04/24 at 1514, Intra-op Given 12/04/2024 3:28 PM EDT 500 mg Given 12/04/2024 3:14 PM EDT 1,000 mg documented in this encounter Active and [...] 2045 (IVPB Started - Provider: Harley Ascencio RN)223 (IVPB Stopped - Provider: Harley Ascencio RN) 0506 (IVPB Started - Provider: Harley Ascencio RN)0600 (IVPB Stopped - Provider: Harley Ascencio RN)1239 (IVPB Started - Provider: Cecy Ji RN)1524 (IVPB Stopped - Provider: Cecy Ji RN)2026 (IVPB Started - Provider: Harley Ascencio RN)2202 [...] 2044 (Given - Provider: Harley Ascencio RN) 08 (Given - Provider: Cecy Ji, PORTER)2026 (Given - Provider: Harley Ascencio RN) 0945 [...] 1300 1240 (Given - Provider: Cecy Ji RN)2026 (Given - Provider: Harley Ascencio RN) 0452 [...] Alcohol, Pre-op 1212 (Given - Provider: Ashok Lindsay, PORTER) propranoloL (INDERAL) tablet 20 mg 20 mg [...] reached, proceed to 2nd Line agent., PACU 1745 (Given - Provider: Jamari Gonzalez RN)1750 (Given - Provider: Jamari Gonzalez RN)1755 (Given - Provider: Jamari Gonzalez, RN)1800 (Given - Provider: Jamari Gonzalez RN) [...] Gonzalez RN) 0049 (Given - Provider: Harley Ascencio RN)0830 (Given - Provider: Cecy Ji RN)1240 (Given - Provider: Cecy Ji RN)1630 (Given - Provider: Cecy Ji RN)2027 (Given - Provider: Harley Ascencio, PORTER) 0309 (Given - Provider: Harley Ascencio RN)0944 [...] Unit documented in this encounter Care Teams Recovery Rn Relationship Specialty Start Date End Date Manish Damico, ART THERAPY CERTIFIED SUPERVISOR[address] [address] PCP - General Nurse Practitioner 12/04/24 documented as of this encounter
--- OUTSIDE RECORDS SUMMARY | 2024-12-28 11:15 | XMS_ITS ---
Author Organization [facility] Address [address] [facility] [address] [place] [address] Care Team Providers Care Sr Community Manager Name Role Phone Jared Ventura Primary Care Provider Nallely Reagan [phone] Allergies Allergen (clinical drug ingredient) Drug/Non Drug Allergy documented on EMR Reaction Allergy Type Onset Date Status EFFEXOR (uncoded) Unknown Allergy Ac tive milnacipran Savella n/v Drug Allergy Activ e morphine Morphine in large doses GI upset Drug Allergy Active trazodone traZODone headache Drug Allergy Active Results Component Value Reference Range Notes CULTURE, AEROBIC AND ANAEROB IC W/GRAM STAIN (4446) Reviewed date:01/03/2025 01:49:34 PM Interpretation: Performing Lab:[facility], [facility], [id number] [facility], [id number] Rony Bedolla Notes/Report: NON-FASTING CULTURE, ANAEROBIC BACTERIA W/GRAM STAIN SEE NOTE CULTURE, ANAEROBIC BACTERIA W/GRAM STAIN Micro Number: [id number] Test Status: Final Specimen Source: Abscess Specimen Quality: Adequate Gram Stain: Moderate Gram positive cocci No white blood cells seen Result: No anaerobes isolated. CULTURE, AEROBIC BACTERIA SEE NOTE CULTURE, AEROBIC BACTERIA Micro Number: [id number] Test Status: Final Specimen Source: Abscess Specimen Quality: Adequate Result: Heavy growth of Methicillin resistant Staphylococcus aureus (MRSA) MRSA INT [place] CIPROFLOXACIN S <=0.5 CLINDAMYCIN S <=0.25 ERYTHROMYCIN S <=0.25 GENTAMICIN S <=0.5 LEVOFLOXACIN S 0.25 MOXIFLOXACIN S <=0.25 OXACILLIN R NR 1 TETRACYCLINE S <=1 TRIMETHOPRIM/SULFA S <=10 VANCOMYCIN S <=0.5 S = Susceptible I = Intermediate R = Resistant NS = Not susceptible SDD = Susceptible Dose Dependent * = Not Tested NR = Not Reported NN = See Therapy Comments THERAPY COMMENTS Note 1: Oxacillin-resistant staphylococci are resistant to all currently available beta-lactam antimicrobial agents with the possible exception of ceftaroline. REASON FOR VISIT light headed, arian, Dr. Ventura had suggested taking magnesium for this, but not helping. Wants to look at surgical incision as well Medications Medication SIG (Take, Route, Frequency, Duration) Notes Start Date End Date Status Cyclobenzaprine HCl 10 MG 1 tab(s) orally 2 times a day as needed for muscle spasm; Duration: 30 days Active Fluconazole 150 MG 1 tablet Orally once now and repeat in 3 days if needed; Duration: 3 days 12/14/2024 Active Propranolol HCl 20 mg TAKE ONE TABLET BY MOUTH 2 TIMES A DAY; Duration: 30 Active HYDROcodone-Acetaminophe n 5-325 MG 1 tab(s) orally three times daily; Duration: 30 days 11/24/2024 Active amLODIPine Besylate 10 MG 1 tab(s) orally once a day; Duration: 90 days Active EMGALITY AUTOINJECTOR 120 MG/ML 120 MG SUBCUTANEOUSLY ONCE A MONTH; Duration: 28 DAYS *Please review for potential replacement for e-prescription and drug interaction check* Active SUMAtriptan Succinate 50 MG TAKE 1 TABLET BY MOUTH AT ONSET OF MIGRAINE, THEN MAY REPEAT 1 TIMEin2 HOURS IF NO RELIEF. MAX OF 2in24 HOURS. orally once a day as needed; Duration: 30 days Active Gemtesa 75 MG 1 tab(s) orally once a day; Duration: 90 days Active Senna Plus 8.6-50 MG 2 tab(s) orally 2 times a day; Duration: 30 days 08/27/2024 Active hydroCHLOROthiazide 12.5 MG 1 tab(s) orally once a day; Duration: 30 day(s) prn Active Estradiol 1 MG 1 tab(s) orally once a day Active Magnesium Gluconate 250 MG 1 tab(s) orally once daily Active B-12 1000 MCG 1 tab(s) orally once a day; Duration: 30 day(s) Active Multivitamin - 1 tab(s) orally once a day Active Pristiq 25 MG 1 tablet Orally Once a day Active Turmeric 500 MG 1 cap(s) orally once a day 1500mg Active Atomoxetine HCl 80 MG 1 capsule in the morning Orally Once a day Active Amitriptyline HCl 50 MG 1 tab(s) orally once a day (at bedtime) Active Biotin 02780 MCG 1 CAP(S) ORALLY ONCE A DAY *Please review and pick correct strength-formula tion from [employer] options. If intended option is not shown, discontinue and re-order from Quick Search* Active Vital Signs Temperature 97.5 degrees Fahrenheit 12/29/19 25 Heart Rate 84 /min 12/28/2024 Blood pressure systolic 108 mm Hg 12/29/19 25 Blood pressure diastolic 68 mm Hg 025 Height 5 ft 4 in in 12/28/2024 Weight 216.4 lbs 12/28/2024 BMI 37.14 kg/m2 12/28/2024 Encounters Encounter Location Date Provider Diagnosis [facility] [address] [facility] [address] [place] [id number] 12/28/2024 Nallely Reagan Pre-syncope R55 and Wound drainage T14.8XXA Assessments Encounter Date Diagnosis (ICD Code) Assessment Notes Treatment Notes Treatment Clinical Notes Section Notes 12/28/2024 Pre-syncope (ICD-10 - R55) decrease amlodipine to 1/2 tab daily and encouraged to speak with specialist about these symptoms which seem to have begun after adding pristiq and then increasing dose of strattera and amitriptyline 12/28/2024 Wound drainage (ICD-10 - T14.8XXA) Plan Of Treatment Next Appt Details Follow Up: 4 Weeks, Reason: Provider Name:Nallely L Yenifer ce, 02/08/2025 08:00:00 AM, [address] [facility], [address], [place], [address], Progress Notes * Hannah PERRY MDOB:1969 (54 yo F)Acc No.[id number]:12/28/2024 Progress Notes Patient: Hannah MATAMOROS Provider: DMITRIY Nguyen :1970 A ge:54 Y S ex:Female Date:12/28/2024 Address:[address], [place], [id number] Pcp:Jared Ventura Subjective: * Chief Complaints: * 1 . Light headed, jittery. 2. Dr. Ventura had suggested taking magnesium for this, but not helping. Wants to look at surgical incision as well. * HPI: g en: 54-year-old female presents today with complaint of some recurring episodes of feeling lightheaded, shaky, diaphoretic. This tends to be with change in activity and resolves fairly quickly if she sits down and puts her feet up. Feels like she could pass out if she does not change positions. No vomiting, diarrhea, chest pain, shortness of breath, palpitations associated with these episodes. Started probably 2 months ago. No improvement with addition of magnesium supplement. She has recently been weaned off of her Valium but symptoms had started prior to that process. She is still following with behavioral health who started Pristiq about a month before onset of symptoms and since then has increased her dose of a tomoxetine and amitriptyline. She does feel like her sleep and depression are well-controlled on this regimen and has follow-up with them again later this week. She underwent back surgery about 3 weeks ago, doing well overall but still with pain and weakness in her left leg and surgical pain in her back. has been concerned that her incision may be infected but she denies fevers and other constitutional symptoms. * ROS: C ONSTITUTIONAL: Reviewed, No Symptoms Reported: [place]. D ERMATOLOGY: See HPI Sammie Tucker ASTROENTEROLOGY: Reviewed, No Symptoms Reported: [place]. U ROLOGY: Reviewed, No Symptoms Reported: [place]. * Medical History: D egenerative spinal arthritis [...] September 2016 with repeat tubular adenoma. * Medications: T aking Atomoxetine HCl 80 MG Capsule 1 capsule in the morning Orally Once a day , Taking Pristiq 25 MG Tablet Extended Release 24 Hour 1 tablet Orally Once a day , Taking Turmeric 500 MG Capsule 1 cap(s) orally once a day , Notes to Pharmacist: 1500mg, Taking Biotin 23440 MCG CAPSULE 1 CAP(S) ORALLY ONCE A DAY , Notes to Pharmacist: *Please review and pick correct strength-formulation from [employer] options. If intended option is not shown, discontinue and re-order from Quick Search*, Taking Amitriptyline HCl 50 MG Tablet 1 tab(s) orally once a [...] tab(s) orally once a day , Taking EMGALITY AUTOINJECTOR 120 MG/ML SOLUTION [...] orally 2 times a day , Taking Propranolol HCl 20 mg Tablet TAKE ONE TABLET BY MOUTH 2 TIMES A DAY , Taking HYDROcodone-Acetaminophen 5-325 MG Tablet 1 tab(s) orally three times daily , Taking Cyclobenzaprine HCl 10 MG Tablet 1 tab(s) orally 2 times a day as needed for muscle spasm , Taking Fluconazole 150 MG Tablet 1 tablet Orally once now and repeat in 3 days if needed , Discontinued Valium 5 MG Tablet 1 tablet as needed Orally Once a day , Medication List reviewed and reconciled with the patient * Allergies: t raZODone: headache, EFFEXOR, Morphine: in large doses GI upset, Savella: n/v. Objective: * Vitals: N urse: KJ, Pain: 8 back, Temp: 97.5, RR: 18, HR: 84, BP: 108/68, Ht: 5 ft 4 in, Wt: 216.4, BMI:37.14. * Examination: G eneral Examination: General P leasant and Cooperative, NAD on RA,. Heart: R egular Rate and Rhythm, no murmur, rubs or gallops. HEENT: p harynx and tonsils normal, TM's normal. Lungs: c lear to auscultation,. Abdomen: s oft, NT/ND, BS present. Skin: S urgical incision over the lumbar region with a mild amount of swelling at the superiormost aspect that does have some purulent discharge with application of pressure, this was obtained for culture. The most inferior aspect has some mild maceration and separation of the wound borders but no significant erythema, drainage. Psych N ormal Mood/Affect. Assessment: * Assessment: 1. P re-syncope - R55 (Primary) 2 . W ound drainage - T14.8XXA ? Plan: * Treatment: 2. W ound drainage L AB: CULTURE, AEROBIC AND ANAEROBIC W/GRAM STAIN (4446) Value Reference Range C ULTURE, AEROBIC AND ANAEROBIC W/GRAM STAIN SEE NOTE - * C ULTURE, AEROBIC AND ANAEROBIC W/GRAM STAIN SEE NOTE A - * This lab was reviewed by Liyah Reagan on 01/03/2025 at 13:49 PM EDT * Follow Up: 4 Weeks * * Sign off status: Completed true * Provider: DMITRIY Nguyen Date: 12/28/2024 Generated for Adriane leonardo/Todd/Luis on: 0 01/07/2025 12:31 PM EDT History and Physical Notes * Examination Category Sub-Category Detail Notes Category Not es General Examination HEENT: pharynx and tonsils normal, TM's normal Heart: Regular Rate and Rhy thm, no murmur, rubs or gallops Lungs: clear to auscultatio n, Abdomen: soft, NT/ND, BS pres ent Skin: Surgical incision ov er the lumbar region with a mild amount of swelling at the superiormost aspect that does have some purulent discharge with application of pressure, this was obtained for culture. The most inferior aspect has some mild maceration and separation of the wound borders but no significant erythema, drainage General Pleasant and Coopera tive, NAD on RA, Psych Normal Mood/Affect
--- OUTSIDE RECORDS SUMMARY | 2025-01-07 12:30 | XMS_ITS | Clinical Summary ---
Author Organization [employer] ([place], [place], [place], [place]) Address [address] [place] [address] Care Team Providers Care Neonatal Intensive Care Nurse Name Role Phone Nallely Reagan JOSIAH Primary Care Provider Allergies Active Allergy Reactions Criticality Noted Date Comments Trazodone Other (See Comments) Low 10/23/2018 Headache Venlafaxine Low 10/23/2018 Psychosis Medications * This document contains information received from the source organization and may not represent a complete record from that organization. amitriptyline (ELAVIL) 25 MG tablet Take 1 tablet (25 mg total) by mouth nightly. 3 Active amLODIPine (NORVASC) 10 MG tablet Take 1 tablet (10 mg total) by mouth daily. 3 Active diazePAM (VALIUM) 5 MG tablet Take 1 tablet (5 mg total) by mouth every night as needed for insomnia. 3 Active estradioL (ESTRACE) 1 MG tablet Take 1 tablet (1 mg total) by mouth daily. 3 Active furosemide (LASIX) 20 MG tablet Take 1 tablet (20 mg total) by mouth as needed. 3 Active propranoloL (INDERAL) 20 MG tablet Take 1 tablet (20 mg total) by mouth 2 (two) times daily. 3 Active vibegron (Gemtesa) 75 mg Tab 1 tab(s) orally once a day for 30 days Active SUMAtriptan (IMITREX) 100 MG tablet TAKE 1 TABLET BY MOUTH AT ONSET OF MIGRAINE HEADACHE, MAY REPEAT IN 2 HOURS IF NEEDED 9 tablet 3 Active atomoxetine (STRATTERA) 80 MG capsule Take 1 capsule (80 mg total) by mouth daily. 5 Active desvenlafaxine (PRISTIQ) 50 MG 24 hr tablet Take 1 tablet (50 mg total) by mouth daily. 5 Active sennosides-docu sate sodium (SENOKOT S) 8.6-50 mg per tablet Take 2 tablets by mouth 2 (two) times daily. 5 Active Emgality Pen 120 mg/mL pen Inject 1 mL (120 mg total) under the skin every 30 (thirty) days. Active biotin 10,000 mcg cap Take by mouth daily. Active cyanocobalamin 2,500 mcg tab Take 1 tablet (2,500 mcg total) by mouth daily. Active MAGNESIUM ORAL Take 400 mg by mouth nightly. Active ferrous fumarate/vit Bcomp,C (SUPER B COMPLEX ORAL) Take by mouth daily. Active cyclobenzaprine (FLEXERIL) 10 MG tablet Take 1 tablet (10 mg total) by mouth every 8 (eight) hours as needed for muscle spasms for up to 40 days. 40 tablet 2 5 01/16/20 25 Active oxyCODONE-aceta minophen (PERCOCET) 7.5-325 mg per tablet Take 1 tablet by mouth every 6 (six) hours as needed for pain for up to 10 days Look-alike/ Sound-alike medication. Max Daily Amount: 4 tablets 50 tablet 5 12/17/19 25 Active Problems Problem Noted Date Diagnosed Date Spinal instability 12/04/2024 Encounters Date Type Department Care Team Description 12/06/2024 Orders Only [facility] Neurology [address] [place] [address] Harley Astorga Jr., MD 12/04/2024 3:00 PM EDT - 12/04/2024 6:38 PM EDT Surgery [facility] Operating Room [address] [place] [address] Robbie Castañeda MD (L2-ILIAC POSTERIOR FUSION-PREVIOUS L3-L5- USING AIRO) 12/04/2024 2:26 PM EDT Anesthesia Event [facility] Operating Room [address] [place] [address] Arvind Dash MD Cellarosi-Yorb a, Maria, MD 12/04/2024 10:20 AM EDT - 12/06/2024 1:06 PM EDT Hospital Encounter [facility] Orthopedic & Neurosurgery Unit [address] [place] [address] Robbie Castañeda MD Discharge Disposition: Home or Self Care 12/04/2024 Travel 11/26/2024 8:00 AM EDT - 11/26/2024 11:59 PM EDT Hospital Encounter [facility] Preadmission Testing 1 [place] [address] Robbie Castañeda MD Preop testing (Primary Dx) Discharge Disposition: Home or Self Care from Last 3 Months Social History Tobacco Use Types Packs/Day Years Used Date Smoking Tobacco: Never Smokeless Tobacco: Never Tobacco Cessation:Counseling Given: Not Answered Alcohol Use Standard Drinks/Week Comments Not Currently 0 (1 standard drink = 0.6 oz pur e alcohol) [facility] - Mental Health Answer Date [...] Date Pedro rded Speak language other than Bulgarian at home Not on file 07/19/2023 Want [...] on file Sexual Orientation Not on file Last Filed Vital Signs Vital Sign Reading [...] Mass Index 36.22 12/04/2024 11:42 AM EDT Plan of Treatment Health Maintenance Due Date Last Done Comments CT Colonography 1969 Colonoscopy 1969 Colorectal Cancer Screening 1969 FOBT/FIT 1969 Fit-DNA (Cologuard) 1969 Sigmoidoscopy 1969 HIV Screening 1984 Hepatitis C Screening 1987 DTAP/TDAP/TD VACCINES (1 - Tdap) 1988 Pap Smear 1990 Breast Cancer Screening 2009 Lipid Panel 2014 Pneumococcal 50+ years (1 of 1 - PCV) 2019 Shingles Vaccine (Zoster) (1 of 2) 2019 COVID-19 VACCINE (4 - 2023-2 5 season) 2024 07/06/2021, 08/24/2020, 07/27/2020 Influenza Vaccine (#1) 2025 , 03/26/2022, 04/29/2014, Additional history exists Depression Screening (12+) 11/26/2025 11/26/2024 Tobacco Cessation Counseling and Screening (12+) 12/04/2025 12/04/2024 Medical Devices Implanted Type Area Senior Security Analyst Device Identifier Shelf Expiration Date Model / Serial / Lot Bone Putty Russ 5cc 620-005 - [id number] Implanted:Qt y: 1 on 12/04/2024 by Robbie Castañeda MD at [facility] IMPLANTS N/A: Spine Lumbar BIOCOMPOSITES 06/30/2027 620-005 / / [id number] Scr Poly Fen 7x40mm [id number] f - [id number] Implanted:Qt y: 4 on 12/04/2024 by Robbie Castañeda MD at [facility] IMPLANTS N/A: Spine Lumbar J &J:DEPUY:DEPUY SPINE 5560-12-7 040F / [id number] 040F / St Scr T27 5.5 And 6.0 [id number] - [id number] Implanted:Qt y: 6 on 12/04/2024 by Robbie Castañeda MD at [facility] IMPLANTS N/A: Spine Lumbar J &J:DEPUY:DEPUY SPINE 5560-01-0 000 / 5560-01-0 000 / Mis Ezio Ply Scrw Set Ti 186715-000 - [id number] Implanted:Qt y: 4 on 12/04/2024 by Robbie Castañeda MD at [facility] IMPLANTS N/A: Spine Lumbar J &J:DEPUY:DEPUY SPINE 1867-15-0 00 / 186715-0 00 / Hi [id number] t - [id number] Implanted:Qt y: 2 on 12/04/2024 by Robbie Castañeda MD at [facility] IMPLANTS N/A: Spine Lumbar J &J:DEPUY:DEPUY SPINE 5560-55-4 120T / 5560-55-4 120T / Imp Inf Bedrk Gran 10.5x90mm [id number] - [id number] Implanted:Qt y: 1 on 12/04/2024 by Robbie Castañeda MD at [facility] IMPLANTS N/A: Spine Lumbar SI-BONE 03/05/2034 [id number] / [id number] 07-143 / Imp Inf Bedrk Gran 10.5x90mm [id number] - [id number] Implanted:Qt y: 1 on 12/04/2024 by Robbie Castañeda MD at [facility] IMPLANTS N/A: Spine Lumbar SI-BONE 09/10/2034 [id number] / [id number] 03-084 / Bone Vivigen Formable Cell [facility]-1600-002 - [id number] Implanted:Qt y: 1 on 12/04/2024 by Robbie Castañeda MD at [facility] IMPLANTS N/A: Spine Lumbar LIFENET:LIFENET TRANSPLANT SRV 11/20/2025 BL-1600-0 / [id number] / Bone Vivigen Formable Cell [facility]-1600-002 - [id number] Implanted:Qt y: 1 on 12/04/2024 by Robbie Castañeda MD at [facility] IMPLANTS N/A: Spine Lumbar LIFENET:LIFENET TRANSPLANT SRV 11/20/2025 BL-1600-0 / [id number] / Cage Eit Plif H 7mm 4deg 26/03 [id number] - [id number] Implanted:Qt y: 1 on 12/04/2024 by Robbie Castañeda MD at [facility] IMPLANTS N/A: Spine Lumbar J &J:DEPUY:DEPUY SPINE [id number] 08/28/2034 [id number] / / [id number] Cage Eit Plif H 11mm 8d 26/03 [id number] - [id number] Implanted:Qt y: 1 on 12/04/2024 by Robbie Castañeda MD at [facility] IMPLANTS N/A: Spine Lumbar J &J:DEPUY:DEPUY SPINE [id number] 07/31/2034 [id number] / / [id number] Scr Poly Fen 5x50mm [id number] f - [id number] Implanted:Qt y: 2 on 12/04/2024 by Robbie Castañeda MD at [facility] IMPLANTS N/A: Spine Lumbar J &J:DEPUY:DEPUY SPINE 5560-12-5 050F / 5560-12-5 050F / Scr Poly Fen 7x45mm [id number] f - [id number] Implanted:Qt y: 1 on 12/04/2024 by Robbie Castañeda MD at [facility] IMPLANTS N/A: Spine Lumbar J &J:DEPUY:DEPUY SPINE 5560-12-7 045F / 5560-12-7 045F / Procedures Procedure Name Priority Date/Time Associated Diagnosis Comments COMPREHENSIVE METABOLIC PANEL [place] 12/06/2024 9:41 AM EDT CBC W/ AUTO DIFF [place] 12/06/2024 9:41 AM EDT [place] C-ARM < 1 HOUR Routine 12/04/2024 5:0 7 PM EDT ANESTHESIA INTUBATION Routine 12/04/2024 2:39 PM EDT [place] ARTHRODESIS COMBINED TQ 1NTRSPC LUMBAR 12/04/2024 2:26 PM EDT Lumbar radiculopathy Case Notes IN 1030 , 2.5 HR (R), PASS, USING AIRO NOVA GLUCOSE POC Routine 12/04/2024 12:01 PM EDT TYPE AND SCREEN ([place] BKR) STAT 12/04/2024 11:57 AM EDT EKG-SCANNED 12/04/2024 FS_MODEL_IP_ECG 12-LEAD Routine 11/26/2024 8:52 AM EDT Preop testing ABO/RH CONFIRMATION/RETYPE ([place] BKR) STAT 11/26/2024 8:39 AM EDT Preop testing BASIC METABOLIC PANEL STAT 11/26/2024 8:39 AM EDT Preop testing CBC HEMOGRAM (SJ-BKR) STAT 11/26/2024 8:39 AM EDT Preop testing URINALYSIS WITHOUT MICROSCOPIC Routine 11/26/2024 8:38 AM EDT Preop testing from Last 3 Months Results * (ABNORMAL) CBC with Automated Diff (12/06/2024 [...] Resul t [facility] [address] [place] [address] * (ABNORMAL) Comprehensive metabolic panel (12/06/2024 9:41 AM EDT) Sodium 134(L) 136 - 145 meq/L 12/06/2024 11:13 AM [facility] Potassium 4.0 3.4 - 5.1 meq/L 12/06/2024 11:13 AM [facility] Chloride 98 98 - 112 meq/L 12/06/2024 11:13 AM [facility] CO2 29 22 - 29 meq/L 12/06/2024 11:13 AM [facility] Calcium 8.7 8.4 - 10.2 mg/dL 12/06/2024 11:13 AM [facility] Glucose 103(H) 74 - 100 mg/dL 12/06/2024 11:13 AM [facility] BUN 9.1(L) 9.8 - 20.1 mg/dL 12/06/2024 11:13 AM [facility] Creatinine 0.69 0.57 - 1.11 mg/dL 12/06/2024 11:13 AM [facility] BUN/Creatinine 13 8 - 20 12/06/2024 11:13 AM [facility] eGFR (mL/min/1.73m2) 103 >=60 mL/min/1. 73m2 12/06/2024 11:13 AM [facility] Albumin 2.7(L) 3.5 - 5.0 g/dL 12/06/2024 11:13 AM [facility] Alkaline Phosphatase 62 40 - 150 U/L 12/06/2024 11:13 AM [facility] ALT 8 <=34 U/L 12/06/2024 11:13 AM [facility] Comment: ALT2 reagent used for testing does not contain P5P supplementation and therefore may miss ALT elevations in patients with B6 deficiency. This population may be as high as 10% in the [place], with risk factors including malabsorption, drug interactions, and alcoholic hepatitis. AST 20 11 - 34 U/L 12/06/2024 11:[address] [facility] Comment: AST2 reagent used for testing [...] t [facility] [address] [phone] * [place] C-ARM < 1 HOUR (12/04/2024 [...] MD IMG FLUOROSCOPY ORDERABLES Final Result * AN SINGLE LUMEN INTUBATION (12/04/2024 2:39 PM EDT) Nallely Quintanilla CRNA - 12/04/2024 2:39 PM EDT Eric Wyman [...] Dash MD ANESTHESIA ORDERABLES Final Re sult * Glucose, Nova Meter (12/04/2024 12:01 PM EDT) POC-GLUCOSE 86 70 - 110 mg/dL 12/04/2024 12:[address] [facility] Comment: In the event of poor peripheral blood flow, venous or arterial blood should be used due to the potential of erroneous results. No action Require Regional Guide [id number] 12/04/2024 12:[address] [facility] Blood WHOLE BLOOD / Unknown 12/04/2024 12:01 PM EDT 12/04/2024 12:[address] [facility] - 12/04/2024 12:02 PM EDT Regional Guide ID is - [id number] us Robbie Castañeda MD POINT OF CARE TEST ORDERABLES Fi nal Result Performing Organization Address City/[facility]/ZIP Co de Phone Number [facility] [address] [phone] * Type and Screen (12/04/2024 11:57 AM EDT) ABO/Rh O Positive 12/04/2024 11:51 AM EDT [facility] BLO[facility] ([place]) Antibody Screen Negative 12/04/2024 11:51 AM EDT [facility] [place] HISTCHK HIST CHECK PERFORMED 12/04/2024 11:51 AM EDT [facility] [place] Blood Venipuncture / Unknown 12/04/2024 11:57 AM EDT 12/04/2024 12:12 PM EDT us Arvind Dash MD [facility] TEST ORDERABLES Final Result [facility] ([place]) [address] [place] [address] * EKG-SCANNED (12/04/2024) Narrative 12/04/2024 Ordered by an unspecified provider. us Default Scanning Provider SCAN ORDERS Final Result * ECG 12 lead (11/26/2024 8:52 AM EDT) VENTRICULAR RATE EKG/MIN 84 BPM GE MUSE ATRIAL RATE (MCT) 84 BPM GE MUSE MO Interval 174 ms GE MUSE QRS-INTERVAL (MSEC) 96 ms GE MUSE QT Interval 378 ms GE MUSE QTC Interval 446 ms GE MUSE P [place] 64 degrees GE MUSE R AXIS (MCT) 50 degrees GE MUSE T Wave [place] 66 degrees GE MUSE [place] Diagnosis Normal sinus rhythm Normal ECG No previous ECGs available Confirmed by Vanna Lorenzo ([id number]) on 11/27/2024 9:32:49 PM GE MUSE 11/26/2024 8:52 AM EDT 11/27/2024 9:32 PM EDT us Margaux Barnes MD ECG ORDERABLES Final Result GE MUSE * CBC - Hemogram (SJ-BKR) (11/26/2024 8:39 AM EDT) Pathologist [facility] WBC 5.0 4.0 - 10.0 K/ L 11/26/2024 8:[address] [facility] RBC 4.62 3.93 - 5.22 M/ L 11/26/2024 8:[address] [facility] Hemoglobin 13.8 11.2 - 15.7 GM/DL 11/26/2024 8:[address] [facility] Hematocrit 42.5 34.1 - 44.9 % 11/26/2024 8:[address] [facility] MCV 92 79 - 95 fL 11/26/2024 8:[address] [facility] MCH 29.9 25.6 - 32.2 pg 11/26/2024 8:[address] [facility] MCHC 32.5 32.2 - 35.5 GM/DL 11/26/2024 8:[address] [facility] RDW 12.6 11.7 - 14.4 % 11/26/2024 8:[address] [facility] Platelets 292 140 - 375 K/CU MM 11/26/2024 8:[address] [facility] MPV 9.5 9.4 - 12.3 fL 11/26/2024 8:[address] [facility] Blood Venipuncture / Unknown 11/26/2024 8:39 AM EDT 11/26/2024 8:39 AM EDT us Robbie Castañeda MD LAB BLOOD ORDERABLES Final Resul t [facility] [address] [phone] * ABO/RH CONFIRMATION/RETYPE (11/26/2024 8:39 AM EDT) RETYPE O Positive 11/25/2024 8:00 PM EDT [facility] ([place]) Comment:[id number] Blood Venipuncture / Unknown 11/26/2024 8:39 AM EDT 11/26/2024 8:39 AM EDT us Margaux Barnes MD [facility] TEST ORDERABLES Final Result Performing Organization Address [facility]/ZIP Co de Phone Number [facility] ([place]) [address] [place] [address] * (ABNORMAL) Basic Metabolic Panel (11/26/2024 8:39 AM EDT) Sodium 141 136 - 145 meq/L 11/26/2024 8:[address] [facility] Potassium 4.0 3.4 - 5.1 meq/L 11/26/2024 8:[address] [facility] CO2 30(H) 22 - 29 meq/L 11/26/2024 8:[address] [facility] Chloride 105 98 - 112 meq/L 11/26/2024 8:[address] [facility] Glucose 93 74 - 100 mg/dL 11/26/2024 8:[address] [facility] BUN 13.1 9.8 - 20.1 mg/dL 11/26/2024 8:[address] [facility] Creatinine 0.72 0.57 - 1.11 mg/dL 11/26/2024 8:[address] [facility] BUN/Creatinine 18 8 - 20 11/26/2024 8:[address] [facility] Calcium 9.5 8.4 - 10.2 mg/dL 11/26/2024 8:[address] [facility] Anion Gap 10 4 - 12 11/26/2024 8:[address] [facility] eGFR (mL/min/1.73m2) 99 >=60 mL/min/1.7 3m2 11/26/2024 8:[address] [facility] Osmolality Calc 281.1 mOsm/kg 8:[address] [facility] Blood Venipuncture / Unknown 11/26/2024 8:39 AM EDT 11/26/2024 8:39 AM EDT us Robbie Castañeda MD LAB BLOOD ORDERABLES Final Resul t [facility] [address] [place] [address] * (ABNORMAL) Urinalysis without Microscopic (11/26/2024 8:38 AM EDT) Color, UA Yellow 11/26/2024 9:[address] [facility] Clarity, UA Clear Clear 11/26/2024 9:[address] [facility] Specific [place], UA 1.028 1.005 - 1.030 11/26/2024 9:[address] [facility] pH, UA 6.0 6.0 - 8.0 11/26/2024 9:[address] [facility] Leukocytes, UA Negative Negative 11/26/2024 9:[address] [facility] Nitrite, UA Negative Negative 11/26/2024 9:[address] [facility] Protein, UA Trace(A) Negative 11/26/2024 9:[address] [facility] Glucose, UA Normal Normal 11/26/2024 9:[address] [facility] Ketones, UA Negative Negative 11/26/2024 9:[address] [facility] Urobilinogen, UA 2 mg/dL(A) Normal 11/26/2024 9:[address] [facility] Bilirubin, UA Negative Negative 11/26/2024 9:[address] [facility] Blood, UA Negative Negative 11/26/2024 9:[address] [facility] Specimen Source Urine, Clean Catch 11/26/2024 9:[address] [facility] Urine URINE SPECIMEN COLLECTION, CLEAN CATCH / Unknown 11/26/2024 8:38 AM EDT 11/26/2024 8:38 AM EDT Robbie Castañeda MD URINE ORDERABLES Final Result Performing Organization Address City/State/[facility] Co de Phone Number [facility] [address] [phone] from Last 3 Months Insurance BLUE CROSS/BLUE [employer]IELD [facility] Advance Directives For more information, please contact: [phone] * Full Code (Latest Code Status on File) Date Activated Date Inactivated Comments 12/04/2024 5:21 PM 12/06/2024 2:07 PM Care Teams Neonatal Intensive Care Nurse Relationship Specialty Start Date End Date Nallely Reagan, TEST FACILITY ENGINEER [address] [place] [address] PCP - General Nurse Practitioner 12/04/24
--- NOTE | 2025-01-07 12:31 | CA_ITS ---
FINAL REPORT TECHNIQUE: Multiple transverse and longitudinal images were performed of the right femoral-popliteal deep venous system with augmentation and compression maneuvers. CLINICAL HISTORY: 1 month s/p spinal surgery, htn, rle swelling FINDINGS: Right lower extremity duplex ultrasound demonstrates normal flow in the deep venous system. There is no abnormal echogenicity to suggest thrombus. There is normal compression and augmentation. IMPRESSION: No evidence of right DVT. Reviewed, Interpreted and Dictated by Bj Peter MD Transcribed by Victorina Flood Authenticated and [facility]
--- OUTSIDE RECORDS SUMMARY | 2025-01-07 12:31 | XMS_ITS | Encounter Summary ---
Author Organization [employer] ([place], [place], [place], [place]) Address [address] [place] [address] Care Team Providers Care Truck Bracer Name Role Phone Nallely Reagan JOSIAH Primary Care Provider Reason for Visit * Reason Comments Medication Refill Encounter Details Date Type Department Care Team (Late st Contact Info) Description 07/26/2023 Refill [facility] Neurology - [facility] [address] [facility] [address] [place] [phone] Charlotte Chavarria APRN [address] [facility] [address] [place] [address] Social History Tobacco Use Types Packs/Day Years Used Date Smoking Tobacco: Never Smokeless Tobacco: Never Alcohol Use Standard Drinks/Week Comments Not Currently 0 (1 standard drink = 0.6 oz pur e alcohol) Family and Community Support Answer Brendon e Recorded Help with Day to Day Activities Not on file 07/19/2023 Feeling Lonely or Isolated Not on file 07/19 Educational Attainment Answer Date Pedro rded Speak language other than Afghan at home Not on file 07/19/2023 Want help with school or training Not on file 07/19/2023 Substance Use Answer Date Recorded Used prescription meds for non-medical reasons N ot on file 07/19/2023 Used illegal drugs past 12 months Not on file 07/19/2023 Comments Unknown Sex and Gender Information Value Date Recorded Sex Assigned at Not on file Legal Sex Female 4:50 PM CDT Gender Identity Not on file Sexual Orientation Not on file documented as of this encounter Plan of Treatment Not on file documented as of this encounter Visit Diagnoses Not on filedocumented in this encounter Care Teams Truck Bracer Relationship Specialty Start Date End Date Nallely Reagan, CONSUMER AFFAIRS DIRECTOR[address] [facility] [address] [place] [address] PCP - General Nurse Practitioner 12/04/24 documented as of this encounter
--- OUTSIDE RECORDS SUMMARY | 2025-01-07 12:31 | XMS_ITS | Data Portability ---
Author Organization [facility] SILVERIO Torres BARCO CLOSED Address [address] [place] [address] Care Team Providers Care Document Controller Name Role Phone MANISH DAMICO Primary Care Provider Assessment Encounter Date Assessment Date Assessment LastModified by Organization Details LastModified Time 05/18/2024 05/18/2024 Mrs. Jaime is a 54-year-old female status post L3-4, L4-5 posterior lumbar fusion performed in 2 stages at . It does look like she has herniated at L2-3. Is difficult to know whether this is causing her issues as it does not seem like she had any clear resolution after the previous surgeries. I am going to send her for a CT scan of her lumbar spine to better evaluate the hardware and bony anatomy. I will also get some standing flexion-extension lumbar x-rays. Bilateral hip x-rays will be ordered also. I am requesting that Dr. Camejo do an L2-3 interlaminar epidural steroid injection at his next visit if possible. We will schedule her back in 6 weeks to go over the imaging and discuss her response to the epidural. Will keep her off work until follow-up. [email or web address] Not available 05/18/2024 10:11:43 06/29/2024 06/29/2024 ASSESSMENT: Ms. Jaime is a pleasant 54-year-old female here after last being seen on 05/18/[address] Castañeda with complaints of low back pain with radiculopathy to left lower extremity on a L3 distribution from lower back to anterior thigh, camarena to ankle. Patient states she has had low back pain for about 10 years with gradual worsening. She had a one level ACDF with Dr. Kaye 15 years ago, L4-[address] Kaye in 2019, and L3-[address] Alfonso in 2021. She did formal physical therapy about 9 months ago and had [address] Troncoso that did not improve her pain. She takes hydrocodone 5 mg 3 times daily, Flexeril, and Tylenol. She was told not to take NSAIDs anymore after a colonoscopy. Patient denies any bowel or bladder control issues, no saddle paresthesias. Dr. Castañeda reviewed imaging with patient for which he will for 3 different options: 1) Continue working with Dr. Camejo and inquire about spinal cord stimulator. 2) L2-3 fusion extension with LSO. 3) L2 to iliac fusion. Dr. Castañeda discussed all 3 options in length. 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 She is inclined to do surgery and would like to do it in the summertime while she is out of work. If she goes through with the fusion, she will be ordered an LSO brace, for the L2-3 fusion option she could be off work for just 4 weeks as she only works 4 hours a day. Patient verbalized understanding and is agreeable to this plan. Patient has no further questions or concerns at this time and is satisfied with this plan of care. Patient seen by surgeon and myself. IMAGING: I personally reviewed the images with Dr. Castañeda and read the radiologist report. CT lumbar on 05/29/2024 at [facility] show L2-3 herniation left greater than right. T12-L1 herniation on the left side. L5-S1 left moderate foraminal stenosis. PLAN: Follow-up in October 2024 with lumbar MRI. [email or web address] Not available 06/29/2024 11:52:06 11/02/2024 11/02/2024 ASSESSMENT: Ms. Jaime is a pleasant 54-year-old female here after last being seen on 06/29/2024 by with complaints of low back pain with radiculopathy to left lower extremity on a L3 distribution from lower back to anterior thigh, camarena to ankle, and lower back to bilateral buttocks. Patient states she has had low back pain for about 10 years with gradual worsening. She had a one level ACDF with Dr. Kaye 15 years ago, L4-[address] Kaye in 2019, and L3-[address] Alfonso in 2021. She did formal physical therapy last year and had [address] Camejo that did not improve her pain. She takes hydrocodone 5 mg 3 times daily, Flexeril, and Tylenol. She was told not to take NSAIDs anymore after a colonoscopy. Patient denies any bowel or bladder control issues, no saddle paresthesias. During her last visit Dr. Castañeda gave her the option to proceed with surgery, today she states she is ready to proceed with a L2 to iliac fusion. Patient denies any bowel or bladder control issues, no saddle paresthesias. Surgeon described surgical intervention in detail with the use of a spinal model., recovery time, risks, and benefits of surgery have also been explained. Risk include CSF leak, infection, bleeding, damage to surrounding tissue, damage to surrounding structures, reherniation, non resolution of preop symptoms, need for more surgery. Patient will meet with our newspaper journalist today. Patient verbalized understanding and is agreeable to this plan. Patient has no further questions or concerns at this time and is satisfied with this plan of care. Patient seen by surgeon and myself. IMAGING: I personally reviewed the images with Dr. Castañeda and read the radiologist report. Lumbar MRI on 11/02/2024 at [facility] show L2-3 there is a broad-based disc protrusion with a right paracentral extrusion extending inferiorly. Mild central canal stenosis, moderate right and mild left foraminal stenosis. L3-L5 previous fusion. L5-S1 mild facet arthropathy, moderate to severe left and mild right neuroforaminal stenosis PLAN: L2 to iliac posterior fusion with navigation with Farhat [email or web address] Not available 11/02/2024 11:04:40 12/21/2024 12/21/2024 Patient to have camilla removed today. Patient and family to monitor area of dehiscence. I discussed this will likely heal with secondary intention, though otherwise does not have abnormal appearance. Patient instructed to dress portion of dehiscence until fully healed due to location at the waistline and likely irritation with clothing. Can trial gauze and paper tape. Patient to follow up on 01/18/2025 with xrays prior. [email or web address] Not available 12/21/2024 10:14:09 Plan of Treatment Reminders Order Date Submit Date Provider Last Modified By Organization Details Last Modified Time Details Appointments POST-O P o 025 11:00AM CRISTINA CASTAÑEDA MD Not available Not available Not available Lab None record ed. Referral None record ed. Procedures None record ed. Surgeries None record ed. Imaging None record ed. Medication Orders None record ed. Patient TargetsNo targets recorded. Patient InstructionsNo instructions recorded. Reason for Referral None Reported. Results Created Date Observation Date Name Description Value Unit Range Abnormal Flag Note LastModifiedBy Organization Detail LastModifiedTime 05/29/20 24 05/29/2024 XR, hip, bilat eral, 3 or [address] [address] Jae cash Name: ALKA cash : 1969 Jae cash 1 Orderi ng Provid er: BRANDI CASTAÑEDA EXAM DATE: 2023 EXAM: XR RAJI HIPS, 3 OR 4 VWS COMPAR VERN: None. HISTOR Y: Bilate ral hip pain. FINDIN GS: There are mild degene rative change s in both hips. There is mild margin al spurri ng. The joint space appear s normal . There are mild degene rative change s in the SI joints . There is no acute fractu re. There is an old fractu re of the right femora l shaft. IMPRES CAMPOS: 1. There are mild degene rative change s in the hips and pelvis . Interp reted By: Werner gomez MD Electr onical ly Signed By: Werner gomez MD on 2023 4:53 PM [facility] Radiology [address], [phone], 06/27/2024 10:03:53 06/01/20 24 05/29/2024 CT, lumba r spine , w/o contr ast [address] [place] [address] Jae cash Name: ALKA Moya JOSE AGUSTIN cash : 1969 Jae cash 1 Orderi ng Provid er: BRANDI Koch WARNER EXAM DATE: 2023 EXAM: CT LUMBAR WITHOU T CONTRA ST HISTOR Y: 54-yea r-old female with chroni c low back pain. COMPAR VERN: Radiog raph of the same date and outsid e MRI dated 024 TECHNI QUE: 1 mm direct axial slices were obtain ed throug h the lumbar spine. Comput er-gen erated axial, sagitt al, and zavala l recons tructi ons are also provid ed for interp retati on. FINDIN GS: There is prior discec garrett, interb colton graft, formulator compounder ior fusion and everardo ctomie s at L3-L4 and L4-L5. Pedicl e screws remain in place at the L3 and L4 levels . This create s beam harden ing artifa ct. There is no sheila loosen ing of the hardwa re. There is levocu rvatur e from L2 throug h S1 and mild dextro curvat ure at the thorac olumba r juncti on. There is grade 1 formulator compounder ior listhe sis of L2 on L3. There is no eviden ce of fractu re. There is mild anteri or margin al osteop hytic spurri ng. No pathol ogic lesion is identi fied in the lumbar spine. T11-T1 2: There is a small disc bulge. There is no centra l canal narrow ing or neural forami nal narrow ing. T12-L1 : There is a small left parace ntral disc protru campos. There is no centra l canal narrow ing. There is mild left neural forami nal narrow ing. L1-L2: There is a broad- based disc bulge and loss of interv ertebr al disc height . There is no centra l canal stenos is. There is no neural forami nal stenos is. L2-L3: There is a broad- based disc protru campos and loss of interv ertebr al disc height . There is mild facet arthro carmela. There is no centra l canal stenos is. There is mild bilate ral neural forami nal stenos is. L3-L4: There is prior fusion with residu al endpla te spurri ng. There is no centra l canal stenos is. There is mild bilate ral neural forami nal stenos is. L4-L5: There is prior fusion with residu al endpla te spurri ng. There is no centra l canal stenos is. There is mild bilate ral neural forami nal stenos is. L5-S1: There is a broad- based disc bulge and left greate r than right endpla te spurri ng. There is mild facet arthro carmela. There is no centra l canal stenos is. There is severe left and mild right neural forami nal stenos is. There are mild degene rative change s in the SI joints . IMPRES CAMPOS: 1. There is prior PLIF from L3 throug h L5. There is no sheila loosen ing of the hardwa re. 2. There is severe left neural forami nal narrow ing at L5-S1, and mild narrow ing of the remain ing neural forami na from L2-L3 throug h L5-S1. Interp reted By: Werner gomez MD Electr onical ly Signed By: Werner gomez MD on 024 7:03 AM [facility] Radiology [address], [place], [phone], 06/27/2024 10:03:53 06/01/20 24 05/29/2024 XR, lumbo sacra l spine , 2 or 3 view, bendi ng only [address] [address] Jae cash Name: ALKA M JOSE Galindopriyank cash : 1969 Jae cash 1 Orderi ng Provid er: BRANDI CASTAÑEDA EXAM DATE: 2023 EXAM: XR LUMBAR SPINE FLEX/E XT ONLY CLINIC AL INFORM ATION: Back pain. IMAGES PROVID ED: Latera l views of the lumbar spine in flexio n and extens ion. COMPAR VERN: None. FINDIN GS: Verteb ral body height s are normal . Previo us formulator compounder ior fixati on and interb colton fusion L3-4 with interb colton fusion L4-5. No hardwa re loosen ing or compli cation is visual ized. No abnorm ality of alignm ent is seen. No instab ility is seen on flexio n or extens ion. No radiog raphic eviden ce of injury is noted. IMPRES CAPMOS: Previo us fusion L3-L5 with no compli cation s indica ana lilia No instab ility. Interp reted By: Guru Mcclelland MD Electr onical ly Signed By: Guru Mcclelland MD on 024 7:56 AM [facility] Radiology [facility] [address] [place] [address], [phone], 06/27/2024 10:03:54 11/03/1911/02/2024 MRI, lumba r spine , w/o contr ast [address] [address] Patipriyank t Name: ALKA cash : 1969 Patipriyank cash 1 Orderi ng Provid er: BRANDI CASTAÑEDA EXAM DATE: 2024 EXAM: MR LUMBAR W/O CONTRA ST HISTOR Y: 54-yea r-old female with chroni c back pain and bilate ral leg pain. COMPAR VERN: 2023 FINDIN GS: There is prior discec garrett, interb colton graft, formulator compounder ior fusion and everardo ctomie s from L3 throug h L5. There is parama gnetic artifa ct from the interb colton spacer s and the pedicl e screws remain ing at the L3 and L4 levels . There is formulator compounder ior listhe sis of L1 on L2 and L2 on L3. There is no fractu re. There is some to modera te anteri or margin al osteop hytic spurri ng. No pathol ogic lesion is identi fied in the lumbar spine. There are type II Modic change s at L5-S1. The conus medull moe is normal in appear ance at the L2 level. T10-T1 1 and T11-T1 2: There are small disc protru sions. There is no centra l canal narrow ing or neural forami nal narrow ing. T12-L1 : There is a broad- based disc protru campos. There is no centra l canal narrow ing or neural forami nal narrow ing. L1-L2: There is a broad- based disc protru campos. There is no centra l canal stenos is. There is no neural forami nal stenos is. L2-L3: There is a broad- based disc protru campos with a right parace ntral extrus ion extend ing inferi justin. There is mild endpla te spurri ng and mild facet arthro carmela. There is mild centra l canal stenos is. There is modera te right and mild left neural forami nal stenos is. L3-L4: There is prior fusion with residu al endpla te spurri ng. There is no centra l canal stenos is. There is mild bilate ral neural forami nal stenos is. L4-L5: There is prior fusion with residu al endpla te spurri ng. There is no centra l canal stenos is. There is mild bilate ral neural forami nal stenos is. L5-S1: There is left greate r than right endpla te spurri ng with a diffus e disc/o steoph yte comple x. There is mild facet arthro carmela. There is no centra l canal stenos is. There is modera te/sev ere left and mild right neural forami nal stenos is. There is mild atroph y of the parasp inous muscul ature. IMPRES CAMPOS: 1. There is prior PLIF from L3 throug h L5. There is mild residu al neural forami nal narrow ing. 2. There is modera te/sev ere left and mild right neural forami nal narrow ing at L5-S1. 3. There is mild centra l canal narrow ing with modera te right and mild left neural forami nal narrow ing at L2-L3. Interp reted By: Werner gomez MD Electr onical ly Signed By: Werner gomez MD on 11/03/19 9:43 AM [facility] Radiology [facility] [address] [place], [phone], 11/11/2024 14:54:24 Result Notes Documentation Provider Name and Address Organization Details Recorded Time Xr, Hip, Bilateral, 3 Or 4 View : [address] [address] Patient Name: ALKA JAIME Patient : 1970 Patient Ordering Provider: CRISTINA CASTAÑEDA EXAM DATE: 05/29/2024 EXAM: XR RAJI HIPS, 3 OR 4 VWS COMPARISON: None. HISTORY: Bilateral hip pain. FINDINGS: There are mild degenerative changes in both hips. There is mild marginal spurring. The joint space appears normal. There are mild degenerative changes in the SI joints. There is no acute fracture. There is an old fracture of the right femoral shaft. IMPRESSION: 1. There are mild degenerative changes in the hips and pelvis. Interpreted By: Gato Jeffrey MD TINA CASTAÑEDA MD [address] [place] [address], [phone] [place] [address] 06/26/2024 11:21:43 Ct, Lumbar Spine, W/o Contrast : [address] [address] Patient Name: ALKA JAIME Patient : 1970 Patient Ordering Provider: CRISTINA CASTAÑEDA EXAM DATE: 05/29/2024 EXAM: CT LUMBAR WITHOUT CONTRAST HISTORY: 54-year-old female with chronic low back pain. COMPARISON: Radiograph of the same date and outside MRI dated 02/29/2024 TECHNIQUE: 1 mm direct axial slices were obtained through the lumbar spine. Computer-generated axial, sagittal, and coronal reconstructions are also provided for interpretation. FINDINGS: There is prior discectomy, interbody graft, posterior fusion and laminectomies at L3-L4 and L4-L5. Pedicle screws remain in place at the L3 and L4 levels. This creates beam hardening artifact. There is no sheila loosening of the hardware. There is levocurvature from L2 through S1 and mild dextrocurvature at the thoracolumbar junction. There is grade 1 posterior listhesis of L2 on L3. There is no evidence of fracture. There is mild anterior marginal osteophytic spurring. No pathologic lesion is identified in the lumbar spine. T11-T12: There is a small disc bulge. There is no central canal narrowing or neural foraminal narrowing. T12-L1: There is a small left paracentral disc protrusion. There is no central canal narrowing. There is mild left neural foraminal narrowing. L1-L2: There is a broad-based disc bulge and loss of intervertebral disc height. There is no central canal stenosis. There is no neural foraminal stenosis. L2-L3: There is a broad-based disc protrusion and loss of intervertebral disc height. There is mild facet arthropathy. There is no central canal stenosis. There is mild bilateral neural foraminal stenosis. L3-L4: There is prior fusion with residual endplate spurring. There is no central canal stenosis. There is mild bilateral neural foraminal stenosis. L4-L5: There is prior fusion with residual endplate spurring. There is no central canal stenosis. There is mild bilateral neural foraminal stenosis. L5-S1: There is a broad-based disc bulge and left greater than right endplate spurring. There is mild facet arthropathy. There is no central canal stenosis. There is severe left and mild right neural foraminal stenosis. There are mild degenerative changes in the SI joints. IMPRESSION: 1. There is prior PLIF from L3 through L5. There is no sheila loosening of the hardware. 2. There is severe left neural foraminal narrowing at L5-S1, and mild narrowing of the remaining neural foramina from L2-L3 through L5-S1. Interpreted By: Gato Jeffrey MD TINA CASTAÑEDA MD [address] [place] [address], [phone] 06/26/2024 11:22:09 Xr, Lumbosacral Spine, 2 Or 3 View, Bending Only : [address] [address] Patient Name: ALKA JAIME Patient : 1970 Patient Ordering Provider: CRISTINA CASTAÑEDA EXAM DATE: 05/29/2024 EXAM: XR LUMBAR SPINE FLEX/EXT ONLY CLINICAL INFORMATION: Back pain. IMAGES PROVIDED: Lateral views of the lumbar spine in flexion and extension. COMPARISON: None. FINDINGS: Vertebral body heights are normal. Previous posterior fixation and interbody fusion L3-4 with interbody fusion L4-5. No hardware loosening or complication is visualized. No abnormality of alignment is seen. No instability is seen on flexion or extension. No radiographic evidence of injury is noted. IMPRESSION: Previous fusion L3-L5 with no complications indicated No instability. Interpreted By: Guru Mcclelland MD TINA CASTAÑEDA MD [address] [place] [address], [phone] 06/26/2024 11:21:43 Mri, Lumbar Spine, W/o Contrast : [address] [address] Patient Name: ALKA JAIME Patient : 1970 Patient Ordering Provider: CRISTINA CASTAÑEDA EXAM DATE: 11/02/2024 EXAM: MR LUMBAR W/O CONTRAST HISTORY: 54-year-old female with chronic back pain and bilateral leg pain. COMPARISON: 05/29/2024 FINDINGS: There is prior discectomy, interbody graft, posterior fusion and laminectomies from L3 through L5. There is paramagnetic artifact from the interbody spacers and the pedicle screws remaining at the L3 and L4 levels. There is posterior listhesis of L1 on L2 and L2 on L3. There is no fracture. There is some to moderate anterior marginal osteophytic spurring. No pathologic lesion is identified in the lumbar spine. There are type II Modic changes at L5-S1. The conus medullaris is normal in appearance at the L2 level. T10-T11 and T11-T12: There are small disc protrusions. There is no central canal narrowing or neural foraminal narrowing. T12-L1: There is a broad-based disc protrusion. There is no central canal narrowing or neural foraminal narrowing. L1-L2: There is a broad-based disc protrusion. There is no central canal stenosis. There is no neural foraminal stenosis. L2-L3: There is a broad-based disc protrusion with a right paracentral extrusion extending inferiorly. There is mild endplate spurring and mild facet arthropathy. There is mild central canal stenosis. There is moderate right and mild left neural foraminal stenosis. L3-L4: There is prior fusion with residual endplate spurring. There is no central canal stenosis. There is mild bilateral neural foraminal stenosis. L4-L5: There is prior fusion with residual endplate spurring. There is no central canal stenosis. There is mild bilateral neural foraminal stenosis. L5-S1: There is left greater than right endplate spurring with a diffuse disc/osteophyte complex. There is mild facet arthropathy. There is no central canal stenosis. There is moderate/severe left and mild right neural foraminal stenosis. There is mild atrophy of the paraspinous musculature. IMPRESSION: 1. There is prior PLIF from L3 through L5. There is mild residual neural foraminal narrowing. 2. There is moderate/severe left and mild right neural foraminal narrowing at L5-S1. 3. There is mild central canal narrowing with moderate right and mild left neural foraminal narrowing at L2-L3. Interpreted By: Gato Jeffrey MD TINA CASTAÑEDA MD [address] [place] [address], [phone] 11/05/2024 10:53:26 Problems Name Problem SNOMED Code Status Onset Date Resolution Date Notes Provider Name and Address Organization Details Recorded Time Ureteric stone 25499957 Active 2014 From Automated Load;Provi imelda: Gato Garcia;St atus: Active Not Available [facility] 6 02:53:44 Problem Notes None recorded. Procedures Surgical History Date Name Laterality Status Provider Name and Address Organization Details Recorded Time Back Surgery completed [facility] 05/18/2024 09:33:49 Carpal tunnel surgery completed [facility] 05/18/2024 09:34:17 hysterectomy completed [facility] 05/18/2024 09:34:27 Cholecystectomy completed [facility] 05/18/2024 09:34:36 Appendectomy completed [facility] 05/18/2024 09:34:41 laparoscopic sleeve gastrectomy completed [facility] 05/18/2024 09:34:48 Neck Surgery completed [facility] 05/18/2024 09:34:53 Knee arthroscopy/surgery completed [facility] 05/18/2024 09:35:00 Imaging Results None recorded. Procedure Notes None recorded. Medical Equipment None Reported. Allergies Allergen ID Allergen Name Allergen Category Reaction Reaction Severity Criticality Documentation Date Start Date Code Code System Note Provider Name and Address Organization Details Recorded Time 864747 Product containin g penicilli n (product) medicatio n Not available Not available Not available 05/25/20162014 29071 8001 SNOMED Comme nt: Creat ed By: Dayana Prajapati ;Crea ana lilia Date: 2014 4:15: 54 PM; Not Available [facility] 6 04:32:36 356241 Effexor medicatio n Not available Not available Not available 05/25/20162014 88562 2 RxNorm Comme nt: Creat ed By: Dayana Prajapati ;Crea ana lilia Date: 2014 4:16: 07 PM; Not Available [facility] 6 08:24:21 Medications Name Sig Start Date Stop Date Status Note LastModified by Organization Details LastModified Time Percocet 7.5 mg-325 mg tablet Take 1 tablet every 6 hours by oral route as needed. 2024 active Not Available Not Available Not Avai lable Multiple Vitamin capsule Daily active Duration: 30 days;Freq uency: daily;Med ication Descripti on: multivita min; Dosage:1; Route:ora l; refills:3 ; Quantity: 100 capsule Not Available Not Available Not Available Imitrex 100 mg tablet As Directed active Duration: 1 day;Frequ ency: as direct.;M edication Descripti on: sumatript an; Dosage:1; Route:ora l; refills:0 ; Quantity: 9 tablet Not Available Not Available Not Available Fiber-Tabs 625 mg tablet active Medicatio n Descripti on: polycarbo ana m; Route:ora l; refills:0 Not Available Not Available Not Available amitriptyl ine active Medicatio n Descripti on: amitripty line; refills:0 Not Available Not Available Not Available Probiotic Formula 10 billion cell(2 billion ea) capsule active Medicatio n Descripti on: bifidobac terium-la ctobacill us; Route:ora l; refills:0 Not Available Not Available Not Available Vitals Date Recorded Body height Body mass index (BMI) Body weight Systolic And Diastolic Provider Name and Address Organization Details Last Updated DateTime 11/02/2024 162.56 cm 36.6 kg/m2 36689.17 g 122/82 mm[Hg] [facility] 11/02/2024 10:28:14 Date Recorded Body height Body mass index (BMI) Body weight Systolic And Diastolic Provider Name and Address Organization Details Last Updated DateTime 05/18/2024 162.56 cm 36.6 kg/m2 41855.17 g 122/82 mm[Hg] [facility] 05/18/2024 09:37:09 Date Recorded Body height Body mass index (BMI) Body weight Systolic And Diastolic Provider Name and Address Organization Details Last Updated DateTime 06/29/2024 162.56 cm 36.6 kg/m2 12219.17 g 120/80 mm[Hg] [facility] 06/29/2024 10:51:39 Social History None recorded. Functional Status None recorded. Mental Status None recorded. Family History Relationship Description Onset Age of this Age Resolved Age Notes LastModified by Organization Details LastModified Time Unspecified Relation Hypertensive disorder [email or web address] Not available 05/18 09:33:24 Unspecified Relation Myocardial infarction [email or web address] Not available 05/01 09:33:29 Unspecified Relation Aneurysm [email or web address] Not available 05/18 09:33:34 Mother Myocardial infarction 60 [email or web address] Not available 11/02 10:19:44 Mother Hypertensive disorder 55 [email or web address] Not available 2024 10:19:44 Mother Aneurysm 50 [email or web address] Not available 0 11/02/2024 10:19:44 Maternal Aunt Hypertensive disorder 35 [email or web address] Not available 2024 10:19:44 Son Hypertensive disorder 34 [email or web address] Not available 2024 10:19:44 Brother Hypertensive disorder 30 [email or web address] Not available 2024 10:19:44 Maternal Grandfather Myocardial infarction 55 [email or web address] Not available 11/02 10:19:44 Maternal Grandfather Hypertensive disorder 35 [email or web address] Not available 2024 10:19:44 Medical History Condition Response TENS Unit for current problem Y Traction for current problem Y Massage Therapy for current problem N Other N Gout N Neuro-modulating Drugs for current probl em N Hyperthyroidism N Emphysema N Narcotic Pain Medication for current pro blem Y Black Lung N Steroid Pack for current problem Y NSAID Use N Hypothyroidism N COPD N Injections for current problem Y Osteoporosis/Osteopenia N Heart Attack (ND) N Deep Vein Thrombosis N Mental Illness N Diabetes N Bleeding Disorder N Arthritis Y Tuberculosis N Genetic Disorder N AIDS/HIV N Chiropractor treatment for current probl em Y Kidney Failure N Cancer N Stroke N Asthma N Ultrasound Treatment for current problem Y Epilepsy/Seizures N Sleep Apnea N Thyroid Disorder N High Cholesterol N Physical Therapy Treatments for current problem Y Liver Disease N Pulmonary Embolism N Fibromyalgia Y Dialysis N Hypertension Y Kidney Disease N Gynecological HistoryNo gynecological history recorded. 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 [facility] [address] [address] 06/29/2024 10:43:05 06/30/2024 05:08:40 Lumbar radiculopathy 701787198 M54.16 [id number] [place] [facility] 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 [facility] [address] [place] [address] 11/02/2024 10:19:27 11/03/2024 04:57:16 Lumbar radiculopathy 764794887 M54.16 Chronic low back pain 27 9068956 M54.50 G89.29 [id number] CRISTINA CASTAÑEDA MD SURGERY SCHEDULE [address] [place] [address] 12/10/2024 13:56:05 12/18/2024 16:23:30 [id number] LUCAS LÓPEZ PA-C [facility] [address] [place] [address] 12/21/2024 09:30:49 12/22/2024 04:10:49 Postoperative visit [id number] Z48.89 Health Concerns Section Related Observation LastModified by Organization Detai ls LastModified Time None Recorded Concern Status LastModified by Organization Details LastModified Time None Recorded Advance Directives Directive None Recorded Payers Insurance Date Sequence Insurance Name Policy Number Policy Danielle Covered Member ID Danielle Member ID Guarantor Name 12/18/2024 2 [employer] [facility] (MEDICAID HMO) Alka Jaime [id number] Alka Jaime 05/18/2024 2 [place] [id number] Alka Jaime [id number] Alka Jaime 12/19/2024 1 [place] [id number] Alka Jaime [id number] Alka Jaime Notes Date Note Type Note Provider Name and Address Organization Details Recorded Time 05/18/2024 text/html Jennifer Jaime i s a 54-year-old female with a history of having L3-4 and L4-5 fused. L4-[address] Kaye in 2019 and L3-[address] Meza in 2021. She reports continued back, groin and bilateral leg pain despite these interventions. She her groin pain is right greater than left, and her left leg pain is described in an L5 distribution. She denies any inciting events. The pain is 10 out of 10 with multiple characteristics. The pain is made better with ice and pain medications. The pain is increased with driving, housework and walking. She describes lower extremity weakness with some balance difficulties. No loss of bowel or bladder control. She has trialed 3 weeks of physical therapy and goes to a chiropractor in [place]. She has used a TENS unit for the past 6 months and is trialed steroids. She takes hydrocodone fives. She takes Flexeril. She has seen Dr. Camejo for a sciatic injection. She sees him again June 02. CRISTINA CASTAÑEDA MD [address] [place], [address], [facility] 05/18/2024 10:12:14 06/29/2024 text/html Ms. Jaime is a pleasant 54-year-old female here after last being seen on 05/18/[address] Castañeda with complaints of low back pain with radiculopathy to left lower extremity on a L3 distribution from lower back to anterior thigh, camarena to ankle. Patient states she has had low back pain for about 10 years with gradual worsening. She had a one level ACDF with Dr. Kaye 15 years ago, L4-[address] Kaye in 2019, and L3-[address] Alfonso in 2021. She did formal physical therapy about 9 months ago and had [address] Troncoso that did not improve her pain. She takes hydrocodone 5 mg 3 times daily, Flexeril, and Tylenol. She was told not to take NSAIDs anymore after a colonoscopy. OK COOK, JOSIAH [address] [place], [address], [facility] 06/29/2024 11:52:41 11/02/2024 text/html Ms. Jaime is a pleasant 54-year-old female here after last being seen on 06/29/2024 by with complaints of low back pain with radiculopathy to left lower extremity on a L3 distribution from lower back to anterior thigh, camarena to ankle, and lower back to bilateral buttocks. Patient states she has had low back pain for about 10 years with gradual worsening. She had a one level ACDF with Dr. Kaye 15 years ago, L4-[address] Kaye in 2019, and L3-[address] Alfonso in 2021. She did formal physical therapy last year and had [address] Camejo that did not improve her pain. She takes hydrocodone 5 mg 3 times daily, Flexeril, and Tylenol. She was told not to take NSAIDs anymore after a colonoscopy. Patient denies any bowel or bladder control issues, no saddle paresthesias. During her last visit Dr. Jade gave her the option to proceed with surgery, today she states she is ready to proceed with an L2 to iliac fusion. OK COOK, JOSIAH [address] [place], [address], [facility] 11/02/2024 11:05:15 12/21/2024 text/html Alka Jaime is a 54-year-old status post L2 to iliac posterior fusion (previous L3-5) on 12/04/[address] Castañeda presenting to the office today for wound check. Patient and family present have not noted any issues in her recovery process aside from irritation secondary to bandage adhesive. LUCAS LÓPEZ PA-C [address] [place], [address], [facility] 12/21/2024 10:14:26 OBGyn Episode No OBEpisode recorded.
--- OUTSIDE RECORDS SUMMARY | 2025-01-07 12:31 | XMS_ITS | Patient Health Record ---
Author Organization [facility] Address [address] [place] [facility] [address] [place] [address] Care Team Providers Care Associate Programmer Analyst Name Role Phone AudreyJared Primary Care Provider [phone] Nallely Reagan Unavailable [phone] Ami Gregg Unavailable [phone] Migration, Provider Unavailable Unavailable Allergies Allergen (clinical drug ingredient) Drug/Non Drug Allergy documented on EMR Reaction Allergy Type Onset Date Status EFFEXOR (uncoded) Unknown Allergy Ac tive milnacipran Savella n/v Drug Allergy Activ e morphine Morphine in large doses GI upset Drug Allergy Active trazodone traZODone headache Drug Allergy Active Results Component Value Reference Range Notes CULTURE, URINE, ROUTINE (395 ) Reviewed date:09/01/2024 11:44:00 AM Interpretation: Performing Lab:KANE, [facility] [id number] [facility], [facility] CenterIysaXX[address] Rony Bedolla Notes/Report: NON-FASTING CULTURE, URINE, ROUTINE SEE NOTE CULTURE, URINE, ROUTINE Micro Number: [id number] Test Status: Final Specimen Source: Urine Specimen Quality: Adequate Result: Less than 10,000 CFU/mL of single Gram positive organism isolated. No further testing will be performed. If clinically indicated, recollection using a method to minimize contamination, with prompt transfer to Urine Culture Transport Tube, is recommended. Urinalysis Reviewed date:08/27/2024 01:44:41 PM Interpretation: Performing Lab: Notes/Report: Color/Clarity yellow Leuk neg Nitrite neg Urobili 0.2 Protein neg pH 7.0 Blood neg Sp. Gr. 1.020 Ketone neg Bili neg Glucose neg Urinalysis Reviewed date:02/15/2024 10:01:27 AM Interpretation: Performing Lab: Notes/Report: Color/Clarity lt yellow/cloudy Leuk trace Nitrite neg Urobili 0.2 Protein neg pH 7.0 Blood trace-intact Sp. Gr. >=1.030 Ketone neg Bili neg Glucose neg CULTURE, AEROBIC AND ANAEROB IC W/GRAM STAIN (4446) Reviewed date:01/03/2025 01:49:34 PM Interpretation: Performing Lab:CB, [facility] [id number], [facility]CgajER[address] Rony Bedolla Notes/Report: NON-FASTING CULTURE, ANAEROBIC BACTERIA W/GRAM STAIN SEE NOTE CULTURE, ANAEROBIC BACTERIA W/GRAM STAIN Micro Number: [id number] Test Status: Final Specimen Source: Abscess Specimen Quality: Adequate Gram Stain: Moderate Gram positive cocci No white blood cells seen Result: No anaerobes isolated. CULTURE, AEROBIC BACTERIA SEE NOTE CULTURE, AEROBIC BACTERIA Micro Number: [id number] Test Status: Final Specimen Source: Abscess Specimen [...] agents with the possible exception of ceftaroline. MRI : Lumbar Spine w/o contr ast Reviewed date:03/04/2024 12:10:01 PM Interpretation: Performing Lab: Notes/Report: M-Urine Culture Reviewed date:02/17/2024 12:26:51 PM Interpretation: Performing Lab: Notes/Report: CUU ORGANISM 1: Escherichia coli RX MARTÍNEZ: R- Resistant S- Susceptible I- Intermediate * Not on [facility] Count >100,000 RX MARTÍNEZ: R- Resistant S- Susceptible I- Intermediate * [facility]: R- Resistant S- Susceptible I- Intermediate * [facility]ART[facility]NEZ: R- Resistant S- Susceptible I- Intermediate * Not on [facility] Escherichia coli: REACTION RX MARTÍNEZ: R- Resistant S- Susceptible I- Intermediate * Not on [facility] Amikacin <=8 S RX MARTÍNEZ: R- Resistant S- Susceptible I- Intermediate * Not on [facility] Ampicillin >16 R RX MARTÍNEZ: R- Resistant S- Susceptible I- Intermediate * Not on [facility] Aztreonam <=2 S RX MARTÍNEZ: R- Resistant S- Susceptible I- Intermediate * Not on [facility] Cefepime <=1 S RX MARTÍNEZ: R- Resistant S- Susceptible I- Intermediate * Not on [facility] Ceftazidime <=2 S RX MARTÍNEZ: R- Resistant S- Susceptible I- Intermediate * Not on [facility] Ceftriaxone <=1 S RX MARTÍNEZ: R- Resistant S- Susceptible I- Intermediate * Not on [facility] Ciprofloxacin >2 R RX MARTÍNEZ: R- Resistant S- Susceptible I- Intermediate * Not on [facility] Ertapenem <=0.25 S RX MARTÍNEZ: R- Resistant S- Susceptible I- Intermediate * Not on [facility] Gentamicin <=2 S RX MARTÍNEZ: R- Resistant S- Susceptible I- Intermediate * Not on [facility] Levofloxacin 4 R RX MARTÍNEZ: R- Resistant S- Susceptible I- Intermediate * Not on [facility] Meropenem <=0.5 S RX MARTÍNEZ: R- Resistant S- Susceptible I- Intermediate * Not on [facility] Nitrofurantoin <=16 S RX MARTÍNEZ: R- Resistant S- Susceptible I- Intermediate * Not on [facility] Tetracycline <=2 S RX MARTÍNEZ: R- Resistant S- Susceptible I- Intermediate * Not on [facility] Tobramycin <=2 S RX MARTÍNEZ: R- Resistant S- Susceptible I- Intermediate * Not on [facility] CUU Trimethoprim/Sulfame thoxazole 07/19 S RX MARTÍNEZ: R- Resistant S- Susceptible I- Intermediate * Not on [facility] CUU Piperacillin/Tazobac elise <=2/4 S RX MARTÍNEZ: R- Resistant S- Susceptible I- Intermediate * Not on [facility] CUU RX MARTÍNEZ: R- Resistant S- Susceptible I- Intermediate * Not on [facility] MAGNESIUM (622) Reviewed date:10/22/2024 12:59:02 PM Interpretation: Performing Lab:KANE, [facility] [address], St[place] NetworksHflqGT[address] Rony Bedolla Notes/Report: NON-FASTING; NON-FASTING; NON-FASTING MAGNESIUM 1.8 1.5-2.5 mg/dL BASIC METABOLIC PANEL (47126 ) Reviewed date:10/22/2024 12:59:02 PM Interpretation: Performing Lab:KANE [employer] [id number], St[place] NetworksYsqdLC[address] Rony Bedolla Notes/Report: NON-FASTING; NON-FASTING; NON-FASTING GLUCOSE 81 65-99 mg/dL Fasting reference interval UREA NITROGEN (BUN) 18 7-25 mg/dL CREATININE 0.70 0.50-1.03 mg/dL EGFR 102 > OR = 60 mL/min/1.73m2 BUN/CREATININE RATIO SEE NOTE: 6-22 (calc) Not Reported: BUN and Creatinine are within reference range. SODIUM 138 135-146 mmol/L POTASSIUM 4.5 3.5-5.3 mmol/L CHLORIDE 101 98-110 mmol/L CARBON DIOXIDE 31 20-32 mmol/L CALCIUM 9.4 8.6-10.4 mg/dL DRUG MONITORING, PANEL 8 WIT H CONFIRMATION, URINE (75019) Reviewed date:10/16/2024 03:37:25 PM Interpretation: Performing Lab:K[facility] [employer] [id number], OptifreezeJxgkNQ[address] Rony Bedolla Notes/Report: NON-FASTING NON-FASTING Alcohol Metabolites NEGATIVE <500 ng/mL Amphetamines NEGATIVE <500 ng/mL Benzodiazepines POSITIVE <100 ng/mL Alphahydroxyalprazolam NEGATIVE <25 ng/mL Alphahydroxymidazolam NEGATIVE <50 ng/mL Alphahydroxytriazolam NEGATIVE <50 ng/mL Aminoclonazepam NEGATIVE <25 ng/mL Hydroxyethylflurazepam NEGATIVE <50 ng/mL Lorazepam NEGATIVE <50 ng/mL Nordiazepam 145 <50 ng/mL Oxazepam 296 <50 ng/mL Temazepam 329 <50 ng/mL Benzodiazepines Comments See Benzodiazepines Notes, LDT Notes See Opiates Notes, LDT Notes Buprenorphine NEGATIVE <5 ng/mL Cocaine Metabolite NEGATIVE <150 ng/mL 6 Acetylmorphine NEGATIVE <10 ng/mL Marijuana Metabolite NEGATIVE <20 ng/mL MDMA NEGATIVE <500 ng/mL Opiates POSITIVE <100 ng/mL Codeine NEGATIVE <50 ng/mL Hydrocodone 491 <50 ng/mL Hydromorphone 51 <50 ng/mL Morphine NEGATIVE <50 ng/mL Norhydrocodone 978 <50 ng/mL Opiates Comments See Benzodiazepines Notes, LDT Notes See Opiates Notes, LDT Notes Oxycodone NEGATIVE <100 ng/mL Creatinine 38.8 > or = 20.0 mg/dL pH 6.6 4.5-9.0 Oxidant NEGATIVE <200 mcg/mL Notes and Comments This drug testing is for medical treatment only. Analysis was performed as non-forensic testing and these results should be used only by healthcare providers to render diagnosis or treatment, or to monitor progress of medical conditions. Benzodiazepines Notes: Nordiazepam, Temazepam, Oxazepam detected is consistent with the use of the drug Diazepam. Temazepam can be a prescribed drug. Nordiazepam is also a metabolite of Chlordiazepoxide and Clorazepate. Oxazepam can be a prescribed drug and is also a metabolite of Chlordiazepoxide, Clorazepate and Temazepam. Nordiazepam, Oxazepam detected is consistent with the use of the drug Chlordiazepoxide. Nordiazepam is a also metabolite of Diazepam and Clorazepate. Oxazepam can be a prescribed drug and is also a metabolite of Diazepam and Temazepam. Temazepam, Oxazepam detected is consistent with the use of the drug Temazepam. Temazepam can be a prescribed drug and is also a metabolite of Diazepam. Oxazepam can be a prescribed drug and also a metabolite of Diazepam, Chlordiazepoxide, Clorazepate and Temazepam. Oxazepam detected is consistent with the use of the drug Oxazepam. Oxazepam can be a prescribed drug and is also a metabolite of Diazepam, Chlordiazepoxide, Clorazepate and Temazepam. Opiates Notes: Hydrocodone, Norhydrocodone, Hydromorphone detected is consistent with the use of the drug Hydrocodone. Hydromorphone detected is consistent with the use of the drug Hydromorphone. Hydromorphone can be a prescribed drug and is also a metabolite of Hydrocodone. LDT Notes: Confirmation tests were developed and their analytical performance characteristics have been determined by [facility]. It has not been cleared or approved by the FDA. This assay has been validated pursuant to the CLIA regulations and is used for clinical purposes. Healthcare Providers needing Interpretation assistance, please contact us at [phone] ( ) M-F, 8am to 10pm EST CBC (INCLUDES DIFF/PLT) (639 9) Reviewed date:10/22/2024 12:59:02 PM Interpretation: Performing Lab:[facility] [employer] [facility] [id number] [facility], [facility] HospitalFhktWG[address] Rony Bedolla Notes/Report: NON-FASTING; NON-FASTING; NON-FASTING WHITE BLOOD CELL COUNT 8.6 3.8-10.8 Thousand/uL RED BLOOD CELL COUNT 4.30 3.80-5.10 Million/uL HEMOGLOBIN 13.1 11.7-15.5 g/dL HEMATOCRIT 41.3 35.0-45.0 % MCV 96.0 80.0-100.0 fL MCH 30.5 27.0-33.0 pg MCHC 31.7 32.0-36.0 g/dL For adults, a slight decrease in the calculated MCHC value (in the range of 30 to 32 g/dL) is most likely not clinically significant; however, it should be interpreted with caution in correlation with other red cell parameters and the patient's clinical condition. RDW 11.7 11.0-15.0 % PLATELET COUNT 289 140-400 Thousand/uL MPV 10.3 7.5-12.5 fL ABSOLUTE NEUTROPHILS 5762 7027-4195 cells/uL ABSOLUTE LYMPHOCYTES 2064 850-3900 cells/uL ABSOLUTE MONOCYTES 688 200-950 cells/uL ABSOLUTE EOSINOPHILS 52 15-500 cells/uL ABSOLUTE BASOPHILS 34 0-200 cells/uL NEUTROPHILS 67 LYMPHOCYTES 24.0 MONOCYTES 8.0 EOSINOPHILS 0.6 BASOPHILS 0.4 Medications Medication SIG (Take, Route, Frequency, Duration) Notes Start Date End Date Status B-12 1000 MCG 1 tab(s) orally once a day; Duration: 30 day(s) Active Magnesium Gluconate 250 MG 1 tab(s) orally once daily Active Fluconazole 150 MG 1 tablet Orally once now and repeat in 3 days if needed; Duration: 3 days 12/14/2024 Active Multivitamin - 1 tab(s) orally once a day Active Cyclobenzaprine HCl 10 MG 1 tab(s) orally 2 times a day as needed for muscle spasm; Duration: 30 days Active Amitriptyline HCl 50 MG 1 tab(s) orally once a day (at bedtime) Active Propranolol HCl 20 mg TAKE ONE TABLET BY MOUTH 2 TIMES A DAY; Duration: 30 Active EMGALITY AUTOINJECTOR 120 MG/ML 120 MG SUBCUTANEOUSLY ONCE A MONTH; Duration: 28 DAYS *Please review for potential replacement for e-prescription and drug interaction check* Active Estradiol 1 MG 1 tab(s) orally once a day Active hydroCHLOROthiazide 12.5 MG 1 tab(s) orally once a day; Duration: 30 day(s) prn Active Bactrim DS 800-160 MG 1 tablet Orally twice a day; Duration: 7 days 12/30/2024 Active HYDROcodone-Acetaminophe n 5-325 MG 1 tab(s) orally twice a day; Duration: 30 days 12/28/2024 Active Biotin 65039 MCG 1 CAP(S) ORALLY ONCE A DAY *Please review and pick correct strength-formula tion from [employer] options. If intended option is not shown, discontinue and re-order from Quick Search* Active Senna Plus 8.6-50 MG 2 tab(s) orally 2 times a day; Duration: 30 days 08/27/2024 Active Turmeric 500 MG 1 cap(s) orally once a day 1500mg Active Gemtesa 75 MG 1 tab(s) orally once a day; Duration: 90 days Active Pristiq 25 MG 1 tablet Orally Once a day Active amLODIPine Besylate 10 MG 1 tab(s) orally once a day; Duration: 90 days Active Atomoxetine HCl 80 MG 1 capsule in the morning Orally Once a day Active SUMAtriptan Succinate 50 MG TAKE 1 TABLET BY MOUTH AT ONSET OF MIGRAINE, THEN MAY REPEAT 1 TIMEin2 HOURS IF NO RELIEF. MAX OF 2in24 HOURS. orally once a day as needed; Duration: 30 days Active Immunizations Vaccine Route Administration Date Status Comme nts Flublok IM Intramuscular 03/26/2022 Administered Flublok IM Intramuscular 07/09/2024 Administered Fluvirin--Influenza vaccine 3+ year IM Intramuscular 05/06/2007 Administered Fluvirin--Influenza vaccine 3+ year IM Intramuscular 04/29/2014 Administered Influenza-Fluzone 3+years (NON-MEDICARE) IM Intramuscular 04/26/2016 Administered Influenza-Fluzone 3+years (NON-MEDICARE) IM Intramuscular 04/25/2017 Administered Influenza-Fluzone 3+years (NON-MEDICARE) IM Intramuscular 04/03/2018 Administered PPD Unknown 12/09/2006 Administered PPD ID Intradermal 12/18/2017 Administered Problems Problem Type SNOMED Code ICD Code Onset Dates Problem Status W/U Status Risk Notes Problem Morbid obesity (disorder) (852255767) Morbid (severe) obesity due to excess calories (E66.01) Active confirmed Problem Obesity (068358004) Obesity, unspecified (E66.9) Active confirmed Problem Metabolic syndrome (589570701) Metabolic syndrome (E88.81) Active confirmed Problem Chronic pain (34548187) Other chronic pain (G89.29) Active confirmed Problem Chronic pain syndrome (872431508) Chronic pain syndrome (G89.4) Active confirmed Problem Disorder of right patellofemoral joint (332885291555132) Patellofemoral disorders, right knee (M22.2X1) Active confirmed Problem Sciatica (03295781) Lumbago with sciatica, right side (M54.41) Active confirmed Problem Sciatica (78133737) Lumbago with sciatica, left side (M54.42) Active confirmed Problem Fibromyalgia (656421097) Fibromyalgia (M79.7) Active confirmed Problem Calculus of kidney with calculus of ureter (069496837) Calculus of kidney with calculus of ureter (N20.2) Active confirmed Problem Chronic fatigue syndrome (disorder) (01422295) Chronic fatigue, unspecified (R53.82) Active confirmed Problem Vitamin B12 deficiency (607071519) Vitamin B12 deficiency (E53.8) Active confirmed Problem Cervical disc disorder (315790929) DDD (degenerative disc disease), cervical (M50.30) Active confirmed Problem Vitamin D deficiency (38751311) Vitamin D deficiency (E55.9) Active confirmed Problem Onychomycosis (266856943) Onychomycosis (B35.1) Active confirmed Problem Essential hypertension (76746968) Essential hypertension (I10) Active confirmed Problem Tubular adenoma of colon (994564229) Tubular adenoma of colon (D12.6) Active confirmed Problem Body mass index 40+ - morbidly obese (702368643) BMI 40.0-44.9, adult (Z68.41) Active confirmed Problem Chronic pain (38563604) Other chronic pain (G89.29) Active confirmed Problem Obese class II (972617267809741) BMI 38.0-38.9,adult (Z68.38) Active confirmed Problem Gastroesophageal reflux disease (836834004) Gastroesophageal reflux disease, esophagitis presence not specified (K21.9) Active confirmed Problem Mixed anxiety and depressive disorder (483661873) Anxiety associated with depression (F41.8) Active confirmed Problem Abnormal mammogram (150351814) Abnormal mammogram (R92.8) Active confirmed Problem Morbid obesity (703363703) Morbid obesity due to excess calories (E66.01) Active confirmed Problem Chronic fatigue syndrome (55560264) Chronic fatigue (R53.82) Active confirmed Problem Chronic insomnia (370880738) Chronic insomnia (F51.04) Active confirmed Problem Obese class II (336568284286555) BMI 36.0-36.9,adult (Z68.36) Active confirmed Problem Migraine without aura, not refractory (242833294) Migraine without aura and without status migrainosus, not intractable (G43.009) Active confirmed Problem Degeneration of lumbosacral intervertebral disc (17401942) DDD (degenerative disc disease), lumbosacral (M51.37) Active confirmed Problem Plantar fascial fibromatosis (80951599) Plantar fascia syndrome (M72.2) Active confirmed Problem Disorder of left patellofemoral joint (045751919601052) Patellofemoral disorder of left knee (M22.2X2) Active confirmed Problem Generalized anxiety disorder (04560683) DEVEN (generalized anxiety disorder) (F41.1) Active confirmed Problem Carpal tunnel syndrome of right wrist (505342982301609) Carpal tunnel syndrome of right wrist (G56.01) Active confirmed Problem Overactive urinary bladder (disorder) (639465066) OAB (overactive bladder) (N32.81) Active confirmed Problem Attention deficit hyperactivity disorder, 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) Adult ADHD (F90.0) Active confirmed Problem History of bariatric surgical procedure (156552969) Obesity surgery status (Z98.84) Active confirmed Problem Degeneration of lumbar intervertebral disc (89912778) Lumbar degenerative disc disease (M51.36) Active confirmed Problem Joint pain (38198876) Arthralgia of multiple sites (M25.50) Active confirmed Problem Insomnia disorder related to another mental disorder (03744689) Insomnia related to another mental disorder (F51.05) Active confirmed Problem Moderate recurrent major depression (57329960) Moderate episode of recurrent major depressive disorder (F33.1) Active confirmed Problem Arthritis of right knee (8108873056553276) Arthritis of right knee (M19.90) Active confirmed Problem Chest pain (67705007) Chest pain, unspecified type (R07.9) Active confirmed Problem Gait abnormality (99810005) Gait abnormality (R26.9) Active confirmed Problem Fever (928109067) Acute febrile illness (R50.9) Active confirmed Problem Localized, primary osteoarthritis of the pelvic region and thigh (036731935) Primary osteoarthritis of left hip (M16.12) Active confirmed Problem Carpal tunnel syndrome of left wrist (071553309937535) Carpal tunnel syndrome of left wrist (G56.02) Active confirmed Problem Calcaneal spur (13566180) Calcaneal spur, right (M77.31) Active confirmed Problem Gastroesophageal reflux disease (disorder) (063815793) Chronic GERD (K21.9) Active confirmed Problem Amnesia (81240366) Memory change s (R41.3) Active confirmed Problem Hot flashes (641311776) Hot flashes (R23.2) Active confirmed Problem Seborrheic keratosis (850356658) SK (seborrheic keratosis) (L82.1) Active confirmed Problem Irritable bowel syndrome (16239836) Irritable bowel syndrome with both constipation and diarrhea (K58.2) Active confirmed Problem Sleep apnea (82072239) Sleep apnea in adult (G47.30) Active confirmed Problem Constipation (80513083) Unspecified constipation (K59.00) Active confirmed Problem Sciatica (47340797) Acute right- sided back pain with sciatica (M54.41) Active confirmed Problem Refractory migraine with aura (865399891) Intractable migraine with aura with status migrainosus (G43.111) Active confirmed Problem 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) Stasis dermatitis of both legs (I87.2) Active confirmed Problem Skin sensation disturbance (83793135) Complaint of paresthesia (R20.2) Active confirmed Problem Methicillin resistant Staphylococcus aureus infection (disorder) (904825965) Infection of wound due to methicillin resistant Staphylococcus aureus (MRSA) (A49.02) Active confirmed Problem Episodic migraine (737827439384693) Episodic migraine (G43.909) Active confirmed Vital Signs Heart Rate 78 /min 01/07/2025 Temperature 97.5 degrees Fahrenheit 01/07/2025 Blood pressure diastolic 88 mm Hg 01/07/2025 Height 5 ft 4 in in 01/07/2025 Blood pressure systolic 124 mm Hg 01/07/2025 Weight 221.8 lbs 01/07/2025 BMI 38.07 kg/m2 01/07/2025 Encounters Encounter Location Date Provider Diagnosis [facility] [address] [place] [address] [place] [address] 10/03/2024 Provider Migration Acute right-sided back pain with sciatica M54.41 and Unspecified constipation K59.00 [facility] [address] [place] [address] [place] [address] 01/07/2025 [facility] Leg edema, right R60 .0 ; Post-operative state Z98.890 and Infection of wound due to methicillin resistant Staphylococcus aureus (MRSA) A49.02 [facility] [address] [place] [address] [place] [address] 02/03/2024 [facility] Unspecified constipation K59.00 [facility] [address] [place] [address] [place] [address] 02/15/2024 [facility] Dysuria R30.0 ; DDD (degenerative disc disease), lumbosacral M51.37 ; History of lumbar fusion Z98.1 ; Lumbago with sciatica, right side M54.41 ; Lumbago with sciatica, left side M54.42 ; Other chronic pain G89.29 and Acute vaginitis N76.0 [facility] [address] [place] [address] [facility] [address] [place] [address] 03/17/2024 [facility] DDD (degenerative di sc disease), lumbosacral M51.37 ; History of lumbar fusion Z98.1 ; Lumbago with sciatica, right side M54.41 ; Lumbago with sciatica, left side M54.42 and Other chronic pain G89.29 [facility] [address] [place] [address] 03/26/2024 [facility] DDD (degenerative di sc disease), lumbosacral M51.37 ; Acute right hip pain M25.551 ; History of lumbar fusion Z98.1 ; Lumbago with sciatica, right side M54.41 and Other chronic pain G89.29 [facility] [address] [place] [address] 04/04/2024 Jared Ventura Acute right-sided ba ck pain with sciatica M54.41 [facility] [address] [place] [address] 04/13/2024 [facility] Acute right hip pain M25.551 ; Degeneration of intervertebral disc of lumbosacral region with discogenic back pain and lower extremity pain M51.372 ; History of lumbar fusion Z98.1 ; Lumbago with sciatica, right side M54.41 and Other chronic pain G89.29 [facility] [address] [facility] [address] [place] [address] 05/25/2024 [facility] Degeneration of intervertebral disc of lumbosacral region with discogenic back pain and lower extremity pain M51.372 ; History of lumbar fusion Z98.1 ; Lumbago with sciatica, right side M54.41 ; Other chronic pain G89.29 ; BMI 36.0-36.9,adult Z68.36 and Episodic migraine G43.909 [facility] [address] [place] [address] 07/09/2024 [facility] History of lumbar fusion Z98.1 ; Degeneration of intervertebral disc of lumbosacral region with discogenic back pain and lower extremity pain M51.372 ; Lumbago with sciatica, right side M54.41 ; Other chronic pain G89.29 and Immunization(s) administered Z23 [facility] [address] [place], [place] [address] 08/27/2024 [facility] Flank pain R10.9 ; History of nephrolithiasis Z87.442 ; Unspecified constipation K59.00 ; History of lumbar fusion Z98.1 ; Degeneration of intervertebral disc of lumbosacral region with discogenic back pain and lower extremity pain M51.372 ; Lumbago with sciatica, right side M54.41 and Other chronic pain G89.29 [facility] [address] [place] [address] 10/12/2024 [facility] History of lumbar fusion Z98.1 ; Degeneration of intervertebral disc of lumbosacral region with discogenic back pain and lower extremity pain M51.372 ; Lumbago with sciatica, right side M54.41 ; Other chronic pain G89.29 ; Medication monitoring encounter Z51.81 and Chronic constipation K59.09 [facility] [address] [place], [place] [address] 10/19/2024 Jared Ventura Dizzinesses R42 and Dyspepsia R10.13 [facility] [address] [place] [address] 11/24/2024 [facility] Degeneration of intervertebral disc of lumbosacral region with discogenic back pain and lower extremity pain M51.372 ; Lumbago with sciatica, right side M54.41 ; Other chronic pain G89.29 and Left upper limb pain M79.602 [facility] [address] [place] [address] 12/28/2024 Nallely Merary Pre-syncope R55 and Wound drainage T14.8XXA [facility] [address] [place] [address] 02/18/2024 Nallely Reagan DDD (degenerative di sc disease), lumbosacral M51.37 [facility] [address] [place] [address] 02/24/2024 Jared Epsteinson [facility] [address] [place] [address] 02/24/2024 Nallely Reagan [facility] [address] [place] [address] 03/26/2024 Nallely Reagan [facility] [address] [place] [address] 04/02/2024 Jared Besson [facility] [address] [place] [address] 04/04/2024 Jared Besson Acute right-sided ba ck pain with sciatica M54.41 [facility] [address] [place] [address] 05/25/2024 Jared Besson Acute right-sided ba ck pain with sciatica M54.41 [facility] [address] [place] [address] 07/09/2024 Jared Besson Acute right-sided ba ck pain with sciatica M54.41 [facility] [address] [place] [address] 08/27/2024 Jared Besson Acute right-sided ba ck pain with sciatica M54.41 [facility] [address] [place] [address] 10/12/2024 Jared Besson Degeneration of intervertebral disc of lumbosacral region with discogenic back pain and lower extremity pain M51.372 [facility] [address] [place] [address]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
--- OUTSIDE RECORDS SUMMARY | 2025-01-07 12:31 | XMS_ITS | Continuity of Care Document ---
Author Organization [facility], NEUROSURGERY [address] [place] [address] Care Team Providers Care Mud Mill Tender Name Role Phone MANISH DAMICO Primary Care Provider Assessment Encounter Date Assessment Date Assessment LastModified by Organization Details LastModified Time 12/21/2024 12/21/2024 Patient to have camilla removed [...] Appointments POST-O P o 025 11:00AM CRISTINA HYLTON MD Not available Not available Not available Lab None record ed. Referral None record ed. Procedures None record ed. Surgeries None record ed. Imaging None record ed. Medication Orders None record ed. Patient TargetsNo targets recorded. Patient InstructionsNo instructions recorded. Reason for Referral None Reported. Problems Name Problem SNOMED Code Status Onset Date Resolution Date Notes Provider Name and Address Organization Details Recorded Time Ureteric stone 59503385 Active 2014 From Automated Load;Provi imelad: Garcia, Gato;St atus: Active Not Available [facility] 6 02:53:44 Problem Notes None recorded. Procedures Surgical History Date Name Laterality Status Provider Name and Address Organization Details Recorded Time Back Surgery completed [facility] 05/18/2024 09:33:49 Carpal tunnel surgery completed [facility] 05/18/2024 09:34:17 hysterectomy completed [facility] 05/18/2024 09:34:27 Cholecystectomy completed [facility] 05/18/2024 09:34:36 Appendectomy completed [facility] 05/18/2024 09:34:41 laparoscopic sleeve gastrectomy completed [facility] 05/18/2024 09:34:48 Neck Surgery completed [facility] 05/18/2024 09:34:53 Knee arthroscopy/surgery completed [facility] 05/18/2024 09:35:00 Imaging Results None recorded. Procedure Notes None recorded. Medical Equipment None Reported. Allergies Allergen ID Allergen Name Allergen Category Reaction Reaction Severity Criticality Documentation Date Start Date Code Code System Note Provider Name and Address Organization Details Recorded Time 669005 Product containin g penicilli n (product) medicatio n Not available Not available Not available 05/25/20162014 02137 8001 SNOMED Comme nt: Creat ed By: Dayana sung Date: 2014 4:15: 54 PM; Not Available [facility] 6 04:32:36 685321 Effexor medicatio n Not available Not available Not available 05/25/20162014 58614 2 RxNorm Comme nt: Creat ed By: Dayana Flower ana lilia Date: 2014 4:16: 07 PM; Not Available [facility] 6 08:24:21 Medications Name Sig Start Date [...] Not Available Not Available Not Available Vitals None Recorded Social History None recorded. Functional Status None [...] current problem Y Osteoporosis/Osteopenia N Heart Attack ([place]) N Deep Vein Thrombosis N Mental Illness N Diabetes N Bleeding Disorder N Arthritis Y Tuberculosis N Genetic Disorder N AIDS/HIV N Chiropractor treatment for current probl em Y Kidney Failure N Cancer N Stroke N Asthma N Ultrasound Treatment for current problem Y Epilepsy/Seizures N Sleep Apnea N High Cholesterol N Thyroid Disorder N Physical Therapy Treatments for current problem Y Liver Disease N Pulmonary Embolism N Dialysis N Fibromyalgia Y Hypertension Y Kidney Disease N Gynecological HistoryNo gynecological history recorded. Obstetrics History GPAL:G 0 P 0 0 0 0 Past Encounters Encounter ID Performer Location Encounter Start Date Encounter Closed Date Diagnosis/Indication Diagnosis SNOMED-CT Code Diagnosis ICD10 Code Diagnosis Note [id number] CRISTINA HYLTON MD SURGERY SCHEDULE [address] [place] [address] 12/10/2024 13:56:05 12/18/2024 16:23:30 [id number] LUCAS LÓPEZ PA-C [facility] [address] [place] [address] 12/21/2024 09:30:49 12/22/2024 04:10:49 Postoperative visit [id number] Z48.89 Health Concerns Section Related Observation LastModified by Organization Detai ls LastModified Time None Recorded Concern Status LastModified by Organization Details LastModified Time None Recorded Payers Encounter Date Sequence Insurance Name Policy Number Policy Danielle Covered Member ID Danielle Member ID Guarantor Name 12/21/2024 1 [employer] [id number] Hannah Moya Yeni [id number] Hannah M Yeni 12/21/2024 2 [employer] [facility] (MEDICAID HMO) Hannah Nita Yeni [id number] Hannah Nita Yeni Notes Date Note Type Note Provider Name and Address Organization Details Recorded Time 12/21/2024 text/html Hannah Jaime is a 54-year-old status post L2 to iliac posterior fusion (previous L3-5) on 12/04/[address] Hylton presenting to the office today for wound check. Patient and family present have not noted any issues in her recovery process aside from irritation secondary to bandage adhesive. LUCAS LÓPEZ PA-C [address] [place], [address], [facility] 12/21/2024 10:14:26 OBGyn Episode No OBEpisode recorded.
--- OUTSIDE RECORDS SUMMARY | 2025-01-07 12:31 | XMS_ITS | Encounter Summary ---
Author Organization [employer] ([place], [place], [place], [place]) Address [address] [place] [address] Care Team Providers Care Hvac Designer Name Role Phone Nallely Reagan JOSIAH Primary Care Provider Reason for Visit * Reason Comments Medication Refill Encounter Details Date Type Department Care Team (Late st Contact Info) Description 05/10/2023 Refill [facility] Neurology - [facility] [address] [facility] [address] [place] [phone] Charlotte Chavarria APRN [address] [facility] [address] [place] [address] Social History Tobacco Use Types Packs/Day Years Used Date Smoking Tobacco: Never Smokeless Tobacco: Never Alcohol Use Standard Drinks/Week Comments Not Currently 0 (1 standard drink = 0.6 oz pur e alcohol) Comments Unknown Sex and Gender Information Value Date Recorded Sex Assigned at Not on file Legal Sex Female 4:50 PM CDT Gender Identity Not on file Sexual Orientation Not on file documented as of this encounter Plan of Treatment Not on file documented as of this encounter Visit Diagnoses Not on filedocumented in this encounter Care Teams Hvac Designer Relationship Specialty Start Date End Date Merary NallelyJOSIAH gary [address] [place] [address] PCP - General Nurse Practitioner 12/04/24 documented as of this encounter
--- OUTSIDE RECORDS SUMMARY | 2025-01-07 12:31 | XMS_ITS | Encounter Summary ---
Author Organization [employer] ([place], [place], [place], [place]) Address [address] [place] [address] Care Team Providers Care Director Of Hemophilia Name Role Phone Nallely Reagan JOSIAH Primary Care Provider Reason for Visit * Reason Comments Medication Refill Encounter Details Date Type Department Care Team (Late st Contact Info) Description 01/17/2023 Refill [facility] Neurology - [facility] [address] [facility] [address] [place] [phone] Charlotte Chavarria APRN [address] [facility] [address] [place] [address] Social History Tobacco Use Types Packs/Day Years [...] on filedocumented in this encounter Care Teams Director Of Hemophilia Relationship Specialty Start Date End Date Merary NallelyJOSIAH gary [address] [place] [address] PCP - General Nurse Practitioner 12/04/24 documented as of this encounter
--- OUTSIDE RECORDS SUMMARY | 2025-01-07 12:32 | XMS_ITS | Encounter Summary ---
Author Organization [employer] ([place], [place], [place], [place]) Address [address] [place] [address] Care Team Providers Care Gas Tester Name Role Phone Nallely Reagan JOSIAH Primary Care Provider [phone] Encounter Details Date Type Department Care Team (Latest Contact Info) Description 12/04/2024 Travel Social History Tobacco Use Types Packs/Day Years Used Date Smoking Tobacco: Never Smokeless Tobacco: Never Alcohol Use Standard Drinks/Week Comments Not Currently 0 (1 standard drink = 0.6 oz pur e alcohol) [facility] - Mental Health Answer Date [...] Date Pedro rded Speak language other than Ukrainian at home Not on file 07/19/2023 Want [...] on filedocumented in this encounter Care Teams Gas Tester Relationship Specialty Start Date End Date Nallely Reagan APRN [address] [address] PCP - General Nurse Practitioner 12/04/24 documented as of this encounter
--- OUTSIDE RECORDS SUMMARY | 2025-01-07 12:32 | XMS_ITS | Referral Summary ---
Author Organization [employer] ([place], [place], [place], [place]) Address [address] [place] [address] Care Team Providers Care Stenographic Court Reporter Name Role Phone Nallely Reagan JOSIAH Primary Care Provider Encounters Date Type Department Care Team Description 12/06/2024 Orders Only [facility] Neurology [address] [place] [address] Harley Astorga Jr., MD 12/04/2024 10:20 AM EDT - 12/06/2024 1:06 PM EDT Hospital Encounter [facility]opedic & Neurosurgery Unit [address] [place] [address] Robbie Castañeda MD Discharge Disposition: Home or Self Care 12/04/2024 Travel 12/04/2024 3:00 PM EDT - 12/04/2024 6:[address] [facility] Operating Room [address] [place] [address] Robbie Castañeda MD (L2-ILIAC POSTERIOR FUSION-PREVIOUS L3-L5- USING AIRO) 12/04/2024 2:26 PM EDT Anesthesia Event [facility] Operating Room [address] [place] [address] Arvind Dash MD Cellarosi-Yorb a, Maria, MD 11/26/2024 8:00 AM EDT - 11/26/2024 11:59 PM EDT Hospital Encounter [facility] Preadmission Testing [address] [place] [address] Robbie Castañeda MD Preop testing (Primary Dx) Discharge Disposition: Home or Self Care from Last 3 Months Allergies Active Allergy Reactions Criticality Noted Date [...] Noted Date Diagnosed Date Spinal instability 12/04/2024 Social History Tobacco Use Types Packs/Day Years Used Date Smoking Tobacco: Never Smokeless Tobacco: Never Tobacco Cessation:Counseling Given: Not Answered Alcohol Use Standard Drinks/Week Comments Not Currently 0 (1 standard drink = 0.6 oz pur e alcohol) [facility] - Mental Health Answer Date Recorde [...] Date Pedro rded Speak language other than French at home Not on file 07/19/2023 Want [...] 12/04/2024 11:42 AM EDT Plan of Treatment Not on file Medical Devices Implanted Type Area Sand Slinger Device Identifier Shelf Expiration Date Model / Serial / Lot Bone Putty Stimulan 5cc 620-005 - [id number] Implanted:Qt y: 1 on 12/04/2024 by Robbie Castañeda MD at [facility] IMPLANTS N/A: Spine Lumbar BIOCOMPOS[employer]ES 06/30/2027 620-005 / / [id number] Scr Poly Fen 7x40mm [id number] f - [id number] Implanted:Qt y: 4 on 12/04/2024 by Robbie Castañeda MD at [facility] IMPLANTS N/A: Spine Lumbar J &J:DEPUY:DEPUY SPINE 5560-12-7 040F / 5560-12-7 040F / St Scr T27 5.5 And 6.0 [id number] - [id number] Implanted:Qt y: 6 on 12/04/2024 by Robbie Castañeda MD at [facility] IMPLANTS N/A: Spine Lumbar J &J:DEPUY:DEPUY SPINE 5560-01-0 000 / 5560-01-0 000 / Mis Ezio Ply Scrw Set Ti -000 - [id number] Implanted:Qt y: 4 on 12/04/2024 by Robbie Castañeda MD at [facility] IMPLANTS N/A: Spine Lumbar J &J:DEPUY:DEPUY SPINE 15-0 00 / -0 00 / Hi [id number] 3728-24-0816 t - [id number] [id number] Implanted:Qt y: 2 on 12/04/2024 by Robbie Castañeda MD at [facility] IMPLANTS N/A: Spine Lumbar J &J:DEPUY:DEPUY SPINE 5560-55-4 120T / 5560-55-4 120T / Imp Inf Bedrk Gran 10.5x90mm [id number] - [id number] Implanted:Qt y: 1 on 12/04/2024 by Robbie Castañeda MD at [facility] IMPLANTS N/A: Spine Lumbar SI-BONE 03/05/2034 [id number] / [id number] 07-143 / Imp Inf Bedrk Gran 10.5x90mm 977415dn - [id number] Implanted:Qt y: 1 on 12/04/2024 by Robbie Castañeda MD at [facility] IMPLANTS N/A: Spine Lumbar SI-BONE 09/10/2034 [id number] / [id number] 03-084 / Bone Vivigen Formable Cell [facility] Bl-1600-002 - [id number] Implanted:Qt y: 1 on 12/04/2024 by Robbie Castañeda MD at [facility] IMPLANTS N/A: Spine Lumbar LIFENET:LIFENET TRANSPLANT SRV 11/20/2025 BL-1600-0 02 / [id number] / Bone Vivigen Formable Cell 5c Bl-1600-002 - [id number] Implanted:Qt y: 1 on 12/04/2024 by Robbie Castañeda MD at [facility] IMPLANTS N/A: Spine Lumbar LIFENET:LIFENET TRANSPLANT SRV 11/20/2025 BL-1600-0 [id number] / Cage Eit Plif H 7mm 4deg 26/03 [id number] - [id number] Implanted:Qt y: 1 on 12/04/2024 by Robbie Castañeda MD at [facility] IMPLANTS N/A: Spine Lumbar J &J:DEPUY:DEPUY SPINE [id number] 08/28/2034 [id number] / / [id number] Cage Eit Plif H 11mm 8d 26/03 [id number] - [id number] Implanted:Qt y: 1 on 12/04/2024 by Robbie Castañeda MD at [facility] IMPLANTS N/A: Spine Lumbar J &J:DEPUY:DEPUY SPINE [id number] 07/31/2034 [id number] / / [id number] Scr Poly Fen 5x50mm [id number] f - [id number] Implanted:Qt y: 2 on 12/04/2024 by Robbie Castañeda MD at [facility] IMPLANTS N/A: Spine Lumbar J &J:DEPUY:DEPUY SPINE 5560-12-5 050F / 5560-12-5 050F / Scr Poly Fen 7x45mm [id number] f - [id number] Implanted:Qt y: 1 on 12/04/2024 by Robbie Castañeda MD at [facility] IMPLANTS N/A: Spine Lumbar J &J:DEPUY:DEPUY SPINE 5560-12-7 045F / 5560-12-7 045F / Procedures Procedure Name Priority Date/Time Associated Diagnosis Comments COMPREHENSIVE METABOLIC PANEL [place] 12/06/2024 9:41 AM EDT CBC W/ AUTO DIFF [place] 12/06/2024 9:41 AM EDT [place] C-ARM < 1 HOUR Routine 12/04/2024 5:0 7 PM EDT ANESTHESIA INTUBATION Routine 12/04/2024 2:39 PM EDT [place] ARTHRODESIS COMBINED TQ 1NTRSPC LUMBAR 12/04/2024 2:26 [...] 10.0 K/ L 12/06/2024 10:57 AM EDT [facility] RBC 3.41(L) 3.93 - 5.22 M/ L 12/06/2024 10:57 AM EDT [facility] Hemoglobin 10.4(L) 11.2 - 15.7 GM/DL 12/06/2024 10:57 AM EDT [facility] Hematocrit 32.9(L) 34.1 - 44.9 % 12/06/2024 10:57 AM EDT [facility] MCV 97(H) 79 - 95 fL 12/06/2024 10:57 AM EDT [facility] MCH 30.5 25.6 - 32.2 pg 12/06/2024 10:57 AM EDT [facility] MCHC 31.6(L) 32.2 - 35.5 GM/DL 12/06/2024 10:57 AM EDT [facility] RDW 13.1 11.7 - 14.4 % 12/06/2024 10:57 AM EDT [facility] Platelets 246 140 - 375 K/CU MM 12/06/2024 10:57 AM EDT [facility] MPV 10.3 9.4 - 12.3 fL 12/06/2024 10:57 AM EDT [facility] % Neutros 78(H) 34 - 71 % 12/06/2024 10:57 AM EDT [facility] % Lymphs 11(L) 19 - 52 % 12/06/2024 10:57 AM EDT [facility] % Monos 10 5 - 13 % 12/06/2024 10:57 AM EDT [facility] % Eos 0(L) 1 - 6 % 12/06/2024 10:57 AM EDT [facility] % Baso 0 0 - 1 % 12/06/2024 10:57 AM EDT [facility] NRBC Absolute <0.01 0 - 0.012 K/ul 12/06/2024 10:57 AM EDT [facility] # Neutros 12.71(H) 1.56 - 6.13 K/ L 12/06/2024 10:57 AM EDT [facility] # Lymphs 1.85 1.18 - 3.74 K/ L 12/06/2024 10:57 AM EDT [facility] # Monos 1.58(H) 0.24 - 0.86 K/ L 12/06/2024 10:57 AM EDT [facility] # Eos <0.03(L) 0.04 - 0.36 K/ L 12/06/2024 10:57 AM EDT [facility] # Baso 0.03 0.01 - 0.08 K/ L 12/06/2024 10:57 AM EDT [facility] Immature Granulocytes-Re lative 0.50(H) 0.01 - 0.43 % 12/06/2024 10:57 AM EDT [facility] # IG 0.08(H) 0.00 - 0.03 K/uL 12/06/2024 10:57 AM EDT [facility] Blood Venipuncture / Unknown 12/06/2024 9:41 AM EDT 12/06/2024 10:50 AM EDT Narrative [facility] - 12/06/2024 10:57 AM EDT When [...] MD LAB BLOOD ORDERABLES Final Resul t [facility] [address] [phone] * (ABNORMAL) Comprehensive metabolic panel (12/06/2024 9:41 AM EDT) Sodium 134(L) 136 - 145 meq/L 12/06/2024 11:13 AM EDT [facility] Potassium 4.0 3.4 - 5.1 meq/L 12/06/2024 11:13 AM EDT [facility] Chloride 98 98 - 112 meq/L 12/06/2024 11:13 AM EDT [facility] CO2 29 22 - 29 meq/L 12/06/2024 11:13 AM EDT [facility] Calcium 8.7 8.4 - 10.2 mg/dL 12/06/2024 11:13 AM EDT [facility] Glucose 103(H) 74 - 100 mg/dL 12/06/2024 11:13 AM EDT [facility] BUN 9.1(L) 9.8 - 20.1 mg/dL 12/06/2024 11:13 AM EDT [facility] Creatinine 0.69 0.57 - 1.11 mg/dL 12/06/2024 11:13 AM [facility] BUN/Creatinine 13 8 - 20 12/06/2024 11:13 AM [facility] eGFR (mL/min/1.73m2) 103 >=60 mL/min/1. 73m2 12/06/2024 11:13 AM [facility] Albumin 2.7(L) 3.5 - 5.0 g/dL 12/06/2024 11:13 AM [facility] Alkaline Phosphatase 62 40 - 150 U/L 12/06/2024 11:13 AM [facility] ALT 8 <=34 U/L 12/06/2024 11:13 AM [facility] Comment: ALT2 reagent used for testing does not contain P5P supplementation and therefore may miss ALT elevations in patients with B6 deficiency. This population may be as high as 10% in the [place], with risk factors including malabsorption, drug interactions, and alcoholic hepatitis. AST 20 11 - 34 U/L 12/06/2024 11:13 AM [facility] Comment: AST2 reagent used for testing does not contain P5P supplementation and therefore may miss AST elevations in patients with B6 deficiency. This population may be as high as 10% in the [place], with risk factors including malabsorption, drug interactions, and alcoholic hepatitis. Total Bilirubin 0.4 0.2 - 1.2 mg/dL 12/06/2024 11:13 AM [facility] Protein, Total 6.4 6.4 - 8.3 g/dL 12/06/2024 11:13 AM [facility] Globulin 3.7 2.5 - 4.1 g/dL 12/06/2024 11:13 AM [facility] Anion Gap 11 4 - 12 12/06/2024 11:13 AM [facility] A/G Ratio 0.7 0.7 - 1.9 12/06/2024 11:13 AM [facility] Osmolality Calc 267.2 mOsm/kg 11:13 AM [facility] Blood Venipuncture / Unknown 12/06/2024 9:41 AM EDT 12/06/2024 10:50 AM EDT Robbie Castañeda MD LAB BLOOD ORDERABLES Final Resul t [facility] [address] [place] [address], [facility] [phone] * FL C-ARM < 1 HOUR (12/04/2024 [...] LUMEN INTUBATION (12/04/2024 2:39 PM EDT) Narrative Nallely Santana CRNA - 12/04/2024 2:39 PM EDT Eric [...] - 110 mg/dL 12/04/2024 12:02 PM EDT [facility] Comment: In the event of poor peripheral blood flow, venous or arterial blood should be used due to the potential of erroneous results. No action Require Project Portfolio Analyst [id number] 12/04/2024 12:02 PM EDT [facility] Blood WHOLE BLOOD / Unknown 12/04/2024 12:01 PM EDT 12/04/2024 12:02 PM EDT Narrative [facility] - 12/04/2024 12:02 PM EDT Project Portfolio Analyst ID is - [id number] us Robbie Castañeda MD POINT OF CARE TEST ORDERABLES Fi nal Result [facility] [address] [phone] * Type and Screen (12/04/2024 11:57 AM EDT) ABO/Rh O Positive 12/04/2024 11:51 AM EDT [facility] [place] Antibody Screen Negative 12/04/2024 11:51 AM EDT [facility] [place] HISTCHK HIST CHECK PERFORMED 12/04/2024 11:51 AM EDT [facility] [place] Blood Venipuncture / Unknown 12/04/2024 11:57 AM EDT 12/04/2024 12:12 PM EDT us Arvind Dash MD [facility] TEST ORDERABLES Final Result [facility] [place] 1 [facility] [place] [address], [facility] [phone] * EKG-SCANNED (12/04/2024) Narrative 12/04/2024 Ordered by an unspecified provider. us Default Scanning Provider SCAN ORDERS Final Result * ECG 12 lead (11/26/2024 8:52 AM EDT) VENTRICULAR RATE EKG/MIN 84 BPM GE MUSE ATRIAL RATE (MCT) 84 BPM GE MUSE WI Interval 174 ms GE MUSE QRS-INTERVAL (MSEC) 96 ms GE MUSE QT Interval 378 ms GE MUSE QTC Interval 446 ms GE MUSE P Talmo 64 degrees GE MUSE R AXIS (MCT) 50 degrees GE MUSE T Wave Talmo 66 degrees GE MUSE [place] Diagnosis Normal sinus rhythm Normal ECG No previous ECGs available Confirmed by Vanna Lorenzo ([id number]) on 11/27/2024 9:32:49 PM GE MUSE 11/26/2024 8:52 AM EDT 11/27/2024 9:32 PM EDT us Margaux Barnes MD ECG ORDERABLES Final Result GE MUSE * CBC - Hemogram (SJ-BKR) (11/26/2024 8:39 AM EDT) WBC 5.0 4.0 - 10.0 K/ L 11/26/2024 8:43 AM EDT [facility] RBC 4.62 3.93 - 5.22 M/ L 11/26/2024 8:43 AM EDT [facility] Hemoglobin 13.8 11.2 - 15.7 GM/DL 11/26/2024 8:43 AM EDT [facility] Hematocrit 42.5 34.1 - 44.9 % 11/26/2024 8:43 AM EDT [facility] MCV 92 79 - 95 fL 11/26/2024 8:43 AM EDT [facility] MCH 29.9 25.6 - 32.2 pg 11/26/2024 8:43 AM EDT [facility] MCHC 32.5 32.2 - 35.5 GM/DL 11/26/2024 8:43 AM EDT [facility] RDW 12.6 11.7 - 14.4 % 11/26/2024 8:43 AM EDT [facility] Platelets 292 140 - 375 K/CU MM 11/26/2024 8:43 AM EDT [facility] MPV 9.5 9.4 - 12.3 fL 11/26/2024 8:43 AM EDT [facility] Blood Venipuncture / Unknown 11/26/2024 8:39 AM EDT 11/26/2024 8:39 AM EDT us Robbie Castañeda MD LAB BLOOD ORDERABLES Final Resul t [facility] [address] [phone] * ABO/RH CONFIRMATION/RETYPE (11/26/2024 8:39 AM EDT) RETYPE O Positive 11/25/2024 8:00 PM EDT [facility] Comment:[id number] Blood Venipuncture / Unknown 11/26/2024 8:39 AM EDT 11/26/2024 8:39 AM EDT Margaux Barnes MD [facility] TEST ORDERABLES Final Result [facility] 1 [facility] [place] [address], [facility] [phone] * (ABNORMAL) Basic Metabolic Panel (11/26/2024 8:39 AM EDT) Sodium 141 136 - 145 meq/L 11/26/2024 8:58 AM EDT [facility] Potassium 4.0 3.4 - 5.1 meq/L 11/26/2024 8:58 AM EDT [facility] CO2 30(H) 22 - 29 meq/L 11/26/2024 8:58 AM EDT [facility] Chloride 105 98 - 112 meq/L 11/26/2024 8:58 AM EDT [facility] Glucose 93 74 - 100 mg/dL 11/26/2024 8:58 AM EDT [facility] BUN 13.1 9.8 - 20.1 mg/dL 11/26/2024 8:58 AM EDT [facility] Creatinine 0.72 0.57 - 1.11 mg/dL 11/26/2024 8:58 AM EDT [facility] BUN/Creatinine 18 8 - 20 11/26/2024 8:58 AM EDT [facility] Calcium 9.5 8.4 - 10.2 mg/dL 11/26/2024 8:58 AM EDT [facility] Anion Gap 10 4 - 12 11/26/2024 8:58 AM EDT [facility] eGFR (mL/min/1.73m2) 99 >=60 mL/min/1.7 3m2 11/26/2024 8:58 AM EDT [facility] Osmolality Calc 281.1 mOsm/kg 8:58 AM EDT [facility] Blood Venipuncture / Unknown 11/26/2024 8:39 AM EDT 11/26/2024 8:39 AM EDT us Robbie Castañeda MD LAB BLOOD ORDERABLES Final Resul t [facility] [address] [phone] * (ABNORMAL) Urinalysis without Microscopic (11/26/2024 8:38 AM EDT) Color, UA Yellow 11/26/2024 9:09 AM EDT [facility] Clarity, UA Clear Clear 11/26/2024 9:09 AM EDT [facility] Specific [place], UA 1.028 1.005 - 1.030 11/26/2024 9:09 AM EDT [facility] pH, UA 6.0 6.0 - 8.0 11/26/2024 9:09 AM EDT [facility] Leukocytes, UA Negative Negative 11/26/2024 9:09 AM EDT [facility] Nitrite, UA Negative Negative 11/26/2024 9:09 AM EDT [facility] Protein, UA Trace(A) Negative 11/26/2024 9:09 AM EDT [facility] Glucose, UA Normal Normal 11/26/2024 9:09 AM EDT [facility] Ketones, UA Negative Negative 11/26/2024 9:09 AM EDT [facility] Urobilinogen, UA 2 mg/dL(A) Normal 11/26/2024 9:09 AM EDT [facility] Bilirubin, UA Negative Negative 11/26/2024 9:09 AM EDT [facility] Blood, UA Negative Negative 11/26/2024 9:09 AM EDT [facility] Specimen Source Urine, Clean Catch 11/26/2024 9:09 AM EDT [facility] Urine URINE SPECIMEN COLLECTION, CLEAN CATCH / Unknown 11/26/2024 8:38 AM EDT 11/26/2024 8:38 AM EDT us Robbie Castañeda MD URINE ORDERABLES Final Result [facility] [address] [phone] from Last 3 Months Insurance [facility] [id number] BLUE CROSS/BLUE SHIELD [employer] [facility] Advance Directives For more information, please contact: [phone] * Full Code (Latest Code Status on File) Date Activated Date Inactivated Comments 12/04/2024 5:21 PM 12/06/2024 2:07 PM Care Teams Stenographic Court Reporter Relationship Specialty Start Date End Date Nallely Reagan, SECOND VP HR ASSESSMENT [address] [place] [address] PCP - General Nurse Practitioner 12/04/24
--- OUTSIDE RECORDS SUMMARY | 2025-01-07 12:32 | XMS_ITS | Encounter Summary ---
Author Organization [employer] ([place], [place], [place], [place]) Address [address] [place] [address] Care Team Providers Care Flight Attendant Inflight Services Name Role Phone Nallely Reagan JOSIAH Primary Care Provider [phone] Encounter Details Date Type Department Care Team (Late st Contact Info) Description 12/06/2024 Orders Only [facility] Neurology [address] [place] [phone] Harley Astorga Jr., MD [facility] [place] [address] Social History Tobacco Use Types Packs/Day Years Used Date Smoking Tobacco: Never Smokeless Tobacco: Never Alcohol Use Standard Drinks/Week Comments Not Currently 0 (1 standard drink = 0.6 oz pur e alcohol) [facility] - Mental Health Answer Date Recorde [...] Date Pedro rded Speak language other than Estonian at home Not on file 07/19/2023 Want [...] on file documented as of this encounter Progress Notes * Harley Astorga Jr., MD - 12/06/2024 12:04 PM EDT Subjective Review of Systems Objective Last Recorded Vitals There were no vitals taken for this visit. Physical Exam Labs: No results found for this visit on 12/06/24 (from the past 24 hours). [place] C-ARM < 1 HOUR Narrative: CT [...] the operative report for further details.. Assessment Plan Discharge Planning: documented in this encounter Plan of Treatment Not on file documented as of this encounter Visit Diagnoses Not on filedocumented in this encounter Care Teams Flight Attendant Inflight Services Relationship Specialty Start Date End Date Nallely Reagan, JOSIAH [address] [place] [phone] PCP - General Nurse Practitioner 12/04/24 documented as of this encounter
--- OUTSIDE RECORDS SUMMARY | 2025-01-07 12:32 | XMS_ITS | Clinical Summary ---
Author Organization [facility] Address [address] [place] [address] Care Team Providers Care Tour Actor Name Role Phone Jared Ventura MD Primary Care Provider + [phone] Racquel Lobato Unavailable [phone] Jason Alfonso MD Unavailable [phone] Allergies Active Allergy Reactions Criticality Noted Date Comments Milnacipran Other - please docum ent in the comment field Low 03/26/2022 Morphine Other - please docum ent in the comment field Low 03/26/2022 Other reaction(s): in large doses GI upset Trazodone Unknown - Patient st ates they do not know rxn details Low 10/23/2018 Headaches Other reaction(s): headache Other reaction(s): headache, Unknown Headaches Other reaction(s): headache Venlafaxine Other - please docum ent in the comment field,Unknown - Patient states they do not know rxn details Low 10/23/2018 Psychosis Other reaction(s): Unknown Other reaction(s): Other, Unknown Psychosis Other reaction(s): Unknown Medications diclofenac (Voltaren) 75 MG EC tablet Take 1 tablet (75 mg) by mouth 2 (two) times a day. 03/11/20 20 Active hydroCHLOROthiazide (HYDRODiuril) 25 MG tablet Take by mouth 1 (one) time each day. 06/10/20 18 Active SUMAtriptan (Imitrex) 100 MG tablet Take by mouth if needed. 06/10/20 18 Active cyclobenzaprine (Flexeril) 10 MG tablet Take by mouth 2 (two) times a day if needed. Patient takes it nightly Active estradiol (Estrace) 0.5 MG tablet 1 (one) time each day at the same time. Takes in the morning Active galcanezumab-gnlm (Emgality) 120 MG/ML injection every 30 (thirty) days. Active losartan (Cozaar) 100 MG tablet Take 1 tablet (100 mg) by mouth 1 (one) time each day in the morning. Active oxybutynin XL (Ditropan-XL) 10 MG 24 hr tablet 03/13/20 Active vilazodone (Viibryd) 40 mg tablet 1 (one) time each day at the same time. Active diazePAM (Valium) 5 MG tablet every night. 05/30/20 Active HYDROcodone-acetamino phen ([place]) 7.5-325 MG tablet 06/05/20 Active oxyCODONE-acetaminoph en (Percocet) 5-325 MG tabletIndications:Sta tus post lumbar spinal fusion Take 1 tablet by mouth every 6 (six) hours if needed for severe pain (pain). 45 tablet 07/05/19 Active Additional Information Patient not taking.Reported on 06/17/2023 oxyCODONE-acetaminoph en (Percocet) 5-325 MG tabletIndications:Sta tus post lumbar spinal fusion,Lumbar adjacent segment disease with spondylolisthesis Take 1 tablet by mouth every 6 (six) hours if needed for moderate pain or severe pain. 45 tablet 07/26/19 Active Additional Information Patient not taking.Reported on 06/17/2023 amitriptyline (Elavil) 25 MG tablet every night. Active amLODIPine (Norvasc) 10 MG tablet if needed. 02/23/20 Active furosemide (Lasix) 20 MG tablet Take 1 tablet (20 mg) by mouth if needed. 12/21/19 Active ibuprofen 600 MG tablet if needed. 01/17/20 23 Active Daily Multiple Vitamins tablet Take 1 tablet by mouth Daily. Active propranolol (Inderal) 20 MG tablet Take 1 tablet (20 mg) by mouth twice a day. 12/20/19 Active cyclobenzaprine (Flexeril) 10 MG tabletIndications:Sta tus post lumbar spinal fusion,Acute bilateral low back pain without sciatica Take 1 tablet (10 mg) by mouth 3 (three) times a day if needed for muscle spasms. 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 0 or higher 04/03/2022 Immunizations Immunization Administration Dates Next Due Influenza, Unspecified 03/24/2009 Pneumococcal, Unspecified 03/24/2009 Family History Medical History Relation Name Comments Breast cancer Mother Conversions - Other Mother malignan t neoplasm of ovary Hypertension Other 1 Breast cancer Other 2 Conversions - Other Other 3 malignan t neoplasm of ovary Conversions - Other Other 4 Heart tr ouble Relation Name Status Comments Mother Other 1 Other 2 Other 3 Other 4 Social History Tobacco Use Types Packs/Day Years Used Date Smoking Tobacco: Never Smokeless Tobacco: Never Tobacco Cessation:Counseling Given: Not Answered Alcohol Use Standard Drinks/Week Comments Never 0 (1 standard drink = 0.6 oz pur e alcohol) CAGE ASSESSMENT Answer Date Recorded Cage unable to access Not on file 06/20/2022 Cage max number of drinks Not on file 2021 Cage Beverages a week Not on file 06/20/2022 Have you ever felt you should CUT down on your d rinking? 0 06/20/2022 Have you been ANNOYED by people criticizing your drinking? 0 06/20/2022 Have you felt GUILTY about your drinking? 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 0 06/20/2022 CAGE Questionnaire Score 0 022 Comments No Sex and Gender Information Value Date Recorded Sex Assigned at Female 06/20/2022 6:52 AM EST Legal Sex Female 8:17 PM EDT Gender Identity Female 06/20/2022 6:52 AM EST Sexual Orientation Not on file Last Filed Vital Signs Vital Sign Reading Time Taken Comments Blood Pressure 122/88 06/17/2023 8:57 AM EST Pulse 77 02/25/2023 9:51 AM EDT Temperature 37.3 C (99.2 F) 06/22/2022 8:06 AM EST Respiratory Rate 16 06/22/2022 3:24 AM EST Oxygen Saturation 96% 02/25/2023 9:51 AM EDT Inhaled Oxygen Concentration - - Weight 110 kg (242 lb) 06/17/2023 8:57 AM EST Height 162.6 cm (5' 4 ) 06/17/2023 8:57 AM EST Body Mass Index 41.54 06/17/2023 8:57 AM EST Plan of Treatment Health Maintenance Due Date Last Done Comments [facility]-Depression Screening 1969 [facility]-HIV Screening 1969 [facility]-Hepatitis C Screening 1969 [facility]-/Child/Adol SDOH Screenings 1969 [facility]- SDOH Screenings 1987 [facility]-Adult SDOH Screenings 1987 [facility]-DTaP,Tdap,and Td Vaccines (1 - Tdap) 1988 [facility]-Hepatitis B Vaccines (1 of 3 - 19+ 3-dose series) 1988 CT Colonography 2014 Colonoscopy 2014 FIT-DNA 2014 FIT 2014 FOBT 2014 Sigmoidoscopy 2014 [facility]-Colorectal Cancer Screening 2014 [facility]-Breast Cancer Screening 2019 [facility]-Pneumococcal Vaccine: 50+ Years (1 of 1 - PCV) 2019 03/24/2009 [facility]-Zoster Vaccines (1 of 2) 2019 [id number] Vaccine ( season) 2024 07/06/2021, 08/24/2020, 07/27/2020 [facility]-Influenza Vaccine (#1) 03/01/202503/26, 04/25/2021, 03/18/2020, Additional history exists [facility]-Obesity Intervention Completed 023, 02/25/2023, 08/13/2022, Additional history exists HPV Vaccines Aged Out No longer eligi ble based on patient's age to complete this topic [facility]-HIB Vaccines Aged Out No longer e ligible based on patient's age to complete this topic [facility]-Hepatitis A Vaccines Aged Out No longer eligible based on patient's age to complete this topic [facility]-IPV Vaccines Aged Out No longer e ligible based on patient's age to complete this topic [facility]-Rotavirus Vaccines Aged Out No lo nger eligible based on patient's age to complete this topic Medical Devices Implanted Type Area Docent Coordinator Device Identifier Shelf Expiration Date Model / Serial / Lot Plate Back Plate N/A: Neck Putty Fibergraft Bg Medium 6cc - [id number] Implanted:Qty: 1 on 06/20/2022 by Jason Alfonso MD at [facility] N/A: Spine Lumbar De[employer] [id number] 08/23/2023 [id number] / / [id number] Llif Ui H 8mm 8deg 4518 - [id number] Implanted:Qty: 1 on 06/20/2022 by Jason Alfonso MD at [facility] N/A: Spine Lumbar [employer] [id number] 01/28/2025 [id number] / / Screw 5.5mm Viper Ti Fen Crtcl Polyax 5mm X 50mm - [id number] Implanted:Qty: 2 on 06/20/2022 by Jason Alfonso MD at [facility] N/A: Spine Lumbar [employer] [id number] 06/20/2023 [id number] / / Single Inner Setscrew - [id number] Implanted:Qty: 4 on 06/20/2022 by Jason Alfonso MD at [facility] N/A: Spine Lumbar De[employer] [id number] 06/20/2023 [id number] / / Pre-Lordosed Hi W/ Line 40mm - [id number] Implanted:Qty: 2 on 06/20/2022 by Jason Alfonso MD at [facility] N/A: Spine Lumbar De[employer] [id number] 06/20/2023 [id number] / / Insurance [employer] ANTHEM Care Teams Tour Actor Relationship Specialty Start Date End Date Jared Ventura MD [address] [place] [address] PCP - General 11/11/20 Racquel Lobato PA [address] [place] [address] Physician Wire Strander Neurosurgery 06/13/22 Jason Alfonso MD [address] [place] [address] Surgeon Neurosurgery 08/13/22
--- OUTSIDE RECORDS SUMMARY | 2025-01-07 12:33 | XMS_ITS | Continuity of Care Document ---
Author Organization [facility] SURGERY SCHEDULE Address [address] [place] [address] Care Team Providers Care Head Cd Reactor Operator Name Role Phone MANISH DAMICO Primary Care Provider [phone] Assessment No assessment recorded. Plan of Treatment Reminders Order Date Submit [...] Address Organization Details Recorded Time Ureteric stone 97852538 Active 2014 From Automated Load;Provi imelda: Garcia, Gato;St atus: Active Not Available [facility] 6 02:53:44 Problem Notes None recorded. Procedures Surgical History Date Name Laterality Status Provider Name and Address Organization Details Recorded Time Back Surgery completed [facility] 05/18/2024 09:33:49 Carpal tunnel surgery completed [facility] 05/18/2024 09:34:17 hysterectomy completed [facility] 05/18/2024 09:34:27 Cholecystectomy completed [facility] 05/18/2024 09:34:36 Appendectomy completed [facility] 05/18/2024 09:34:41 laparoscopic sleeve gastrectomy completed [facility] 05/18/2024 09:34:48 Neck Surgery completed [facility] 05/18/2024 09:34:53 Knee arthroscopy/surgery completed [facility] 05/18/2024 09:35:00 Imaging Results None recorded. Procedure Notes None recorded. Medical Equipment None Reported. Allergies Allergen ID Allergen Name Allergen Category Reaction Reaction Severity Criticality Documentation Date Start Date Code Code System Note Provider Name and Address Organization Details Recorded Time 426258 Product containin g penicilli n (product) medicatio n Not available Not available Not available 05/25/20162014 64672 8001 SNOMED Comme nt: Creat ed By: Dayana MarcanoCrea ana lilia Date: 2014 4:15: 54 PM; Not Available [facility] 6 04:32:36 285287 Effexor medicatio n Not available Not available Not available 05/25/20162014 75986 2 RxNorm Comme nt: Creat ed By: Dayana MarcanoCrea ana lilia Date: 2014 4:16: 07 PM; Not Available [facility] 6 08:24:21 Medications Name Sig Start Date [...] Response TENS Unit for current problem Y Massage Therapy for current problem N Traction for current problem Y Gout N Other N Neuro-modulating Drugs for current probl em N Hyperthyroidism N Emphysema N Narcotic Pain Medication for current pro blem Y Black Lung N Steroid Pack for current problem Y COPD N NSAID Use N Hypothyroidism N Injections for current problem Y Osteoporosis/Osteopenia N Heart Attack (AR) N Deep Vein Thrombosis N Mental Illness [...] P 0 0 0 0 Past Encounters None Reported. Health Concerns Section Related Observation LastModified by Organization Detai ls LastModified Time None Recorded Concern Status LastModified by Organization Details LastModified Time None Recorded Payers Encounter Date Sequence Insurance Name Policy Number Policy Danielle Covered Member ID Danielle Member ID Guarantor Name 12/04/2024 1 [employer]ISA[employer] (PPO) [id number] Hannah Jaime [id number] Hannah Jaime 12/04/2024 2 [employer] [facility] (MEDICAID HMO) Hannah Jaime [id number] Hannah Jaime OBGyn Episode No OBEpisode recorded.
== END 2025-01-07 23:59 | disposition home or self-care (01) ==
LOC: RT 12:29
PROVIDERS: PCP Nurse Practitioner Family; Visit Provider Nurse Practitioner Family
DX: I10 Essential (primary) hypertension (principal); R60.0 Localized edema; Z98.890 Other specified postprocedural states
CPT/HCPCS: 93971

== ENCOUNTER 2025-06-17 10:42 | Outpatient (RCR) | payer BC, SELFPAY ==
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
== END 2025-06-17 23:59 | disposition home or self-care (01) ==
LOC: PT 10:42
PROVIDERS: PCP Nurse Practitioner Family; Visit Provider Nurse Practitioner Family
DX: M51.372 Other intervertebral disc degeneration, lumbosacral region with discogenic back pain and lower extremity pain (principal); M62.830 Muscle spasm of back; G89.29 Other chronic pain
CPT/HCPCS: 97163